=== PATIENT | male | born 1965 | race Caucasian/White ===

== ENCOUNTER 2020-01-29 21:41 | Inpatient (IN) | payer BC, SELFPAY ==
[2020-01-29 21:42] VITALS: PULSE 96; RESP 22; TEMP 37.6; O2SAT 92; BMI 55.2
--- NOTE | 2020-01-29 21:56 | EKG12_ITS ---
Test Reason : CP ADMIT Blood Pressure : / mmHG Vent. Rate : 083 BPM Atrial Rate : 083 BPM P-R Int : 174 ms QRS Dur : 098 ms QT Int : 370 ms P-R-T Axes : 071 032 052 degrees QTc Int : 434 ms Normal sinus rhythm Normal ECG When compared with ECG of 29-JAN-2020 22:30, MANUAL COMPARISON REQUIRED, DATA IS UNCONFIRMED Confirmed by JACOB ABERNATHY, SHERON ([id number]), editorial project manager MIGUE WILL ([id number]) on 02/01/2020 11:02:09 AM Referred By: Meño Tian Confirmed By:SHERON JAMES MD
--- NOTE | 2020-01-29 21:56 | EKG12_ITS ---
Test Reason : REPEAT Blood Pressure : / mmHG Vent. Rate : 096 BPM Atrial Rate : 096 BPM P-R Int : 176 ms QRS Dur : 102 ms QT Int : 376 ms P-R-T Axes : 058 029 078 degrees QTc Int : 475 ms Normal sinus rhythm Cannot rule out Inferior infarct , age undetermined Abnormal ECG Poor R wave progression Confirmed by NATHANAEL ABERNATHY, KIM ([id number]), society editor MIGUE WILL ([id number]) on 02/01/2020 11:16:58 AM Referred By: Meño Tian Confirmed By:KIM HUFFMAN MD
[2020-01-29 21:57] VITALS: O2SAT 91
--- NOTE | 2020-01-29 21:57 | ED.VIS.GEN ---
History of Present Illness Chief Complaint: Chest Pain Informant: Patient, Family Narrative: Patient presents the emergency department for the evaluation of chest pain. Patient has a history of diabetes, hypertension, hypercholesterolemia, and morbid obesity (BMI 55). He is a non-smoker. He states that yesterday he had a chest pressure sensation when he was trying to lay down to sleep and it persisted through the night until he got up and went to work. During the day at work today he did not have any symptoms. Tonight when he tried to lay down he developed chest pressure that radiated up to the back of his neck and notes that he feels very hot and sweaty and some mild dyspnea. Patient states he had a stress test many years ago. No nausea vomiting. Past Medical History - Allergies and Home Meds Allergies/Adverse Reactions: Allergies Penicillins [PCN] Allergy (Verified 01/29/20 21:47) Unknown Prior records reviewed: Yes Smoking Status: Never smoker - Family History Maternal Family History: Reports: Heart Disease - His mother had early heart disease, Stroke, - - His mother had leg infection. His mother at the age of 62. Paternal Family History: Reports: Cancer, - - His father had aortic aneurysm Review of Systems General: Denies: Chills, Fever, Sweats Eyes: Denies: Visual changes - bilaterally, Diplopia ENT: Denies: Rhinorrhea, Sore throat Cardiovascular: Reports: Chest pain. Denies: Palpitations Respiratory: Reports: Dyspnea. Denies: Cough, Dyspnea on exertion Gastrointestinal: Denies: Abdominal pain, Nausea, Vomiting, Diarrhea, Melena, Hematochezia Genitourinary: Denies: Dysuria, Hematuria, Frequency Musculoskeletal: Reports: Neck pain. Denies: Back pain, Extremity Pain Skin: Denies: Rash, Wounds Neurological: Denies: Headache, Weakness, Numbness Physical Exam Vital Signs/Narrative: Vital Signs Temp Pulse Resp Pulse Ox 01/29/20 21:42 99.7 F H 96 22 H 92 Inital Vital Signs reviewed: Yes General: Well nourished, Well developed, Obese, No Acute Distress Head: Normocephalic, Atraumatic Eyes: Perrl, EOMI ENT: Moist mucous membranes, No rhinorrhea Neck: Supple, Nontender Cardiovascular: Regular rate, Regular rhythm, No murmurs Respiratory: No distress, CTA bilaterally, Chest nontender Abdomen: Soft, Nontender, Nondistended, Normal bowel sounds Back: Nontender, Normal Inspection Extremities: Nontender, No edema Skin: Normal color, No rash, Diaphoresis Neurological: Alert, Oriented x3, Cranial nerves II-XII grossly intact, Normal Strength, Normal Sensation Psychological: Normal affect, Normal Mood Diagnostic/Tx/Re-eval Clinical Impression(s) from Imaging Studies Chest X-Ray 01/29/20 22:02 IMPRESSION: Nonspecific opacities within the mid and lower lungs, may be secondary to confluence of shadows however cannot exclude underlying edema and/or an infectious process. Electronically Signed: Ruba Banuelos MD at 22:26 EDT Tel , Service support , Laboratory Last Values WBC 6.9 K/mm3 (4.4-11.0) 01/29/20 21:49 RBC 5.24 M/mm3 (4.6-6.2) 01/29/20 21:49 Hgb 16.3 g/dL (13.0-16.5) 01/29/20 21:49 Hct 48.5 % (40-54) 01/29/20 21:49 MCV 92.6 fL (80-94) 01/29/20 21:49 MCH 31.1 pg (27.0-32.0) 01/29/20 21:49 MCHC 33.6 g/dL (32-36) 01/29/20 21:49 RDW Std Deviation 44.1 fl (35.1-43.9) H 01/29/20 21:49 RDW Coeff of Simeon 13.1 % (11.6-14.6) 01/29/20 21:49 Plt Count 162 K/mm3 (150-450) 01/29/20 21:49 MPV 10.9 fl (6.2-12.0) 01/29/20 21:49 Immature Gran % (Auto) 0.600 % (0.0-0.9) 01/29/20 21:49 Neut % (Auto) 55.8 % (47-70) 01/29/20 21:49 Lymph % (Auto) 31.8 % (19-41) 01/29/20 21:49 [place] % (Auto) 7.7 % (0-10) 01/29/20 21:49 Eos % (Auto) 3.5 % (0-5) 01/29/20 21:49 Baso % (Auto) 0.6 % (0-1) 01/29/20 21:49 Absolute Neuts (auto) 3.9 X10^3/uL (2.0-7.7) 01/29/20 21:49 Absolute Lymphs (auto) 2.19 X10^3/uL (0.83-4.51) 01/29/20 21:49 Nucleated RBC % 0 % (0-5) 01/29/20 21:49 PT 12.9 SECONDS (11.7-14.9) 01/29/20 21:49 INR 1.0 01/29/20 21:49 Sodium 135 mmol/L (136-145) L 01/29/20 21:49 Potassium 3.8 mmol/L (3.5-5.1) 01/29/20 21:49 Chloride 102 mmol/L (98-107) 01/29/20 21:49 Carbon Dioxide 26.0 mmol/L (21.0-32.0) 01/29/20 21:49 Anion Gap 7 (5-15) 01/29/20 21:49 BUN 20 mg/dL (7-18) H 01/29/20 21:49 Creatinine 0.99 mg/dL (0.70-1.30) 01/29/20 21:49 Estim Creat Clear Calc 88.08 ml/min 01/29/20 21:49 Est GFR (MDRD) Af Amer 101 mL/min (>60) 01/29/20 21:49 Est GFR (MDRD) Non-Af 83 mL/min (>60) 01/29/20 21:49 BUN/Creatinine Ratio 20.2 RATIO (10-20) H 01/29/20 21:49 Glucose 422 mg/dL (74-106) H 01/29/20 21:49 Calcium 8.7 mg/dL (8.5-10.1) 01/29/20 21:49 Magnesium 1.9 mg/dL (1.6-2.6) 01/29/20 21:49 Troponin I 0.366 ng/mL (<0.045) H 01/29/20 21:49 - Rhythm Strip Rhythm Strip: Sinus Tach Rate: 101 Ectopy: None - EKG Initial EKG Interpretation: Sinus Tachycardia - Initial EKG (2143 hrs) demonstrates a sinus tachycardia at a rate of 103. There is noted inferior lateral ST depression. This is new from EKG dated 22 February 2015. Follow-up EKG Interpretation: Sinus Rhythm - Repeat EKG following nitro series shows significant improvement in his ST depression in lead III. Now shows normal sinus rhythm at a rate of 96. - Medical Decision Making Symptoms were significantly improved with nitroglycerin sublingual. Repeat EKG is improved as well. The patient's troponin is elevated 0.33. Case was discussed with Dr. Cuevas. He has already received 325 mg of aspirin and we will give him an additional dose of Lovenox and place him on a nitroglycerin drip at 10 mcg/min. Plan would be to anticipate a heart catheterization tomorrow. - Critical Care Time Critical care time (excluding procedures): 30-74 minutes - 32 minutets, Discussing w/Patient &/or Family/Hemotherapist, Discussing w/Consultants, Arranging Admission or Transfer, Performing Direct Patient Care at Bedside ED Disposition - Plan for ED Patient: Disposition: Acute Care Hospital [facility] Diagnosis: Acute coronary syndrome
[2020-01-29] MEDS: Aspirin 81 MG TAB.CHEW 324 MG PO (22:01)
--- NOTE | 2020-01-29 22:02 | RAD_ITS ---
STUDY: X-RAY CHEST REASON FOR EXAM: Male, 54 years old. Chest pain started last night. TECHNIQUE: Single frontal view of the chest. COMPARISON: CT of the abdomen and pelvis dated 02/16/2015 FINDINGS: There are nonspecific hazy opacities within the mid and lower lungs. Normal size heart. Normal mediastinum and kim. Normal visualized pulmonary arteries. Normal visualized aortic arch and descending thoracic aorta. Normal visualized thoracic spine. Normal visualized ribs, clavicles, and shoulders. There is no demonstrated abnormality of the visualized soft tissue structures of the upper abdomen. RAD/Chest 1 View (Portable) IMPRESSION: Nonspecific opacities within the mid and lower lungs, may be secondary to confluence of shadows however cannot exclude underlying edema and/or an infectious process. Electronically Signed: Ruba Banuelos MD at 22:26 EDT Tel , Service support ,
[2020-01-29 22:05] VITALS: BP 164/83; PULSE 97
[2020-01-29] MEDS: Nitroglycerin SL (ED/IMG/CATH) 0.4 MG TABLET SUBLINGUAL ×3 (22:05→22:34)
[2020-01-29 22:06] LABS: Absolute Lymphocyte Count 2.19 X10^3/uL (0.83-4.51); Absolute Neutrophil Count 3.9 X10^3/uL (2.0-7.7); Basophil# 0.04 X10^3/uL; Basophil% 0.6 % (0-1); Eosinophil# 0.24 X10^3/uL; Eosinophils% 3.5 % (0-5); Hematocrit 48.5 % (40-54); Hemoglobin 16.3 g/dL (13.0-16.5); Lymphocyte # 2.19 X10^3/ul (4.0); Lymphocyte % 31.8 % (19-41); Mean Corp Hgb Conc 33.6 g/dL (32-36); Mean Corpuscular Hgb 31.1 pg (27.0-32.0); Mean Corpuscular Volume 92.6 fL (80-94); Mean Platelet Vol. 10.9 fl (6.2-12.0); Monocyte# 0.53 X10^3/uL; Monocyte% 7.7 % (0-10); NRBC Flagged by Analyzer 0 % (0-5); Neutrophil # 3.85 X10^3/uL (2.7-7.7); Neutrophil % 55.8 % (47-70); Platelet Count 162 K/mm3 (150-450); RBC Distribution Width CV 13.1 % (11.6-14.6); RBC Distribution Width SD 44.1 fl (35.1-43.9); Red Blood Count 5.24 M/mm3 (4.6-6.2); White Blood Count 6.9 K/mm3 (4.4-11.0)
[2020-01-29 22:15] VITALS: BP 164/83; PULSE 94
[2020-01-29 22:23] LABS: Anion Gap 7 (5-15); BUN 20 mg/dL (7-18); BUN/Creat Ratio 20.2 RATIO (10-20); Calcium,Total 8.7 mg/dL (8.5-10.1); Chloride 102 mmol/L (98-107); Creatinine, Serum 0.99 mg/dL (0.70-1.30); EST Glomerular Filtration Rate 83 mL/min (>60); Est Glom Filt Rate - Afr Amer 101 mL/min (>60); Estimated Creatinine Clearance 88.08 ml/min; Glucose 422 mg/dL (74-106); Magnesium 1.9 mg/dL (1.6-2.6); Potassium 3.8 mmol/L (3.5-5.1); Sodium Level 135 mmol/L (136-145)
[2020-01-29 22:24] LABS: Prothrombin Time (Protime)PT. 12.9 SECONDS (11.7-14.9)
--- NOTE | 2020-01-29 22:36 | HP.PCM_ITS ---
History of Present Illness The patient is a 54 year old M [] Past Medical History Allergies Penicillins [PCN] Allergy (Verified 01/29/20 21:47) Unknown Home Medications: Ambulatory Orders Medication Instructions Recorded metFORMIN HCl [Glucophage] 1,000 mg PO BID 12/17/14 Empagliflozin [Jardiance] 25 mg PO DAILY 01/29/20 Lisinopril 40 mg PO DAILY 01/29/20 Rosuvastatin Calcium 20 mg PO DAILY 01/29/20 Smoking Status: Never smoker Patient Problems: Active and Suspected Problems Acute coronary syndrome (Acute) - Physical Exam Vitals/I&O's: Vital Signs Temp Pulse Resp BP Pulse Ox 99.7 F H 94 22 H 164/83 H 91 01/29/20 21:42 01/29/20 22:15 01/29/20 21:42 01/29/20 22:15 01/29/20 21:57 Oxygen Delivery Method Room Air Weight: 174.6 kg Body Mass Index (BMI) 55.2 Finger Stick Blood Glucose 131 Laboratory Results 01/29/20 21:49: WBC 6.9, RBC 5.24, Hgb 16.3, Hct 48.5, MCV 92.6, MCH 31.1, MCHC 33.6, RDW Std Deviation 44.1 H, RDW Coeff of Simeon 13.1, Plt Count 162, MPV 10.9, Immature Gran % (Auto) 0.600, Neut % (Auto) 55.8, Lymph % (Auto) 31.8, [place] % (Auto) 7.7, Eos % (Auto) 3.5, Baso % (Auto) 0.6, Absolute Neuts (auto) 3.9, Absolute Lymphs (auto) 2.19, Nucleated RBC % 0 01/29/20 21:49: PT 12.9, INR 1.0, APTT Pending 01/29/20 21:49: Sodium 135 L, Potassium 3.8, Chloride 102, Carbon Dioxide 26.0, Anion Gap 7, BUN 20 H, Creatinine 0.99, Estim Creat Clear Calc 88.08, Est GFR (MDRD) Af Amer 101, Est GFR (MDRD) Non-Af 83, BUN/Creatinine Ratio 20.2 H, Glucose 422 H, Calcium 8.7, Magnesium 1.9, Troponin I 0.366 H Assessment/Plan All Active Problems Acute coronary syndrome (Acute)
[2020-01-29 23:27] LABS: Partial Thromboplast Time 28.4 Seconds (24.1-36.2)
[2020-01-29 23:28] VITALS: BP 125/58; PULSE 82; RESP 20; O2SAT 94
--- NOTE | 2020-01-29 23:30 | HP.PCM_ITS ---
Problem List (1) Non-ST elevation KS (NSTEMI) Status: Acute History of Present Illness Date of Admission: 01/29/20 Chief Complaint: Chest pain The patient is a 54 year old M with a significant history of hypertension; diabetes mellitus; hyperlipidemia; obesity who presents to the emergency department with excruciating substernal chest pain that started one day before presentation. His symptoms has always occurs at night. The night before presentation when patient laid down his symptoms started. The following morning his pain went away. He went to work. When he returned from work ate and lay down his pain returned. He describes his chest pain as pressure. Also he has radiating pain to his neck which he described as aching. His pain also radiates to in-between his shoulder blade and into his left jaw. He had a bee sting to his face which he thinks is causing the pain at his left jaw. His pain is aggravated and ameliorated with positioning. He received nitroglycerin help at emergency department that helped somewhat with his pain. Associated with symptoms is nausea, diaphoresis and mild shortness of breath. Further he has flushed face and neck. At emergency department EKG showed new ST depression in leads I, aVL, V4 to V6; II and III. Troponin was elevated. Emergency department doctor discussed the case with eco industrial development consultant. Past Medical History Past Medical History (Chronic Problems): Chronic Problems (Last Updated 01/29/20 @ 23:[address] Meño Tian MD) Hypertension (Chronic) Medical History: Medical History (Last Updated 01/29/20 @ 23:[address] Meño Tian MD) Hypertension (Chronic) I10 Diabetes mellitus E11.9 Allergies Penicillins [PCN] Allergy (Verified 01/29/20 21:47) Unknown Home Medications: Ambulatory Orders Medication Instructions Recorded metFORMIN HCl [Glucophage] 1,000 mg PO BID 12/17/14 Empagliflozin [Jardiance] 25 mg PO DAILY 01/29/20 Lisinopril 40 mg PO DAILY 01/29/20 Rosuvastatin Calcium 20 mg PO DAILY 01/29/20 Surgical History: cholecystectomy Lives: Spouse/ Significant Other Smoking Status: Never smoker - History of secondhand smoking from parents who smoked. - *Family History Maternal History Items: Heart Disease - His mother had early heart disease, Stroke, - - His mother had leg infection. His mother at the age of 62. Paternal History Items: Cancer, - - His father had aortic aneurysm Review of Systems Constitutional: Denies: Chills, Fever, Weight Change HEENT: Denies: Head Aches, Sinus Congestion, Sinus Drainage Cardiovascular: Reports: Chest Pain, Chest Pressure. Denies: Palpitations Respiratory: Reports: Shortness of Breath. Denies: Cough, Sputum production Gastrointestinal: Reports: Nausea. Denies: Abdominal Pain, Vomiting Genitourinary: Denies: Dysuria Musculoskeletal: Denies: Joint Pain, Joint Tenderness Skin: Denies: Rash, Wounds Neurological: Denies: Numbness, Tingling, Focal weakness Psychiatric: Denies: Anxiety, Depression, Homicidal Ideations, Suicidal Ideations Hematologic/ Lymphatic: Denies: Easy Bruising, Easy Bleeding VTE Information - Inpt Only VTE Present on Admission: No VTE Mechan Device Prophylaxis: None VTE Pharm Prophylaxis ordered?: No Reason prophylaxis not ordered:: Treatment Not Indicated - Received therapeutic dose of Lovenox at emergency department. Patient Problems: Active and Suspected Problems (Last Updated 01/29/20 @ 23:[address] Meño Tian MD) Acute coronary syndrome (Acute) Non-ST elevation KS (NSTEMI) (Acute) - Physical Exam Vitals/I&O's: Vital Signs Temp Pulse Resp BP Pulse Ox 99.7 F H 94 22 H 164/83 H 91 01/29/20 21:42 01/29/20 22:15 01/29/20 21:42 01/29/20 22:15 01/29/20 21:57 Oxygen Delivery Method Room Air Weight: 174.6 kg Body Mass Index (BMI) 55.2 Finger Stick Blood Glucose 131 General: Alert, Oriented x3, Cooperative HEENT: Atraumatic, PERRLA, EOMI, Normocephalic Neck: Supple, No JVD, Negative Carotid Bruits Lungs: Clear to auscultation, Normal air movement, No rhonchi, No wheeze, No rales Cardiovascular: Regular rate, Regular Rhythm, Normal S1, Normal S2, No murmurs Abdomen: Bowel Sounds Present, Soft, Non Tender Extremities: No edema, Capillary Refill Less than 3 Seconds Skin: No rashes, No breakdown Musculoskeletal: No Tenderness to Palpation of Joints or Extremities Neurological: Cranial nerves II-XII grossly intact Psych/Mental Status: Normal Affect, Appropriate Laboratory Results 01/29/20 21:49: WBC 6.9, RBC 5.24, Hgb 16.3, Hct 48.5, MCV 92.6, MCH 31.1, MCHC 33.6, RDW Std Deviation 44.1 H, RDW Coeff of Simeon 13.1, Plt Count 162, MPV 10.9, Immature Gran % (Auto) 0.600, Neut % (Auto) 55.8, Lymph % (Auto) 31.8, [place] % (Auto) 7.7, Eos % (Auto) 3.5, Baso % (Auto) 0.6, Absolute Neuts (auto) 3.9, Absolute Lymphs (auto) 2.19, Nucleated RBC % 0 01/29/20 21:49: PT 12.9, INR 1.0, APTT 28.4 01/29/20 21:49: Sodium 135 L, Potassium 3.8, Chloride 102, Carbon Dioxide 26.0, Anion Gap 7, BUN 20 H, Creatinine 0.99, Estim Creat Clear Calc 88.08, Est GFR (MDRD) Af Amer 101, Est GFR (MDRD) Non-Af 83, BUN/Creatinine Ratio 20.2 H, Glucose 422 H, Calcium 8.7, Magnesium 1.9, Troponin I 0.366 H Assessment/Plan All Active Problems (Last Updated 01/29/20 @ 23:[address] Meño Tian MD) Acute coronary syndrome (Acute) Non-ST elevation KS (NSTEMI) (Acute) The patient is a 54 year old M with a significant history of hypertension; diabetes mellitus; hyperlipidemia; obesity who presents to the emergency department with excruciating substernal chest pain and found to have ST depression in inferior lateral leads and high troponin. Non-ST elevation KS Placed on a stepdown status at progressive care unit Actual CXR image was independently visualized. Chest x-ray showed diffuse opacities. Will get a BNP. Actual EKG tracing was independently visualized. EKG tracing showed ST depression in leads I, aVL, V4 to V6, II and III. Previous EKG on February 22, 2015 showed sinus rhythm with no ST or T wave abnormalities. Received aspirin 324 mg at emergency department. Also received 3 doses of sublingual nitroglycerin. Per conversation with emergency department doctor and eco industrial development consultant patient will be started on nitroglycerin; continued. ASA 81 mg p.o. daily ordered Morphine as needed for pain ordered Statin: Home high intensity statin continued. Check lipid panel. Anticoagulation: Therapeutic dose of Lovenox x1 given at emergency department. Serial cardiac enzymes ordered Stat EKG as needed for chest pain Discussed case with eco industrial development consultant. Patient to be kept n.p.o. after midnight. Diabetes mellitus Patient with hyperglycemia on presentation Patient has been kept n.p.o. after midnight for possible cardiac intervention. Home Jardiance continued. Accu-Chek every 4 hours with correction scale insulin ordered. Hold metformin. Hypertension On presentation blood pressure was elevated. Patient received nitroglycerin sublingual and started on nitroglycerin drip. Lisinopril continued Trend blood pressure and adjust blood pressure medications. Morbid obesity BMI 55.2 Complicates care. Recommend lifestyle modification. DVT prophylaxis Received therapeutic Lovenox at the emergency department. Inpatient E&M: [id number] Init Hosp L3
[2020-01-29 23:55] VITALS: BP 159/62; PULSE 85; RESP 16; TEMP 37.3; O2SAT 94
[2020-01-30] VITALS (39 sets, daily range): BP systolic 110–149; BP diastolic 62–102; PULSE 69–94; RESP 11–22; TEMP 36.3–37; O2SAT 92–98; BMI 54.8; BMI 54.9
--- NOTE | 2020-01-30 00:07 | EKG12_ITS ---
Test Reason : CP Blood Pressure : / mmHG Vent. Rate : 103 BPM Atrial Rate : 103 BPM P-R Int : 178 ms QRS Dur : 110 ms QT Int : 342 ms P-R-T Axes : 064 041 162 degrees QTc Int : 448 ms Sinus tachycardia Marked ST abnormality, possible inferolateral subendocardial injury Poor R wave progression Abnormal ECG Confirmed by NATHANAEL ABERNATHY, KIM ([id number]), copy editor MIGUE WILL ([id number]) on 02/01/2020 11:17:20 AM Referred By: Meño Tian Confirmed By:KIM HUFFMAN MD
[2020-01-30 00:08] LABS: Cholesterol 103 mg/dL (200); High Density Lipoprotein 37 mg/dL; Triglycerides 231 mg/dL; Very Low Density Lipoprotein 46 mg/dL (5-40)
[2020-01-30 00:10] LABS: BNP,B-Type NATRIURETIC PEPTIDE 43.4 pg/mL (0-100)
[2020-01-30] MEDS: Nitroglycerin Infusion 250 ML 6 MG CONT INF ×2 (00:15→00:30)
[2020-01-30 02:16] LABS: Bedside Glucose 281 mg/dL (70-110)
[2020-01-30] MEDS: Lisinopril 40 MG Tablet PO (06:24)
[2020-01-30] MEDS: Aspirin E.C. 81 MG Tablet PO (06:26)
[2020-01-30 06:41] LABS: Bedside Glucose 218 mg/dL (70-110)
--- NOTE | 2020-01-30 07:18 | CON.PCM_ITS ---
Reason for Consult Date of Consultation: 01/30/20 Reason for Consultation: Chest pain History of Present Illness: The patient is a 54 year old M with a history of hypertension and diabetes mellitus obesity and hyperlipidemia who presented to the emergency room yesterday after experiencing chest discomfort described as a heaviness in his chest and radiating to his back and his neck. He was also mildly diaphoretic. He had not had any of this discomfort previously. He presented to the emergency room and was noted to have some EKG changes with ST depression in the inferolateral leads. Cardiology was called for further evaluation and management. His blood pressure was also noted to be markedly elevated and he was started on intravenous nitroglycerin as well as Lovenox. He has done well since then not experiencing any further chest discomfort. [] Past Medical History Allergies/Adverse Reactions: Allergies Penicillins [PCN] Allergy (Verified 01/29/20 21:47) Unknown Home Medications: Ambulatory Orders Medication Instructions Recorded metFORMIN HCl [Glucophage] 1,000 mg PO BID 12/17/14 Empagliflozin [Jardiance] 25 mg PO DAILY 01/29/20 Lisinopril 40 mg PO DAILY 01/29/20 Rosuvastatin Calcium 20 mg PO DAILY 01/29/20 Past Medical History (Chronic Problems): Chronic Problems (Last Updated 01/29/20 @ 23:[address] Meño Tian MD) Hypertension (Chronic) Surgical History: cholecystectomy - *Family History Maternal History Items: Heart Disease - His mother had early heart disease, Stroke, - - His mother had leg infection. His mother at the age of 62. Paternal History Items: Cancer, - - His father had aortic aneurysm Lives: Spouse/ Significant Other Smoking Status: Never smoker Alcohol: None Drugs: None Review of Systems - Review of Systems General: Denies: Fever, Night Sweats, Fatigue HEENT: Denies: Vision Change Cardiovascular: Reports: Chest Discomfort, Chest Discomfort at Rest. Denies: Shortness of Breath, Orthopnea, PND, Peripheral Edema, Palpitations, Lightheadedness, Dizziness, Near Syncope, Syncope Respiratory: Denies: Cough, Sputum Production, Hemoptysis Gastrointestinal: Denies: Hematemesis, Hematochezia, Melena Genitourinary: Denies: Dysuria, Hematuria Skin: Denies: Rash Neurological: Denies: Dizziness Psychiatric: Denies: Anxiety Endocrine: Reports: Excessive Sweating Hematologic/ Lymphatic: Denies: Anemia Subjectve: Pleasant gentleman in no distress at this time Objective: Vital Signs Temp Pulse Resp BP Pulse Ox 98.1 F 85 15 131/62 H 93 01/30/20 06:30 01/30/20 07:00 01/30/20 07:00 01/30/20 07:00 01/30/20 07:00 Oxygen Flow Rate (L/min) 2 Oxygen Delivery Method Nasal Cannula Weight: 382 lb 8.032 oz Body Mass Index (BMI) 54.8 Finger Stick Blood Glucose 131 Intake and Output for Last 24 Hours 01/28/20 01/29/20 01/30/20 23:59 23:59 23:59 Intake Total 54.1 / 54.1 Balance 54.1 / 54.1 General: Awake, Alert, Oriented x 3 HEENT: PERRL, EOMI, Sclera Non Icteric Neck: Supple, Good ROM, No Lymph Node Enlargement Lungs: Clear to auscultation Cardiovascular: Regular Rhythm, Normal S1, Normal S2, No Murmurs, No Rubs, No Gallops Vascular: No Carotid Bruits, Normal Femoral Pulses, Normal Radial Pulses, Normal Dorsalis Pedal Pulse, Normal Posterior Tibial Pulses Abdomen: Bowel Sounds Present, Soft, Non Tender, No HSM, No Organomegaly Extremities: No Cyanosis, No Clubbing, No edema Musculoskeletal: No Erythema Skin: No Rashes Lymphatic: No Lymph Node Enlargement Neurological: No Focal Motor or Sensory Deficit 01/29/20 21:49: WBC 6.9, RBC 5.24, Hgb 16.3, Hct 48.5, MCV 92.6, MCH 31.1, MCHC 33.6, Plt Count 162, MPV 10.9, Immature Gran % (Auto) 0.600, Neut % (Auto) 55.8, Lymph % (Auto) 31.8, [place] % (Auto) 7.7, Eos % (Auto) 3.5, Baso % (Auto) 0.6, Absolute Neuts (auto) 3.9, Nucleated RBC % 0 01/29/20 21:49: PT 12.9, INR 1.0, APTT 28.4 01/29/20 21:49: Sodium 135 L, Potassium 3.8, Chloride 102, Carbon Dioxide 26.0, Anion Gap 7, BUN 20 H, Creatinine 0.99, Est GFR (MDRD) Af Amer 101, Est GFR (MDRD) Non-Af 83, BUN/Creatinine Ratio 20.2 H, Glucose 422 H, Calcium 8.7, Magnesium 1.9, Troponin I 0.366 H 01/29/20 21:49: B-Natriuretic Peptide 43.4 01/29/20 21:49: Triglycerides 231 H, Cholesterol 103, LDL Cholesterol 20, VLDL Cholesterol 46 H, HDL Cholesterol 37 L 01/30/20 00:34: Troponin I 1.440 H* 01/30/20 03:54: Troponin I 3.390 H* Rhythm: EKG: Normal sinus rhythm with ST depression noted in leads II, III and aVF on admission EKG ECHO: Stress Test: Cardiac Cath: PCI: CT Surgery: Holter monitor: EPS: PPM: CXR: Chest CT Scan: Assessment/Plan 1. Non-ST elevation myocardial infarction * Patient presents with non-ST elevation myocardial infarction with EKG changes with hypertensive urgency. He is currently pain-free his blood pressure has normalized but he has ruled in for the above. My recommendation will be as follows * Aspirin * Beta-lamar * High intensity statin * Urgent cardiac catheterization this morning. Depending on the findings further recommendations will be made. * 2. Hypertension * His blood pressure appears to be under better control at this time. * Will continue with the SCOTT inhibitor * Will add beta-lamar * 3. Hyperlipidemia * Will continue high intensity statin * 4. Obesity * Advised patient on risk factor modification. * * Thank you for allowing me to participate in the care of your patient. Please don't hesitate to call if any issues arise. * Addendum: Cardiac catheterization today demonstrated the following: Normal left main coronary artery. Left anterior descending artery with mild calcification and proximal 95% stenosis noted. Left circumflex artery with mild to moderate disease. Right coronary artery dominant with mild diffuse disease. Preserved ejection fraction. Based on the above angiographic findings the patient will be referred for urgent PCI.
--- NOTE | 2020-01-30 07:48 | CASEMGMT ---
According to the [place] website, the following are in-network tertiary facilities: [facility], [place], [facility], [facility], [facility], [facility], [employer], and . Jose RAMIREZ CM
--- NOTE | 2020-01-30 08:41 | CL.D_ITS ---
Patient Name: DORIAN DENIS Study Date: 01/30/2020 Performing: Nathan Cuevas MD Ht: 70.07 inches 178 cm : 1965 Wt: 383.6 lbs 174 kg Age: 54 Gender: male BSA: 2.76 PROCEDURE(S) PERFORMED AC12-TRA/COR/LV CLINICAL PROFILE AND INDICATIONS Indications: Suspected CAD Heart Failure: None CONCLUSIONS Severe single-vessel disease with high-grade proximal LAD 95% stenosis. Mild disease noted in the mi d LAD RECOMMENDATIONS Referred for immediate PCI DESCRIPTION OF PROCEDURE The patient arrived to the procedure lab. The risks and benefits of the procedure as well as a full d escription of our services here and current unavailability of surgical backup were fully explained to the patient and/or their significant other prior to the catheterization. The Timeout was completed, verifying the correct patient and procedure. The patient's procedural site was prepped and draped in the usual fashion. Local anesthetic was given subcutaneously to right radial region with Lidocaine 2% . Using a modified Seldinger technique, arterial access was obtained via the right radial artery, a 6 Fr sheath was inserted. Left Coronary Artery selective angiography was performed in multiple views u sing a 5 Fr. 4.0 He[place]ord catheter. Right Coronary Artery selective angiography was then performed in mu ltiple views using a 5 Fr. 4.0 [place] catheter. Left Ventriculography was performed in WATSON projection using a 5 Fr. Pigtail catheter. LV to AO pullback pressures were then recorded. CORONARY ANGIOGRAPHY DOMINANCE: Right Dominant LEFT HEART ASSESSMENT Left Ventricular Ejection Fraction: by LV Gram 55 % Anterior Hypokinesis - Mild Normal Left Ventricular systolic function LEFT MAIN: Mild calcification LEFT ANTERIOR DESCENDING ARTERY: OSTIAL LAD: 95 % Stenosis DIAGONAL 1: Proximal - Moderate luminal irregularities up to 50% CIRCUMFLEX ARTERY: Mild calcification, Mild luminal irregularities less than 30% RIGHT CORONARY ARTERY: Mild luminal irregularities less than 30% COMPLICATIONS PROCEDURE MEDICATIONS Fentanyl 50 mcg IV Versed 1 mg IV Versed 1 mg IV Oxygen: 2 L/min via nasal cannula Heparin diluted in 23cc Heparinized saline. Patient given 10cc IA of this solution. 01/30/2020 08:10:0 2 Nitro glycerin 25mg / 250ml D5W @ 10 mcg/min IV continued from unit 01/30/2020 08:09:20 Verapamil 2.5mg, Ntg 100mcgs, 2000 units of Heparin diluted in 23cc Heparinized saline. Patient give n 10cc IA of this solution. 01/30/2020 08:10:02 SUMMARY OF HEMODYNAMIC DATA Time AIR REST ECG 08:05:31 AO 128/79 (98) SA 08:11:40 LV 146/2, 8 08:21:29 LV 136/3, 9 08:21:35 LV 152/13, 19 08:22:21 LVp 146/10, 16 08:22:26 AOp 156/75 (109) 08:22:31 Signed By Nathan Cuevas MD On 01/30/2020 08:40:09 Nathan Cuevas MD
--- NOTE | 2020-01-30 10:15 | EKG12_ITS ---
Test Reason : POST-PCI Blood Pressure : / mmHG Vent. Rate : 085 BPM Atrial Rate : 085 BPM P-R Int : 170 ms QRS Dur : 094 ms QT Int : 382 ms P-R-T Axes : 072 020 078 degrees QTc Int : 454 ms Normal sinus rhythm Poor R wave progression Confirmed by NATHANAEL ABERNATHY, KIM ([id number]), film and video editor MIGUE WILL ([id number]) on 02/01/2020 11:49:47 AM Referred By: Meño Tian Confirmed By:KIM HUFFMAN MD
--- NOTE | 2020-01-30 10:28 | PCM.PROGNOTE ---
<Kelley Rios - Last Filed: 01/30/20 10:54> Patient Problems: Active and Suspected Problems (Last Updated 01/29/20 @ 23:[address] Meño Tian MD) Acute coronary syndrome (Acute) Non-ST elevation KS (NSTEMI) (Acute) Subjective: Patient seen and examined. Underwent cardiac cath this morning which showed severe single-vessel disease with high-grade proximal LAD 95% stenosis. Underwent immediate PCI. Patient denies chest pain or other associated symptoms. - Physical Exam Vitals/I&O's: Vital Signs Temp Pulse Resp BP Pulse Ox 98.1 F 86 18 125/71 H 92 01/30/20 06:30 01/30/20 10:24 01/30/20 10:24 01/30/20 10:24 01/30/20 10:24 Oxygen Flow Rate (L/min) 2 Oxygen Delivery Method Room Air Weight: 382 lb 8.032 oz Body Mass Index (BMI) 54.8 Finger Stick Blood Glucose 131 Intake and Output for Last 24 Hours 01/28/20 01/29/20 01/30/20 23:59 23:59 23:59 Intake Total 72.1 / 72.1 Balance 72.1 / 72.1 General: Alert, Oriented x3, Cooperative HEENT: Atraumatic, PERRLA, EOMI, Normocephalic Neck: Supple, No JVD, Negative Carotid Bruits Lungs: Clear to auscultation, Normal air movement Cardiovascular: Regular rate, No murmurs Abdomen: Bowel Sounds Present, Soft, Non Tender, Non-Distended, Obese Extremities: No clubbing, No cyanosis, No edema, Capillary Refill Less than 3 Seconds Skin: No rashes, No breakdown Musculoskeletal: No Tenderness to Palpation of Joints or Extremities Neurological: Cranial nerves II-XII grossly intact, Neuro grossly intact Psych/Mental Status: Normal Affect, Appropriate Laboratory Results 01/29/20 21:49: WBC 6.9, RBC 5.24, Hgb 16.3, Hct 48.5, MCV 92.6, MCH 31.1, MCHC 33.6, RDW Std Deviation 44.1 H, RDW Coeff of Smieon 13.1, Plt Count 162, MPV 10.9, Immature Gran % (Auto) 0.600, Neut % (Auto) 55.8, Lymph % (Auto) 31.8, [place] % (Auto) 7.7, Eos % (Auto) 3.5, Baso % (Auto) 0.6, Absolute Neuts (auto) 3.9, Absolute Lymphs (auto) 2.19, Nucleated RBC % 0 01/29/20 21:49: PT 12.9, INR 1.0, APTT 28.4 01/29/20 21:49: Sodium 135 L, Potassium 3.8, Chloride 102, Carbon Dioxide 26.0, Anion Gap 7, BUN 20 H, Creatinine 0.99, Estim Creat Clear Calc 88.08, Est GFR (MDRD) Af Amer 101, Est GFR (MDRD) Non-Af 83, BUN/Creatinine Ratio 20.2 H, Glucose 422 H, Calcium 8.7, Magnesium 1.9, Troponin I 0.366 H 01/29/20 21:49: B-Natriuretic Peptide 43.4 01/29/20 21:49: Triglycerides 231 H, Cholesterol 103, LDL Cholesterol 20, VLDL Cholesterol 46 H, HDL Cholesterol 37 L 01/30/20 00:34: Troponin I 1.440 H* 01/30/20 02:09: POC Glucose 281 H 01/30/20 03:54: Troponin I 3.390 H* 01/30/20 06:24: POC Glucose 218 H Current Medications Acetaminophen (Tylenol) 650 mg PO Q6H PRN PRN PRN Reason: Pain Score 1-10/Temp > 100.7 F Aspirin (Ecotrin) 81 mg PO DAILY@0800 [facility] Last Admin: 01/30/20 06:26 Dose: 81 mg Documented by: Atorvastatin Calcium (Lipitor) 40 mg PO QHS [facility] Atropine Sulfate () 0.5 mg IV UD PRN PRN Reason: HR <50 bpm Dextrose (D50w Syringe) 0 gm IV X1 PRN; Protocol PRN Reason: Hypoglycemia Empagliflozin (Jardiance) 25 mg PO DAILY [facility] Glucagon () 1 mg IM .X1 PRN PRN Reason: Hypoglycemia Heparin Sodium (Beef Lung) (Heparin 500 Unit/5 Ml (100/Ml)) 500 unit IV UD PRN PRN Reason: HEPARIN FLUSH Nitroglycerin/Dextrose () 250 mls @ 6 mls/hr CONT INF .[id number] [facility] Last Infusion: 01/30/20 10:00 Dose: 15 mcg/min, 9 mls/hr Documented by: Sodium Chloride () 1,000 mls @ 15 mls/hr IV .Q48H [facility] Sodium Chloride () 1,000 mls @ 60 mls/hr IV .[id number] [facility] Insulin Human Lispro (Humalog Kwikpen (Bkc)) 0 unit SC ACHS RICARDO; Protocol Labetalol HCl (Trandate) 5 mg IV X1 PRN PRN Reason: SBP > 160 when pulling sheath Stop: 02/01/20 10:02 Lisinopril (Zestril) 40 mg PO DAILY [facility] Last Admin: 01/30/20 06:24 Dose: 40 mg Documented by: Metoprolol Tartrate (Lopressor (Beta Toro)) 25 mg PO BID [facility] Morphine Sulfate () 2 mg IV Q3H PRN PRN PRN Reason: Pain Score 6-10/10 Ondansetron HCl (Zofran) 4 mg IV Q8H PRN PRN PRN Reason: NAUSEA/VOMITING Sodium Chloride () 10 - 40 ml IV UD PRN PRN Reason: SALINE FLUSH Sodium Chloride () 500 ml IV BOLUS PRN PRN Reason: VASO-VAGAL PROTOCOL Ticagrelor (Brilinta) 90 mg PO BID [facility] Medical Necessity - Tobacco Use Smoking Status: Never smoker Assessment/Plan All Active Problems (Last Updated 01/29/20 @ 23:[address] Meño Tian MD) Acute coronary syndrome (Acute) Non-ST elevation KS (NSTEMI) (Acute) 1. NSTEMI/CAD- Cath demonstrated severe single-vessel disease with high-grade proximal LAD 95% stenosis s/p PCI. Continue aspirin, Brilinta, statin, metoprolol, lisinopril. 2. Hypertension-stable, continue lisinopril, metoprolol. 3. Hyperlipidemia-continue statin. 4. Obesity-encouraged to diet and lifestyle modifications. 5. Type 2 diabetes mellitus-metformin/Jardiance on hold. Accu-Cheks with sliding scale insulin. Hemoglobin A1c pending. DVT prophylaxis-Lovenox subcu This patient was seen by KAYLENE Shankar under the supervision of Dr. Montoya. <Safia Montoya E - Last Filed: 01/30/20 11:04> - Physical Exam Vitals/I&O's: Vital Signs Temp Pulse Resp BP Pulse Ox 98.1 F 90 17 134/79 H 93 01/30/20 06:30 01/30/20 10:45 01/30/20 10:45 01/30/20 10:45 01/30/20 10:45 Oxygen Flow Rate (L/min) 2 Oxygen Delivery Method Room Air Weight: 382 lb 8.032 oz Body Mass Index (BMI) 54.8 Finger Stick Blood Glucose 131 Intake and Output for Last 24 Hours 01/28/20 01/29/20 01/30/20 23:59 23:59 23:59 Intake Total 72.1 / 72.1 Balance 72.1 / 72.1 Laboratory Results 01/29/20 21:49: WBC 6.9, RBC 5.24, Hgb 16.3, Hct 48.5, MCV 92.6, MCH 31.1, MCHC 33.6, RDW Std Deviation 44.1 H, RDW Coeff of Simeon 13.1, Plt Count 162, MPV 10.9, Immature Gran % (Auto) 0.600, Neut % (Auto) 55.8, Lymph % (Auto) 31.8, [place] % (Auto) 7.7, Eos % (Auto) 3.5, Baso % (Auto) 0.6, Absolute Neuts (auto) 3.9, Absolute Lymphs (auto) 2.19, Nucleated RBC % 0 01/29/20 21:49: PT 12.9, INR 1.0, APTT 28.4 01/29/20 21:49: Sodium 135 L, Potassium 3.8, Chloride 102, Carbon Dioxide 26.0, Anion Gap 7, BUN 20 H, Creatinine 0.99, Estim Creat Clear Calc 88.08, Est GFR (MDRD) Af Amer 101, Est GFR (MDRD) Non-Af 83, BUN/Creatinine Ratio 20.2 H, Glucose 422 H, Calcium 8.7, Magnesium 1.9, Troponin I 0.366 H 01/29/20 21:49: B-Natriuretic Peptide 43.4 01/29/20 21:49: Triglycerides 231 H, Cholesterol 103, LDL Cholesterol 20, VLDL Cholesterol 46 H, HDL Cholesterol 37 L 01/30/20 00:34: Troponin I 1.440 H* 01/30/20 02:09: POC Glucose 281 H 01/30/20 03:52: Hemoglobin A1c 9.0 H 01/30/20 03:54: Troponin I 3.390 H* 01/30/20 06:24: POC Glucose 218 H Current Medications Acetaminophen (Tylenol) 650 mg PO Q6H PRN PRN PRN Reason: Pain Score 1-10/Temp > 100.7 F Aspirin (Ecotrin) 81 mg PO DAILY@0800 [facility] Last Admin: 01/30/20 06:26 Dose: 81 mg Documented by: Atorvastatin Calcium (Lipitor) 40 mg PO QHS [facility] Atropine Sulfate () 0.5 mg IV UD PRN PRN Reason: HR <50 bpm Dextrose (D50w Syringe) 0 gm IV X1 PRN; Protocol PRN Reason: Hypoglycemia Empagliflozin (Jardiance) 25 mg PO DAILY [facility] Glucagon () 1 mg IM .X1 PRN PRN Reason: Hypoglycemia Heparin Sodium (Beef Lung) (Heparin 500 Unit/5 Ml (100/Ml)) 500 unit IV UD PRN PRN Reason: HEPARIN FLUSH Nitroglycerin/Dextrose () 250 mls @ 6 mls/hr CONT INF .[id number] [facility] Last Infusion: 01/30/20 10:00 Dose: 15 mcg/min, 9 mls/hr Documented by: Sodium Chloride () 1,000 mls @ 15 mls/hr IV .Q48H [facility] Last Admin: 01/30/20 10:56 Dose: Not Given Documented by: Sodium Chloride () 1,000 mls @ 60 mls/hr IV .[id number] [facility] Stop: 01/30/20 16:44 Last Admin: 01/30/20 10:40 Dose: 60 mls/hr Documented by: Insulin Human Lispro (Humalog Kwikpen (Bkc)) 0 unit SC ACHS [facility]; Protocol Labetalol HCl (Trandate) 5 mg IV X1 PRN PRN Reason: SBP > 160 when pulling sheath Stop: 02/01/20 10:02 Lisinopril (Zestril) 40 mg PO DAILY [facility] Last Admin: 01/30/20 06:24 Dose: 40 mg Documented by: Metoprolol Tartrate (Lopressor (Beta Toro)) 25 mg PO BID [facility] Morphine Sulfate () 2 mg IV Q3H PRN PRN PRN Reason: Pain Score 6-10/10 Ondansetron HCl (Zofran) 4 mg IV Q8H PRN PRN PRN Reason: NAUSEA/VOMITING Sodium Chloride () 10 - 40 ml IV UD PRN PRN Reason: SALINE FLUSH Sodium Chloride () 500 ml IV BOLUS PRN PRN Reason: VASO-VAGAL PROTOCOL Ticagrelor (Brilinta) 90 mg PO BID [facility] Assessment/Plan Hospitalist note: I am seeing this patient in conjunction with Kelley Rios. I independently seen and examined the patient. Progress note above, laboratory data and imaging studies reviewed and I concur with above treatment plan. Patient underwent cardiac catheterization today, found to have severe single-vessel disease of the proximal LAD with 95% stenosis, status post stent. Currently, patient denied any more chest pain. Denied shortness of breath, dizziness or lightheadedness. His vital signs are stable. - Physical Exam General: Alert, Oriented x3, Cooperative, No apparent distress. HEENT: Atraumatic, PERRLA, EOMI. Neck: Supple, No JVD, Negative Carotid Bruits, Trachea Midline, Thyroid Normal. Lungs: Clear to auscultation, Normal air movement, No rhonchi, No wheeze, No rales. Cardiovascular: Regular rate, Regular Rhythm, Normal S1, Normal S2, PMI Normal. Abdomen: Bowel Sounds Present, Soft, Non Tender, Non-Distended, No Hepato-splenomegaly, obese. Extremities: No clubbing, No cyanosis, No edema Skin: No rashes, No breakdown Neurological: Cranial nerves are intact, neuro grossly intact Vital Signs stable. Assessment and plan: #1 acute non-ST relation KS: Status post cardiac catheterization, found to have 95% stenosis of the proximal LAD, status post stenting. Currently, patient is on aspirin, Brilinta, statins, lisinopril and metoprolol. Chest pain-free at this time. Routine blood work was unremarkable. Troponin is elevated at 3.39. Lipid profile reviewed. Cardiology on the case. Plan to continue same treatment, possible DC home tomorrow morning. #2 type 2 diabetes mellitus: Uncontrolled. Hemoglobin A1c is 9%. Blood glucose has been in the range of 200s. He is on sliding scale and Jardiance. Metformin held. Plan to monitor. #3 other chronic medical problems: Stable, continue current medications as above. This note was generated with Dragon dictation software. It may contain incorrect words, spelling, and punctuation that were not noted in checking the note before signing. Inpatient E&M: 04019 Subs Hosp L2
[2020-01-30] MEDS: 0.9% Normal Saline 1,000 ML 60 ML IV (10:40)
[2020-01-30] MEDS: Metoprolol Tartrate 25 MG Tablet PO (11:00)
[2020-01-30] MEDS: Empagliflozin 25 MG Tablet PO (11:01)
[2020-01-30] MEDS: Insulin Lispro 100 UNIT/ML INSULN.PEN SC ×3 (11:16→22:22)
[2020-01-30 11:36] LABS: Bedside Glucose 261 mg/dL (70-110)
--- NOTE | 2020-01-30 13:25 | CASEMGMT ---
RN CM Face to Face with patient for initial transition planning/care coordination assessment. RN CM introduced self and role at [facility]. Patient lying in bed, alert and oriented. Patient willing to participate in assessment and is able to answer all questions appropriately. Care providers, pharmacy, and demographics verified. Patient wishes to discharge home, denies need for home health at this time. Patient states he has no further needs or concerns at this time. CM to follow for discharge planning needs that may arise. PCP: Izabel Specialists: none Preferred [facility]acy: [facility] Insurance: [place] Prescription Benefit: yes, Brilinta savings card given to patient Living Will/HPOA: yes, son Jay Hall HPOA LNOK: , son Living Arrangements: Patient lives with in a split level home. Patient is independent at home and able to ambulate stairs. Transportation: self, DME/HHC: Patient has cpap or bipap at home. Patient denies futher DME or previous HHC Disposition Plan: Patient to discharge home with family support and follow-up plans in place. Radha MEJÍA, RN, CM
--- NOTE | 2020-01-30 14:31 | CRPHASE1_ITS ---
Patient Communication PHII Cardiac Rehab Discussed with Patient:: Yes Guide to Cardiac Rehab Given to Patient:: Yes Cardiac Rehab Facility Choice List Given to Patient:: Yes Choice Program [facility] CR PHII:: Communication Given to CR Choice Program Other:: Communication Given to CR Bulk Intake Worker:: Elia Ralph Phase II Cardiac Rehab:: Yes Sessions:: 36 sessions - 3 days/wk, 12 weeks Risk Factors/Lifestyle Smoking Status: Never smoker Hx Hypertension: Yes Hx Diabetes Mellitus Type 1: No Hx Diabetes Mellitus Type 2: Yes Hx Dyslipidemia: Yes Hx Obesity: Yes Stress: Long-standing ETOH: No Caffeine: No Substance Abuse: No Laboratory Values: Cardiac Rehab Phase I Labs Hemoglobin A1c 9.0 % (3.8-5.6) H 01/30/20 03:52 Triglycerides 231 mg/dL (-199) H 01/29/20 21:49 Cholesterol 103 mg/dL (200) 01/29/20 21:49 LDL Cholesterol 20 mg/dL (0-130) 01/29/20 21:49 HDL Cholesterol 37 mg/dL (40-) L 01/29/20 21:49 Cardiac Rehabilitation Info Cardiac Rehabilitation Program Information: Cardiac Rehabilitation is important for patients like you who are recovering from a heart problem. Cardiac rehabilitation programs are recognized as integral to the continued care of the patient with coronary heart disease. The cardiac rehabilitation program is designed to optimize a patient's physical, psychological, and social functioning. Health manager critical care work in cardiac rehabilitation programs and assist you with getting the treatments you need to get stronger and healthier - like exercise, healthy eating habits, and medications. Cardiac rehabilitation has been show to help people with heart problems live longer and have better life enjoyment than people who do not go to cardiac rehabilitation. Please contact the Cardiac Rehabilitation Program at [facility] at in two weeks if you have not heard from them.
--- NOTE | 2020-01-30 14:32 | CRPH1.INSTRU ---
General Education CAD and cardiac anatomy and function:: Patient communicates acknowledgment Explanation of diagnoses and procedures:: Patient communicates acknowledgment Sign/Symptoms of SC:: Patient communicates acknowledgment Antiplatelet therapy: Patient communicates acknowledgment Smoking Patient Nicotine/Smoking Risk Factors Are:: Never smoked Dyslipidemia Patient Dyslipidemia Risk Factors Are:: Total Cholesterol, Triglycerides, HDL, LDL Recommendations Include:: Lipid profile provided, Reviewed NCEP/ATP guidelines, Therapeutic Lifestyle Change dietary guidelines Dyslipidemia Response Code:: Patient communicates acknowledgment Overweight/Obesity Patient Overweight/Obesity Risk Factors Are:: Obesity - > or = 30 Recommendations Include:: Weight loss of 5-10%, Reduced calorie diet, Exercise 5-7 times/week Overweight/Obesity:: Patient communicates acknowledgment Hypertension Recommendations Include:: BP <130/80 if diabetic, DASH dietary guidelines, Decrease/maintain normal body weight, Moderation of ETOH Hypertension:: Patient communicates acknowledgment Diabetes Patient Diabetes Risk Factors Are:: Elevated blood sugars Recommendations Include:: Maintain fasting blood sugars 70-110 md/dL, Maintain HgbA1c of 6% or less, Monitor blood sugar as prescribed, Diabetic dietary guidelines, Decrease/maintain body weight Diabetes:: Patient communicates acknowledgment Sedentary Patient Sedentary Risk Factors Are:: Lack of regular exercise Recommendations Include:: Aerobic exercise 5-7 times/week for 20-30 minutes continuously, Benefits of regular exercise, Discussed home walking program, Monitored Outpatient Cardiac Rehab Sedentary Response Code:: Patient communicates acknowledgment Stress Recommendations Include:: Identification of stressors, and assessment of coping skills, Stress management techniques Stress Response Code:: Patient communicates acknowledgment
[2020-01-30 18:46] LABS: Bedside Glucose 219 mg/dL (70-110)
[2020-01-30] MEDS: Atorvastatin Calcium 40 MG Tablet PO (22:22)
[2020-01-30] MEDS: TICAGRELOR 90 MG TABLET PO (22:22)
[2020-01-30 22:56] LABS: Bedside Glucose 225 mg/dL (70-110)
[2020-01-31 01:18] VITALS: PULSE 78; RESP 16; O2SAT 96
[2020-01-31 02:59] VITALS: PULSE 69
[2020-01-31 03:50] VITALS: BP 131/69; PULSE 65; RESP 18; TEMP 36.7; O2SAT 96
[2020-01-31] MEDS: Insulin Lispro 100 UNIT/ML INSULN.PEN SC (06:38)
[2020-01-31 06:45] LABS: Bedside Glucose 166 mg/dL (70-110)
[2020-01-31 06:51] LABS: Hematocrit 47.3 % (40-54); Hemoglobin 15.7 g/dL (13.0-16.5); Mean Corp Hgb Conc 33.2 g/dL (32-36); Mean Corpuscular Hgb 30.8 pg (27.0-32.0); Mean Corpuscular Volume 92.9 fL (80-94); Mean Platelet Vol. 10.7 fl (6.2-12.0); Platelet Count 145 K/mm3 (150-450); RBC Distribution Width CV 13.2 % (11.6-14.6); Red Blood Count 5.09 M/mm3 (4.6-6.2); White Blood Count 7.6 K/mm3 (4.4-11.0)
[2020-01-31 07:00] VITALS: PULSE 62
[2020-01-31 07:33] LABS: AST(SGOT) 45 U/L (15-37); Alanine Aminotransfer ALT/SGPT 58 U/L (16-61); Albumin, Serum 3.4 g/dL (3.2-5.0); Alkaline Phosphatase 69 U/L (45-117); Anion Gap 7 (5-15); BUN 18 mg/dL (7-18); BUN/Creat Ratio 27.3 RATIO (10-20); Calcium,Total 8.5 mg/dL (8.5-10.1); Chloride 105 mmol/L (98-107); Creatinine, Serum 0.66 mg/dL (0.70-1.30); EST Glomerular Filtration Rate 134 mL/min (>60); Est Glom Filt Rate - Afr Amer 162 mL/min (>60); Estimated Creatinine Clearance 132.11 ml/min; Globulin 3.4 g/dL (2.2-4.2); Glucose 176 mg/dL (74-106); Potassium 3.9 mmol/L (3.5-5.1); Protein, Total 6.8 g/dL (6.4-8.2); Sodium Level 138 mmol/L (136-145)
--- NOTE | 2020-01-31 07:57 | DCINST_ITS ---
- Discharge Diagnoses Current Active Problems: Current Active and Chronic Problems (Last Updated 01/29/20 @ 23:[address] Meño Tian MD) Acute coronary syndrome (Acute) Non-ST elevation IA (NSTEMI) (Acute) Hypertension (Chronic) You will use the following diet at home:: Calorie/Carbohydrate Controlled (specify 1200, 1400, etc) - 1800 colin., Cardiac Your food should be the consistency of: Regular Discharge Activity: Return to Normal Activity Return to work on:: 02/05/20 Weight Bearing Status: Full weight bearing Call your doctor if you observe: Fever of 101 or Higher, Shortness of breath, Dizziness, Fainting spells, Chest pain, Increased palpitations (irregular heartbeat), Uncontrolled pain Instructions: Using a Blood Sugar Log, How to Check Your Blood Sugar, Coronary Stents, Heart Attack Allergies/Adverse Reactions: Allergies Penicillins [PCN] Allergy (Verified 01/29/20 21:47) Unknown Medications to take at Discharge metFORMIN HCl [Glucophage] 1,000 mg PO BID 12/17/14 Empagliflozin [Jardiance] 25 mg PO DAILY 01/29/20 Lisinopril 40 mg PO DAILY 01/29/20 Rosuvastatin Calcium 20 mg PO DAILY 01/29/20 Aspirin E.C. [Ecotrin] 81 mg PO DAILY@0800 #90 tab 01/31/20 Ticagrelor [Brilinta] 90 mg PO BID #90 tab 01/31/20 The following prescriptions were given: Ticagrelor [Brilinta] 90 mg PO BID #90 tab Transmission Status: Pending to [facility]/pharmacy #[id number] Aspirin E.C. [Ecotrin] 81 mg PO DAILY@0800 #90 tab Transmission Status: Pending to [facility]/pharmacy #[id number] Primary Care Physician: Lani Paiz DO [Primary Care Provider] - Please follow up with your Primary Care Physician in: 1-2 weeks. Test Results: Test results from this visit will be discussed in further detail at your follow- up appointment, if applicable. Please Follow Up With: Nathan Cuevas MD When: 4 weeks.
--- NOTE | 2020-01-31 08:10 | PN.CARD_ITS ---
Subjectve: Patient seen and evaluated. Objective: Vital Signs Temp Pulse Resp BP Pulse Ox 98.0 F 62 18 131/69 H 96 01/31/20 03:50 01/31/20 07:00 01/31/20 03:50 01/31/20 03:50 01/31/20 03:50 Oxygen Flow Rate (L/min) 2 Oxygen Delivery Method Room Air Weight: 382 lb 8.032 oz Body Mass Index (BMI) 54.8 Finger Stick Blood Glucose 131 Intake and Output for Last 24 Hours 01/29/20 01/30/20 01/31/20 23:59 23:59 23:59 Intake Total 915.60 / 915.60 240 / 240 Balance 915.60 / 915.60 240 / 240 General: Awake, Alert, Oriented x 3 HEENT: PERRL, EOMI, Sclera Non Icteric Neck: Supple, Good ROM, No Lymph Node Enlargement Lungs: Clear to auscultation Cardiovascular: Regular Rhythm, Normal S1, Normal S2, No Murmurs, No Rubs, No Gallops 01/30/20 03:52: Hemoglobin A1c 9.0 H 01/31/20 06:00: WBC 7.6, RBC 5.09, Hgb 15.7, Hct 47.3, MCV 92.9, MCH 30.8, MCHC 33.2, Plt Count 145 L, MPV 10.7 01/31/20 06:00: Sodium 138, Potassium 3.9, Chloride 105, Carbon Dioxide 26.0, Anion Gap 7, BUN 18, Creatinine 0.66 L, Est GFR (MDRD) Af Amer 162, Est GFR (MDRD) Non-Af 134, BUN/Creatinine Ratio 27.3 H, Glucose 176 H, Calcium 8.5, Total Bilirubin 1.10 H Rhythm: EKG: ECHO: Stress Test: Cardiac Cath: PCI: CT Surgery: Holter monitor: EPS: PPM: CXR: Chest CT Scan: Medical Necessity - Tobacco Use Smoking Status: Never smoker Assessment/Plan 1. Non-ST elevation myocardial infarction * Patient underwent cardiac catheterization demonstrating high-grade proximal LAD disease which he had stented yesterday. This morning he is doing well. He can be discharged and followed up as an outpatient. 2. Hypertension * His blood pressure appears to be under better control at this time. * Will continue with the SCOTT inhibitor * Will add beta-lamar * 3. Hyperlipidemia * Will continue high intensity statin * 4. Obesity * Advised patient on risk factor modification. * * Thank you for allowing me to participate in the care of your patient. Please don't hesitate to call if any issues arise. *
[2020-01-31 08:11] VITALS: BP 124/60; PULSE 67; RESP 14; TEMP 36.9; O2SAT 93
[2020-01-31] MEDS: Empagliflozin 25 MG Tablet PO (08:15)
[2020-01-31] MEDS: TICAGRELOR 90 MG TABLET PO (08:15)
[2020-01-31] MEDS: Lisinopril 40 MG Tablet PO (08:15)
[2020-01-31] MEDS: Aspirin E.C. 81 MG Tablet PO (08:15)
--- NOTE | 2020-01-31 10:00 | EKG12_ITS ---
Test Reason : AM EKG Blood Pressure : / mmHG Vent. Rate : 076 BPM Atrial Rate : 076 BPM P-R Int : 180 ms QRS Dur : 098 ms QT Int : 416 ms P-R-T Axes : 058 045 017 degrees QTc Int : 468 ms Sinus rhythm with Premature atrial complexes Otherwise normal ECG When compared with ECG of 30-JAN-2020 10:56, MANUAL COMPARISON REQUIRED, DATA IS UNCONFIRMED Confirmed by LINO ABERNATHY, GIANLUCA ([id number]), online content editor MIGUE WILL ([id number]) on 02/09/2020 1:31:36 PM Referred By: Meño Tian Confirmed By:ZION HUYNH MD
--- NOTE | 2020-01-31 10:27 | PHA.DC.MC ---
Pharmacy Service has performed discharge medication reconciliation and counseling for this patient. 1. ASPIRIN 81MG PO DAILY 2. TICAGRELOR 90MG PO BID The patient's discharge medication list was reviewed for discrepancies and discrepancies were resolved. Home Medications metFORMIN HCl [Glucophage] 1,000 mg PO BID 12/17/14 Empagliflozin [Jardiance] 25 mg PO DAILY 01/29/20 Lisinopril 40 mg PO DAILY 01/29/20 Rosuvastatin Calcium 20 mg PO DAILY 01/29/20 Aspirin E.C. [Ecotrin] 81 mg PO DAILY@0800 #90 tab 01/31/20 Ticagrelor [Brilinta] 90 mg PO BID #90 tab 01/31/20 The patient was counseled on the following discharge medications and changes in medications for homegoing were reviewed. The Reason for Use, instructions for use, and potential side effects were reviewed for all new medications. The patient's questions regarding all of their medications were answered. The patient was able to verbally demonstrate an understanding of their discharge medications.
--- NOTE | 2020-01-31 11:39 | PCM.DC.SUM ---
Discharge Date and Diagnosis Date of Admission: 01/29/20 Date of Discharge: 01/31/20 - Primary Discharge Diagnosis Acute Problems: #1 acute non-ST elevation WI, status post stent to proximal LAD. #2 uncontrolled type 2 diabetes mellitus. - Secondary Discharge Diagnosis Chronic Problems: Chronic Problems (Last Updated 01/29/20 @ 23:[address] Meño Tian MD) Hypertension (Chronic) Hospital Course and Treatment Dr. Cuevas, cardiology. Procedures: Cardiac catheterization, EKG Summary of Care Provided: Patient seen and examined on the day of discharge and appeared to be stable to be discharged home. He denied any more chest pain. He has been ambulating, no reported shortness of breath. His vital signs are stable. The patient is a 54 year old M presented to the emergency room because of chest pain and he was found to have acute non-ST elevation WI. He was admitted to PCU, serial cardiac enzymes were done and his troponin went up to 3.39. His EKG revealed no acute ischemic changes. Cardiology consulted and patient underwent cardiac catheterization that revealed 95% stenosis of the proximal LAD status post stenting. Ejection fraction was 55% on coronary angiography. Patient was started on aspirin, Brilinta, statins and lisinopril as well as metoprolol. His routine blood work was unremarkable. Liver profile revealed total cholesterol of 103, triglyceride is 231, LDL cholesterol is 20 and HDL cholesterol was 37. Patient does have a history of type 2 diabetes mellitus which seemed to be uncontrolled. Hemoglobin A1c was 9%. His blood sugar during this hospital stay was around 200s. After discussion with cardiology, beta-blockers was not recommended upon discharge. Patient had no more chest pain, ambulated without any symptoms. Vital signs remained stable. Patient discharged home in a stable medical condition, discharged on aspirin, statins, Brilinta and lisinopril, no beta-blockers given upon discharge according to cardiology, continued on metformin and Jardiance, recommended to check blood sugar at least 3-4 times daily and keep a blood sugar log, recommended follow-up with PCP in 1 to 2 weeks and follow-up with cardiology in 4 weeks. - Physical Exam Vitals/I&O's: Vital Signs Temp Pulse Resp BP Pulse Ox 98.5 F 67 14 124/60 H 93 01/31/20 08:11 01/31/20 08:11 01/31/20 08:11 01/31/20 08:11 01/31/20 08:11 Oxygen Flow Rate (L/min) 2 Oxygen Delivery Method Room Air Weight: 382 lb 8.032 oz Body Mass Index (BMI) 54.8 Finger Stick Blood Glucose 131 Intake and Output for Last 24 Hours 01/29/20 01/30/20 01/31/20 23:59 23:59 23:59 Intake Total 915.60 / 915.60 240 / 240 Balance 915.60 / 915.60 240 / 240 General: Alert, Oriented x3, Cooperative, No apparent distress HEENT: Atraumatic, PERRLA, EOMI, Normocephalic Oral: Moist Mucosa, No Gingival or Mucosal Lesions/ Ulcerations Neck: Supple, No JVD, Negative Carotid Bruits, Trachea Midline, Thyroid Normal Size and Texture Lungs: Clear to auscultation, Normal air movement, No rhonchi, No wheeze, No rales Cardiovascular: Regular rate, Regular Rhythm, Normal S1, Normal S2, PMI Normal Abdomen: Bowel Sounds Present, Soft, Non Tender, Non-Distended, No Hepato-splenomegaly, Obese Extremities: No clubbing, No cyanosis, No edema Skin: No rashes, No breakdown Lymphatic: No Cervical, Supraclavicular, or Inguinal Adenopathy Neurological: Cranial nerves II-XII grossly intact, Neuro grossly intact Psych/Mental Status: Normal Affect, Appropriate Laboratory Results 01/30/20 17:13: POC Glucose 219 H 01/30/20 22:20: POC Glucose 225 H 01/31/20 06:00: WBC 7.6, RBC 5.09, Hgb 15.7, Hct 47.3, MCV 92.9, MCH 30.8, MCHC 33.2, RDW Std Deviation 45.0 H, RDW Coeff of Simeon 13.2, Plt Count 145 L, MPV 10.7 01/31/20 06:00: Sodium 138, Potassium 3.9, Chloride 105, Carbon Dioxide 26.0, Anion Gap 7, BUN 18, Creatinine 0.66 L, Estim Creat Clear Calc 132.11, Est GFR (MDRD) Af Amer 162, Est GFR (MDRD) Non-Af 134, BUN/Creatinine Ratio 27.3 H, Glucose 176 H, Calcium 8.5, Total Bilirubin 1.10 H, AST 45 H, ALT 58, Alkaline Phosphatase 69, Total Protein 6.8, Albumin 3.4, Globulin 3.4, Albumin/Globulin Ratio 1.0 01/31/20 06:35: POC Glucose 166 H Discharge Activity: Return to Normal Activity Return to work on:: 02/05/20 Weight Bearing Status: Full weight bearing Call your doctor if you observe: Fever of 101 or Higher, Shortness of breath, Dizziness, Fainting spells, Chest pain, Increased palpitations (irregular heartbeat), Uncontrolled pain Home Medications: Medications to take at Discharge metFORMIN HCl [Glucophage] 1,000 mg PO BID 12/17/14 Empagliflozin [Jardiance] 25 mg PO DAILY 01/29/20 Lisinopril 40 mg PO DAILY 01/29/20 Rosuvastatin Calcium 20 mg PO DAILY 01/29/20 Aspirin E.C. [Ecotrin] 81 mg PO DAILY@0800 #90 tab 01/31/20 Ticagrelor [Brilinta] 90 mg PO BID #90 tab 01/31/20 Following Prescriptions Were Given to Patient: Ticagrelor [Brilinta] 90 mg PO BID #90 tab Transmission Status: Received by [facility]/pharmacy #[id number] Aspirin E.C. [Ecotrin] 81 mg PO DAILY@0800 #90 tab Transmission Status: Received by [facility]/pharmacy #[id number] Primary Care Physician: Lani Paiz DO [Primary Care Provider] - Please follow up with your Primary Care Physician in: 1-2 weeks. Please Follow Up With: Nathan Cuevas MD When: 4 weeks. Please Follow Up With: Lani Paiz DO Patient Instructions: Using a Blood Sugar Log, Coronary Stents, How to Check Your Blood Sugar, Heart Attack Disposition: Home Minutes spent on discharge:: 31 Patient Condition:: Stable Medical Necessity - Tobacco Use Smoking Status: Never smoker Meaningful Use Info Meaningful Use Diagnoses (Choose all that apply): AMI - AMI/Post PCI/Angioplasty Aspirin given w/in 24hrs of arrival?: Yes ASA at discharge?: Yes Antiplatelet Therapy at Discharge:: Yes Statins at discharge?: Yes Calos/ARB at discharge?: Yes Beta Toro at discharge?: No Reason Beta Toro not ordered:: Allergy Done w/ Acute WI measure.: Yes Documented LVEF (%): 55 Inpatient E&M: [id number] Disch Hosp
--- NOTE | 2020-01-31 16:38 | CL.I_ITS ---
Patient Name: DORIAN DENIS Study Date: 01/30/2020 Performing: Daysi Ralph MD Ht: 70 inches 178 cm : 1965 Wt: 384.1 lbs 174 kg Age: 54 Gender: male BSA: 2.76 PROCEDURE(S) PERFORMED [id number] W OR WO PTCA, SINGLE CORONARY ARTERY CLINICAL PROFILE AND CO-MORBIDITIES Indications: Suspected CAD Heart Failure: None CONCLUSIONS Successful POOJA to pLAD RECOMMENDATIONS ASA Indefinitley Brilinta for at least 12 months Follow up with Dr. Cuevas DESCRIPTION OF PROCEDURE The patient arrived to the procedure lab. The risks and benefits of the procedure as well as a full d escription of our services here and current unavailability of surgical backup were fully explained to the patient and/or their significant other prior to the catheterization. The Timeout was completed, verifying the correct patient and procedure. The patient's procedural site was prepped and draped in the usual fashion. Local anesthetic was given subcutaneously to right radial region with Lidocaine 2% Using a modified Seldinger technique,arterial access was obtained via the right radial artery, a 6Fr sheath was inserted. Left Coronary Artery selective angiography was performed in multiple views usin g a 5 Fr. 4.0 [place] catheter. Right Coronary Artery selective angiography was then performed in multi ple views using a 5 Fr. 4.0 [place] catheter. Left Ventriculography was performed in WATSON projection usi ng a 5 Fr. Pig[place] catheter. LV to AO pullback pressures were then recorded.The images were reviewed and options discussed. A decision was then made to proceed with an Intervention, IVUS o r other adjunct procedure. XB 3.0 Guide catheter was inserted and engaged into the LCA. BMW Guide wire was advanced to the L AD. 2.5 x 12 Emerge Balloon catheter was inserted. Balloon catheter was advanced across lesion in the LAD, ostial. Angiogram performed pre balloon dilatation. PTCA balloon inflated at 12 atms for 30 sec s. Angiogram performed post balloon dilatation. 3.0 x 12 Synergy Drug Eluting stent was advanced acro ss the lesion in the LAD, ostial. Angiogram performed post stent deployment. The arterial sheath wa s pulled and a TR Band was applied for hemostasis [facility] INTERVENTION INFORMATION LESION SITE: LAD (Ostial) Lesion Complexity: High/C, chronic total occlusion: No, lesion at bifurcation: No, thrombus present: No, lesion length: 12 mm, culprit lesion: Yes, Previously treated lesion: No Pre Stenosis: 95 % Pre intervention WANDA flow: 3 PROCEDURE: Drug Eluting Stent with pre dilatation. Post Stenosis: 0 % Post intervention WANDA flow: 3 Lesion Devices: Cardinal 6 Fr XB3.0 100cm Guide Catheter Mckeon .014 BMW [place] Straight 190cm Jono Sci EMERGE MR 2.50x12 BALLOON Jono Sci Synergy MR POOJA 3.00x12 COMPLICATIONS No Complications PROCEDURE MEDICATIONS Fentanyl 50 mcg IV Versed 1 mg IV Versed 1 mg IV Oxygen: 2 L/min via nasal cannula Brilinta 180 mg PO @ 01/30/2020 08:47:10 Heparin diluted in 23cc Heparinized saline. Patient given 10cc IA of this solution. 01/30/2020 08:10:0 2 Heparin 56760 unit(s) IV 01/30/2020 09:06:14 Nitro glycerin 25mg / 250ml D5W @ 10 mcg/min IV continued from unit 01/30/2020 08:09:20 Nitro glycerin 25mg / 250ml D5W @ 15 mcg/min (increased rate) 01/30/2020 08:50:12 Nitro 200 mcg IC 01/30/2020 09:32:02 Verapamil 2.5mg, Ntg 100mcgs, 2000 units of Heparin diluted in 23cc Heparinized saline. Patient give n 10cc IA of this solution. 01/30/2020 08:10:02 SUMMARY OF HEMODYNAMIC DATA Time AIR REST ECG 08:05:31 AO 128/79 (98) SA 08:11:40 LV 146/2, 8 08:21:29 LV 136/3, 9 08:21:35 LV 152/13, 19 08:22:21 LVp 146/10, 16 08:22:26 AOp 156/75 (109) 08:22:31 AO 198/79 (111) 08:57:10 Signed By Daysi Ralph MD On 01/31/2020 16:37:28 Daysi Ralph MD
--- NOTE | 2020-02-01 12:46 | CASEMGMT ---
JAMES RIDDLE Discharge Follow-up Phone Call: BREN: Maryanne Strata: 3 Call Date: 02/01/2020 Discharge Date: 01/31/2020 Time of Call: 1245 Admitting Diagnosis: STEMI Discharge follow-up call attempted to pt's cell phone number. Voicemail received and nondescript message left requesting a return call. Nilda Aquino RN CM
== END 2020-01-31 11:23 | disposition home or self-care (01) | DRG 247 ==
LOC: ED 22:30 → PCU 23:46
PROVIDERS: Specialist; Admitting Provider Hospitalist; Emergency Provider Emergency Medicine; PCP Internal Medicine; Referring Provider Hospitalist; Visit Provider Hospitalist
DX: I21.4 Non-ST elevation (NSTEMI) myocardial infarction (principal); Z68.43 Body mass index [BMI] 50.0-59.9, adult; I16.0 Hypertensive urgency; I25.10 Atherosclerotic heart disease of native coronary artery without angina pectoris; I24.9 Acute ischemic heart disease, unspecified; E11.65 Type 2 diabetes mellitus with hyperglycemia; I10 Essential (primary) hypertension; E78.00 Pure hypercholesterolemia, unspecified; E66.01 Morbid (severe) obesity due to excess calories; Z79.84 Long term (current) use of oral hypoglycemic drugs; Z79.899 Other long term (current) drug therapy; E78.5 Hyperlipidemia, unspecified; Z79.82 Long term (current) use of aspirin
CPT/HCPCS: 36415; 71045; 80048; 80053; 80061; 82962; 83036; 83735; 83880; 84484; 85025; 85027; 85610; 85730; 92928; 93005; 93458; 94660; 99152; 99153; 99284; J7030; Q9967; A4216; C1725; C1769; C1874; C1887; C1894; C9600; J1327

== ENCOUNTER 2020-03-19 23:01 | Observation (INO) | payer BC, SELFPAY ==
[2020-02-23 09:15] VITALS: BMI 51.9
[2020-03-19 23:02] VITALS: BP 185/81; PULSE 86; RESP 18; TEMP 36.1; O2SAT 95; BMI 53.4
--- NOTE | 2020-03-19 23:17 | EKG12_ITS ---
Test Reason : CP ADMISSION Blood Pressure : / mmHG Vent. Rate : 079 BPM Atrial Rate : 079 BPM P-R Int : 182 ms QRS Dur : 104 ms QT Int : 380 ms P-R-T Axes : 075 052 054 degrees QTc Int : 435 ms Normal sinus rhythm Normal ECG When compared with ECG of 19-MAR-2020 23:08, MANUAL COMPARISON REQUIRED, DATA IS UNCONFIRMED Confirmed by LINO ABERNATHY, GIANLUCA ([id number]), make up editor MIGUE WILL ([id number]) on 03/20/2020 1:11:31 P M Referred By: MOSHE Confirmed By:ZION HUYNH MD
[2020-03-19] MEDS: Aspirin 81 MG TAB.CHEW 324 MG PO (23:24)
[2020-03-19 23:26] VITALS: BP 156/84; PULSE 81; O2SAT 96
[2020-03-19 23:26] LABS: Hematocrit 43.5 % (40-54); Hemoglobin 14.6 g/dL (13.0-16.5); Mean Corp Hgb Conc 33.6 g/dL (32-36); Mean Corpuscular Hgb 32.5 pg (27.0-32.0); Mean Corpuscular Volume 96.9 fL (80-94); Mean Platelet Vol. 10.3 fl (6.2-12.0); NRBC Flagged by Analyzer 0 % (0-5); Platelet Count 153 K/mm3 (150-450); RBC Distribution Width CV 13.5 % (11.6-14.6); RBC Distribution Width SD 47.8 fl (35.1-43.9); Red Blood Count 4.49 M/mm3 (4.6-6.2); White Blood Count 7.9 K/mm3 (4.4-11.0)
[2020-03-19] MEDS: Nitroglycerin SL (ED/IMG/CATH) 0.4 MG TABLET SUBLINGUAL ×2 (23:26→23:55)
--- NOTE | 2020-03-19 23:30 | RAD_ITS ---
STUDY: X-RAY CHEST REASON FOR EXAM: Male, 54 years old. New onset of chest pain radiating to face and neck. TECHNIQUE: AP portable chest. COMPARISON: January 29, 2020. FINDINGS: The lungs are clear and expanded. There is no demonstrated pleural abnormality. Mildly elevated right hemidiaphragm unchanged. Normal size heart. Normal mediastinum and kim. Normal visualized pulmonary arteries. Normal visualized aortic arch and descending thoracic aorta. Normal visualized thoracic spine. Normal visualized ribs, clavicles, and shoulders. There is no demonstrated abnormality of the visualized soft tissue structures of the upper abdomen. RAD/Chest 1 View (Portable) IMPRESSION: No acute cardiopulmonary disease. Electronically Signed: Fuentes Murray MD at 23:55 EDT , Service support ,
[2020-03-19 23:41] LABS: Anion Gap 7 (5-15); BUN 20 mg/dL (7-18); Chloride 103 mmol/L (98-107); EST Glomerular Filtration Rate 83 mL/min (>60); Est Glom Filt Rate - Afr Amer 100 mL/min (>60); Estimated Creatinine Clearance 87.19 ml/min; Glucose 299 mg/dL (74-106); Potassium 4.3 mmol/L (3.5-5.1); Sodium Level 138 mmol/L (136-145)
[2020-03-19 23:50] LABS: Absolute Lymphocyte Count 2.03 X10^3/uL (0.83-4.51); Absolute Neutrophil Count 5.2 X10^3/uL (2.0-7.7); Basophil# 0.03 X10^3/uL; Basophil% 0.4 % (0-1); Eosinophils% 3.7 % (0-5); Lymphocyte # 2.03 X10^3/ul (4.0); Monocyte# 0.58 X10^3/uL; Monocyte% 7.1 % (0-10); Neutrophil # 5.15 X10^3/uL (2.7-7.7); Neutrophil % 63.4 % (47-70)
--- NOTE | 2020-03-19 23:54 | ED.VIS.GEN ---
History of Present Illness Chief Complaint: Chest Pain Informant: Patient Onset: Today Current Severity: Moderate Maximum Severity: Moderate Narrative: Patient presents secondary to chest pain. Patient was admitted with an NSTEMI approximate 1 month ago and had a stent to the LAD. Patient states at 10 PM tonight he took his medications and then laid down in bed. He got pain in the center portion of his chest. He states while driving to the hospital the chest pain resolved he does complain of 7 out of 10 pain in his left jaw. He denies shortness of breath. He is currently on aspirin as well as Brilinta. - Past Medical History (1) Coronary artery disease Status: Chronic (2) Diabetes Status: Chronic (3) Essential (primary) hypertension Status: Chronic (4) History of coronary artery stent placement Status: Chronic Comment: [id number] LAD w/ 3.00 x 12 mm Synergy MR Stent 01/30/2020 (5) History of non-ST elevation myocardial infarction (NSTEMI) Status: Chronic Past Medical History - Allergies and Home Meds Allergies/Adverse Reactions: Allergies Penicillins [PCN] Allergy (Verified 03/19/20 23:18) Unknown Doctors: Dr. Cuevas Prior records reviewed: Yes Surgical History: cholecystectomy Lives: Spouse/ Significant Other Smoking Status: Never smoker - Family History Maternal Family History: Reports: Heart Disease - His mother had early heart disease, Stroke, - - His mother had leg infection. His mother at the age of 62. Paternal Family History: Reports: Cancer, - - His father had aortic aneurysm Review of Systems General: Denies: Chills, Fever Eyes: Denies: Visual changes - bilaterally ENT: Reports: - - Left jaw pain. Denies: Bilateral ear pain Cardiovascular: Reports: Chest pain Respiratory: Denies: Dyspnea Gastrointestinal: Denies: Abdominal pain, Nausea, Vomiting Genitourinary: Denies: Dysuria Musculoskeletal: Denies: Swelling, Extremity Pain Skin: Denies: Rash Neurological: Denies: Headache, Weakness Hematologic: Denies: Easy bruising Allergy: Denies: Uticaria Physical Exam Vital Signs/Narrative: Vital Signs Temp Pulse Resp BP Pulse Ox 03/19/20 23:26 81 156/84 H 96 03/19/20 23:02 96.9 F L 86 18 185/81 H 95 Inital Vital Signs reviewed: Yes General: Well nourished, Well developed Head: Normocephalic ENT: Moist mucous membranes Neck: Supple Cardiovascular: Regular rate, Regular rhythm Respiratory: No distress, CTA bilaterally Abdomen: Soft, Nontender Extremities: Nontender Skin: Normal color Neurological: Alert, Oriented x3 Psychological: Normal affect Diagnostic/Tx/Re-eval Impressions Chest X-Ray 03/19/20 23:30 IMPRESSION: No acute cardiopulmonary disease. Electronically Signed: Fuentes Murray MD at 23:55 EDT , Service support , 03/19/20 23:30 Chest 1 View (Portable) [RAD] Stat Laboratory Results 03/19/20 03/19/20 23:10 23:10 WBC 7.9 RBC 4.49 L Hgb 14.6 Hct 43.5 MCV 96.9 H MCH 32.5 H MCHC 33.6 RDW Std Deviation 47.8 H RDW Coeff of Simeon 13.5 Plt Count 153 MPV 10.3 Immature Gran % (Auto) 0.400 Neut % (Auto) 63.4 Lymph % (Auto) 25.0 [place] % (Auto) 7.1 Eos % (Auto) 3.7 Baso % (Auto) 0.4 Absolute Neuts (auto) 5.2 Absolute Lymphs (auto) 2.03 Nucleated RBC % 0 Sodium 138 Potassium 4.3 Chloride 103 Carbon Dioxide 28.0 Anion Gap 7 BUN 20 H Creatinine 1.00 Estim Creat Clear Calc 87.19 Est GFR (MDRD) Af Amer 100 Est GFR (MDRD) Non-Af 83 BUN/Creatinine Ratio 20.0 Glucose 299 H Calcium 9.0 Troponin I < 0.015 - EKG Initial EKG Interpretation: Sinus Rhythm - Sinus 89 with no acute ischemia. - Medical Decision Making Patient was given aspirin here along with 2 nitro. He denies chest pain currently but does still complain of left jaw pain. There is an area along his left mandible where teeth had previously been extracted. He states the gums are slightly sore with palpation. There is no obvious abscess. No submandibular fullness or tenderness. I am concerned that the patient just had a stent within the past 6 weeks and now has recurrent pain. I have recommended admission overnight for cycling of cardiac enzymes to ensure that there is not in-stent restenosis. I will speak with hospitalist. ED Disposition - Plan for ED Patient: Disposition: Acute Care Hospital [facility] Diagnosis: Chest pain
[2020-03-19 23:55] VITALS: BP 130/71; PULSE 82
[2020-03-20] VITALS (9 sets, daily range): BP systolic 109–128; BP diastolic 64–67; PULSE 65–84; RESP 14–18; TEMP 36.1–36.9; O2SAT 94–97; BMI 50.9
--- NOTE | 2020-03-20 00:36 | PCM.HP.STD ---
Problem List (1) Coronary artery disease Status: Chronic (2) Diabetes Status: Chronic (3) Chest pain Status: Acute (4) History of coronary artery stent placement Status: Chronic Comment: RLA-VFY-Moic LAD w/ 3.00 x 12 mm Synergy MR Stent 01/30/2020 (5) Essential (primary) hypertension Status: Chronic History of Present Illness Date of Admission: 03/20/20 Chief Complaint: Chest pain. The patient is a 54 year old M with past medical history as mentioned above presented to the emergency room because of atypical chest pain. Symptoms started when he was about to go to bed, was laying down, first started having left jaw pain, extends down to the left side of his neck, dull aching pain, not radiating, moderate pain and without aggravating or relieving factors. Shortly after, he started having pain in his chest, retrosternal, mild pain, continued to have pain on the left jaw at the same time, no aggravating or relieving factors and no associated symptoms. While driving to the hospital, his chest pain resolved. He denied associated shortness of breath, dizziness, lightheadedness, diaphoresis, nausea or vomiting. He did mention that he has dental caries on the left lower teeth and sometimes he get mild pain. He came to the hospital because he had that transient chest pain. Patient was admitted to the hospital on January 29, 2020, found to have acute non-STEMI, underwent cardiac catheterization with PCI to proximal LAD. In the emergency department, initial blood pressure was elevated, other vital signs were stable. Routine blood work was unremarkable. EKG revealed normal sinus rhythm without evidence of acute ischemic changes. Troponin was negative. Chest x-ray showed no acute findings. He is being admitted for atypical chest pain for evaluation. Past Medical History Past Medical History (Chronic Problems): Chronic Problems (Last Updated 03/20/20 @ 00:[address] Safia Montoya MD) History of non-ST elevation myocardial infarction (NSTEMI) (Chronic 01/30/20) Coronary artery disease (Chronic) Diabetes (Chronic) Atherosclerotic heart disease of [place] coronary artery without angina pectoris (Chronic) History of coronary artery stent placement (Chronic 01/30/20) JCR-EMU-Cyth LAD w/ 3.00 x 12 mm Synergy MR Stent 01/30/2020 Essential (primary) hypertension (Chronic) Medical History: Medical History (Last Updated 03/20/20 @ 00:[address] Safia Montoya MD) History of non-ST elevation myocardial infarction (NSTEMI) (Chronic) Onset Date: 01/30/20 I25.2 Atherosclerotic heart disease of [place] coronary artery without angina pectoris (Chronic) I25.10 Essential (primary) hypertension (Chronic) I10 Obesity E66.9 Type 2 diabetes mellitus E11.9 Acute coronary syndrome I24.9 Allergies Penicillins [PCN] Allergy (Verified 03/19/20 23:18) Unknown Home Medications: Ambulatory Orders Medication Instructions Recorded metFORMIN HCl [Glucophage] 1,000 mg PO BID 12/17/14 Empagliflozin [Jardiance] 25 mg PO DAILY 01/29/20 Aspirin E.C. [Ecotrin] 81 mg PO DAILY@0800 #90 tab 01/31/20 dulaglutide 0.75 mg/0.5 mL 0.75 mg SC QWEEK 02/23/20 subcutaneous pen injector lisinopril 40 mg tablet 40 mg PO DAILY #90 tab 02/23/20 rosuvastatin 20 mg tablet 20 mg PO DAILY #90 tab 02/23/20 ticagrelor 90 mg tablet 90 mg PO BID #180 tab 02/23/20 Surgical History: Surgical History (Last Reviewed 03/20/20 @ 00:[address] Safia Montoya MD) History of coronary artery stent placement (Chronic) Onset Date: 01/30/20 Z95.5 IEX-DEC-Mwlg LAD w/ 3.00 x 12 mm Synergy MR Stent 01/30/2020 History of cholecystectomy Z90.49 Surgical History: cholecystectomy Lives: Spouse/ Significant Other Smoking Status: Never smoker Alcohol: None Drugs: None - *Family History Maternal History Items: Heart Disease - His mother had early heart disease, Stroke, - - His mother had leg infection. His mother at the age of 62. Paternal History Items: Cancer, - - His father had aortic aneurysm Review of Systems Constitutional: Denies: Anorexia, Chills, Fever, Weakness, Fatigue Eyes: Denies: Blurred vision, Double vision, Drainage, Redness HEENT: Denies: Difficulty Hearing, Ear Pain, Eye Pain, Nasal Congestion, Sore Throat Cardiovascular: Reports: Chest Pain. Denies: Edema, Heaviness, Light Headedness, Orthopnea, Palpitations Respiratory: Denies: Cough, Hemoptysis, Pleuritic Pain, Shortness of Breath, Sputum production, Wheezing Gastrointestinal: Denies: Abdominal Pain, Constipation, Diarrhea, Nausea, Vomiting Genitourinary: Denies: Dysuria, Frequency, Hematuria Musculoskeletal: Denies: Arm Pain, Back Pain, Foot Pain Skin: Denies: Dryness, Rash Neurological: Denies: Balance problems, Blurred vision, Double vision, Change in Speech, Slurred speech, Confusion, Headaches, Incoordination Psychiatric: Denies: Anxiety, Depression Endocrine: Denies: Change in Body Habitus, Polydipsia, Polyuria VTE Information - Inpt Only VTE Present on Admission: No VTE Mechan Device Prophylaxis: None VTE Pharm Prophylaxis ordered?: No Patient Problems: Active and Suspected Problems (Last Updated 03/20/20 @ 00:[address] Safia Montoya MD) Chest pain (Acute) - Physical Exam Vitals/I&O's: Vital Signs Temp Pulse Resp BP Pulse Ox 96.9 F L 77 14 128/67 H 94 03/20/20 00:23 03/20/20 00:23 03/20/20 00:23 03/20/20 00:23 03/20/20 00:23 Oxygen Flow Rate (L/min) 2 Oxygen Delivery Method Nasal Cannula Weight: 372 lb 2.244 oz Body Mass Index (BMI) 53.4 Finger Stick Blood Glucose 131 General: Alert, Oriented x3, Cooperative, No apparent distress HEENT: Atraumatic, PERRLA, EOMI, Normocephalic Oral: Moist Mucosa, No Gingival or Mucosal Lesions/ Ulcerations Neck: Supple, No JVD, Negative Carotid Bruits, Trachea Midline, Thyroid Normal Size and Texture Lungs: Clear to auscultation, Normal air movement, No rhonchi, No wheeze, No rales Cardiovascular: Regular rate, Regular Rhythm, Normal S1, Normal S2, PMI Normal Abdomen: Bowel Sounds Present, Soft, Non Tender, Non-Distended, No Hepato-splenomegaly, Obese Extremities: No clubbing, No cyanosis, No edema Skin: No rashes, No breakdown Lymphatic: No Cervical, Supraclavicular, or Inguinal Adenopathy Neurological: Cranial nerves II-XII grossly intact, Motor Exam 5/5 strength throughout Psych/Mental Status: Normal Affect, Appropriate, Alert and oriented to time, place, person, mood and affect Laboratory Results 03/19/20 23:10: WBC 7.9, RBC 4.49 L, Hgb 14.6, Hct 43.5, MCV 96.9 H, MCH 32.5 H, MCHC 33.6, RDW Std Deviation 47.8 H, RDW Coeff of Simeon 13.5, Plt Count 153, MPV 10.3, Immature Gran % (Auto) 0.400, Neut % (Auto) 63.4, Lymph % (Auto) 25.0, [place] % (Auto) 7.1, Eos % (Auto) 3.7, Baso % (Auto) 0.4, Absolute Neuts (auto) 5.2, Absolute Lymphs (auto) 2.03, Nucleated RBC % 0 03/19/20 23:10: Sodium 138, Potassium 4.3, Chloride 103, Carbon Dioxide 28.0, Anion Gap 7, BUN 20 H, Creatinine 1.00, Estim Creat Clear Calc 87.19, Est GFR (MDRD) Af Amer 100, Est GFR (MDRD) Non-Af 83, BUN/Creatinine Ratio 20.0, Glucose 299 H, Calcium 9.0, Troponin I < 0.015 Clinical Impression(s) from Imaging Studies Chest X-Ray 03/19/20 23:30 IMPRESSION: No acute cardiopulmonary disease. Electronically Signed: Fuentes Murray MD at 23:55 EDT , Service support , Current Medications Nitroglycerin (Nitroglycerin Sl (Ed/Img/Cath) 0.4 Mg Tablet) 0.4 mg SUBLINGUAL Q5M PRN PRN Reason: Chest pain Last Admin: 03/19/20 23:55 Dose: 0.4 mg Documented by: Assessment/Plan All Active Problems (Last Updated 03/20/20 @ 00:[address] Safia Montoya MD) Chest pain (Acute) This is a 54 years old male patient presented to the emergency room because of chest pain and he is being admitted for evaluation. #1 atypical chest pain: In the setting of recent non-STEMI status post PCI to LAD. Pain started first in the right jaw on the right neck and patient does have some dental caries, no gum swelling or erythema. He developed retrosternal chest pain later on. EKG revealed no acute segment changes. Troponin was negative. Chest x-ray showed no acute findings. Initially, blood pressure was elevated but improved. Patient had cardiac catheterization on January 30, 2020, found to have 95% stenosis of the proximal LAD status post PCI and stenting. Plan: Admit to PCU for observation, cardiac monitoring, serial cardiac enzymes, repeat EKG tomorrow morning, sublingual nitroglycerin as needed, cardiology consult in the morning, continue aspirin, lisinopril, Brilinta and rosuvastatin. #2 CAD status post stents: Plan as above, continue aspirin, Brilinta, lisinopril and statins. #3 hypertension: Blood pressure was elevated initially, improved after sublingual nitro. Continue lisinopril, start IV adenosine as needed. #4 type 2 diabetes mellitus: Blood sugar on admission was 299, no evidence of DKA. Plan to continue Jardiance, hold metformin, Accu-Cheks, insulin sliding scale. #5 DVT prophylaxis: Low risk patient, no prophylaxis indicated. This note was generated with [employer] dictation software. It may contain incorrect words, spelling, and punctuation that were not noted in checking the note before signing. OBSV E&M: 75073 Initial observation care L3
--- NOTE | 2020-03-20 04:34 | EKG12_ITS ---
Test Reason : AM EKG Blood Pressure : / mmHG Vent. Rate : 060 BPM Atrial Rate : 060 BPM P-R Int : 184 ms QRS Dur : 098 ms QT Int : 418 ms P-R-T Axes : 076 052 032 degrees QTc Int : 418 ms Normal sinus rhythm Normal ECG When compared with ECG of 20-MAR-2020 01:01, MANUAL COMPARISON REQUIRED, DATA IS UNCONFIRMED Confirmed by LINO ABERNATHY, GIANLUCA ([id number]), mining teacher MIGUE WILL ([id number]) on 03/20/2020 1:24:41 P M Also confirmed by LINO ABERNATHY, GIANLUCA ([id number]), mining teacher LUCA WOLFE ([id number]) on 03/26/2020 8:41:1 1 AM Referred By: Safia Montoya Confirmed By:ZION HUYNH MD
--- NOTE | 2020-03-20 05:55 | EKG12_ITS ---
Test Reason : CP Blood Pressure : / mmHG Vent. Rate : 089 BPM Atrial Rate : 089 BPM P-R Int : 178 ms QRS Dur : 108 ms QT Int : 360 ms P-R-T Axes : 068 046 075 degrees QTc Int : 438 ms Normal sinus rhythm Incomplete left bundle branch block Confirmed by NATHANAEL ABERNATHY, KIM ([id number]), sports editor MIGUE WILL ([id number]) on 03/25/2020 11:54:44 AM Referred By: Safia Montoya Confirmed By:KIM HUFFMAN MD
[2020-03-20] MEDS: Insulin Lispro 100 UNIT/ML INSULN.PEN SC ×2 (06:52→11:14)
[2020-03-20 07:00] LABS: Bedside Glucose 190 mg/dL (70-110)
--- NOTE | 2020-03-20 07:38 | PN_ITS ---
Patient Problems: Active and Suspected Problems (Last Updated 03/20/20 @ 00:[address] Safia Montoya MD) Chest pain (Acute) Vitals/I&O's: Vital Signs Temp Pulse Resp BP Pulse Ox 98.1 F 73 18 122/67 H 95 03/20/20 06:55 03/20/20 06:55 03/20/20 06:55 03/20/20 06:55 03/20/20 06:55 Oxygen Flow Rate (L/min) 2 Oxygen Delivery Method Room Air Weight: 165.561 kg Body Mass Index (BMI) 50.9 Finger Stick Blood Glucose 131 Intake and Output for Last 24 Hours 03/18/20 03/19/20 03/20/20 23:59 23:59 23:59 Intake Total 480 / 480 Output Total 1999 Balance -1520 / -1520 Laboratory Results 03/19/20 23:10: WBC 7.9, RBC 4.49 L, Hgb 14.6, Hct 43.5, MCV 96.9 H, MCH 32.5 H, MCHC 33.6, RDW Std Deviation 47.8 H, RDW Coeff of Simeon 13.5, Plt Count 153, MPV 10.3, Immature Gran % (Auto) 0.400, Neut % (Auto) 63.4, Lymph % (Auto) 25.0, [place] % (Auto) 7.1, Eos % (Auto) 3.7, Baso % (Auto) 0.4, Absolute Neuts (auto) 5 .2, Absolute Lymphs (auto) 2.03, Nucleated RBC % 0 03/19/20 23:10: Sodium 138, Potassium 4.3, Chloride 103, Carbon Dioxide 28.0, Anion Gap 7, BUN 20 H, Creatinine 1.00, Estim Creat Clear Calc 87.19, Est GFR (MDRD) Af Amer 100, Est GFR (MDRD) Non-Af 83, BUN/Creatinine Ratio 20.0, Glucose 299 H, Calcium 9.0, Troponin I < 0.015 03/20/20 03:00: Troponin I 0.088 H 03/20/20 05:05: Troponin I 0.137 H 03/20/20 06:51: POC Glucose 190 H Current Medications Acetaminophen (Acetaminophen 325 Mg Tablet) 650 mg PO Q6H PRN PRN PRN Reason: Pain Score 1-10/Temp > 100.7 F Aspirin (Aspirin E.C. 81 Mg Tablet) 81 mg PO DAILY@0800 [facility] Atorvastatin Calcium (Atorvastatin Calcium 40 Mg Tablet) 40 mg PO DAILY@2200 [facility] Empagliflozin (Empagliflozin 25 Mg Tablet) 25 mg PO DAILY [facility] Hydralazine HCl (Hydralazine 20 Mg/Ml Vial) 10 mg IV Q6H PRN PRN PRN Reason: for SBP>160 Insulin Human Lispro (Insulin Lispro 100 Unit/Ml Insuln.Pen) 0 unit SC ACHS [facility]; Protocol Last Admin: 03/20/20 06:52 Dose: 2 u Documented by: Lisinopril (Lisinopril 40 Mg Tablet) 40 mg PO DAILY@2200 [facility] Nitroglycerin (Nitroglycerin (Inpatient Use) 0.4 Mg Tab.Subl) 0.4 mg SUBLINGUAL Q5M PRN PRN Reason: CARDIAC/CHEST PAIN Ondansetron HCl (Ondansetron 4 Mg/2 Ml Vial) 4 mg IV Q8H PRN PRN PRN Reason: NAUSEA/VOMITING Sodium Chloride (0.9% Saline Lock 10 Ml Syringe) 10 - 40 ml IV UD PRN PRN Reason: SALINE FLUSH Ticagrelor (Ticagrelor 90 Mg Tablet) 90 mg PO BID RICARDO Zolpidem Tartrate (Zolpidem Tartrate 5 Mg Tablet) 5 mg PO QHS PRN PRN PRN Reason: INSOMNIA STROKE Vital Signs/Narrative: Vital Signs Temp Pulse Resp BP Pulse Ox 03/20/20 06:55 98.1 F 73 18 122/67 H 95 Medical Necessity - Tobacco Use Smoking Status: Never smoker Tobacco Use: Non-smoker Assessment/Plan All Active Problems (Last Updated 03/20/20 @ 00:[address] Safia Montoya MD) Chest pain (Acute)
[2020-03-20] MEDS: TICAGRELOR 90 MG TABLET PO (09:34)
[2020-03-20] MEDS: Aspirin E.C. 81 MG Tablet PO (09:34)
[2020-03-20] MEDS: Empagliflozin 25 MG Tablet PO (11:14)
--- NOTE | 2020-03-20 11:14 | CASEMGMT ---
According to the [place] website, the following are in-network tertiary facilities: [facility], [place], [facility], [facility], [facility], [facility], [employer], and . Jose RAMIREZ CM
[2020-03-20 11:15] LABS: Bedside Glucose 193 mg/dL (70-110)
--- NOTE | 2020-03-20 12:20 | DCINST_ITS ---
- Discharge Diagnoses Current Active Problems: Current Active and Chronic Problems (Last Updated 03/20/20 @ 00:[address] Safia Montoya MD) History of non-ST elevation myocardial infarction (NSTEMI) (Chronic 01/30/20) Coronary artery disease (Chronic) Diabetes (Chronic) Chest pain (Acute) History of coronary artery stent placement (Chronic 01/30/20) VLB-HAS-Fdfz LAD w/ 3.00 x 12 mm Synergy MR Stent 01/30/2020 Essential (primary) hypertension (Chronic) You will use the following diet at home:: Calorie/Carbohydrate Controlled (specify 1200, 1400, etc) - 1800, Cardiac Your food should be the consistency of: Regular Discharge Activity: May not drive while taking narcotic pain medications. Instructions: ED Chest Pain NonCardiac Allergies/Adverse Reactions: Allergies Penicillins [PCN] Allergy (Verified 03/19/20 23:18) Unknown Medications to take at Discharge metFORMIN HCl [Glucophage] 1,000 mg PO BID 12/17/14 Empagliflozin [Jardiance] 25 mg PO DAILY 01/29/20 Aspirin E.C. [Ecotrin] 81 mg PO DAILY@0800 #90 tab 01/31/20 dulaglutide 0.75 mg/0.5 mL subcutaneous pen injector 0.75 mg SC QWEEK 02/23/20 lisinopril 40 mg tablet 40 mg PO DAILY #90 tab 02/23/20 rosuvastatin 20 mg tablet 20 mg PO DAILY #90 tab 02/23/20 ticagrelor 90 mg tablet 90 mg PO BID #180 tab 02/23/20 Primary Care Physician: Lani Paiz DO [Primary Care Provider] - Please follow up with your Primary Care Physician in: in 1 week Test Results: Test results from this visit will be discussed in further detail at your follow- up appointment, if applicable. Please Follow Up With: Nathan Cuevas MD When: in 2 weeks Proposed Discharge Date: 03/20/20
--- NOTE | 2020-03-20 12:22 | PCM.DC.SUM ---
Discharge Date and Diagnosis - Problem List Patient Problems: Active and Suspected Problems (Last Updated 03/20/20 @ 00:[address] Safia Montoya MD) Chest pain (Acute) Date of Admission: 03/20/20 Date of Discharge: 03/20/20 - Primary Discharge Diagnosis Acute Problems: Active Problems (Last Updated 03/20/20 @ 00:[address] Safia Montoya MD) Chest pain (Acute) - Secondary Discharge Diagnosis Chronic Problems: Chronic Problems (Last Updated 03/20/20 @ 00:[address] Safia Montoya MD) History of non-ST elevation myocardial infarction (NSTEMI) (Chronic 01/30/20) Coronary artery disease (Chronic) Diabetes (Chronic) Atherosclerotic heart disease of [place] coronary artery without angina pectoris (Chronic) History of coronary artery stent placement (Chronic 01/30/20) FLK-OLE-Mxjf LAD w/ 3.00 x 12 mm Synergy MR Stent 01/30/2020 Essential (primary) hypertension (Chronic) Hospital Course and Treatment Imaging Results: Clinical Impression(s) from Imaging Studies Chest X-Ray 03/19/20 23:30 IMPRESSION: No acute cardiopulmonary disease. Electronically Signed: Fuentes Murray MD at 23:55 EDT , Service support , Summary of Care Provided: The patient is a 54 year old M with past medical history for hypertension, CAD with recent PCI with POOJA to 95% stenosis involving the proximal LAD who presented with atypical chest pain 1. Atypical chest pain ?Admitted to monitored bed. Serial cardiac enzymes obtained. Did continue patient home meds with consultation placed to cardiology. Patient was seen in consultation by Dr. Ralph who recommended no additional treatment. Patient pain did resolve 2. Coronary artery disease ?Status post PCI with POOJA to a 95% proximal LAD lesion on 01/30/2020 3. Hypertension - Blood pressure controlled, home medications continued with dose adjustment as needed 4. Diabetes mellitus type 2 ?Uncontrolled with hyperglycemia did continue with home regimen 5. Obesity with BMI of 50.9 ?Weight loss advised Patient Problems: Active and Suspected Problems (Last Updated 03/20/20 @ 00:[address] Safia Mnotoya MD) Chest pain (Acute) Objective: GENERAL: cooperative HEENT: Atraumatic; EYES; Anicteric, Normal Conjunctiva NECK; supple, normal thyroid, RESPIRATORY: Diminished to auscultation CARDIOVASCULAR: Regular S1 S2, GI: soft, normoactive bowel sounds, SKIN: No Rash PSYCH; Flat affect - Physical Exam Vitals/I&O's: Vital Signs Temp Pulse Resp BP Pulse Ox 98.1 F 80 18 122/67 H 94 03/20/20 06:55 03/20/20 07:00 03/20/20 06:55 03/20/20 06:55 03/20/20 07:35 Oxygen Flow Rate (L/min) 2 Oxygen Delivery Method Room Air Weight: 165.561 kg Body Mass Index (BMI) 50.9 Finger Stick Blood Glucose 131 Intake and Output for Last 24 Hours 03/18/20 03/19/20 03/20/20 23:59 23:59 23:59 Intake Total 480 / 480 Output Total 1999 / 1999 Balance -1520 / -1520 Laboratory Results 03/19/20 23:10: WBC 7.9, RBC 4.49 L, Hgb 14.6, Hct 43.5, MCV 96.9 H, MCH 32.5 H, MCHC 33.6, RDW Std Deviation 47.8 H, RDW Coeff of Simeon 13.5, Plt Count 153, MPV 10.3, Immature Gran % (Auto) 0.400, Neut % (Auto) 63.4, Lymph % (Auto) 25.0, [place] % (Auto) 7.1, Eos % (Auto) 3.7, Baso % (Auto) 0.4, Absolute Neuts (auto) 5.2, Absolute Lymphs (auto) 2.03, Nucleated RBC % 0 03/19/20 23:10: Sodium 138, Potassium 4.3, Chloride 103, Carbon Dioxide 28.0, Anion Gap 7, BUN 20 H, Creatinine 1.00, Estim Creat Clear Calc 87.19, Est GFR (MDRD) Af Amer 100, Est GFR (MDRD) Non-Af 83, BUN/Creatinine Ratio 20.0, Glucose 299 H, Calcium 9.0, Troponin I < 0.015 03/20/20 03:00: Troponin I 0.088 H 03/20/20 05:05: Troponin I 0.137 H 03/20/20 06:51: POC Glucose 190 H 03/20/20 11:12: POC Glucose 193 H Current Medications Acetaminophen (Acetaminophen 325 Mg Tablet) 650 mg PO Q6H PRN PRN PRN Reason: Pain Score 1-10/Temp > 100.7 F Aspirin (Aspirin E.C. 81 Mg Tablet) 81 mg PO DAILY@0800 [facility] Last Admin: 03/20/20 09:34 Dose: 81 mg Documented by: Atorvastatin Calcium (Atorvastatin Calcium 40 Mg Tablet) 40 mg PO DAILY@2199 [facility] Empagliflozin (Empagliflozin 25 Mg Tablet) 25 mg PO DAILY [facility] Last Admin: 03/20/20 11:14 Dose: 25 mg Documented by: Hydralazine HCl (Hydralazine 20 Mg/Ml Vial) 10 mg IV Q6H PRN PRN PRN Reason: for SBP>160 Insulin Human Lispro (Insulin Lispro 100 Unit/Ml Insuln.Pen) 0 unit SC ACHS [facility]; Protocol Last Admin: 03/20/20 11:14 Dose: 2 u Documented by: Lisinopril (Lisinopril 40 Mg Tablet) 40 mg PO DAILY@2199 [facility] Nitroglycerin (Nitroglycerin (Inpatient Use) 0.4 Mg Tab.Subl) 0.4 mg SUBLINGUAL Q5M PRN PRN Reason: CARDIAC/CHEST PAIN Ondansetron HCl (Ondansetron 4 Mg/2 Ml Vial) 4 mg IV Q8H PRN PRN PRN Reason: NAUSEA/VOMITING Sodium Chloride (0.9% Saline Lock 10 Ml Syringe) 10 - 40 ml IV UD PRN PRN Reason: SALINE FLUSH Ticagrelor (Ticagrelor 90 Mg Tablet) 90 mg PO BID [facility] Last Admin: 03/20/20 09:34 Dose: 90 mg Documented by: Zolpidem Tartrate (Zolpidem Tartrate 5 Mg Tablet) 5 mg PO QHS PRN PRN PRN Reason: INSOMNIA Discharge Diet: Low fat/ Low Cholesterol, 1800 Calorie Control Diet Discharge Activity: May not drive while taking narcotic pain medications. Home Medications: Medications to take at Discharge metFORMIN HCl [Glucophage] 1,000 mg PO BID 12/17/14 Empagliflozin [Jardiance] 25 mg PO DAILY 01/29/20 Aspirin E.C. [Ecotrin] 81 mg PO DAILY@0800 #90 tab 01/31/20 dulaglutide 0.75 mg/0.5 mL subcutaneous pen injector 0.75 mg SC QWEEK 02/23/20 lisinopril 40 mg tablet 40 mg PO DAILY #90 tab 02/23/20 rosuvastatin 20 mg tablet 20 mg PO DAILY #90 tab 02/23/20 ticagrelor 90 mg tablet 90 mg PO BID #180 tab 02/23/20 Primary Care Physician: Lani Paiz DO [Primary Care Provider] - Please follow up with your Primary Care Physician in: in 1 week Please Follow Up With: Nathan Cuevas MD When: in 2 weeks Patient Instructions: ED Chest Pain NonCardiac Disposition: Home Minutes spent on discharge:: 35 Patient Condition:: Stable Medical Necessity - Tobacco Use Smoking Status: Never smoker Tobacco Use: Non-smoker Meaningful Use Info Meaningful Use Diagnoses (Choose all that apply): None applicable OBSV E&M: 36498 Observation care discharge
--- NOTE | 2020-03-20 13:34 | PHA.DC.MR ---
Pharmacy Service has performed discharge medication reconciliation for this patient. The patient's discharge medication list was reviewed for discrepancies and discrepancies were resolved. Home Medications metFORMIN HCl [Glucophage] 1,000 mg PO BID 12/17/14 Empagliflozin [Jardiance] 25 mg PO DAILY 01/29/20 Aspirin E.C. [Ecotrin] 81 mg PO DAILY@0800 #90 tab 01/31/20 dulaglutide 0.75 mg/0.5 mL subcutaneous pen injector 0.75 mg SC QWEEK 02/23/20 lisinopril 40 mg tablet 40 mg PO DAILY #90 tab 02/23/20 rosuvastatin 20 mg tablet 20 mg PO DAILY #90 tab 02/23/20 ticagrelor 90 mg tablet 90 mg PO BID #180 tab 02/23/20 Nitroglycerin (INPATIENT USE) [Nitrostat] 0.4 mg SUBLINGUAL Q5M PRN #30 tab.subl 03/20/20
--- NOTE | 2020-03-20 18:06 | PCM.CONS.C ---
Reason for Consult Date of Consultation: 03/20/20 History of Present Illness: The patient is a 54 year old M with past medical history as mentioned above presented to the emergency room because of atypical chest pain. Symptoms started when he was about to go to bed, was laying down, first started having left jaw pain, extends down to the left side of his neck, dull aching pain, not radiating, moderate pain and without aggravating or relieving factors. Shortly after, he started having pain in his chest, retrosternal, mild pain, continued to have pain on the left jaw at the same time, no aggravating or relieving factors and no associated symptoms. While driving to the hospital, his chest pain resolved. He denied associated shortness of breath, dizziness, lightheadedness, diaphoresis, nausea or vomiting. He did mention that he has dental caries on the left lower teeth and sometimes he get mild pain. He came to the hospital because he had that transient chest pain. Patient was admitted to the hospital on January 29, 2020, found to have acute non-STEMI, underwent cardiac catheterization with PCI to proximal LAD. In the emergency department, initial blood pressure was elevated, other vital signs were stable. Routine blood work was unremarkable. EKG revealed normal sinus rhythm without evidence of acute ischemic changes. Troponin was negative. Chest x-ray showed no acute findings. Admitted to the PCU. Acute TX was ruled out. His troponin was borderline elevated. Patient continues to remain asymptomatic. Review of systems: All systems reviewed. All else is negative except that in HPI. Past Medical History Allergies/Adverse Reactions: Allergies Penicillins [PCN] Allergy (Verified 03/19/20 23:18) Unknown Home Medications: Ambulatory Orders Medication Instructions Recorded metFORMIN HCl [Glucophage] 1,000 mg PO BID 12/17/14 Empagliflozin [Jardiance] 25 mg PO DAILY 01/29/20 Aspirin E.C. [Ecotrin] 81 mg PO DAILY@0800 #90 tab 01/31/20 dulaglutide 0.75 mg/0.5 mL 0.75 mg SC QWEEK 02/23/20 subcutaneous pen injector lisinopril 40 mg tablet 40 mg PO DAILY #90 tab 02/23/20 rosuvastatin 20 mg tablet 20 mg PO DAILY #90 tab 02/23/20 ticagrelor 90 mg tablet 90 mg PO BID #180 tab 02/23/20 Nitroglycerin (INPATIENT USE) 0.4 mg SUBLINGUAL Q5M PRN #30 03/20/20 [Nitrostat] tab.subl Past Medical History (Chronic Problems): Chronic Problems (Last Updated 03/20/20 @ 00:[address] Safia Montoya MD) History of non-ST elevation myocardial infarction (NSTEMI) (Chronic 01/30/20) Coronary artery disease (Chronic) Diabetes (Chronic) Atherosclerotic heart disease of [place] coronary artery without angina pectoris (Chronic) History of coronary artery stent placement (Chronic 01/30/20) [id number] LAD w/ 3.00 x 12 mm Synergy MR Stent 01/30/2020 Essential (primary) hypertension (Chronic) Surgical History: cholecystectomy - *Family History Maternal History Items: Heart Disease - His mother had early heart disease, Stroke, - - His mother had leg infection. His mother at the age of 62. Paternal History Items: Cancer, - - His father had aortic aneurysm Lives: Spouse/ Significant Other Smoking Status: Never smoker Tobacco Use: Non-smoker Alcohol: None Drugs: None Objective: Vital Signs Temp Pulse Resp BP Pulse Ox 98.0 F 69 18 119/67 97 03/20/20 13:00 03/20/20 13:00 03/20/20 13:00 03/20/20 13:00 03/20/20 13:00 Oxygen Flow Rate (L/min) 2 Oxygen Delivery Method Room Air Weight: 364 lb 15.992 oz Body Mass Index (BMI) 50.9 Finger Stick Blood Glucose 131 Intake and Output for Last 24 Hours 03/18/20 03/19/20 03/20/20 23:59 23:59 23:59 Intake Total 480 / 480 Output Total 1999 Balance -1520 / -1520 General: Awake, Alert, Oriented x 3 HEENT: Atraumatic Oral: Moist Mucosa Neck: Supple Lungs: Clear to auscultation Cardiovascular: Regular Rhythm Abdomen: Soft Extremities: No edema 03/19/20 23:10: WBC 7.9, RBC 4.49 L, Hgb 14.6, Hct 43.5, MCV 96.9 H, MCH 32.5 H, MCHC 33.6, Plt Count 153, MPV 10.3, Immature Gran % (Auto) 0.400, Neut % (Auto) 63.4, Lymph % (Auto) 25.0, [place] % (Auto) 7.1, Eos % (Auto) 3.7, Baso % (Auto) 0.4, Absolute Neuts (auto) 5.2, Nucleated RBC % 0 03/19/20 23:10: Sodium 138, Potassium 4.3, Chloride 103, Carbon Dioxide 28.0, Anion Gap 7, BUN 20 H, Creatinine 1.00, Est GFR (MDRD) Af Amer 100, Est GFR (MDRD) Non-Af 83, BUN/Creatinine Ratio 20.0, Glucose 299 H, Calcium 9.0, Troponin I < 0.015 03/20/20 03:00: Troponin I 0.088 H 03/20/20 05:05: Troponin I 0.137 H Rhythm: EKG: ECHO: Stress Test: Cardiac Cath: PCI: CT Surgery: Holter monitor: EPS: PPM: CXR: Chest CT Scan: Assessment/Plan 1. Chest pain: Patient states that his symptoms were mainly jaw discomfort and he was lying down a certain way and his chest pain could have been related to that. It was not very similar to the pain he had at the time of his TX and he was stating that he may have panicked. He was reassured that if he has chest discomfort it is reasonable to come to the emergency room to have it evaluated. Patient's borderline troponin could have been secondary to small septal home health aide branch that was pinched by the LAD stent. I think it is reasonable for the patient to be discharged home. He can follow-up with Dr. Cuevas as an outpatient.
== END 2020-03-20 12:20 | disposition home or self-care (01) ==
LOC: ED 03-20 00:17 → PCU 03-20 00:50
PROVIDERS: Admitting Provider Hospitalist; Emergency Provider Emergency Medicine; PCP Internal Medicine; Referring Provider Hospitalist; Visit Provider Internal Medicine
DX: R07.89 Other chest pain (principal); I25.2 Old myocardial infarction; I25.10 Atherosclerotic heart disease of native coronary artery without angina pectoris; I10 Essential (primary) hypertension; R68.84 Jaw pain; K02.9 Dental caries, unspecified; E11.65 Type 2 diabetes mellitus with hyperglycemia; E66.9 Obesity, unspecified; Z68.43 Body mass index [BMI] 50.0-59.9, adult; Z95.5 Presence of coronary angioplasty implant and graft; Z79.899 Other long term (current) drug therapy; Z79.82 Long term (current) use of aspirin; Z79.84 Long term (current) use of oral hypoglycemic drugs
CPT/HCPCS: 36415; 71045; 80048; 82962; 84484; 85025; 93005; 94660; 97802; 99251; 99285; A4216; G0463

== ENCOUNTER → 2020-05-27 07:56 | Outpatient (CLI) | payer BC, SELFPAY ==
[2020-02-23 09:15] VITALS: BMI 51.9
[2020-03-20 01:15] VITALS: BMI 50.9
--- NOTE | 2020-05-27 07:58 | ECHOCS_ITS ---
Reason For Study: CAD Procedure This was a 2D Doppler, Color Flow transthoracic echocardiogram. The study was technically difficult. Contrast injection was performed. Exam performed in department. Left Ventricle Normal LV size. Mild concentric left ventricular hypertrophy. Left ventricular systolic function is normal. Stage 2 diastolic dysfunction. The estimated ejection fraction is 55 %. No regional wall motion abnormalities noted. Right Ventricle Normal RV size. Normal systolic function. Mitral Valve Normal mitral valve. Tricuspid Valve Normal tricuspid valve. Mild tricuspid valve insufficiency. Aortic Valve Normal aortic valve. Trisinus/trileaflet aortic valve. Pulmonic Valve Normal pulmonic valve. Great Vessels Normal aortic root. The pulmonary artery is normal size. Normal inferior vena cava. Pericardium/Pleural No pericardial effusion. Medication 22 gauge I.V. with prn adaptor inserted into right arm. Diluted definity 4.5ml given slow IV push to enhance endocardial definition. MMode/2D Measurements & Calculations LVIDd: 5.4 cm IVSd: 1.3 cm Ao root diam: 3.2 cm LVIDs: 4.2 cm LVPWd: 1.3 cm FS: 23.0 % LAV(MOD-bp): 60.6 ml LVAd ap4: 30.2 cm2 SV(MOD-sp4): 49.4 ml LAV(MOD-bp) Indexed: 22.3 ml/m2 EDV(MOD-sp4): 93.7 ml LAV(MOD-sp2): 65.7 ml EDV(sp4-el): 97.9 ml LAV(MOD-sp4): 51.1 ml LVAs ap4: 18.2 cm2 ESV(MOD-sp4): 44.3 ml ESV(sp4-el): 43.7 ml EF(MOD-sp4): 52.8 % EF(sp4-el): 55.4 % SV(sp4-el): 54.2 ml LA A4 area: 18.3 cm2 LA dimension(2D): 4.3 cm RA A4 area: 14.8 cm2 Time Measurements MV dec time: 0.24 sec Doppler Measurements & Calculations MV E max butch: 76.4 cm/sec Lat Peak E' Butch: 10.7 cm/sec Med Peak E' Butch: 6.6 cm/sec MV A max butch: 53.8 cm/sec E/E' lat: 7.1 E/E' med: 11.6 MV E/A: 1.4 Ao V2 max: 154.6 cm/sec LV V1 max: 89.4 cm/sec PA V2 max: 79.7 cm/sec Ao max P.6 mmHg LV V1 max P.2 mmHg TR max butch: 206.0 cm/sec TR max P.0 mmHg Interpretation Summary Normal LV size. Mild concentric left ventricular hypertrophy. Left ventricular systolic function is normal. Stage 2 diastolic dysfunction. The estimated ejection fraction is 55 %. Contrast injection was performed. Ordering Physician: Jovon Mcknight Referring Physician: MORALES CHINCHILLA Performed By: Bozena Johnson RDCS, RVT
--- NOTE | 2020-05-27 07:58 | CDU_ITS ---
Reason For Study: Lightheadedness Rt. Velocities/BP Lt. Velocities/BP Prox CCA 114/27 cm/sec. Prox CCA 101/23 cm/sec. Mid CCA 89/20 cm/sec. Mid CCA 60/13 cm/sec. Dist CCA 88/19 cm/sec. Dist CCA 59/19 cm/sec. Prox ICA 55/19 cm/sec. Prox ICA 74/25 cm/sec. Mid ICA 73/24 cm/sec. Mid ICA 80/22 cm/sec. Dist ICA 76/25 cm/sec. Dist ICA 105/42 cm/sec. Rt. ICA/CCA = 0.9. Lt. ICA/CCA = 1.7. Prox ECA 130/24 cm/sec. Prox ECA 118/19 cm/sec. Rt. Vert. 54/17 cm/sec. Lt. Vert. 47/16 cm/sec. Right Extracranial There is heterogeneous, irregular atherosclerotic plaque noted in the right common carotid artery. There is intimal thickening but no significant atherosclerotic plaque noted in the right internal carotid artery. There is intimal thickening but no significant atherosclerotic plaque noted in the right external carotid artery. Antegrade flow is noted in the right vertebral artery. Left Extracranial There is heterogeneous, smooth atherosclerotic plaque noted in the left common carotid artery. There is heterogeneous, smooth atherosclerotic plaque noted in the left internal carotid artery. There is intimal thickening but no significant atherosclerotic plaque noted in the left external carotid artery. Antegrade flow is noted in the left vertebral artery. Procedure Carotid Duplex [id number]. Exam performed in department. Interpretation Summary Minimal irregular plaque at the right distal common carotid artery. Less than 50% stenosis right internal carotid Less than 50% stenosis right external carotid Smooth with heterogenous plaque at the proximal left internal carotid with less than 50% stenosis Less than 50% stenosis left external carotid Patent and antegrade vertebrals bilaterally Ordering Physician: Jovon Mcknight Referring Physician: Lani Paiz Performed By: Joaquina Mcknight RDCS, RVT
== END ==
PROVIDERS: PCP Internal Medicine; Referring Provider Nurse Practitioner Family; Visit Provider Nurse Practitioner Family
DX: I25.10 Atherosclerotic heart disease of native coronary artery without angina pectoris (principal); Z95.5 Presence of coronary angioplasty implant and graft; I10 Essential (primary) hypertension; I25.2 Old myocardial infarction; I65.22 Occlusion and stenosis of left carotid artery
CPT/HCPCS: 93306; 93880; Q9957; A4216; C8929

== ENCOUNTER 2020-08-06 00:10 | Inpatient (IN) | payer BC, SELFPAY ==
[2020-05-28 08:25] VITALS: BMI 52.1
[2020-08-06] VITALS (22 sets, daily range): BP systolic 107–180; BP diastolic 56–152; PULSE 69–140; RESP 17–94; TEMP 35.7–37; O2SAT 91–100; BMI 55.8; BMI 55.6; BMI 55.9
--- NOTE | 2020-08-06 00:12 | ED.RN ---
RN CALLED FOR EKG, PULLED OLD EKGS FOR
--- NOTE | 2020-08-06 00:23 | EKG12_ITS ---
Test Reason : CP Blood Pressure : / mmHG Vent. Rate : 118 BPM Atrial Rate : 278 BPM P-R Int : 000 ms QRS Dur : 110 ms QT Int : 280 ms P-R-T Axes : 000 050 -18 degrees QTc Int : 392 ms Atrial flutter with variable A-V block with premature ventricular or aberrantly conducted complexes Cannot rule out Anterior infarct , age undetermined Abnormal ECG Confirmed by LINO ABERNATHY, GIANLUCA ([id number]), news video editor MIGUE WILL ([id number]) on 08/12/2020 10:25:52 A M Referred By: DEJA Confirmed By:ZION HUYNH MD
--- NOTE | 2020-08-06 00:23 | RAD_ITS ---
STUDY: X-RAY CHEST REASON FOR EXAM: Male, 54 years old. chest pain TECHNIQUE: Single AP portable view of the chest. COMPARISON: 03/19/2020. FINDINGS: Mild elevation of the right hemidiaphragm, stable. The lungs are clear and expanded. There is no demonstrated pleural abnormality. Normal size heart. Normal mediastinum and kim. Normal visualized pulmonary arteries. Normal visualized aortic arch and descending thoracic aorta. Normal visualized thoracic spine. Normal visualized ribs, clavicles, and shoulders. There is no demonstrated abnormality of the visualized soft tissue structures of the upper abdomen. RAD/Chest 1 View (Portable) IMPRESSION: No acute cardiopulmonary disease, stable study in the interval. Electronically Signed: Lizzy Messer MD at 1:12 EST , Service support ,
--- NOTE | 2020-08-06 00:25 | ED.VIS.GEN ---
History of Present Illness Chief Complaint: Chest Pain Informant: Patient Onset: Yesterday Current Severity: Mild Maximum Severity: Moderate Narrative: Patient presents with chest pain that started around 8 PM on the evening of August 05. Patient presents just after midnight on the morning of the . Patient states he was eating salsa and started to have a tight sensation in his chest, almost as if he was having allergic reaction. He states he was breathing heavily. He has had some chest tightness since that time. He states overall the symptoms have improved since onset. Patient had an NSTEMI in late December 2019 and has 1 stent to the LAD. In light of his cardiac history he elected to come in for evaluation. Patient did take 2 baby aspirin prior to arrival. He is currently on Brilinta. - Past Medical History (1) High cholesterol Status: Chronic (2) Coronary artery disease Status: Chronic (3) Diabetes Status: Chronic (4) Essential (primary) hypertension Status: Chronic (5) History of coronary artery stent placement Status: Chronic Comment: [id number] LAD w/ 3.00 x 12 mm Synergy MR Stent 01/30/2020 (6) History of non-ST elevation myocardial infarction (NSTEMI) Status: Chronic Past Medical History - Allergies and Home Meds Allergies/Adverse Reactions: Allergies Penicillins [PCN] Allergy (Verified 08/06/20 00:13) Unknown Primary Care Physician: Lani Paiz DO [Primary Care Provider] - Prior records reviewed: Yes Surgical History: cholecystectomy Smoking Status: Never smoker - Family History Maternal Family History: Reports: Heart Disease - His mother had early heart disease, Stroke, - - His mother had leg infection. His mother at the age of 62. Paternal Family History: Reports: Cancer, - - His father had aortic aneurysm Review of Systems General: Denies: Chills, Fever Eyes: Denies: Visual changes - bilaterally ENT: Denies: Bilateral ear pain Cardiovascular: Reports: Chest pain Respiratory: Reports: Dyspnea - Currently resolved, Cough - Chronic cough secondary to lisinopril Gastrointestinal: Denies: Abdominal pain, Nausea, Vomiting, Diarrhea Genitourinary: Denies: Dysuria Musculoskeletal: Denies: Swelling, Extremity Pain Skin: Denies: Rash Neurological: Denies: Headache Hematologic: Denies: Easy bruising, Easy bleeding Allergy: Denies: Uticaria Physical Exam Vital Signs/Narrative: Vital Signs Temp Pulse Resp BP 08/06/20 00:10 96.3 F L 124 H 19 H 180/152 H Inital Vital Signs reviewed: Yes General: Well nourished, Well developed Head: Normocephalic ENT: Moist mucous membranes Neck: Supple Cardiovascular: Irregular, Tachycardia Respiratory: No distress, CTA bilaterally Abdomen: Soft, Nontender, Normal bowel sounds Extremities: Nontender Skin: Normal color Neurological: Alert, Oriented x3 Psychological: Normal affect Diagnostic/Tx/Re-eval Chest X-Ray - ED: 1 View, Read by ED Physician, Chronic Changes Impressions Chest X-Ray 08/06/20 00:23 IMPRESSION: No acute cardiopulmonary disease, stable study in the interval. Electronically Signed: Lizzy Messer MD at 1:12 EST , Service support , 08/06/20 00:23 Chest 1 View (Portable) [RAD] Stat Laboratory Results 08/06/20 08/06/20 00:20 00:20 WBC 7.8 RBC 5.14 Hgb 15.9 Hct 47.7 MCV 92.8 MCH 30.9 MCHC 33.3 RDW Std Deviation 47.9 H RDW Coeff of Simeon 14.0 Plt Count 155 MPV 10.8 Immature Gran % (Auto) 0.500 Neut % (Auto) 59.8 Lymph % (Auto) 26.5 [place] % (Auto) 7.3 Eos % (Auto) 5.3 H Baso % (Auto) 0.6 Absolute Neuts (auto) 4.6 Absolute Lymphs (auto) 2.06 Nucleated RBC % 0 Sodium 135 L Potassium 4.0 Chloride 100 Carbon Dioxide 27.0 Anion Gap 8 BUN 17 Creatinine 1.17 Estim Creat Clear Calc 74.53 Est GFR (MDRD) Af Amer 83 Est GFR (MDRD) Non-Af 69 BUN/Creatinine Ratio 14.5 Glucose 444 H Calcium 8.5 Troponin I 0.171 H TSH 3.59 - EKG Initial EKG Interpretation: Atrial Flutter - Atrial flutter with rapid ventricular rate of 118. Occasional PVCs. No significant ST change. Follow-up EKG Interpretation: Atrial Flutter - Atrial flutter with variable block, ventricular rate [address] change. - Medical Decision Making Patient was given 10 mg of IV Cardizem followed by 15 mg IV Cardizem. Heart rate is currently in the low 80s. Patient states his chest pressure, back pain, and jaw pressure have all subsided. Portable chest x-ray per my interpretation reveals chronic changes only. Blood work is reviewed and troponin does return elevated at 0.171. I spoke with Dr. Cuevas, on-call for cardiology. He would like the patient have a dose of Lovenox at this time. He will plan to see the patient first thing in the morning to decide on taking him to the [facility]. I will speak with the hospitalist for admission. HEART score = 5 ED Disposition - Plan for ED Patient: Disposition: Acute Care Hospital [facility] Diagnosis: Atrial flutter with rapid ventricular response, Elevated troponin Referrals: Lani Paiz DO [Primary Care Provider] -
[2020-08-06 00:28] LABS: Absolute Lymphocyte Count 2.06 X10^3/uL (0.83-4.51); Absolute Neutrophil Count 4.6 X10^3/uL (2.0-7.7); Basophil# 0.05 X10^3/uL; Basophil% 0.6 % (0-1); Eosinophil# 0.41 X10^3/uL; Eosinophils% 5.3 % (0-5); Hematocrit 47.7 % (40-54); Hemoglobin 15.9 g/dL (13.0-16.5); Lymphocyte # 2.06 X10^3/ul (4.0); Lymphocyte % 26.5 % (19-41); Mean Corp Hgb Conc 33.3 g/dL (32-36); Mean Corpuscular Hgb 30.9 pg (27.0-32.0); Mean Corpuscular Volume 92.8 fL (80-94); Mean Platelet Vol. 10.8 fl (6.2-12.0); Monocyte# 0.57 X10^3/uL; Monocyte% 7.3 % (0-10); NRBC Flagged by Analyzer 0 % (0-5); Neutrophil # 4.63 X10^3/uL (2.7-7.7); Neutrophil % 59.8 % (47-70); Platelet Count 155 K/mm3 (150-450); RBC Distribution Width SD 47.9 fl (35.1-43.9); Red Blood Count 5.14 M/mm3 (4.6-6.2); White Blood Count 7.8 K/mm3 (4.4-11.0)
[2020-08-06] MEDS: Aspirin 81 MG TAB.CHEW 162 MG PO (00:31)
[2020-08-06] MEDS: dilTIAZem 25 MG/5 ML Vial 10 MG IV BOLUS (00:32)
[2020-08-06] MEDS: 0.9% Normal Saline 1,000 ML 150 ML IV (00:33)
[2020-08-06] MEDS: dilTIAZem 25 MG/5 ML Vial 20 MG IV BOLUS (00:44)
--- NOTE | 2020-08-06 00:48 | EKG12_ITS ---
Test Reason : CP REPEAT Blood Pressure : / mmHG Vent. Rate : 071 BPM Atrial Rate : 284 BPM P-R Int : 000 ms QRS Dur : 106 ms QT Int : 378 ms P-R-T Axes : 000 052 045 degrees QTc Int : 410 ms Atrial flutter with variable A-V block Incomplete left bundle branch block Abnormal ECG Confirmed by LINO ABERNATHY, GIANLUCA ([id number]), image editor MIGUE WILL ([id number]) on 08/12/2020 10:26:09 A M Referred By: DEJA Confirmed By:ZION HUYNH MD
[2020-08-06 00:52] LABS: Anion Gap 8 (5-15); BUN 17 mg/dL (7-18); BUN/Creat Ratio 14.5 RATIO (10-20); Calcium,Total 8.5 mg/dL (8.5-10.1); Chloride 100 mmol/L (98-107); Creatinine, Serum 1.17 mg/dL (0.70-1.30); EST Glomerular Filtration Rate 69 mL/min (>60); Est Glom Filt Rate - Afr Amer 83 mL/min (>60); Estimated Creatinine Clearance 74.53 ml/min; Glucose 444 mg/dL (74-106); Sodium Level 135 mmol/L (136-145); Thyroid Stim Hormone (TSH) 3.59 uIU/mL (0.358-3.74)
[2020-08-06] MEDS: Enoxaparin 150 MG/ML Syringe SC (01:23)
--- NOTE | 2020-08-06 01:59 | EKG12_ITS ---
Test Reason : ADMISSION EKG Blood Pressure : / mmHG Vent. Rate : 071 BPM Atrial Rate : 284 BPM P-R Int : 000 ms QRS Dur : 110 ms QT Int : 386 ms P-R-T Axes : 260 055 053 degrees QTc Int : 419 ms Atrial flutter with variable A-V block Incomplete left bundle branch block Abnormal ECG Confirmed by NATHANAEL ABERNATHY, KIM ([id number]), proposal editor MIGUE WILL ([id number]) on 08/07/2020 11:24:42 AM Referred By: NELSY Confirmed By:KIM HUFFMAN MD
--- NOTE | 2020-08-06 01:59 | PCM.HP.STD ---
Problem List (1) High cholesterol Status: Chronic (2) Atrial flutter with rapid ventricular response Status: Acute (3) Elevated troponin Status: Acute (4) History of non-ST elevation myocardial infarction (NSTEMI) Status: Chronic (5) Coronary artery disease Status: Chronic (6) Diabetes Status: Chronic (7) Chest pain Status: Acute (8) Atherosclerotic heart disease of [place] coronary artery without angina pectoris Status: Chronic Qualifiers: [place] vs. transplanted heart: [place] heart Qualified Code(s): I25.10 - Atherosclerotic heart disease of [place] coronary artery without angina pectoris (9) History of coronary artery stent placement Status: Chronic Comment: [id number] LAD w/ 3.00 x 12 mm Synergy MR Stent 01/30/2020 (10) Essential (primary) hypertension Status: Chronic History of Present Illness Date of Admission: 08/06/20 Chief Complaint: Chest tightness, left jaw pain The patient is a 54 year old M with history of coronary artery status post LAD stent in January, came to ED with left jaw pain and unusual feeling. Patient stated he ate salsa in the ER and felt a strong taste, nasal allergy symptoms and did not feel right. He went to sleep and after 2 hours he woke with left-sided chest tightness with radiation to jaw pain. He denies palpitation, irregular heartbeat, dizziness or syncope. In ED , triage vitals shows BP 180/152, heart rate 124/min, atrial flutter with rapid rate, 3 to 1 conduction. Patient was given Cardizem 10 mg and then 15 mg IV and patient heart rate slowed down in 90s. Patient heart rate still variable in atrial flutter between 80 to 130/min, blood pressure 128/80. No hypoxia. Twelve-lead EKG shows atrial flutter with 3: 1 conduction and another EKG with variable conduction with PVCs. First troponin elevated 0.171. Glucose high 444. Patient has other comorbidities including diabetes mellitus type 2, morbid obesity and obstructive sleep apnea on CPAP Past Medical History Past Medical History (Chronic Problems): Chronic Problems (Last Updated 03/20/20 @ 00:[address] Safia Montoya MD) High cholesterol (Chronic) History of non-ST elevation myocardial infarction (NSTEMI) (Chronic 01/30/20) Coronary artery disease (Chronic) Diabetes (Chronic) Atherosclerotic heart disease of [place] coronary artery without angina pectoris (Chronic) History of coronary artery stent placement (Chronic 01/30/20) [id number] LAD w/ 3.00 x 12 mm Synergy MR Stent 01/30/2020 Essential (primary) hypertension (Chronic) Medical History: Medical History (Last Updated 03/20/20 @ 00:[address] Safia Montoya MD) History of non-ST elevation myocardial infarction (NSTEMI) (Chronic) Onset Date: 01/30/20 I25.2 Atherosclerotic heart disease of [place] coronary artery without angina pectoris (Chronic) I25.10 Essential (primary) hypertension (Chronic) I10 Obesity E66.9 Type 2 diabetes mellitus E11.9 Acute coronary syndrome I24.9 Allergies Penicillins [PCN] Allergy (Verified 08/06/20 00:13) Unknown Home Medications: Ambulatory Orders Medication Instructions Recorded Empagliflozin [Jardiance] 25 mg PO DAILY 01/29/20 Aspirin E.C. [Ecotrin] 81 mg PO DAILY@0800 #90 tab 01/31/20 dulaglutide 0.75 mg/0.5 mL 0.75 mg SC QWEEK 02/23/20 subcutaneous pen injector lisinopril 40 mg tablet 40 mg PO DAILY #90 tab 02/23/20 ticagrelor 90 mg tablet 90 mg PO BID #180 tab 02/23/20 metformin 1,000 mg tablet 500 mg PO BID tab 05/28/20 nitroglycerin 0.4 mg sublingual 0.4 mg SUBLINGUAL Q5M PRN #25 tab 05/28/20 tablet tadalafil 20 mg tablet 20 mg PO 05/28/20 Rosuvastatin Calcium 10 mg PO DAILY 08/06/20 Testosterone Cypionate 2 ml SC 08/06/20 Surgical History: Surgical History (Last Reviewed 03/20/20 @ 00:[address] Safia Montoya MD) History of coronary artery stent placement (Chronic) Onset Date: 01/30/20 Z95.5 [id number]-[id number] LAD w/ 3.00 x 12 mm Synergy MR Stent 01/30/2020 History of cholecystectomy Z90.49 Surgical History: cholecystectomy Smoking Status: Never smoker - *Family History Maternal History Items: Heart Disease - His mother had early heart disease, Stroke, - - His mother had leg infection. His mother at the age of 62. Paternal History Items: Cancer, - - His father had aortic aneurysm Review of Systems Constitutional: Denies: Chills, Fever, Weight Change HEENT: Denies: Head Aches, Sinus Congestion, Sinus Drainage Cardiovascular: Reports: Chest Tightness, Edema. Denies: Chest Pain, Palpitations Respiratory: Denies: Cough, Shortness of breath at rest, Sputum production Gastrointestinal: Denies: Abdominal Pain, Nausea, Vomiting Genitourinary: Denies: Dysuria Musculoskeletal: Denies: Joint Pain, Joint Tenderness Skin: Denies: Rash, Wounds Neurological: Denies: Numbness, Tingling, Focal weakness Psychiatric: Denies: Anxiety, Depression, Homicidal Ideations, Suicidal Ideations Hematologic/ Lymphatic: Denies: Easy Bruising, Easy Bleeding VTE Information - Inpt Only VTE Present on Admission: No VTE Mechan Device Prophylaxis: None VTE Pharm Prophylaxis ordered?: Yes Patient Problems: Active and Suspected Problems (Last Updated 03/20/20 @ 00:[address] Safia Montoya MD) Atrial flutter with rapid ventricular response (Acute) Elevated troponin (Acute) Objective: General: Alert, Oriented x3, Cooperative, morbid obesity BMI 55.9 kg/m? HEENT: Atraumatic, PERRLA, EOMI, Normocephalic Oral: No Gingival or Mucosal Lesions/ Ulcerations Neck: Supple, No JVD, Negative Carotid Bruits Lungs: Air entry diminished in bilateral lung bases. No crepitation/rhonchi Cardiovascular: Irregular rate with tachycardia, atrial flutter normal S1, Normal S2, No murmurs Abdomen: Bowel Sounds Present, Soft, Non Tender, Non-Distended : No renal angle tenderness. No suprapubic tenderness. Extremities: Bilateral ankle nonpitting edema, Capillary Refill Less than 3 Seconds Skin: No rashes, No breakdown Musculoskeletal: No Tenderness to Palpation of Joints or Extremities Neurological: Cranial nerves II-XII grossly intact, Deep Tendon Reflexes 2+/4 and Symmetrical, Neuro grossly intact Psych/Mental Status: Normal Affect, Appropriate. - Physical Exam Vitals/I&O's: Vital Signs Temp Pulse Resp BP Pulse Ox 97.9 F 71 17 130/75 H 94 08/06/20 01:25 08/06/20 01:25 08/06/20 01:25 08/06/20 01:25 08/06/20 01:25 Oxygen Flow Rate (L/min) 2 Oxygen Delivery Method Nasal Cannula Weight: 389 lb 5.381 oz Body Mass Index (BMI) 55.8 Finger Stick Blood Glucose 131 Laboratory Results 08/06/20 00:20: WBC 7.8, RBC 5.14, Hgb 15.9, Hct 47.7, MCV 92.8, MCH 30.9, MCHC 33.3, RDW Std Deviation 47.9 H, RDW Coeff of Simeon 14.0, Plt Count 155, MPV 10.8, Immature Gran % (Auto) 0.500, Neut % (Auto) 59.8, Lymph % (Auto) 26.5, O'Brien % (Auto) 7.3, Eos % (Auto) 5.3 H, Baso % (Auto) 0.6, Absolute Neuts (auto) 4.6, Absolute Lymphs (auto) 2.06, Nucleated RBC % 0 08/06/20 00:20: Sodium 135 L, Potassium 4.0, Chloride 100, Carbon Dioxide 27.0, Anion Gap 8, BUN 17, Creatinine 1.17, Estim Creat Clear Calc 74.53, Est GFR (MDRD) Af Amer 83, Est GFR (MDRD) Non-Af 69, BUN/Creatinine Ratio 14.5, Glucose 444 H, Calcium 8.5, Troponin I 0.171 H, TSH 3.59 Current Medications Sodium Chloride () 1,000 mls @ 150 mls/hr IV .Q6H40M [facility] Last Admin: 08/06/20 00:33 Dose: 150 mls/hr Documented by: Metoprolol Tartrate (Metoprolol Tartrate 25 Mg Tablet) 25 mg PO BID [facility] Assessment/Plan All Active Problems (Last Updated 03/20/20 @ 00:[address] Safia Montoya MD) Atrial flutter with rapid ventricular response (Acute) Elevated troponin (Acute) Chest pain (Acute) This 54-year-old gentleman admitted with atrial flutter with tachycardia and chest tightness, elevated troponin consistent with non-STEMI 1. Atrial flutter with tachycardia with PVCs: Exact precipitating factor unclear possible non-STEMI. 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 Patient had 1 dose of Lovenox 150 mg subcu and plan for possible cardiac cath tomorrow a.m. Started on metoprolol 25 mg p.o. twice daily and metoprolol 5 mg IV as needed for heart rate more than 130. ER physician discussed with Dr. Cuevas. BNP and fasting profile ordered for tomorrow a.m. 2. Atypical chest pain with non-STEMI: Patient home medication baby aspirin, Brilinta, lisinopril, atorvastatin continued. Sublingual nitro as needed for chest pain. Patient had echo in April 2020 as reported below Interpretation Summary Normal LV size. Mild concentric left ventricular hypertrophy. Left ventricular systolic function is normal. Stage 2 diastolic dysfunction. The estimated ejection fraction is 55 %. Contrast injection was performed. 3. Coronary artery status post stent: 4. Hypertension: Blood pressure was high in ED. Currently controlled. 5. Diabetes mellitus type 2 with hyperglycemia: Accu-Chek before meals and at bedtime and cover with long-acting insulin and Humalog scheduled and sliding scale insulin. Hold Metformin as patient might go for cardiac cath. On Jardiance continued. A1c tomorrow a.m. ?Uncontrolled with hyperglycemia did continue with home regimen 6.obstructive sleep apnea on CPAP obesity with BMI of 55. 7 kg/m?. In January, his BMI was 51 and then gained weight. Receiving Lead consult. ?Weight loss advised VT prophylaxis: Patient had 1 dose of Lovenox therapeutic. Bilateral SCDs. Inpatient E&M: 15033 Init Hosp L3
[2020-08-06] MEDS: 0.9% Normal Saline 1,000 ML 100 ML IV (02:34)
[2020-08-06] MEDS: Metoprolol Tartrate 25 MG Tablet PO ×2 (02:34→06:32)
[2020-08-06 03:58] LABS: Magnesium 1.9 mg/dL (1.6-2.6)
[2020-08-06 04:07] LABS: BNP,B-Type NATRIURETIC PEPTIDE 98.8 pg/mL (0-100)
[2020-08-06] MEDS: Aspirin E.C. 81 MG Tablet PO (06:32)
[2020-08-06] MEDS: TICAGRELOR 90 MG TABLET PO (06:32)
[2020-08-06] MEDS: 0.9% Saline Lock 10 ML Syringe IV (06:33)
[2020-08-06 06:40] LABS: Bedside Glucose 270 mg/dL (70-110)
[2020-08-06 06:59] LABS: Cholesterol 78 mg/dL (200); High Density Lipoprotein 31 mg/dL; Triglycerides 162 mg/dL; Very Low Density Lipoprotein 32 mg/dL (5-40)
[2020-08-06 08:00] LABS: Hemoglobin A1c 8.8 % (3.8-5.6)
--- NOTE | 2020-08-06 08:12 | CON.PCM_ITS ---
Reason for Consult Date of Consultation: 08/06/20 Reason for Consultation: Chest discomfort History of Present Illness: The patient is a 54 year old M with a history of coronary disease status post previous angioplasty and stenting of his left anterior descending artery in 2019, hypertension, who presented to the emergency room after chest discomfort after eating a chip chop sandwich. He also had some salsa. He had epigastric discomfort with jaw discomfort. He was concerned that this may be cardiac. He said that he had some abdominal discomfort and then he decided to come into the emergency room. In the emergency room he was noted to have atrial flutter with rapid ventricular response rate he was given intravenous diltiazem. He was also noted to be markedly hypertensive likely previous time. I was called for a cardiology consult. Since he has been here he has been doing well denying any chest pain or paroxysmal nocturnal dyspnea pedal edema no neck arm or jaw discomfort to suggest angina. His cardiac enzymes were obtained and were noted to be abnormal. He previously had a 3.0x12 Synergy drug-eluting stent placed to the proximal left anterior descending artery in January 2020. [] Past Medical History Allergies/Adverse Reactions: Allergies Penicillins [PCN] Allergy (Verified 08/06/20 00:13) Unknown Home Medications: Ambulatory Orders Medication Instructions Recorded Empagliflozin [Jardiance] 25 mg PO DAILY 01/29/20 Aspirin E.C. [Ecotrin] 81 mg PO DAILY@0800 #90 tab 01/31/20 dulaglutide 0.75 mg/0.5 mL 0.75 mg SC QWEEK 02/23/20 subcutaneous pen injector lisinopril 40 mg tablet 40 mg PO DAILY #90 tab 02/23/20 ticagrelor 90 mg tablet 90 mg PO BID #180 tab 02/23/20 metformin 1,000 mg tablet 500 mg PO BID tab 05/28/20 nitroglycerin 0.4 mg sublingual 0.4 mg SUBLINGUAL Q5M PRN #25 tab 05/28/20 tablet tadalafil 20 mg tablet 20 mg PO 05/28/20 Rosuvastatin Calcium 10 mg PO DAILY 08/06/20 Testosterone Cypionate 2 ml SC 08/06/20 Past Medical History (Chronic Problems): Chronic Problems (Last Updated 03/20/20 @ 00:[address] Safia Montyoa MD) High cholesterol (Chronic) History of non-ST elevation myocardial infarction (NSTEMI) (Chronic 01/30/20) Coronary artery disease (Chronic) Diabetes (Chronic) Atherosclerotic heart disease of [place] coronary artery without angina pectoris (Chronic) History of coronary artery stent placement (Chronic 01/30/20) [id number] LAD w/ 3.00 x 12 mm Synergy MR Stent 01/30/2020 Essential (primary) hypertension (Chronic) Surgical History: cholecystectomy - *Family History Maternal History Items: Heart Disease - His mother had early heart disease, Stroke, - - His mother had leg infection. His mother at the age of 62. Paternal History Items: Cancer, - - His father had aortic aneurysm Smoking Status: Never smoker Alcohol: None Drugs: None Review of Systems - Review of Systems General: Denies: Fever, Night Sweats, Fatigue HEENT: Denies: Vision Change Cardiovascular: Reports: Chest Discomfort. Denies: Shortness of Breath, Orthopnea, PND, Peripheral Edema, Palpitations, Lightheadedness, Dizziness, Near Syncope, Syncope Respiratory: Denies: Cough, Sputum Production, Hemoptysis Gastrointestinal: Reports: Abdominal Discomfort. Denies: Hematemesis, Hematochezia, Melena Genitourinary: Denies: Dysuria, Hematuria Skin: Denies: Rash Psychiatric: Denies: Anxiety Endocrine: Denies: Heat Intolerance Subjectve: Pleasant gentleman in no distress Objective: Vital Signs Temp Pulse Resp BP Pulse Ox 98.1 F 69 18 113/67 100 08/06/20 07:57 08/06/20 07:57 08/06/20 07:57 08/06/20 07:57 08/06/20 07:57 Oxygen Flow Rate (L/min) 2 Oxygen Delivery Method Room Air Weight: 375 lb 14.21 oz Body Mass Index (BMI) 55.6 Finger Stick Blood Glucose 131 Intake and Output for Last 24 Hours 08/04/20 08/05/20 08/06/20 23:59 23:59 23:59 Intake Total 352.5 / 352.5 Balance 352.5 / 352.5 General: Awake, Alert, Oriented x 3 HEENT: PERRL, EOMI, Sclera Non Icteric Neck: Supple, Good ROM, No Lymph Node Enlargement Lungs: Clear to auscultation Cardiovascular: Regular Rhythm, Normal S1, Normal S2, No Murmurs, No Rubs, No Gallops Vascular: No Carotid Bruits, Normal Femoral Pulses, Normal Radial Pulses, Normal Dorsalis Pedal Pulse, Normal Posterior Tibial Pulses Abdomen: Bowel Sounds Present, Soft, Non Tender, No HSM, No Organomegaly Extremities: No Cyanosis, No Clubbing, No edema Neurological: No Focal Motor or Sensory Deficit 08/06/20 00:20: WBC 7.8, RBC 5.14, Hgb 15.9, Hct 47.7, MCV 92.8, MCH 30.9, MCHC 33.3, Plt Count 155, MPV 10.8, Immature Gran % (Auto) 0.500, Neut % (Auto) 59.8, Lymph % (Auto) 26.5, Bull[place] % (Auto) 7.3, Eos % (Auto) 5.3 H, Baso % (Auto) 0.6, Absolute Neuts (auto) 4.6, Nucleated RBC % 0 08/06/20 00:20: Sodium 135 L, Potassium 4.0, Chloride 100, Carbon Dioxide 27.0, Anion Gap 8, BUN 17, Creatinine 1.17, Est GFR (MDRD) Af Amer 83, Est GFR (MDRD) Non-Af 69, BUN/Creatinine Ratio 14.5, Glucose 444 H, Calcium 8.5, Troponin I 0.171 H 08/06/20 03:36: Magnesium 1.9 08/06/20 03:36: B-Natriuretic Peptide 98.8 08/06/20 03:36: Troponin I 0.656 H* 08/06/20 03:36: Hemoglobin A1c 8.8 H 08/06/20 05:54: Troponin I 0.864 H*, Triglycerides 162, Cholesterol 78, LDL Cholesterol 15, VLDL Cholesterol 32, HDL Cholesterol 31 L Rhythm: EKG: Atrial flutter with a rapid ventricular response rate. Preserved ejection fraction estimated EF 55% ECHO: Stress Test: Cardiac Cath: PCI: CT Surgery: Holter monitor: EPS: PPM: CXR: Chest CT Scan: Assessment/Plan 1. Abnormal cardiac enzymes/non-ST elevation myocardial infarction * Patient presents with epigastric and jaw discomfort and is noted to have abnormal cardiac enzymes. With his previous history of LAD stenting. I would recommend that we pursue an invasive approach with a relook cardiac catheterization. The risk benefits alternatives have been explained to him he understands and agrees to proceed. Depending on the findings further recommendations will be made. * 2. Atrial flutter * He does have new onset atrial flutter. The etiology is not entirely clear. If he still remains in atrial flutter after the cardiac catheterization we may need to put him on anticoagulation for 3 weeks and then consider elective DC cardioversion. * If he has a recurrence of the above I will consider an atrial flutter ablation. * I suspect sleep apnea may be contributing to some of this as well. He does use a CPAP mask. This may need to be adjusted 3. Hypertension * He does have a history of hypertension. He was noted to be markedly elevated when he presented. We will evaluate for the above and make changes to his blood pressure medications as appropriate. * * Thank you for allowing me to participate in the care of your patient. Please don't hesitate to call if any issues arise. * * Addendum:. Cardiac catheterization demonstrated the following a left main coronary artery which is normal. Left anterior descending artery with proximal previously stented vessel which is patent. Mid left anterior descending artery at the bifurcation of the diagonal and LAD has moderate disease. Left circumflex artery with moderate diffuse disease. Dominant right coronary artery with moderate mid segment disease. Preserved ejection fraction. Based on the above angiographic findings were discussed with supervisor plastics as to whether an FFR of the mid left anterior descending artery would be worthwhile. This may help guide therapy. It was decided that medical therapy would be pursued. He can be discharged for outpatient follow-up later today.
--- NOTE | 2020-08-06 08:54 | CASEMGMT ---
According to the [facility] website, the following are in network tertiary care facilities: [facility], [place], [facility], [facility], [facility], [facility], [facility] and .
--- NOTE | 2020-08-06 09:24 | CL.D_ITS ---
Patient Name: DORIAN DENIS Study Date: 08/06/2020 Performing: Nathan Cuevas MD Ht: 70.07 inches 178 cm : 1965 Wt: 376.99 lbs 171 kg Age: 54 Gender: male BSA: 2.73 PROCEDURE(S) PERFORMED [id number]-[id number]/COR/LV CLINICAL PROFILE AND INDICATIONS Indications: ACS <= 24 hrs Heart Failure: None Stress/Imaging Stress/Image Study Performed: No CONCLUSIONS Previously placed stent in LAD is patent, With diffuse triple vessel disease RECOMMENDATIONS Medical therapy DESCRIPTION OF PROCEDURE The patient arrived to the procedure lab. The risks and benefits of the procedure as well as a full d escription of our services here and current unavailability of surgical backup were fully explained to the patient and/or their significant other prior to the catheterization. The Timeout was completed, verifying the correct patient and procedure. The patient's procedural site was prepped and draped in the usual fashion. Local anesthetic was given subcutaneously to right radial region with Lidocaine 2% . Using a modified Seldinger technique, arterial access was obtained via the right radial artery, a 6 Fr sheath was inserted. Right Coronary Artery selective angiography was then performed in multiple v iews using a 5 Fr. 4.0 [place] catheter. Left Coronary Artery selective angiography was performed in mu ltiple views using a 5 Fr. 4.0 [place] catheter. Left Ventriculography was performed in WATSON projection using a 5 Fr. Pigtail catheter. LV to AO pullback pressures were then recorded.The arterial sheath was pulled and a TR Band was applied for hemostasis CORONARY ANGIOGRAPHY DOMINANCE: Right Dominant LEFT HEART ASSESSMENT Left Ventricular Ejection Fraction: by LV Gram 60 % Normal LV wall motion Normal Left Ventricular systolic function LEFT MAIN: Mild luminal irregularities less than 30%, Previously placed stent is patent LEFT ANTERIOR DESCENDING ARTERY: MID LAD: Diffusely diseased up to 60 % CIRCUMFLEX ARTERY: Moderate luminal irregularities up to 50% RAMUS: Moderate luminal irregularities up to 50% RIGHT CORONARY ARTERY: MID RCA: Moderate luminal irregularities up to 50% COLLATERAL FLOW: Collateral flow from Right to Left COMPLICATIONS No Complications PROCEDURE MEDICATIONS Fentanyl 50 mcg IV Versed 1 mg IV Versed 1 mg IV Versed 1 mg IV Fentanyl 50 mcg IV Oxygen: 2 L/min via nasal cannula Heparin diluted in 23cc Heparinized saline. Patient given 10cc IA of this solution. 08/06/2020 08:37:2 8 Verapamil 2.5mg, Ntg 100mcgs, 2000 units of Heparin diluted in 23cc Heparinized saline. Patient give n 10cc IA of this solution. 08/06/2020 08:37:28 SUMMARY OF HEMODYNAMIC DATA Time AIR REST ECG 08:23:27 AO 100/68 (83) SA 08:39:44 AO 111/74 (90) 08:46:57 LV 132/17, 22 08:53:00 LV 134/17, 24 08:53:07 LV 133/21, 27 08:54:03 LVp 137/20, 26 08:54:08 AOp 143/84 (110) 08:54:13 AO 136/83 (107) 08:54:16 Signed By Nathan Cuevas MD On 08/06/2020 11:43:59 AM Nathan Cuevas MD
[2020-08-06] MEDS: Empagliflozin 25 MG Tablet PO (10:20)
--- NOTE | 2020-08-06 10:45 | CASEMGMT ---
RN VENKATESH Assessment: Face to Face with patient for initial transition planning/care coordination assessment. RN CM introduced self and role at [facility], pt voices understanding and consents to assessment, requests [place] to answer questions. Pt is resting in bed with CPAP on. Pt is A/Ox4. Care providers, pharmacy, and demographics verified. Presentation: CP radiating to L jaw Admitting dx: aflutter with rvr, elevated troponin PCP:Izabel Specialists:KESHA Martinez uro; Faith, cardio Preferred Pharmacy:[facility] [place], pt wishes to use [facility] Retail pharmacy while in hospital if needed. Insurance:AddressReport Prescription Benefit: yes Living Will/HPOA:yes, HPOA is [facility]. Pt/ is aware that LW/HPOA is not on file at [facility]. LNOK: [place] Living Arrangements: Pt lives in a 2 story house with his and states no concerns at this time. reports pt is I in ADL's. Transportation:Pt drives self and has no concerns with transportation. DME/HHC:Pt has a CPAP at home. denies need for any futher DME. No previous HHC. Pt/ state no concerns with going home at time of dc. 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 He reports no smoking and occasional ETOH use. Pt/ state no further concerns/needs. CM to follow for any further dc planning/needs. Advised pt to ask for CM if any further questions/concerns/needs arise, voices understanding. Pt goal: Home Plan:Home
[2020-08-06] MEDS: Insulin Lispro 100 UNIT/ML INSULN.PEN SC (11:10)
[2020-08-06 11:15] LABS: Bedside Glucose 213 mg/dL (70-110)
--- NOTE | 2020-08-06 13:08 | PCM.DC ---
- Discharge Diagnoses Current Active Problems: Current Active and Chronic Problems (Last Updated 03/20/20 @ 00:[address] Safia Montoya MD) High cholesterol (Chronic) Atrial flutter with rapid ventricular response (Acute) Elevated troponin (Acute) History of non-ST elevation myocardial infarction (NSTEMI) (Chronic 01/30/20) Coronary artery disease (Chronic) Diabetes (Chronic) Chest pain (Acute) Atherosclerotic heart disease of [place] coronary artery without angina pectoris (Chronic) History of coronary artery stent placement (Chronic 01/30/20) [id number] LAD w/ 3.00 x 12 mm Synergy MR Stent 01/30/2020 Essential (primary) hypertension (Chronic) You will use the following diet at home:: No restrictions Your food should be the consistency of: Regular Your liquids should be the consistency of: Regular/Thin Discharge Activity: Return to Normal Activity Return to work on:: 08/07/20 May resume sexual activity in: No Restrictions Weight Bearing Status: Weight bearing as tolerated Allergies/Adverse Reactions: Allergies Penicillins [PCN] Allergy (Verified 08/06/20 00:13) Unknown Medications to take at Discharge Empagliflozin [Jardiance] 25 mg PO DAILY 01/29/20 Aspirin E.C. [Ecotrin] 81 mg PO DAILY@0800 #90 tab 01/31/20 dulaglutide 0.75 mg/0.5 mL subcutaneous pen injector 0.75 mg SC QWEEK 02/23/20 lisinopril 40 mg tablet 40 mg PO DAILY #90 tab 02/23/20 ticagrelor 90 mg tablet 90 mg PO BID #180 tab 02/23/20 metformin 1,000 mg tablet 500 mg PO BID tab 05/28/20 nitroglycerin 0.4 mg sublingual tablet 0.4 mg SUBLINGUAL Q5M PRN #25 tab 05/28/20 Rosuvastatin Calcium 10 mg PO DAILY 08/06/20 Testosterone Cypionate 2 ml SC 08/06/20 Primary Care Physician: Lani Paiz DO [Primary Care Provider] - Please follow up with your Primary Care Physician in: Within the next week Test Results: Test results from this visit will be discussed in further detail at your follow-up appointment, if applicable. Please Follow Up With: Dr. Cuevas When: Within the next week Proposed Discharge Date: 08/06/20
--- NOTE | 2020-08-06 13:11 | PCM.DC.SUM ---
<Jovon Mayen - Last Filed: 08/06/20 13:11> Discharge Date and Diagnosis - Problem List Patient Problems: Active and Suspected Problems (Last Updated 03/20/20 @ 00:[address] Safia Montoya MD) Atrial flutter with rapid ventricular response (Acute) Elevated troponin (Acute) Chest pain (Acute) Date of Admission: 08/06/20 Date of Discharge: 08/06/20 - Primary Discharge Diagnosis Acute Problems: Active Problems (Last Updated 03/20/20 @ 00:[address] Safia Montoya MD) Atrial flutter with rapid ventricular response (Acute) Elevated troponin (Acute) Chest pain (Acute) - Secondary Discharge Diagnosis Chronic Problems: Chronic Problems (Last Updated 03/20/20 @ 00:[address] Safia Montoya MD) High cholesterol (Chronic) History of non-ST elevation myocardial infarction (NSTEMI) (Chronic 01/30/20) Coronary artery disease (Chronic) Diabetes (Chronic) Atherosclerotic heart disease of [place] coronary artery without angina pectoris (Chronic) History of coronary artery stent placement (Chronic 01/30/20) [id number] LAD w/ 3.00 x 12 mm Synergy MR Stent 01/30/2020 Essential (primary) hypertension (Chronic) Hospital Course and Treatment Imaging Results: Clinical Impression(s) from Imaging Studies Chest X-Ray 08/06/20 00:23 IMPRESSION: No acute cardiopulmonary disease, stable study in the interval. Electronically Signed: Lizzy Messer MD at 1:12 EST , Service support , See below for assessment and plan of Dr. Cuevas 1. Abnormal cardiac enzymes/non-ST elevation myocardial infarction Patient presents with epigastric and jaw discomfort and is noted to have abnormal cardiac enzymes. With his previous history of LAD stenting. I would recommend that we pursue an invasive approach with a relook cardiac catheterization. The risk benefits alternatives have been explained to him he understands and agrees to proceed. Depending on the findings further recommendations will be made. 2. Atrial flutter He does have new onset atrial flutter. The etiology is not entirely clear. If he still remains in atrial flutter after the cardiac catheterization we may need to put him on anticoagulation for 3 weeks and then consider elective DC cardioversion. If he has a recurrence of the above I will consider an atrial flutter ablation. I suspect sleep apnea may be contributing to some of this as well. He does use a CPAP mask. This may need to be adjusted 3. Hypertension He does have a history of hypertension. He was noted to be markedly elevated when he presented. We will evaluate for the above and make changes to his blood pressure medications as appropriate. Thank you for allowing me to participate in the care of your patient. Please don't hesitate to call if any issues arise. Addendum:. Cardiac catheterization demonstrated the following a left main coronary artery which is normal. Left anterior descending artery with proximal previously stented vessel which is patent. Mid left anterior descending artery at the bifurcation of the diagonal and LAD has moderate disease. Left circumflex artery with moderate diffuse disease. Dominant right coronary artery with moderate mid segment disease. Preserved ejection fraction. Based on the above angiographic findings were discussed with customer technical services manager as to whether an FFR of the mid left anterior descending artery would be worthwhile. This may help guide therapy. It was decided that medical therapy would be pursued. He can be discharged for outpatient follow-up later today. Procedures: Cardiac catheterization - See consultations Summary of Care Provided: This is a 54-year-old male who presented to the ED with a chief complaint of chest pain. Patient was admitted for atrial flutter with tachycardia and chest tightness and elevated troponins consistent with NSTEMI. Glucose at admission was high at 444. This patient is an established patient of Dr. Cuevas from cardiology. Cardiac catheterization was completed in the hospital and outpatient medical management was decided per cardiology. See below for results from cardiac cath. Patient advised to stop taking tadalafil, as this is contraindicated when the patient is also on nitroglycerin. Cardiac catheterization demonstrated the following a left main coronary artery which is normal. Left anterior descending artery with proximal previously stented vessel which is patent. Mid left anterior descending artery at the bifurcation of the diagonal and LAD has moderate disease. Left circumflex artery with moderate diffuse disease. Dominant right coronary artery with moderate mid segment disease. Preserved ejection fraction. 1) Abnormal cardiac enzymes/NSTEMI Assessment - Elevated troponins throughout cycle - EKG: A flutter with RVR - BNP unremarkable - Lipid profile unremarkable Plan - Discharge today - Beta-toro increased to metoprolol 50 twice daily - Outpatient medical management per cardiology 2) DM 2 with hyperglycemia Assessment - POC glucose; 213 mg/dL at discharge - Hemoglobin A1c 8.8% Plan - Continue with outpatient management - Follow-up with primary care provider in 1 week 3) SVETLANA Assessment - CPAP obesity with BMI of 55.7 kg/m? Plan - Nutrition consult ordered, weight loss advised 3) Hypertension ? stable VTE Prophylaxis: Lovenox SC x1, Bilateral SCDs. Eliquis initiated at discharge Patient seen by Jovon Mayen PA-C, under the supervision of Dr. Fraire. Patient Problems: Active and Suspected Problems (Last Updated 03/20/20 @ 00:[address] Safia Montoya MD) Atrial flutter with rapid ventricular response (Acute) Elevated troponin (Acute) Chest pain (Acute) - Physical Exam Vitals/I&O's: Vital Signs Temp Pulse Resp BP Pulse Ox 96.9 F L 84 18 119/84 H 94 08/06/20 12:28 08/06/20 12:28 08/06/20 12:28 08/06/20 12:28 08/06/20 12:28 Oxygen Flow Rate (L/min) 3 Oxygen Delivery Method CPAP Weight: 375 lb 14.21 oz Body Mass Index (BMI) 55.6 Finger Stick Blood Glucose 131 Intake and Output for Last 24 Hours 08/04/20 08/05/20 08/06/20 23:59 23:59 23:59 Intake Total 1544.17 / 1544.17 Balance 1544.17 / 1544.17 General: Alert, Oriented x3, Cooperative HEENT: Atraumatic, PERRLA, EOMI, Normocephalic Neck: - - Unable to do proper examination due to patient's large patient body habitus Lungs: Clear to auscultation, Normal air movement Cardiovascular: Regular rate, No murmurs Abdomen: Bowel Sounds Present, Soft, Non Tender Extremities: No edema, Capillary Refill Less than 3 Seconds Skin: No rashes, No breakdown Musculoskeletal: No Tenderness to Palpation of Joints or Extremities Neurological: Cranial nerves II-XII grossly intact Psych/Mental Status: Normal Affect, Appropriate Laboratory Results 08/06/20 00:20: WBC 7.8, RBC 5.14, Hgb 15.9, Hct 47.7, MCV 92.8, MCH 30.9, MCHC 33.3, RDW Std Deviation 47.9 H, RDW Coeff of Simeon 14.0, Plt Count 155, MPV 10.8, Immature Gran % (Auto) 0.500, Neut % (Auto) 59.8, Lymph % (Auto) 26.5, [place] % (Auto) 7.3, Eos % (Auto) 5.3 H, Baso % (Auto) 0.6, Absolute Neuts (auto) 4.6, Absolute Lymphs (auto) 2.06, Nucleated RBC % 0 08/06/20 00:20: Sodium 135 L, Potassium 4.0, Chloride 100, Carbon Dioxide 27.0, Anion Gap 8, BUN 17, Creatinine 1.17, Estim Creat Clear Calc 74.53, Est GFR (MDRD) Af Amer 83, Est GFR (MDRD) Non-Af 69, BUN/Creatinine Ratio 14.5, Glucose 444 H, Calcium 8.5, Troponin I 0.171 H, TSH 3.59 08/06/20 03:36: Magnesium 1.9 08/06/20 03:36: B-Natriuretic Peptide 98.8 08/06/20 03:36: Troponin I 0.656 H* 08/06/20 03:36: Hemoglobin A1c 8.8 H 08/06/20 05:54: Troponin I 0.864 H*, Triglycerides 162, Cholesterol 78, LDL Cholesterol 15, VLDL Cholesterol 32, HDL Cholesterol 31 L 08/06/20 06:35: POC Glucose 270 H 08/06/20 11:03: POC Glucose 213 H Current Medications Acetaminophen (Acetaminophen 325 Mg Tablet) 650 mg PO Q6H PRN PRN PRN Reason: Pain Score 1-10/Temp > 100.7 F Al Hydroxide/Mg Hydroxide (Mag Hydrox/Al Hydrox/Simeth 30 Ml Udc) 30 ml PO Q6H PRN PRN PRN Reason: Gastric Burning Apixaban (Apixaban 5 Mg Tablet) 5 mg PO BID [facility] Aspirin (Aspirin E.C. 81 Mg Tablet) 81 mg PO DAILY@0800 [facility] Last Admin: 08/06/20 06:32 Dose: 81 mg Documented by: Atorvastatin Calcium (Atorvastatin Calcium 20 Mg Tablet) 20 mg PO DAILY@2200 [facility] Dextrose (Dextrose 50%-Water 25 Gm/50 Ml Disp.Syrin) 0 gm IV X1 PRN; Protocol PRN Reason: Hypoglycemia Empagliflozin (Empagliflozin 25 Mg Tablet) 25 mg PO DAILY [facility] Last Admin: 08/06/20 10:20 Dose: 25 mg Documented by: Glucagon (Glucagon 1 Mg/Ml Syringe) 1 mg IM .X1 PRN PRN Reason: Hypoglycemia Sodium Chloride () 1,000 mls @ 0 mls/hr IV .Q0M [facility] Insulin Glargine (Insulin Glargine 100 Units/Ml Pen) 20 units SC BID [facility] Last Admin: 08/06/20 10:20 Dose: 20 u Documented by: Insulin Human Lispro (Insulin Lispro 100 Unit/Ml Insuln.Pen) 0 unit SC ACHS [facility]; Protocol Last Admin: 08/06/20 11:10 Dose: 4 u Documented by: Insulin Human Lispro (Insulin Lispro 100 Unit/Ml Insuln.Pen) 15 unit SC TIDAC [facility] Last Admin: 08/06/20 11:13 Dose: Not Given Documented by: Lisinopril (Lisinopril 40 Mg Tablet) 40 mg PO DAILY [facility] Last Admin: 08/06/20 10:12 Dose: Not Given Documented by: Melatonin (Melatonin 3 Mg Tablet) 3 mg PO QHS PRN PRN PRN Reason: INSOMNIA Metoprolol Tartrate (Metoprolol Tartrate 50 Mg Tablet) 50 mg PO BID [facility] Morphine Sulfate (Morphine 2 Mg/Ml Syringe) 2 mg IV Q3H PRN PRN PRN Reason: Pain Score 6-10 Nitroglycerin (Nitroglycerin (Inpatient Use) 0.4 Mg Tab.Subl) 0.4 mg SL Q5M PRN PRN Reason: CARDIAC/CHEST PAIN Ondansetron HCl (Ondansetron 4 Mg/2 Ml Vial) 4 mg IV Q8H PRN PRN PRN Reason: NAUSEA/VOMITING Oxycodone HCl (Oxycodone 5 Mg Tablet) 5 mg PO Q4H PRN PRN PRN Reason: Pain Score 4-5 Senna/Docusate Sodium (Senna/Docusate Sodium 1 Tablet) 2 tablet PO BID PRN PRN PRN Reason: Constipation Sodium Chloride (0.9% Saline Lock 10 Ml Syringe) 10 - 40 ml IV UD PRN PRN Reason: SALINE FLUSH Last Admin: 08/06/20 06:33 Dose: 10 ml Documented by: Ticagrelor (Ticagrelor 90 Mg Tablet) 90 mg PO BID [facility] Last Admin: 08/06/20 06:32 Dose: 90 mg Documented by: Discharge Activity: Return to Normal Activity Return to work on:: 08/07/20 May resume sexual activity in: No Restrictions Weight Bearing Status: Weight bearing as tolerated Home Medications: Medications to take at Discharge Empagliflozin [Jardiance] 25 mg PO DAILY 01/29/20 Aspirin E.C. [Ecotrin] 81 mg PO DAILY@0800 #90 tab 01/31/20 dulaglutide 0.75 mg/0.5 mL subcutaneous pen injector 0.75 mg SC QWEEK 02/23/20 lisinopril 40 mg tablet 40 mg PO DAILY #90 tab 02/23/20 ticagrelor 90 mg tablet 90 mg PO BID #180 tab 02/23/20 metformin 1,000 mg tablet 500 mg PO BID tab 05/28/20 nitroglycerin 0.4 mg sublingual tablet 0.4 mg SUBLINGUAL Q5M PRN #25 tab 05/28/20 Apixaban [Eliquis] 5 mg PO BID 30 Days #60 tab 08/06/20 Metoprolol Tartrate [Lopressor (Beta Toro)] 50 mg PO BID 30 Days #60 tab 08/06/20 Rosuvastatin Calcium 10 mg PO DAILY 08/06/20 Testosterone Cypionate 2 ml SC 08/06/20 Following Prescriptions Were Given to Patient: Apixaban [Eliquis] 5 mg PO BID 30 Days #60 tab Transmission Status: Received by [facility]/pharmacy #[id number] Metoprolol Tartrate [Lopressor (Beta Toro)] 50 mg PO BID 30 Days #60 tab Transmission Status: Received by [facility]/pharmacy #[id number] Primary Care Physician: Lani Paiz DO [Primary Care Provider] - Please follow up with your Primary Care Physician in: Within the next week Please Follow Up With: Dr. Cuevas When: Within the next week Medical Necessity - Tobacco Use Smoking Status: Never smoker Meaningful Use Info Meaningful Use Diagnoses (Choose all that apply): None applicable - AMI/Post PCI/Angioplasty Aspirin given w/in 24hrs of arrival?: Yes ASA at discharge?: Yes Antiplatelet Therapy at Discharge:: Yes Statins at discharge?: Yes Calos/ARB at discharge?: Yes Beta Toro at discharge?: Yes Documented LVEF (%): 55 <Sai Fraire - Last Filed: 08/06/20 15:43> Discharge Date and Diagnosis - Primary Discharge Diagnosis Acute Problems: Active Problems (Last Updated 03/20/20 @ 00:[address] Safia Montoya MD) Atrial flutter with rapid ventricular response (Acute) Elevated troponin (Acute) Chest pain (Acute) - Secondary Discharge Diagnosis Chronic Problems: Chronic Problems (Last Updated 03/20/20 @ 00:[address] Safia Montoya MD) High cholesterol (Chronic) History of non-ST elevation myocardial infarction (NSTEMI) (Chronic 01/30/20) Coronary artery disease (Chronic) Diabetes (Chronic) Atherosclerotic heart disease of [place] coronary artery without angina pectoris (Chronic) History of coronary artery stent placement (Chronic 01/30/20) LIP-LRT-Ryfr LAD w/ 3.00 x 12 mm Synergy MR Stent 01/30/2020 Essential (primary) hypertension (Chronic) Hospital Course and Treatment Summary of Care Provided: This patient was seen in conjunction with Jovon Mayen PA-C. I have independently interviewed and examined the patient and reviewed pertinent historical, laboratory, and other data. Please refer to Jovon Mayen PA-C's note for details of this patient's presentation, findings, and recommendations. I have reviewed Jovon Mayen PA-C's note and concur with documented findings. In brief, patient is a 54-year-old gentleman with past medical history single for coronary artery disease with previous intervention presented with chest pain found to have elevated troponin consistent with acute non-STEMI as well as paroxysmal A. fib/flutter admitted to monitored bed and management protocol Hospital course; as documented above - Physical Exam Vitals/I&O's: Vital Signs Temp Pulse Resp BP Pulse Ox 96.9 F L 84 18 119/84 H 94 08/06/20 12:28 08/06/20 12:28 08/06/20 12:28 08/06/20 12:28 08/06/20 12:28 Oxygen Flow Rate (L/min) 3 Oxygen Delivery Method CPAP Weight: 170.5 kg Body Mass Index (BMI) 55.6 Finger Stick Blood Glucose 131 Intake and Output for Last 24 Hours 08/04/20 08/05/20 08/06/20 23:59 23:59 23:59 Intake Total 1544.17 / 1544.17 Balance 1544.17 / 1544.17 Laboratory Results 08/06/20 00:20: WBC 7.8, RBC 5.14, Hgb 15.9, Hct 47.7, MCV 92.8, MCH 30.9, MCHC 33.3, RDW Std Deviation 47.9 H, RDW Coeff of Simeon 14.0, Plt Count 155, MPV 10.8, Immature Gran % (Auto) 0.500, Neut % (Auto) 59.8, Lymph % (Auto) 26.5, [place] % (Auto) 7.3, Eos % (Auto) 5.3 H, Baso % (Auto) 0.6, Absolute Neuts (auto) 4.6, Absolute Lymphs (auto) 2.06, Nucleated RBC % 0 08/06/20 00:20: Sodium 135 L, Potassium 4.0, Chloride 100, Carbon Dioxide 27.0, Anion Gap 8, BUN 17, Creatinine 1.17, Estim Creat Clear Calc 74.53, Est GFR (MDRD) Af Amer 83, Est GFR (MDRD) Non-Af 69, BUN/Creatinine Ratio 14.5, Glucose 444 H, Calcium 8.5, Troponin I 0.171 H, TSH 3.59 08/06/20 03:36: Magnesium 1.9 08/06/20 03:36: B-Natriuretic Peptide 98.8 08/06/20 03:36: Troponin I 0.656 H* 08/06/20 03:36: Hemoglobin A1c 8.8 H 08/06/20 05:54: Troponin I 0.864 H*, Triglycerides 162, Cholesterol 78, LDL Cholesterol 15, VLDL Cholesterol 32, HDL Cholesterol 31 L 08/06/20 06:35: POC Glucose 270 H 08/06/20 11:03: POC Glucose 213 H Discharge Diet: 1800 Calorie Control Diet Disposition: Home Minutes spent on discharge:: 35 Patient Condition:: Stable Inpatient E&M: 60055 Disch Hosp
--- NOTE | 2020-08-06 13:24 | PHA.DC.MR ---
Addendum entered and electronically signed by Heather Martinez 08/06/20 14:02: New prescriptions entered. Patient counseled on: 1. APIXABAN 5MG PO BID 2. METOPROLOL TARTRATE 50MG PO BID All questions answered. Patient verbalized understanding. Original Note: Pharmacy Service has performed discharge medication reconciliation for this patient. The patient's discharge medication list was reviewed for discrepancies and discrepancies were resolved. Home Medications Empagliflozin [Jardiance] 25 mg PO DAILY 01/29/20 Aspirin E.C. [Ecotrin] 81 mg PO DAILY@0800 #90 tab 01/31/20 dulaglutide 0.75 mg/0.5 mL subcutaneous pen injector 0.75 mg SC QWEEK 02/23/20 lisinopril 40 mg tablet 40 mg PO DAILY #90 tab 02/23/20 ticagrelor 90 mg tablet 90 mg PO BID #180 tab 02/23/20 metformin 1,000 mg tablet 500 mg PO BID tab 05/28/20 nitroglycerin 0.4 mg sublingual tablet 0.4 mg SUBLINGUAL Q5M PRN #25 tab 05/28/20 Rosuvastatin Calcium 10 mg PO DAILY 08/06/20 Testosterone Cypionate 2 ml SC 08/06/20
--- NOTE | 2020-08-06 14:37 | CASEMGMT ---
JAMES RIDDLE updated that pt will be sent home on Eliquis. JAMES RIDDLE to pt room to give Eliquis free 30 day trial card. verbalizes understanding. TC to [facility] and spoke with pharmacist. Eliquis will cost $70/month. Pharmacist aware that the pt will be bringing in the trial card. Pt/ aware of cost of med per month. If there are any issues with the cost, they will notify train examiner at FU appt.
== END 2020-08-06 15:13 | disposition home or self-care (01) | DRG 281 ==
LOC: ED 01:17 → PCU 02:04
PROVIDERS: Admitting Provider Internal Medicine; Emergency Provider Emergency Medicine; PCP Internal Medicine; Visit Provider Internal Medicine
DX: I21.4 Non-ST elevation (NSTEMI) myocardial infarction (principal); Z68.43 Body mass index [BMI] 50.0-59.9, adult; I48.0 Paroxysmal atrial fibrillation; E11.65 Type 2 diabetes mellitus with hyperglycemia; E66.01 Morbid (severe) obesity due to excess calories; E78.00 Pure hypercholesterolemia, unspecified; G47.33 Obstructive sleep apnea (adult) (pediatric); I49.3 Ventricular premature depolarization; I25.10 Atherosclerotic heart disease of native coronary artery without angina pectoris; I10 Essential (primary) hypertension; I25.2 Old myocardial infarction; Z79.82 Long term (current) use of aspirin; Z95.5 Presence of coronary angioplasty implant and graft; Z79.899 Other long term (current) drug therapy; Z79.84 Long term (current) use of oral hypoglycemic drugs
CPT/HCPCS: 36415; 71045; 80048; 80061; 82962; 83036; 83735; 83880; 84443; 84484; 85025; 93005; 93458; 99152; 99153; 99251; 99285; J7030; Q9967; A4216; C1769; C1894; G0463

== ENCOUNTER → 2020-09-02 10:57 | Day surgery (SDC) | payer BC, SELFPAY ==
[2020-08-06 02:04] VITALS: BMI 55.6
[2020-08-29 08:26] LABS: Anion Gap 6 (5-15); BUN 23 mg/dL (7-18); BUN/Creat Ratio 22.1 RATIO (10-20); Calcium,Total 8.8 mg/dL (8.5-10.1); Chloride 104 mmol/L (98-107); Creatinine, Serum 1.04 mg/dL (0.70-1.30); EST Glomerular Filtration Rate 79 mL/min (>60); Est Glom Filt Rate - Afr Amer 95 mL/min (>60); Glucose 188 mg/dL (74-106); Potassium 4.4 mmol/L (3.5-5.1); Sodium Level 135 mmol/L (136-145)
[2020-08-29 08:38] LABS: AST(SGOT) 23 U/L (15-37); Alanine Aminotransfer ALT/SGPT 37 U/L (16-61); Albumin, Serum 3.8 g/dL (3.2-5.0); Alkaline Phosphatase 79 U/L (45-117); Cholesterol 85 mg/dL (200); Globulin 3.9 g/dL (2.2-4.2); High Density Lipoprotein 35 mg/dL; Protein, Total 7.7 g/dL (6.4-8.2); Triglycerides 118 mg/dL; Very Low Density Lipoprotein 24 mg/dL (5-40)
== END ==
PROVIDERS: Nurse Practitioner Family; PCP Internal Medicine; Referring Provider Internal Medicine Cardiovascular Disease; Visit Provider Internal Medicine Cardiovascular Disease
DX: E11.9 Type 2 diabetes mellitus without complications (principal); E78.5 Hyperlipidemia, unspecified; I10 Essential (primary) hypertension; I25.10 Atherosclerotic heart disease of native coronary artery without angina pectoris; I25.2 Old myocardial infarction; I48.92 Unspecified atrial flutter; Z95.5 Presence of coronary angioplasty implant and graft; E78.00 Pure hypercholesterolemia, unspecified
CPT/HCPCS: 36415; 80048; 80061; 80076; 93005

== ENCOUNTER → 2021-12-23 | Outpatient (CLI) | payer BC, SELFPAY ==
[2021-12-23 08:38] LABS: BNP,B-Type NATRIURETIC PEPTIDE 20.6 pg/mL (0-100)
[2021-12-23 08:44] LABS: AST(SGOT) 26 U/L (15-37); Alanine Aminotransfer ALT/SGPT 44 U/L (16-61); Albumin, Serum 3.5 g/dL (3.2-5.0); Alkaline Phosphatase 71 U/L (45-117); Anion Gap 9 (5-15); BUN 29 mg/dL (7-18); Bilirubin, Direct 0.27 mg/dL (0.00-0.30); Calcium,Total 8.9 mg/dL (8.5-10.1); Chloride 99 mmol/L (98-107); Cholesterol 111 mg/dL (200); Creatinine, Serum 1.21 mg/dL (0.70-1.30); EST Glomerular Filtration Rate 66 mL/min (>60); Est Glom Filt Rate - Afr Amer 80 mL/min (>60); Globulin 3.8 g/dL (2.2-4.2); Glucose 288 mg/dL (74-106); High Density Lipoprotein 29 mg/dL; Potassium 4.4 mmol/L (3.5-5.1); Protein, Total 7.3 g/dL (6.4-8.2); Sodium Level 133 mmol/L (136-145); Triglycerides 277 mg/dL; Very Low Density Lipoprotein 55 mg/dL (5-40)
== END | disposition home or self-care (01) ==
LOC: LAB 07:34
PROVIDERS: PCP Internal Medicine; Referring Provider Nurse Practitioner Family; Visit Provider Nurse Practitioner Family
DX: R06.09 Other forms of dyspnea (principal); E78.5 Hyperlipidemia, unspecified
CPT/HCPCS: 36415; 80048; 80061; 80076; 83880

== ENCOUNTER → 2022-01-14 | Outpatient (CLI) | payer BC, SELFPAY ==
--- NOTE | 2022-01-14 20:05 | STRESSREP ---
Stress Test Report He of theExercise myocardial perfusion stress test. 56-year-old man tinea possible anginal equivalent. Resting EKG demonstrates normal sinus rhythm with a rate of 67 bpm normal intervals are noted. The patient exercised according to the regular Cresencio protocol for total duration of 4 minutes. The maximum heart rate attained was 155 bpm which was 94% of max impacted heart rate the maximum workload was 7 metabolic equivalents. At rest there were no ST or T wave changes noted to suggest ischemia and at peak exercise there was approximately [address] depression noted in leads II and I 0.5 mm noted in aVF and [address] depression noted in lead V6. Premature ventricular couplets, bigeminy, and nonsustained episodes of wide-complex tachycardia the longest being 4 beats was noted during recovery. No chest pain was noted the test was terminated due to fatigue and the target heart rate being achieved. The peak blood pressure was 184/90 mmHg. Myocardial perfusion protocol. 14.7 mCi of technetium 99m sestamibi was injected at rest. The patient exercised according to regular Cresencio protocol for total duration of 4 minutes and at peak exercise 44.6 mCi of technetium 99m sestamibi was injected stress images were obtained stress and rest images were reconstructed in comparing the short axis vertical long and horizontal long axis. Gated images were also obtained. Perfusion SPECT analysis: Review of the stress images demonstrate a normal cardiac silhouette size. The anterior wall and lateral wall appear to be well perfused. The basal inferior wall appeared to have a medium size perfusion defect as well as the inferoseptal wall. During recovery there was improvement in the inferoseptal wall and the peribasal inferior wall to suggest ischemia in this distribution. Previous basal inferior infarct cannot be completely excluded. Gated SPECT analysis: The gated ejection fraction was 56%. Conclusion: Exercise myocardial perfusion stress test with evidence of inferoseptal ischemia at a low to moderate workload. Preserved ejection fraction.
== END | disposition home or self-care (01) ==
PROVIDERS: PCP Internal Medicine; Visit Provider Nurse Practitioner Family
DX: I25.10 Atherosclerotic heart disease of native coronary artery without angina pectoris (principal); Z95.5 Presence of coronary angioplasty implant and graft; R06.09 Other forms of dyspnea
CPT/HCPCS: 78452; 93017; A9500; A4216

== ENCOUNTER 2022-01-16 08:35 | Observation (INO) | payer BC, SELFPAY ==
[2022-01-15 08:37] VITALS: BMI 51.3
[2022-01-16] VITALS (13 sets, daily range): BP systolic 83–122; BP diastolic 44–72; PULSE 58–78; RESP 16–20; TEMP 36.6–36.7; O2SAT 92–94; BMI 49.6
[2022-01-16 06:45] LABS: Hematocrit 48.6 % (40-54); Hemoglobin 16.8 g/dL (13.0-16.5); Mean Corp Hgb Conc 34.6 g/dL (32-36); Mean Corpuscular Hgb 31.8 pg (27.0-32.0); Mean Platelet Vol. 10.2 fl (6.2-12.0); Platelet Count 188 K/mm3 (150-450); RBC Distribution Width CV 13.3 % (11.6-14.6); RBC Distribution Width SD 45.9 fl (35.1-43.9); Red Blood Count 5.28 M/mm3 (4.6-6.2); White Blood Count 8.6 K/mm3 (4.4-11.0)
[2022-01-16 06:57] LABS: Anion Gap 7 (5-15); BUN 40 mg/dL (7-18); BUN/Creat Ratio 32.5 RATIO (10-20); Calcium,Total 9.6 mg/dL (8.5-10.1); Chloride 99 mmol/L (98-107); Creatinine, Serum 1.23 mg/dL (0.70-1.30); EST Glomerular Filtration Rate 65 mL/min (>60); Est Glom Filt Rate - Afr Amer 78 mL/min (>60); Estimated Creatinine Clearance 71.42 ml/min; Glucose 302 mg/dL (74-106); Potassium 4.2 mmol/L (3.5-5.1); Sodium Level 133 mmol/L (136-145)
--- NOTE | 2022-01-16 08:31 | CL.D_ITS ---
Patient Name: DORIAN DENIS Study Date: 01/16/2022 Performing: Nathan Cuevas MD Ht: 71 inches 180 cm : 1965 Wt: 368.7 lbs 167 kg Age: 56 Gender: male BSA: 2.73 PROCEDURE(S) PERFORMED DC01-(34787)LHC/COR/LV IC12-(35113/[id number])POOJA W/WO PTCA, SINGLE CORONARY ARTERY CLINICAL PROFILE AND INDICATIONS Indications: Suspected CAD Heart Failure: None Stress/Imaging Date: 01/14/22Stress Test with SPECT MPI: Positive Intermediate Risk CAD Presentations: Stable angina. CONCLUSIONS Severe high-grade disease noted in the mid right coronary artery with moderate disease noted in the l eft anterior descending artery moderate disease noted in the circumflex artery. Preserved ejection f raction is noted. RECOMMENDATIONS Referred for immediate PCI DESCRIPTION OF PROCEDURE The patient arrived to the procedure lab. The risks and benefits of the procedure as well as a full d escription of our services here and current unavailability of surgical backup were fully explained to the patient and/or their significant other prior to the catheterization. The Timeout was completed, verifying the correct patient and procedure. The patient's procedural site was prepped and draped in the usual fashion. Local anesthetic was given subcutaneously to right radial region with Lidocaine 2% . Using a modified Seldinger technique, arterial access was obtained via the right radial artery, a 6 Fr sheath was inserted. Right Coronary Artery selective angiography was then performed in multiple v iews using a 5 Fr. 4.0 Ryder catheter. Left Coronary Artery selective angiography was performed in mu ltiple views using a 5 Fr. 4.0 Ryder catheter. Left Coronary Artery selective angiography was perform ed in multiple views using a 5 Fr. JL4 catheter. Left Ventriculography was performed in WATSON projection using a 5 Fr. Pigtail catheter. LV to AO pullback pressures were then recorded. CORONARY ANGIOGRAPHY DOMINANCE: Right Dominant LEFT HEART ASSESSMENT Left Ventricular Ejection Fraction: by LV Gram 55 % Normal LV wall motion Normal Left Ventricular systolic function LEFT MAIN: Mild calcification, No significant disease noted LEFT ANTERIOR DESCENDING ARTERY: Moderate luminal irregularities up to 50% MID LAD: Previously placed stent is patent DIAGONAL 1: Proximal - Moderate luminal irregularities up to 50% CIRCUMFLEX ARTERY: Mild luminal irregularities less than 30% RAMUS: Moderate luminal irregularities up to 50% RIGHT CORONARY ARTERY: MID RCA: 95 % Stenosis COMPLICATIONS PROCEDURE MEDICATIONS Fentanyl 50 mcg IV Versed 1 mg IV Versed 1 mg IV Oxygen: 2 L/min via nasal cannula Heparin given IA 01/16/2022 07:57:23 Heparin 7000 unit(s) IV 01/16/2022 08:24:54 Verapamil 2.5mg, Ntg 100mcgs, 3000 units of Heparin given IA 01/16/2022 07:57:23 SUMMARY OF HEMODYNAMIC DATA Time AIR REST ECG 07:03:10 ECG 07:34:41 AO 88/62 (74) SA 07:59:19 LV 91/5, 11 08:09:30 LV 88/7, 14 08:09:39 LV 80/7, 10 08:10:19 LVp 81/9, 11 08:10:22 AOp 93/56 (72) 08:10:29 Signed By Nathan Cuevas MD On 01/16/2022 09:03:34 Signed By Nathan Cuevas MD On 01/16/2022 08:30:00 Nathan Cuevas MD
--- NOTE | 2022-01-16 10:16 | DCINST_ITS ---
Discharge Instructions Diet Discharge Diet: Low fat / Low cholesterol Activity Lifting Restrictions: do no lift anything greater than 10 lbs for 3 days Dressing / Incision Call your doctor if your incision/area has: Continuous Slow Oozing, Sudden Increased Bleeding, Increased Pain/ Swelling, Increased Redness and Swelling at the incision site Call your doctor if you observe: Fever of 101 or Higher, Shortness of breath and Chest pain Follow Up Care Test Results: Test results from this visit will be discussed in further detail at your follow- up appointment, if applicable. Discharge Plan Admission Admit Date/Time: 01/16/22 08:35 Attending Provider: Nathan Cuevas Primary Care Provider: Lani Paiz Instructions Additional Instructions / Restrictions: You were started on Brilinta, this can not be stopped for any reason for at leas t one year, this keeps your stent open you will be referred to cardiac rehab Discharge Orders/Prescriptions Prescriptions: Continued Trulicity 0.75 mg/0.5 mL pen injector 0.75 mg SC QWEEK lisinopril 40 mg tablet 40 mg PO DAILY Qty: 90 3RF metoprolol tartrate 50 mg tablet 50 mg PO BID Qty: 180 3RF ticagrelor 90 mg tablet 90 mg PO BID Qty: 180 3RF hydrochlorothiazide 25 mg tablet 25 mg PO DAILY rosuvastatin 20 mg tablet 20 mg PO .Every other day cinnamon bark [Cinnamon] 500 mg capsule 500 mg PO DAILY empagliflozin 25 MG tablet 25 mg PO DAILY testosterone cypionate 200 mg/mL oil 400 mg SC Q2W Label Comments: INJECT 2ML EVERY 2 WEEKS metformin 1,000 mg tablet 1,000 mg PO BID Qty: 1 0RF Rx Instructions: restart Wednesday nitroglycerin 0.4 mg tablet, sublingual 0.4 mg sublingual Q5M PRN (Reason: Cardiac/Chest Pain) Qty: 25 3RF Eliquis 5 mg tablet 5 mg PO BID Qty: 60 11RF amlodipine 2.5 mg tablet 2.5 mg PO DAILY Qty: 30 11RF levofloxacin 750 mg tablet 750 mg PO DAILY Qty: 5 0RF Referrals / Follow Up: Lani Paiz DO [Primary Care Provider] -
--- NOTE | 2022-01-16 10:54 | PCIREPORT_ITS ---
PCI Cardiac Cath Report PCI Report: 1. Successful of the mid RCA, high-grade stenosis 99% with predilatation fol lowed by placement of drug-eluting stent 3 x 18 mm POOJA/[place] postdilated with 3.5 x 50 mm NC balloon With reduction of stenosis to 0% and maintenance of pre and post WANDA-3 flow. 2. Successful placement of TR band to right radial artery arteriotomy site. Consent; Risk and benefit of procedure explained in detail to the patient asked to pr oceed informed consent obtained. Preprocedure diagnosis; 56-year-old patient underwent cardiac catheterization by his primary botany technician Dr. Cuevas Patient had severe high-grade disease noted in the mid RCA with moderate disease noted in the left anterior descending artery moderate disease noted in the left circumflex artery He had a preserved LV systolic function. Angiographic films reviewed and discussed with the primary botany technician Dr. Cuevas. No coronary artery normal angiographically, bifurcating into LAD and the left circumflex. Left anterior descending artery had moderate atherosclerosis with luminal irregularities around 50% Mid LAD previously placed stent is patent Diagonal branch D1 proximally had moderate luminal irregularity up to 50%. Circumflex artery had mild luminal irregularities of around 30% And the ramus intermedius had around 50% stenosis. High-grade stenosis of the mid RCA of 95%. Based on the finding of the angiographic films and the clinical presentation of the patient We proceed with a PCI of the high-grade mid RCA Interventional equipment used; 1. 6 [place] JR4 guide 100 cm guide catheter 2. 0.014 run-through extra floppy 180 cm straight wire 3. 2 x 12 mm emerge MR balloon 4. 3 x 18 mm drug-eluting stent Orsiro/POOJA 5. 3.5 x 15 mm NC Emerge balloon Medication used in the Saw Superintendent Heparin total of 10,000 units of heparin was given ACT level acceptable Brilinta 180 mg was given in the Saw Superintendent Aspirin 81 mg Procedure in detail; Under fluoroscopic guidance we will proceed with 6 [place] JR4 guide cannulated the ostium of the RCA Then will proceed with the run-through wire across the lesion in the mid RCA and placed wire in the distal part of the RPDA Then will proceed with balloon dilatation, followed by placement of drug-eluting stent as a specified Followed by postdilatation using the 3.5 NC balloon and achieve an excellent result Following this all catheter removed Hemostasis maintained with a TR band to the right radial artery arteriotomy site Conclusion recommendations; 1. Patient has high-grade stenosis of the mid RCA with successful PCI and stenting as described 2. Patient to continue on DAPT Brilinta 90 mg twice daily in addition to low- dose aspirin for 1 year 3. Patient is scheduled for cardiac rehab program at [facility] Patient to follow-up with the primary botany technician Dr. Cuevas for continuation of cardiac care Patient tolerated the procedure well there were no symptoms of chest pain, and there were no change in the hemodynamic monitor no ST-T abnormality noted. There is no immediate complication in the Saw Superintendent Ernie Luz MD,FACC,[facility]
[2022-01-16] MEDS: Atorvastatin Calcium 40 MG Tablet PO (11:12)
[2022-01-16] MEDS: 0.9% Normal Saline 1,000 ML 75 ML IV (11:14)
--- NOTE | 2022-01-16 11:38 | CRPH1.INST_ITS ---
General Education CAD and cardiac anatomy and function:: Patient communicates acknowledgment, Needs reinforcement Explanation of diagnoses and procedures:: Patient communicates acknowledgment, Needs reinforcement Sign/Symptoms of CT:: Patient communicates acknowledgment, Needs reinforcement Antiplatelet therapy: Patient communicates acknowledgment, Needs reinforcement Proper use of NTG-SL: Patient communicates acknowledgment, Needs reinforcement Emergency procedures and activation of EMS: Patient communicates acknowledgment, Needs reinforcement Compliance of all prescribed medications: Patient communicates acknowledgment, Needs reinforcement Smoking Patient Nicotine/Smoking Risk Factors Are:: Non-smoker Dyslipidemia Patient Dyslipidemia Risk Factors Are:: Total Cholesterol, Triglycerides, HDL, LDL Recommendations Include:: Lipid profile not available Dyslipidemia Response Code:: Patient communicates acknowledgment, Needs reinforcement Overweight/Obesity Patient Overweight/Obesity Risk Factors Are:: Obesity - > or = 30 Recommendations Include:: Weight loss of 5-10%, Reduced calorie diet, Exercise 5-7 times/week Overweight/Obesity:: Patient communicates acknowledgment, Needs reinforcement Hypertension Recommendations Include:: BP <130/80 if diabetic, DASH dietary guidelines, Decrease/maintain normal body weight Hypertension:: Patient communicates acknowledgment, Needs reinforcement Heart Disease Patient Heart Disease Risk Factors Are:: Previous cardiac event Recommendations Include:: Educated family members of their risk Heart Disease Response Code:: Patient communicates acknowledgment, Needs rein forcement Diabetes Patient Diabetes Risk Factors Are:: Elevated blood sugars Recommendations Include:: Maintain fasting blood sugars 70-110 md/dL, Maintain HgbA1c of 6% or less, Diabetic dietary guidelines, Decrease/maintain body weight Diabetes:: Patient communicates acknowledgment, Needs reinforcement Sedentary Patient Sedentary Risk Factors Are:: Lack of regular exercise Recommendations Include:: Aerobic exercise 5-7 times/week for 20-30 minutes continuously, Benefits of regular exercise, Discussed home walking program, Monitored Outpatient Cardiac Rehab Sedentary Response Code:: Patient communicates acknowledgment, Needs reinforcement
--- NOTE | 2022-01-16 11:38 | CRPHASE1_ITS ---
Patient Communication Former Patient:: Phase II PHII Cardiac Rehab Discussed with Patient:: Yes Guide to Cardiac Rehab Given to Patient:: Yes Cardiac Rehab Facility Choice List Given to Patient:: Yes Choice Program [facility] CR PHII:: Communication Given to CR Motor Hotel Manager:: Ernie Luz Refer Phase II Cardiac Rehab:: Yes Sessions:: 36 sessions - 3 days/wk, 12 weeks Cardiac Rehabilitation Info Cardiac Rehabilitation Program Information: Cardiac Rehabilitation is important for patients like you who are recovering from a heart problem. Cardiac rehabilitation programs are recognized as integral to the continued care of the patient with coronary heart disease. The cardiac rehabilitation program is designed to optimize a patient's physical, psychological, and social functioning. Health hearing healthcare practitioner work in cardiac rehabilitation programs and assist you with getting the treatments you need to get stronger and healthier - like exercise, healthy eating habits, and medications. Cardiac rehabilitation has been show to help people with heart problems live longer and have better life enjoyment than people who do not go to cardiac rehabilitation. Please contact the Cardiac Rehabilitation Program at [facility] at in two weeks if you have not heard from them.
[2022-01-16] MEDS: Metoprolol Tartrate 50 MG Tablet PO (21:00)
[2022-01-16] MEDS: Acetaminophen 325 MG Tablet 650 MG PO (23:03)
[2022-01-17 02:29] VITALS: PULSE 62
[2022-01-17 03:00] VITALS: BP 100/70; PULSE 65; RESP 20; TEMP 36.4; O2SAT 96
[2022-01-17 06:10] LABS: Hemoglobin 15.4 g/dL (13.0-16.5); Mean Corp Hgb Conc 33.5 g/dL (32-36); Mean Corpuscular Volume 92.7 fL (80-94); Mean Platelet Vol. 10.7 fl (6.2-12.0); Platelet Count 142 K/mm3 (150-450); RBC Distribution Width CV 13.4 % (11.6-14.6); RBC Distribution Width SD 45.9 fl (35.1-43.9); Red Blood Count 4.96 M/mm3 (4.6-6.2); White Blood Count 6.8 K/mm3 (4.4-11.0)
[2022-01-17 06:35] LABS: AST(SGOT) 14 U/L (15-37); Alanine Aminotransfer ALT/SGPT 37 U/L (16-61); Albumin, Serum 3.2 g/dL (3.2-5.0); Alkaline Phosphatase 83 U/L (45-117); Anion Gap 6 (5-15); BUN 38 mg/dL (7-18); BUN/Creat Ratio 34.5 RATIO (10-20); Calcium,Total 8.9 mg/dL (8.5-10.1); Chloride 105 mmol/L (98-107); EST Glomerular Filtration Rate 74 mL/min (>60); Est Glom Filt Rate - Afr Amer 89 mL/min (>60); Estimated Creatinine Clearance 79.86 ml/min; Globulin 3.2 g/dL (2.2-4.2); Glucose 313 mg/dL (74-106); Potassium 4.2 mmol/L (3.5-5.1); Protein, Total 6.4 g/dL (6.4-8.2); Sodium Level 136 mmol/L (136-145)
[2022-01-17 07:01] VITALS: PULSE 54
[2022-01-17 08:51] VITALS: BP 125/62; PULSE 60; RESP 13; TEMP 36.6; O2SAT 96
[2022-01-17 08:56] VITALS: BP 125/62; PULSE 60
[2022-01-17] MEDS: Metoprolol Tartrate 50 MG Tablet PO (08:56)
[2022-01-17] MEDS: Lisinopril 40 MG Tablet PO (08:56)
[2022-01-17] MEDS: Aspirin E.C. 81 MG Tablet PO (08:57)
[2022-01-17] MEDS: Empagliflozin 25 MG Tablet PO (08:57)
[2022-01-17] MEDS: amLODIPine 2.5 MG Tablet PO (08:57)
[2022-01-17] MEDS: hydroCHLOROthiazide 25 MG Tablet PO (08:58)
[2022-01-17] MEDS: TICAGRELOR 90 MG TABLET PO (09:00)
--- NOTE | 2022-01-17 10:00 | EKG12_ITS ---
Test Reason : PCI Blood Pressure : / mmHG Vent. Rate : 060 BPM Atrial Rate : 060 BPM P-R Int : 178 ms QRS Dur : 098 ms QT Int : 416 ms P-R-T Axes : 086 044 025 degrees QTc Int : 416 ms Normal sinus rhythm Normal ECG Confirmed by NATAHNAEL ABERNATHY, KIM ([id number]), sports editor MIGUE WILL ([id number]) on 01/21/2022 11:38:39 AM Referred By: Nathan Cuevas Confirmed By:KIM HUFFMAN MD
[2022-01-17 11:07] VITALS: PULSE 64
--- NOTE | 2022-01-17 12:17 | PCM.DC ---
Discharge Instructions Diet Discharge Diet: Low fat / Low cholesterol and 2000 mg Sodium Diet Activity Discharge Activity: Return to Normal Activity and No Restrictions Dressing / Incision Call your doctor if your incision/area has: Continuous Slow Oozing, Sudden Increased Bleeding, Increased Pain/ Swelling, Increased Redness and Swelling at the incision site Call your doctor if you observe: Fever of 101 or Higher, Shortness of breath and Chest pain Follow Up Care Test Results: Test results from this visit will be discussed in further detail at your follow-up appointment, if applicable. Discharge Plan Admission Admit Date/Time: 01/16/22 08:35 Primary Reason for Your Visit: CAD Attending Provider: Nathan Cuevas Primary Care Provider: Lani Paiz Instructions Additional Instructions / Restrictions: You were started on Brilinta, this can not be stopped for any reason for at least one year, this keeps your stent open you will be referred to cardiac rehab Discharge Orders/Prescriptions Prescriptions: Continued Trulicity 0.75 mg/0.5 mL pen injector 0.75 mg SC QWEEK Label Comments: Takes on Wed....I already took it this week. lisinopril 40 mg tablet 40 mg PO DAILY Qty: 90 3RF metoprolol tartrate 50 mg tablet 50 mg PO BID Qty: 180 3RF ticagrelor 90 mg tablet 90 mg PO BID Qty: 180 3RF hydrochlorothiazide 25 mg tablet 25 mg PO DAILY rosuvastatin 20 mg tablet 20 mg PO .Every other day cinnamon bark [Cinnamon] 500 mg capsule 500 mg PO DAILY empagliflozin 25 MG tablet 25 mg PO DAILY testosterone cypionate 200 mg/mL oil 400 mg SC Q2W Label Comments: INJECT 2ML EVERY 2 WEEKS metformin 1,000 mg tablet 1,000 mg PO BID Qty: 1 0RF Rx Instructions: restart Wednesday nitroglycerin 0.4 mg tablet, sublingual 0.4 mg sublingual Q5M PRN (Reason: Cardiac/Chest Pain) Qty: 25 3RF Eliquis 5 mg tablet 5 mg PO BID Qty: 60 11RF amlodipine 2.5 mg tablet 2.5 mg PO DAILY Qty: 30 11RF Referrals / Follow Up: Lani Paiz DO [Primary Care Provider] - Jovon Mcknight NP, PUBLIC HEALTH REGISTRAR-C [Med Staff - [facility]] - 09/07/22 10:00 am Disposition Disposition (needs filled in before D/C Order can be placed): Home, Self Care
--- NOTE | 2022-01-17 12:19 | DS.PCM_ITS ---
Providers Date of Admission: 01/16/22 Date of Discharge: 01/17/22 Primary Care Physician: Dr. Lani Paiz DO Reason For Visit: ABN STRESS TEST, CP, CAD Diagnosis Discharge Diagnosis (1) Atherosclerotic heart disease of [place] coronary artery without angina pectoris: Status: Chronic Code(s): I25.10 - Atherosclerotic heart disease of [place] coronary artery without angina pectoris Qualifiers: [place] vs. transplanted heart: [place] heart Qualified Code(s): I25.10 - Atherosclerotic heart disease of [place] coronary artery without angina pectoris (2) History of coronary artery stent placement: Status: Chronic Code(s): Z95.5 - Presence of coronary angioplasty implant and graft Plan CAD status post PCI of high-grade mid RCA with the stent. Medications at Discharge Home Medications empagliflozin 25 mg tablet 25 mg PO DAILY diabetes 01/29/20 dulaglutide 0.75 mg/0.5 mL subcutaneous pen injector (Trulicity) 0.75 mg subcut QWEEK diabetes 02/23/20 testosterone cypionate 200 mg/mL intramuscular oil 400 mg subcut Q2W hormones 06/23/21 nitroglycerin 0.4 mg sublingual tablet 0.4 mg sublingual Q5M PRN Cardiac/Chest Pain #25 tabs 09/01/21 cinnamon bark 500 mg capsule (Cinnamon) 500 mg PO DAILY supplement 12/22/21 amlodipine 2.5 mg tablet 2.5 mg PO DAILY #90 tabs 02/04/22 apixaban 5 mg tablet (Eliquis) 5 mg PO BID #180 tabs 02/04/22 hydrochlorothiazide 25 mg tablet 25 mg PO DAILY diuretic #90 tabs 02/04/22 metformin 500 mg tablet,extended release 24 hr 1,000 mg PO BID 02/04/22 metoprolol tartrate 50 mg tablet 50 mg PO BID #180 tabs 02/04/22 rosuvastatin 20 mg tablet 20 mg PO Q OTHER DAY cholesterol #45 tabs 02/04/22 ticagrelor 90 mg tablet 90 mg PO BID #180 tabs 02/04/22 lisinopril 40 mg tablet 20 mg PO BID bp #90 tabs 02/06/22 aspirin 81 mg tablet,delayed release (Adult Aspirin Regimen) 81 mg PO DAILY 02/10/22 Hospital Course Operations None Procedures Cardiac catheterization Summary of Care Provided Minutes Spent on Discharge: 45 Hospital Course: 56-year-old patient with known history of CAD Has a prior PCI and stent of LAD Brought into the Sql Server Bi Developer By his primary first aid officer Dr. Cuevas Angiographic films reviewed Patient has high-grade 95% mid RCA stenosis Underwent successful PCI Patient also had a history of paroxysmal atrial fibrillation and was on anticoagulation with apixaban. Today patient seen and evaluated at bedside along with the nursing staff Sitting out in a chair comfortable does not have any symptoms of chest pain Cardiac care plan recommendation 1. Patient to continue on DAPT with Brilinta aspirin 2. Patient to continue apixaban 3. Patient to continue the rest of his medication To follow-up with his primary first aid officer Dr. Cuevas to discuss cardiac medication as well as to discuss anticoagulation with apixaban for paroxysmal A. fib Cardiac care plan and recommendation discussed in detail with the patient, diane billingsley staff Physical Exam Narrative Cardiac rhythm underlying normal sinus rhythm Cardiac exam S1-S2 regular Chest exam clear to auscultation bilateral. Weight / BMI Weight Weight: 356 lb 4.8 oz Body Mass Index (BMI) 49.6 ABG / Lab / Microbiology Data Result Diagrams: 01/17/22 05:56 01/17/22 05:56 Laboratory: Laboratory Results - last 24 hr 01/17/22 05:56: WBC 6.8, RBC 4.96, Hgb 15.4, Hct 46.0, MCV 92.7, MCH 31.0, MCHC 33.5, RDW Std Deviation 45.9 H, RDW Coeff of Simeon 13.4, Plt Count 142 L, MPV 10.7 01/17/22 05:56: Sodium 136, Potassium 4.2, Chloride 105, Carbon Dioxide 25.0, Anion Gap 6, BUN 38 H, Creatinine 1.10, Estim Creat Clear Calc 79.86, Est GFR (MDRD) Af Amer 89, Est GFR (MDRD) Non-Af 74, BUN/Creatinine Ratio 34.5 H, Glucose 313 H, Calcium 8.9, Total Bilirubin 0.80, AST 14 L, ALT 37, Alkaline Phosphatase 83, Total Protein 6.4, Albumin 3.2, Globulin 3.2, Albumin/Globulin Ratio 1.0 D/C Instructions Discharge Diet: Low fat / Low cholesterol and 2000 mg Sodium Diet Call your doctor if your incision/area has: Continuous Slow Oozing, Sudden Increased Bleeding, Increased Pain/ Swelling, Increased Redness and Swelling at the incision site Call your doctor if you observe: Fever of 101 or Higher, Shortness of breath and Chest pain Meaningful Use Info Meaningful Use Diagnoses (Choose all that apply): None applicable Discharge Plan Admission Admit Date/Time: 01/16/22 08:35 Primary Reason for Your Visit: CAD Attending Provider: Nathan Cuevas Primary Care Provider: Lani Paiz Instructions Additional Instructions / Restrictions: You were started on Brilinta, this can not be stopped for any reason for at least one year, this keeps your stent open you will be referred to cardiac rehab Discharge Orders/Prescriptions Prescriptions: Continued Trulicity 0.75 mg/0.5 mL pen injector 0.75 mg SC QWEEK Label Comments: Takes on Wed....I already took it this week. cinnamon bark [Cinnamon] 500 mg capsule 500 mg PO DAILY metformin 500 mg tablet extended release 24 hr 1,000 mg PO BID Label Comments: TAKE 2 TABLETS BY MOUTH TWICE A DAY amlodipine 2.5 mg tablet 2.5 mg PO DAILY Qty: 90 3RF Eliquis 5 mg tablet 5 mg PO BID Qty: 180 3RF hydrochlorothiazide 25 mg tablet 25 mg PO DAILY Qty: 90 3RF metoprolol tartrate 50 mg tablet 50 mg PO BID Qty: 180 3RF rosuvastatin 20 mg tablet 20 mg PO Q OTHER DAY Qty: 45 3RF ticagrelor 90 mg tablet 90 mg PO BID Qty: 180 3RF empagliflozin 25 MG tablet 25 mg PO DAILY testosterone cypionate 200 mg/mL oil 400 mg SC Q2W Label Comments: INJECT 2ML EVERY 2 WEEKS nitroglycerin 0.4 mg tablet, sublingual 0.4 mg sublingual Q5M PRN (Reason: Cardiac/Chest Pain) Qty: 25 3RF lisinopril 40 mg tablet 20 mg PO BID Qty: 90 3RF Discontinued metformin 1,000 mg tablet 1,000 mg PO BID No Action aspirin [Adult Aspirin Regimen] 81 mg tablet,delayed release (DR/EC) 81 mg PO DAILY Referrals / Follow Up: Lani Paiz DO [Primary Care Provider] - Jovon Mcknight SYSTEM TECHNOLOGIST, SYSTEM TECHNOLOGIST-C [Med Staff - [facility]] - 02/04/22 10:00 am Disposition Disposition (needs filled in before D/C Order can be placed): Home, Self Care
== END 2022-01-17 12:18 | disposition home or self-care (01) ==
LOC: PCU 08:57
PROVIDERS: Internal Medicine Interventional Cardiology; Admitting Provider Internal Medicine Cardiovascular Disease; PCP Internal Medicine; Referring Provider Internal Medicine Cardiovascular Disease; Visit Provider Internal Medicine Cardiovascular Disease
DX: I25.118 Atherosclerotic heart disease of native coronary artery with other forms of angina pectoris (principal); I48.0 Paroxysmal atrial fibrillation; Z68.43 Body mass index [BMI] 50.0-59.9, adult; E11.9 Type 2 diabetes mellitus without complications; R94.39 Abnormal result of other cardiovascular function study; Z79.02 Long term (current) use of antithrombotics/antiplatelets; Z79.01 Long term (current) use of anticoagulants; Z79.82 Long term (current) use of aspirin; I10 Essential (primary) hypertension; E78.5 Hyperlipidemia, unspecified; R06.09 Other forms of dyspnea; Z95.5 Presence of coronary angioplasty implant and graft; I25.2 Old myocardial infarction; G47.33 Obstructive sleep apnea (adult) (pediatric); E66.9 Obesity, unspecified; Z79.899 Other long term (current) drug therapy; Z86.16 Personal history of COVID-19
CPT/HCPCS: 36415; 80048; 80053; 85027; 92928; 93005; 93458; 96360; 96361; 99152; 99153; 99218; C1874; J7030; J7040; Q9967; C1725; C1769; C1887; C1894; C9600; G0378

== ENCOUNTER 2023-03-24 16:22 | Emergency (ER) | payer BC, SELFPAY ==
[2023-03-24 16:24] VITALS: BP 160/78; PULSE 86; RESP 18; TEMP 36.7; O2SAT 95; BMI 50.1
--- NOTE | 2023-03-24 16:44 | RAD_ITS ---
STUDY: X-RAY CHEST REASON FOR EXAM: Male, 57 years old. Chest pain -- -- C/O CHEST HEAVINESS AND SOB X2-[address] CHINCHILLA FOR SAME THING. PUT ON ABX AND TESTED - COVID/FLU TECHNIQUE: Single AP portable view of the chest. COMPARISON: October 13, 2021 chest x-ray FINDINGS: Lung markings appear relatively stable when compared to the prior study. There is no demonstrated pleural abnormality. Normal size heart. Normal mediastinum and kim. Normal visualized pulmonary arteries. Normal visualized aortic arch and descending thoracic aorta. Normal visualized thoracic spine. Normal visualized ribs, clavicles, and shoulders. There is no demonstrated abnormality of the visualized soft tissue structures of the upper abdomen.
[2023-03-24 17:00] LABS: Absolute Lymphocyte Count 1.95 X10^3/uL (0.83-4.51); Absolute Neutrophil Count 3.8 X10^3/uL (2.0-7.7); Basophil# 0.05 X10^3/uL; Basophil% 0.7 % (0-1); Eosinophil# 0.61 X10^3/uL; Eosinophils% 8.6 % (0-5); Hematocrit 45.2 % (40-54); Hemoglobin 14.4 g/dL (13.0-16.5); Lymphocyte # 1.95 X10^3/ul (0.83-4.51); Lymphocyte % 27.6 % (19-41); Mean Corp Hgb Conc 31.9 g/dL (32-36); Mean Corpuscular Hgb 29.9 pg (27.0-32.0); Mean Corpuscular Volume 93.8 fL (80-94); Mean Platelet Vol. 10.6 fl (6.2-12.0); Monocyte# 0.58 X10^3/uL; Monocyte% 8.2 % (0-10); NRBC Flagged by Analyzer 0 % (0-5); Neutrophil # 3.84 X10^3/uL (2.7-7.7); Neutrophil % 54.3 % (47-70); Platelet Count 184 K/mm3 (150-450); RBC Distribution Width CV 13.7 % (11.6-14.6); RBC Distribution Width SD 46.9 fl (35.1-43.9); Red Blood Count 4.82 M/mm3 (4.6-6.2); White Blood Count 7.1 K/mm3 (4.4-11.0)
[2023-03-24 17:48] LABS: Anion Gap 7 (5-15); BUN 12 mg/dL (7-18); BUN/Creat Ratio 10.8 RATIO (10-20); Calcium,Total 8.8 mg/dL (8.5-10.1); Chloride 102 mmol/L (98-107); Creatinine, Serum 1.11 mg/dL (0.70-1.30); EST Glomerular Filtration Rate 72 mL/min (>60); Est Glom Filt Rate - Afr Amer 88 mL/min (>60); Glucose 210 mg/dL (74-106); Potassium 3.7 mmol/L (3.5-5.1); Sodium Level 137 mmol/L (136-145); Troponin-I HS 38 pg/mL (3.0-78.0)
--- NOTE | 2023-03-24 17:50 | ED.VIS.CHEST ---
HPI History of Present Illness Chief Complaint: Chest Pain Narrative Narrative: 57-year-old male presenting with chest pain. He states the pain started this morning and lasted for couple of hours. He had no associated symptoms with it. He notes that he had some shortness of breath and wheezing recently. He states that last week he and his are having sexual intercourse and afterward he noted he was wheezing. He waited a couple of days and then saw his primary care physician and she put him on a Z-Brian because he stated he was coughing up stuff and short of breath. She did not get a chest x-ray. Patient was tested for COVID and flu. Patient has not had fever or chills. He notes that he intermittently has wheezing. He does not have any albuterol at home. He states he feels he was wheezing earlier today but is not wheezing now. He is not having chest pain currently. Patient does have history of paroxysmal a flutter/fib and he is on Eliquis. He also has history of hypertension, hyperlipidemia. Patient does have coronary artery stents. [facility] Medical History Acute coronary syndrome Atherosclerotic heart disease of [place] coronary artery without angina pectoris Atrial flutter with rapid ventricular response (08/06/20) COVID (05/31/21) Diabetes Essential (primary) hypertension History of non-ST elevation myocardial infarction (NSTEMI) (08/06/20) Hyperlipidemia Obesity SVETLANA (obstructive sleep apnea) Paroxysmal atrial flutter Type 2 diabetes mellitus Home Medications empagliflozin 25 mg tablet 25 mg PO DAILY diabetes 01/29/20 [History Last Taken 01/16/22] dulaglutide 0.75 mg/0.5 mL subcutaneous pen injector (Trulicity) 0.75 mg subcut QWEEK diabetes 02/23/20 [History Last Taken 01/14/22] testosterone cypionate 200 mg/mL intramuscular oil 400 mg subcut Q2W hormones 06/23/21 [History Last Taken Unknown] cinnamon bark 500 mg capsule (Cinnamon) 500 mg PO DAILY supplement 12/22/21 [History Last Taken 01/16/22] metformin 500 mg tablet,extended release 24 hr 1,000 mg PO BID 02/04/22 [History Last Taken Unknown] metoprolol tartrate 50 mg tablet 50 mg PO BID #180 tabs 02/04/22 [Rx Last Taken Unknown] rosuvastatin 20 mg tablet 20 mg PO Q OTHER DAY cholesterol #45 tabs 02/04/22 [Rx Last Taken Unknown] amlodipine 5 mg tablet 5 mg PO DAILY #90 tabs 07/09/22 [Rx Last Taken Unknown] apixaban 5 mg tablet (Eliquis) 5 mg PO BID #180 tabs 10/01/22 [Rx Last Taken Unknown] lisinopril 40 mg tablet 20 mg (1/2 x 40 mg) PO BID bp #90 tabs 03/05/23 [Rx Last Taken Unknown] nitroglycerin 0.4 mg sublingual tablet 0.4 mg sublingual Q5M PRN Cardiac/Chest Pain #25 tabs 03/05/23 [Rx Last Taken Unknown] ticagrelor 90 mg tablet 90 mg PO BID #180 tabs 03/05/23 [Rx Last Taken Unknown] hydrochlorothiazide 25 mg tablet 25 mg PO DAILY diuretic #90 tabs 03/08/23 [Rx Last Taken Unknown] budesonide-formoterol HFA 160 mcg-4.5 mcg/actuation aerosol inhaler (Symbicort) 2 inh inhalation BID PRN wheezing #10.2 grams 03/24/23 [Rx Last Taken Unknown] Allergy/AdvReac Type Severity Reaction Status Date / Time Penicillins [PCN] Allergy Unknown Verified 03/24/23 16:27 Surgical History History of cholecystectomy History of coronary artery stent placement (01/16/22) History of left heart catheterization (08/06/20) Social History Smoking Status: Never smoker alcohol intake: current alcohol intake frequency: a few times a month Alcohol type: hard liquor caffeine: Yes Type: coffee Number of servings: 2 ROS ROS ED Constitutional Constitutional ED: Denies chills, fever(s) or sweats Eyes Eyes: Denies blurry vision or change in vision ENT ENT ED: Denies ear pain or sore throat Cardiovascular Cardiovascular: Reports chest pain; Denies palpitations or racing heartbeat Respiratory/Chest Respiratory/Chest: Reports cough, dyspnea and other Details: Wheezing ; Denies sputum Gastrointestinal Gastrointestinal: Denies abdominal pain, constipation, diarrhea, nausea or vomiting Genitourinary Genitourinary ED: Denies dysuria, hematuria or urinary frequency Musculoskeletal Musculoskeletal: Denies arthralgias, myalgias or neck pain Integumentary Denies abscess, Abrasions or rash Neurologic Neurologic: Denies headache(s), paresthesias or weakness Psychiatric Psychiatric: Denies anxiety, depression, suicidal ideation or suicidal thoughts Endocrine Endocrinology: Denies polydipsia or polyuria EXAM Physical Exam Const Vital Signs: 03/24/23 16:24 03/24/23 16:45 03/24/23 18:41 Temperature 98.1 F Temperature Source Temporal Pulse Rate 86 73 Respiratory Rate 18 15 Blood Pressure 160/78 H 132/77 H Blood Pressure Mean 105 95 Pulse Ox 95 93 Oxygen Delivery Method Room Air Room Air 03/24/23 19:18 03/24/23 20:18 Temperature Temperature Source Pulse Rate 78 82 Respiratory Rate 16 17 Blood Pressure 147/77 H 141/67 H Blood Pressure Mean 100 91 Pulse Ox 94 95 Oxygen Delivery Method Room Air Positive well nourished General Appearance ED: NAD; Negative for pallor HEENT Reports TM's clear and moist mucous membranes Tympanic Membrane ED: Yes TM's clear Eyes PERRL and EOMs intact bilaterally Chest Wall inspection of chest normal and palpation of chest normal Resp normal respiratory effort and clear to auscultation bilaterally Auscultation: Negative for rales, rhonchi or wheezes Cardio regular rate and regular rhythm GI normal to inspection, nondistended, normoactive bowel sounds Extremity normal to inspection Neuro oriented x3 and CN's II-XII intact bilaterally Sensorium / Orientation: awake and alert Motor Exam: strength 5/5 throughout Psych mental status grossly normal Skin no rashes or lesions noted General Skin Exam: Negative for jaundice or pallor Heart Score History: Slightly/Non-Suspicious ECG: Normal Age: >45 - <65 years Risk Factors: >/= 3 Risk Factors or History of CAD Troponin: </= Normal Limit Score: 3 MDM MDM MDM Narrative Medical decision making narrative: Patient presenting with shortness of breath and wheezing over the last couple of weeks. He states he did finish his Z-Brian. He still feels intermittently short of breath and like he is wheezing and had some chest pain earlier today. He describes this as aching and states he has a problem with his diaphragm and describes it as a problem. He does not have any wheezing on examination. His vital signs are stable and he is afebrile. He is anticoagulant on Eliquis so I have low suspicion for PE. Differential still includes acute coronary syndrome, CHF, pneumonia, reactive airway disease. CBC was obtained to assess white blood cell count, hemoglobin, platelets. BMP to assess renal function and electrolytes. High-sensitivity troponin and EKG to assess for ischemia. Chest x-ray to rule out pneumonia. Patient declines analgesia. BC within normal limits. BMP shows normal renal function electrolytes. Glucose is 210 but there is no anion gap. High-sensitivity troponin came back at 38. EKG shows a sinus rhythm with a ventricular of 86 bpm without sign of ischemic change but is noted to have PVCs on on my interpretation. Chest x-ray my interpretation shows no acute process. Radiologist interprets this and agrees. Hematocrit 42. BNP normal at 34. Given the patient's ultimately negative work-up I feel he is stable for discharge. I did discuss giving him a Symbicort inhaler to see if this would help as I did want to put him on oral steroids due to the history of diabetes. Patient was amenable to this. He will monitor his blood sugars. He was also given an albuterol inhaler from the ED to bridge him overnight. Patient amenable to discharge at this point. Impression: 1. Chest pain 2. Bronchitis Lab Data Labs: Laboratory Results - last 24 hr 03/24/23 03/24/23 16:50 19:16 WBC 7.1 RBC 4.82 Hgb 14.4 Hct 45.2 MCV 93.8 MCH 29.9 MCHC 31.9 L RDW Std Deviation 46.9 H RDW Coeff of Simeon 13.7 Plt Count 184 MPV 10.6 Immature Gran % (Auto) 0.600 Neut % (Auto) 54.3 Lymph % (Auto) 27.6 [place] % (Auto) 8.2 Eos % (Auto) 8.6 H Baso % (Auto) 0.7 Absolute Neuts (auto) 3.8 Absolute Lymphs (auto) 1.95 Nucleated RBC % 0 Sodium 137 Potassium 3.7 Chloride 102 Carbon Dioxide 28.0 Anion Gap 7 BUN 12 Creatinine 1.11 Estim Creat Clear Calc 78.20 Est GFR (MDRD) Af Amer 88 Est GFR (MDRD) Non-Af 72 BUN/Creatinine Ratio 10.8 Glucose 210 H Calcium 8.8 Troponin I High Sens 38 42 B-Natriuretic Peptide 34.0 Radiography Diagnostic Testing: Clinical Impression(s) from Imaging Studies Chest X-Ray 03/24/23 16:44 IMPRESSION: Stable lung markings. No visualized acute focal infiltrate. Electronically Signed: Ebony Carlisle MD at 17:15 EDT , Discharge Plan Triage Chief Complaint: Chest Pain ED Provider: Macho Dave Dx/Rx/DC Orders Instructions: ED Chest Pain, Noncardiac, ED Bronchospasm (Adult) Prescriptions: New budesonide-formoterol [Symbicort] 160-4.5 mcg/actuation HFA aerosol inhaler 2 inh inhalation BID PRN (Reason: wheezing) Qty: 10.2 0RF No Action Trulicity 0.75 mg/0.5 mL pen injector 0.75 mg SC QWEEK Patient Comments: Takes on Wed....I already took it this week. cinnamon bark [Cinnamon] 500 mg capsule 500 mg PO DAILY amlodipine 5 mg tablet 5 mg PO DAILY Qty: 90 3RF metformin 500 mg tablet extended release 24 hr 1,000 mg PO BID Patient Comments: TAKE 2 TABLETS BY MOUTH TWICE A DAY metoprolol tartrate 50 mg tablet 50 mg PO BID Qty: 180 3RF rosuvastatin 20 mg tablet 20 mg PO Q OTHER DAY Qty: 45 3RF empagliflozin 25 MG tablet 25 mg PO DAILY testosterone cypionate 200 mg/mL oil 400 mg SC Q2W Patient Comments: INJECT 2ML EVERY 2 WEEKS Eliquis 5 mg tablet 5 mg PO BID Qty: 180 3RF lisinopril 40 mg tablet 20 mg PO BID Qty: 90 3RF nitroglycerin 0.4 mg tablet, sublingual 0.4 mg sublingual Q5M PRN (Reason: Cardiac/Chest Pain) Qty: 25 3RF ticagrelor 90 mg tablet 90 mg PO BID Qty: 180 3RF hydrochlorothiazide 25 mg tablet 25 mg PO DAILY Qty: 90 3RF Primary Care Provider: Lani Paiz Referrals: Lani Paiz DO [Primary Care Provider] - Disposition Disposition: Home, Self Care
[2023-03-24 18:41] VITALS: BP 132/77; PULSE 73; RESP 15; O2SAT 93
[2023-03-24 19:18] VITALS: BP 147/77; PULSE 78; RESP 16; O2SAT 94
[2023-03-24 19:48] LABS: Troponin-I HS 42 pg/mL (3.0-78.0)
[2023-03-24 20:18] VITALS: BP 141/67; PULSE 82; RESP 17; O2SAT 95
[2023-03-24] MEDS: Albuterol Sulfate 8 gm Inhaler (60 puffs) 2 PUFF INHALATION (20:20)
== END 2023-03-24 20:21 | disposition home or self-care (01) ==
PROVIDERS: Emergency Provider Student in an Organized Health Care Education/Training Program; PCP Internal Medicine; Visit Provider Student in an Organized Health Care Education/Training Program
DX: R07.9 Chest pain, unspecified (principal); I48.0 Paroxysmal atrial fibrillation; E11.9 Type 2 diabetes mellitus without complications; J40 Bronchitis, not specified as acute or chronic; I10 Essential (primary) hypertension; I25.10 Atherosclerotic heart disease of native coronary artery without angina pectoris; E78.5 Hyperlipidemia, unspecified; Z95.5 Presence of coronary angioplasty implant and graft; Z79.01 Long term (current) use of anticoagulants; I25.2 Old myocardial infarction; I5A Non-ischemic myocardial injury (non-traumatic); Z79.899 Other long term (current) drug therapy; Z79.85 Long-term (current) use of injectable non-insulin antidiabetic drugs; Z79.84 Long term (current) use of oral hypoglycemic drugs; Z90.49 Acquired absence of other specified parts of digestive tract; R06.2 Wheezing
CPT/HCPCS: 71045; 80048; 83880; 84484; 85025; 93005; 99284; A4216

== ENCOUNTER 2023-10-29 01:07 | Inpatient (IN) | payer BC, SELFPAY ==
[2023-10-29] VITALS (26 sets, daily range): BP systolic 103–158; BP diastolic 58–99; PULSE 54–98; RESP 14–19; TEMP 36.2–37.1; O2SAT 89–98; BMI 51.2; BMI 50.8
--- NOTE | 2023-10-29 01:17 | ED.VIS.CHEST ---
HPI History of Present Illness Chief Complaint: Chest Pain Detail of Chief Complaint: Chest pain Informant: patient Narrative Narrative: Patient presents with chest discomfort that started around 11 PM last evening. Patient states that he has been sick for about 4 5 days with cough and sore throat. He was seen by his primary care physician yesterday who tested him for COVID and flu and was negative. Patient was started on erythromycin and prednisone. Around 11:00 he started having some chest tightness and discomfort into his left arm as well as his jaw. He has heart history with 2 prior stents and became concerned and comes in for evaluation. Patient also currently on Eliquis for history of atrial flutter. [facility] Medical History (Reviewed 04/12/23 @ 09:01 by Jovon Mcknight MEASUREMENT PSYCHOLOGIST, MEASUREMENT PSYCHOLOGIST-C) Acute coronary syndrome Atherosclerotic heart disease of [place] coronary artery without angina pectoris Atrial flutter with rapid ventricular response (08/06/20) COVID (05/31/21) Diabetes Essential (primary) hypertension History of non-ST elevation myocardial infarction (NSTEMI) (08/06/20) Hyperlipidemia Obesity SVETLANA (obstructive sleep apnea) Paroxysmal atrial flutter Type 2 diabetes mellitus Home Medications ?Medication ?Instructions ?Recorded ?Last Taken ?Type testosterone cypionate 200 mg/mL 400 mg subcut Q2W hormones 06/23/21 Unknown History intramuscular oil cinnamon bark 500 mg capsule 500 mg PO DAILY supplement 12/22/21 01/16/22 History (Cinnamon) metformin 500 mg tablet,extended 1,000 mg PO BID 02/04/22 Unknown History release 24 hr rosuvastatin 20 mg tablet 20 mg PO Q OTHER DAY cholesterol 02/04/22 Unknown Rx #45 tabs nitroglycerin 0.4 mg sublingual 0.4 mg sublingual Q5M PRN 03/05/23 Unknown Rx tablet Cardiac/Chest Pain #25 tabs hydrochlorothiazide 25 mg tablet 25 mg PO DAILY diuretic #90 tabs 03/08/23 Unknown Rx budesonide-formoterol HFA 160 2 inh inhalation BID PRN wheezing 03/24/23 Unknown Rx mcg-4.5 mcg/actuation aerosol #10.2 grams inhaler (Symbicort) metoprolol tartrate 50 mg tablet 50 mg PO BID #180 tabs 04/08/23 Unknown Rx lisinopril 20 mg tablet 20 mg PO BID #180 tabs 04/12/23 Unknown Rx loratadine 10 mg tablet 10 mg PO DAILY 04/12/23 Unknown History semaglutide 0.25 mg or 0.5 mg (2 0.25 mg subcut QWEEK 04/12/23 Unknown History mg/3 mL) subcutaneous pen injector (Ozempic) apixaban 5 mg tablet (Eliquis) 5 mg PO BID #180 tabs 09/23/23 Unknown Rx amlodipine 5 mg tablet 5 mg PO QHS 10/29/23 Unknown History azithromycin 250 mg tablet 250 mg PO UD 10/29/23 Unknown History empagliflozin 25 mg tablet 25 mg PO DAILY 10/29/23 Unknown History (Jardiance) prednisone 20 mg tablet 20 mg PO DAILY 10/29/23 Unknown History Allergy/AdvReac Type Severity Reaction Status Date / Time Penicillins (PCN) Allergy Unknown Verified 10/29/23 01:14 Family History (Updated 10/29/23 @ 02:[address] Wanda Echavarria MD) Mother CVA (cerebral vascular accident) Heart disease Hypertension Father Aortic aneurysm Cancer Surgical History (Reviewed 04/12/23 @ 09:01 by Jovon Mcknight MEASUREMENT PSYCHOLOGIST, MEASUREMENT PSYCHOLOGIST-C) History of cholecystectomy History of coronary artery stent placement (01/16/22) History of left heart catheterization (08/06/20) Social History (Updated 10/29/23 @ 02:[address] Wanda Echavarria MD) household members: spouse Smoking Status: Never smoker second hand exposure: Yes alcohol intake: current alcohol intake frequency: a few times a month Alcohol type: hard liquor substance use type: does not use caffeine: Yes Type: carbonated beverages Number of servings: 1 and coffee Number of servings: 1 ROS ROS ED Review of Systems ROS Unobtainable: other Constitutional Constitutional ED: Reports lethargy; Denies chills, fever(s), sweats or weight loss Eyes Eyes: Denies blurry vision, change in vision or diplopia ENT ENT ED: Reports sore throat; Denies rhinorrhea Cardiovascular Cardiovascular: Reports chest pain; Denies orthopnea or racing heartbeat Respiratory/Chest Respiratory/Chest: Reports cough, dyspnea and dyspnea on exertion; Denies orthopnea or sputum Gastrointestinal Gastrointestinal: Denies abdominal pain, diarrhea, nausea or vomiting Genitourinary Genitourinary ED: Denies dysuria, hematuria or urinary frequency Musculoskeletal Musculoskeletal: Denies arthralgias, back pain, myalgias or neck pain Integumentary Denies abscess, Abrasions or rash Neurologic Neurologic: Denies headache(s) or weakness Psychiatric Psychiatric: Denies anxiety, depression or suicidal thoughts Endocrine Endocrinology: Denies polydipsia, polyphagia or polyuria Hematologic/Lymphatic Hematologic/Lymphatic: Denies easy bleeding, easy bruising or lymphadenopathy Allergic/Immunologic Allergic/Immunologic ED: Denies mouth swelling, tongue swelling or urticaria EXAM Physical Exam Const Vital Signs: 10/29/23 01:08 10/29/23 01:12 10/29/23 01:23 Temperature 97.1 F L Temperature Source Temporal Pulse Rate 98 Respiratory Rate 16 Respiratory Effort Normal Non-Labored Blood Pressure 158/94 H Blood Pressure Mean 115 Pulse Ox 95 95 Oxygen Delivery Method Room Air Room Air 10/29/23 01:38 10/29/23 01:43 10/29/23 01:47 Temperature Temperature Source Pulse Rate 94 92 94 Respiratory Rate 15 Respiratory Effort Blood Pressure 151/82 H 113/66 Blood Pressure Mean Pulse Ox 89 Oxygen Delivery Method 10/29/23 01:50 10/29/23 02:00 10/29/23 03:00 Temperature Temperature Source Pulse Rate 97 92 85 Respiratory Rate 19 H 14 14 Respiratory Effort Blood Pressure 127/67 H 119/73 122/69 H Blood Pressure Mean 84 86 86 Pulse Ox 92 92 94 Oxygen Delivery Method Room Air Room Air Positive well nourished and well developed General Appearance ED: well developed and NAD HEENT Reports TM's clear and moist mucous membranes normocephalic and atraumatic; Negative for trauma or tenderness Tympanic Membrane ED: Yes TM's clear Eyes PERRL and EOMs intact bilaterally General Eye ED: Negative for pale conjunctiva or scleral icterus Neck no lymphadenopathy, supple and no JVD General: Negative for tenderness Chest Wall inspection of chest normal and palpation of chest normal Chest: Negative for tenderness Resp normal respiratory effort and clear to auscultation bilaterally Effort and Inspection: Negative for respiratory distress or pain with movement Auscultation: Negative for rhonchi, wheezes or diminished lung sounds Cardio regular rate, regular rhythm, S1 normal heart sound, S2 normal heart sound and no murmurs Peripheral Pulses: pulses 2+ throughout GI normal to inspection, nondistended, normoactive bowel sounds, soft to palpation, non-tender, non-distended and no masses Back/Spine no CVA tenderness and no thoracic nor lumbar tenderness Extremity normal to inspection General Extremety ED: Negative for edema General Extremity: Negative for edema Neuro oriented x3, CN's II-XII intact bilaterally, no sensory deficits noted and gait normal Sensorium / Orientation: awake, alert, oriented to person, oriented to place and oriented to time Motor Exam: strength 5/5 throughout and strength abnormal Psych mental status grossly normal Skin no rashes or lesions noted and no wounds Heart Score History: Moderately Suspicious ECG: Nonspecific Repolarization Age: >45 - <65 years Risk Factors: >/= 3 Risk Factors or History of CAD Troponin: </= Normal Limit Score: 5 MDM MDM MDM Narrative Medical decision making narrative: Patient presents with URI symptoms and then developed chest discomfort this evening radiating to the jaw and his left arm. Patient with history of coronary artery disease and 2 cardiac stents. IV line established. EKG obtained arrival showed sinus rhythm with rate of 97 bpm with occasional PVCs. CBC with differential count of 7.2 with hemoglobin 14.5 and platelet count of 164. Chemistries unremarkable. Troponin initial was normal at 16. This point I recommended admission of the patient however he does not want to be admitted would prefer to go home and I did convince him to allow us to do a delta troponin at 2 hours which was elevated at 197. Patient's glucose also quite elevated on arrival at 557. Initially given 20 units of insulin subcu and that brought him down into the 420 range. I did order 20 more units subcu. At this point I recommend admission for non-ST elevation [place]. Will discuss with hospitalist to evaluate patient for admission Lab Data Attestation: I reviewed the patient's lab results. Labs: Laboratory Results - last 24 hr 10/29/23 10/29/23 01:16 03:25 WBC 7.2 RBC 4.71 Hgb 14.5 Hct 44.4 MCV 94.3 H MCH 30.8 MCHC 32.7 RDW Std Deviation 50.2 H RDW Coeff of Simeon 14.6 Plt Count 164 MPV 10.6 Immature Gran % (Auto) 0.700 Neut % (Auto) 76.6 H Lymph % (Auto) 15.2 L [place] % (Auto) 6.5 Eos % (Auto) 0.6 Baso % (Auto) 0.4 Absolute Neuts (auto) 5.5 Absolute Lymphs (auto) 1.10 Nucleated RBC % 0 Sodium 131 L Potassium 4.8 Chloride 96 L Carbon Dioxide 24.0 Anion Gap 11 BUN 21 H Creatinine 1.40 H Estim Creat Clear Calc 90.93 Est GFR (MDRD) Af Amer 67 Est GFR (MDRD) Non-Af 55 L BUN/Creatinine Ratio 15.0 Glucose 557 H* Calcium 8.8 Troponin I High Sens 16 197 H* POC Glucose 412 H Radiography Diagnostic Testing: Clinical Impression(s) from Imaging Studies Chest X-Ray 10/29/23 01:29 IMPRESSION: Borderline cardiomegaly and mild pulmonary vascular congestion. Electronically Signed: Majo Campbell MD at 2:27 EDT , 1 view chest x-ray obtained interpreted by myself as no evidence of infiltrate or pneumothorax or acute disease process. Radiology in agreement. EKG Initial EKG: Attestation: I personally reviewed and interpreted this EKG as follows: Comments: Sinus rhythm with rate 97 bpm with frequent PVCs Discharge Plan Triage Chief Complaint: Chest Pain ED Provider: Feroz Goldstein Dx/Rx/DC Orders Clinical Impression: Non-ST elevated myocardial infarction, Hyperglycemia, URI, acute Prescriptions: No Action cinnamon bark [Cinnamon] 500 mg capsule 500 mg PO DAILY metformin 500 mg tablet extended release 24 hr 1,000 mg PO BID Patient Comments: TAKE 2 TABLETS BY MOUTH TWICE A DAY rosuvastatin 20 mg tablet 20 mg PO Q OTHER DAY Qty: 45 3RF loratadine 10 mg tablet 10 mg PO DAILY Ozempic 0.25 mg or 0.5 mg (2 mg/3 mL) pen injector 0.25 mg subcut QWEEK Patient Comments: 0.25 MG SUBCUTANEOUSLY EVERY WEEK FOR 4 WEEKS THEN INCREASE TO 0.5 MG EVERY WEEK lisinopril 20 mg tablet 20 mg PO BID Qty: 180 3RF testosterone cypionate 200 mg/mL oil 400 mg SC Q2W Patient Comments: INJECT 2ML EVERY 2 WEEKS budesonide-formoterol [Symbicort] 160-4.5 mcg/actuation HFA aerosol inhaler 2 inh inhalation BID PRN (Reason: wheezing) Qty: 10.2 0RF azithromycin 250 mg tablet 250 mg PO UD prednisone 20 mg tablet 20 mg PO DAILY amlodipine 5 mg tablet 5 mg PO QHS Jardiance 25 mg tablet 25 mg PO DAILY nitroglycerin 0.4 mg tablet, sublingual 0.4 mg sublingual Q5M PRN (Reason: Cardiac/Chest Pain) Qty: 25 3RF hydrochlorothiazide 25 mg tablet 25 mg PO DAILY Qty: 90 3RF metoprolol tartrate 50 mg tablet 50 mg PO BID Qty: 180 3RF Eliquis 5 mg tablet 5 mg PO BID Qty: 180 3RF Primary Care Provider: Lani Paiz Referrals: Lani Paiz DO [Primary Care Provider] - Print Language: Japanese Disposition Disposition: Acute Care Hospital [facility]
--- NOTE | 2023-10-29 01:29 | RAD_ITS ---
STUDY: X-RAY CHEST REASON FOR EXAM: Male, 58 years old patient with chest pain. TECHNIQUE: Single AP portable view of the chest. COMPARISON: March 24, 2023. FINDINGS: Cardiac monitoring leads are present. There are prominent bronchovascular markings in both lungs. The lungs are expanded. There is mild elevation and eventration of the right hemidiaphragm. There is eventration of the left hemidiaphragm. There is no demonstrated pleural abnormality. There is borderline cardiomegaly. Normal mediastinum and kim. There is prominence of the pulmonary hilar arteries with peripheral pulmonary vascular congestion. Normal visualized aortic arch and descending thoracic aorta. Normal visualized thoracic spine. Normal visualized ribs, clavicles, and shoulders. There is no demonstrated abnormality of the visualized soft tissue structures of the upper abdomen. RAD/Chest 1 View (Portable) IMPRESSION: Borderline cardiomegaly and mild pulmonary vascular congestion. Electronically Signed: Majo Campbell MD at 2:27 EDT ,
--- NOTE | 2023-10-29 01:30 | EKG12_ITS ---
Test Reason : CP Blood Pressure : / mmHG Vent. Rate : 097 BPM Atrial Rate : 097 BPM P-R Int : 194 ms QRS Dur : 106 ms QT Int : 338 ms P-R-T Axes : 079 030 032 degrees QTc Int : 429 ms Sinus rhythm with frequent Premature ventricular complexes CAN NOT RULE OUT Anterior infarct , age undetermined Abnormal ECG Confirmed by Cali Angel ([id number]), art editor RAIN TOBIAS ([id number]) on 11/01/2023 7:01:14 AM Referred By: NANCI Confirmed By:Cali Angel
[2023-10-29 01:35] LABS: Absolute Neutrophil Count 5.5 X10^3/uL (2.0-7.7); Basophil# 0.03 X10^3/uL; Basophil% 0.4 % (0-1); Eosinophil# 0.04 X10^3/uL; Eosinophils% 0.6 % (0-5); Hematocrit 44.4 % (40-54); Hemoglobin 14.5 g/dL (13.0-16.5); Lymphocyte % 15.2 % (19-41); Mean Corp Hgb Conc 32.7 g/dL (32-36); Mean Corpuscular Hgb 30.8 pg (27.0-32.0); Mean Corpuscular Volume 94.3 fL (80-94); Mean Platelet Vol. 10.6 fl (6.2-12.0); Monocyte# 0.47 X10^3/uL; Monocyte% 6.5 % (0-10); NRBC Flagged by Analyzer 0 % (0-5); Neutrophil # 5.53 X10^3/uL (2.7-7.7); Neutrophil % 76.6 % (47-70); Platelet Count 164 K/mm3 (150-450); RBC Distribution Width CV 14.6 % (11.6-14.6); RBC Distribution Width SD 50.2 fl (35.1-43.9); Red Blood Count 4.71 M/mm3 (4.6-6.2); White Blood Count 7.2 K/mm3 (4.4-11.0)
[2023-10-29] MEDS: Nitroglycerin SL (ED/IMG/CATH) 0.4 MG TABLET SL ×2 (01:38→01:43)
[2023-10-29] MEDS: 0.9% Normal Saline (1000mL) 1,000 ML 150 ML IV (01:39)
[2023-10-29 01:53] LABS: Anion Gap 11 (5-15); BUN 21 mg/dL (7-18); Calcium,Total 8.8 mg/dL (8.5-10.1); Chloride 96 mmol/L (98-107); EST Glomerular Filtration Rate 55 mL/min (>60); Est Glom Filt Rate - Afr Amer 67 mL/min (>60); Estimated Creatinine Clearance 90.93 ml/min; Glucose 557 mg/dL (74-106); Potassium 4.8 mmol/L (3.5-5.1); Sodium Level 131 mmol/L (136-145); Troponin-I HS (w/2H Reflex) 16 pg/mL (3.0-78.0)
[2023-10-29] MEDS: Insulin Lispro 100 UNIT/ML INSULN.PEN 20 UNIT SC ×2 (02:06→03:31)
[2023-10-29 03:22] LABS: Reflex Troponin-HS? (from REC) Y
[2023-10-29 03:44] LABS: Bedside Glucose 412 mg/dL (74-106)
[2023-10-29 04:00] LABS: Troponin-I HS 197 pg/mL (3.0-78.0)
--- NOTE | 2023-10-29 04:15 | HP.PCM.HOS_ITS ---
HPI - General General Date of Admission: 10/29/23 Date of Service: 10/29/23 Chief Complaint: Chest pain, recent URI symptoms. HPI Narrative The patient is a 58 y/o M w/ PMHx: Morbid obesity, HTN, HLD, SVETLANA with CPAP q HS, PAF/Flutter, Asthma, CKD stage II noted prior per GFR trending, Diabetes mellitus type II, CAD s/p PCI history who presents to the [facility] ED on 10/29/23 with history of onset of chest discomfort starting around 11 PM the evening prior with recent history of upper respiratory type infection over the last 4 to 5 days with cough, congestion, sore throat with PCP evaluation the day prior testing negative for influenza and COVID however given concerns patient was started on erythromycin and prednisone but unfortunately had onset of chest discomfort described as a chest tightness with radiation to his left upper extremity as well as left jaw with history of dyspnea as well as on exertion although he does have a recent URI type symptoms in addition prompting ED evaluation. Chest pain initially rated 8-9/10 in severity and following ED interventions and initial ED evaluation reported pain 4-5 out of 10 in severity. He denies any increased swelling to his lower extremities but does have chronic edema. He denies any orthopnea or weight gain and actually states he has recently lost a little bit of weight since he has been sick. Workup in the ED included T97.1, heart rate 98, BP 158/94, respiratory rate 16, 95% on room air, most recent vital signs heart rate 92, BP 119/73, respiratory rate 14, 92% on room air, CBC with WBC 7.2, hemoglobin 14.5, platelet 164 without marked shift, BMP with sodium 131, chloride 96, BUN/creatinine 21/1.40, GFR 55, glucose 557, troponin 16 with repeat delta 197, chest x-ray with borderline cardiomegaly and mild pulmonary vascular congestion, EKG with sinus rhythm with no acute evidence of ischemia with PVCs. In the ED patient administered maintenance IV fluids, nitroglycerin and insulin 20 units subcu x 2. [facility] Medical History CKD (chronic kidney disease), stage II Paroxysmal atrial flutter SVETLANA (obstructive sleep apnea) COVID (05/31/21) Hyperlipidemia Diabetes Obesity Type 2 diabetes mellitus Essential (primary) hypertension History of non-ST elevation myocardial infarction (NSTEMI) (08/06/20) Atherosclerotic heart disease of [place] coronary artery without angina pectoris Home Medications ?Medication ?Instructions ?Recorded ?Last Taken ?Type testosterone cypionate 200 mg/mL 400 mg subcut Q2W hormones 06/23/21 Unknown History intramuscular oil cinnamon bark 500 mg capsule 500 mg PO DAILY supplement 12/22/21 01/16/22 History (Cinnamon) metformin 500 mg tablet,extended 1,000 mg PO BID 02/04/22 Unknown History release 24 hr rosuvastatin 20 mg tablet 20 mg PO Q OTHER DAY cholesterol 02/04/22 Unknown Rx #45 tabs nitroglycerin 0.4 mg sublingual 0.4 mg sublingual Q5M PRN 03/05/23 Unknown Rx tablet Cardiac/Chest Pain #25 tabs hydrochlorothiazide 25 mg tablet 25 mg PO DAILY diuretic #90 tabs 03/08/23 Unknown Rx budesonide-formoterol HFA 160 2 inh inhalation BID PRN wheezing 03/24/23 Unknown Rx mcg-4.5 mcg/actuation aerosol #10.2 grams inhaler (Symbicort) metoprolol tartrate 50 mg tablet 50 mg PO BID #180 tabs 04/08/23 Unknown Rx lisinopril 20 mg tablet 20 mg PO BID #180 tabs 04/12/23 Unknown Rx loratadine 10 mg tablet 10 mg PO DAILY 04/12/23 Unknown History semaglutide 0.25 mg or 0.5 mg (2 0.25 mg subcut QWEEK 04/12/23 Unknown History mg/3 mL) subcutaneous pen injector (Ozempic) apixaban 5 mg tablet (Eliquis) 5 mg PO BID #180 tabs 09/23/23 Unknown Rx amlodipine 5 mg tablet 5 mg PO QHS 10/29/23 Unknown History azithromycin 250 mg tablet 250 mg PO UD 10/29/23 Unknown History empagliflozin 25 mg tablet 25 mg PO DAILY 10/29/23 Unknown History (Jardiance) prednisone 20 mg tablet 20 mg PO DAILY 10/29/23 Unknown History Allergy/AdvReac Type Severity Reaction Status Date / Time Penicillins (PCN) Allergy Unknown Verified 10/29/23 01:14 Family History Mother CVA (cerebral vascular accident) Heart disease Hypertension Father Aortic aneurysm Cancer Surgical History History of left heart catheterization (08/06/20) History of cholecystectomy History of coronary artery stent placement (01/16/22) Social History household members: spouse Smoking Status: Never smoker second hand exposure: Yes alcohol intake: current alcohol intake frequency: a few times a month Alcohol type: hard liquor substance use type: does not use caffeine: Yes Type: carbonated beverages Number of servings: 1 and coffee Number of servings: 1 ROS ROS Narrative Admission Review of Systems: CONSTITUTIONAL: No weight loss, fever, chills, + weakness or fatigue. HEENT: + Congestion, rhinorrhea, sore throat. Eyes: No visual loss, blurred vision, double vision or yellow sclerae. Ears, Nose, Throat: No hearing loss. SKIN: No rash or itching, lesions, wounds. CARDIOVASCULAR: + Chest pain, tightness, chronic peripheral edema unchanged. No palpitations, orthopnea, syncopal events. RESPIRATORY: + Cough. No marked dyspnea or marked sputum production, wheezing, hemoptysis. GASTROINTESTINAL: No anorexia, nausea, vomiting or diarrhea, abdominal pain, melena, BRBPR. GENITOURINARY: No dysuria, frequency, urgency or retention. NEUROLOGICAL: No headache, dizziness, syncope, paralysis, ataxia, numbness or tingling in the extremities, focal weakness, change in bowel or bladder control, seizure. MUSCULOSKELETAL: + muscle, back pain, joint pain or stiffness. HEMATOLOGIC: No anemia, bleeding or bruising. LYMPHATICS: No enlarged nodes. No history of splenectomy. PSYCHIATRIC: No history of depression or anxiety. ENDOCRINOLOGIC: No reports of sweating, cold or heat intolerance. No polyuria or polydipsia. ALLERGIES: + Allergic rhinitis. Vital Signs Vital Signs Vital Signs: 10/29/23 01:08 10/29/23 01:12 10/29/23 01:23 Temperature 97.1 F L Temperature Source Temporal Pulse Rate 98 Respiratory Rate 16 Respiratory Effort Normal Non-Labored Blood Pressure 158/94 H Blood Pressure Mean 115 Pulse Ox 95 95 Oxygen Delivery Method Room Air Room Air 10/29/23 01:38 10/29/23 01:43 10/29/23 01:47 Temperature Temperature Source Pulse Rate 94 92 94 Respiratory Rate 15 Respiratory Effort Blood Pressure 151/82 H 113/66 Blood Pressure Mean Pulse Ox 89 Oxygen Delivery Method 10/29/23 01:50 10/29/23 02:00 10/29/23 03:00 Temperature Temperature Source Pulse Rate 97 92 85 Respiratory Rate 19 H 14 14 Respiratory Effort Blood Pressure 127/67 H 119/73 122/69 H Blood Pressure Mean 84 86 86 Pulse Ox 92 92 94 Oxygen Delivery Method Room Air Room Air 10/29/23 04:00 10/29/23 04:00 Temperature 97.8 F Temperature Source Pulse Rate 91 91 Respiratory Rate 16 16 Respiratory Effort Blood Pressure 126/73 H 126/73 H Blood Pressure Mean 90 90 Pulse Ox 96 96 Oxygen Delivery Method Weight Weight: 367 lb 1.114 oz Body Mass Index (BMI) 51.2 Physical Exam Narrative Physical Examination: General: Awake, alert, oriented x 3 and cooperative, seated upright in the ED bed, notes chest discomfort is improved, currently 4-10 in severity. Skin: Normal color, normal turgor, no icterus, no cyanosis. HEENT: AT/NC, EOMI, PERRLA, MMM, no carotid bruits or JVD noted; however, thickened neck makes evaluation difficult. Lungs: Mildly diminished, greater bases, appropriate effort, no rales, ronchi or wheezing. Heart: Regular rate and rhythm; no gallop, rub audible. Abdomen: Soft, morbidly obese, NTTP, distant normal BS, difficult to appreciate distention and HSM given habitus. Extremities: No cyanosis, no clubbing, chronic pedal to mid kwan edema unchanged he notes. Neurological: Patient awake, alert, oriented as noted, cognitive function intact; pupils equally reactive to light and accommodation, cranial nerves grossly normal, moving all 4 extremities, no focal deficits, strength mildly to moderately globally decreased secondary to acute complaints. Psychiatric: Affect appears fatigued otherwise normal, no acute evidence of depressive or anxiety feelings. Results Lab / Micro Data 10/29/23 01:16 10/29/23 01:16 Labs: Laboratory Results - last 24 hr 10/29/23 01:16: WBC 7.2, RBC 4.71, Hgb 14.5, Hct 44.4, MCV 94.3 H, MCH 30.8, MCHC 32.7, RDW Std Deviation 50.2 H, RDW Coeff of Simeon 14.6, Plt Count 164, MPV 10.6, Immature Gran % (Auto) 0.700, Neut % (Auto) 76.6 H, Lymph % (Auto) 15.2 L, [place] % (Auto) 6.5, Eos % (Auto) 0.6, Baso % (Auto) 0.4, Absolute Neuts (auto) 5.5, Absolute Lymphs (auto) 1.10, Nucleated RBC % 0, Sodium 131 L, Potassium 4.8, Chloride 96 L, Carbon Dioxide 24.0, Anion Gap 11, BUN 21 H, Creatinine 1.40 H, Estim Creat Clear Calc 90.93, Est GFR (MDRD) Af Amer 67, Est GFR (MDRD) Non- Af 55 L, BUN/Creatinine Ratio 15.0, Glucose 557 H*, Calcium 8.8, Troponin I High Sens 16 10/29/23 03:25: Troponin I High Sens 197 H*, POC Glucose 412 H Imaging Radiology Impression Chest X-Ray 10/29/23 01:29 IMPRESSION: Borderline cardiomegaly and mild pulmonary vascular congestion. Electronically Signed: Majo Campbell MD at 2:27 EDT Reading Location ID and State: [facility] / [place] , Service support , Assessment & Plan Assessment/Plan (1) Non-ST elevated myocardial infarction: PLAN: Plan The patient is a 58 y/o M w/ PMHx: Morbid obesity, HTN, HLD, SVETLANA with CPAP q HS, PAF/Flutter, Asthma, CKD stage II noted prior per GFR trending, Diabetes mellitus type II, CAD s/p PCI history who presents to the [facility] ED on 10/29/23 with history of onset of chest discomfort starting around 11 PM the evening prior with recent history of upper respiratory type infection over the last 4 to 5 days with cough, congestion, sore throat with PCP evaluation the day prior testing negative for influenza and COVID however given concerns patient was started on erythromycin and prednisone but unfortunately had onset of chest discomfort described as a chest tightness with radiation to his left upper extremity as well as left jaw with history of dyspnea as well as on exertion although he does have a recent URI type symptoms in addition prompting ED evaluation. #1. Chest Pain w/ Acute NSTEMI: EKG in ED with sinus rhythm with PVCs with no acute evidence of ischemia, CXR w/ borderline cardiomegaly and mild pulmonary vascular congestion, initial troponin 16 with repeat delta 197. Will admit to PCU, maintain on a monitored bed, continue serial cardiac enzymes and EKGs. Obtain magnesium level upon admission. Will hold patient apixaban and transition at next dose due to heparin drip. Continue medical management w/ asa, BB, statin w/ AM FLP. ECHO requested. Cardiology consulted, plan for cardiac catheterization. Maintain NPO after midnight. ASA, NG, morphine. #2. Recent URI: Will hold prednisone and erythromycin, chest x-ray with no acute infiltrates, will obtain full respiratory viral panel, temporally hold home inhaler in the interim transition to ATC budesonide therapy with also as needed albuterol. Procalcitonin requested. Given significant hyperglycemia we will hold prednisone at this time unless significant wheezing or obvious reason to reinitiate. #3. CAD: Status post NSTEMI 01/2020 with eventual placement of drug-eluting stent to the proximal LAD with follow-up cardiac catheterization 07/2020 with moderate triple-vessel disease with patent stent to the left anterior descending artery with luminal irregularities up to 50% in other vessels and most recent catheterization 01/16/2022 with severe high-grade disease in the mid right coronary artery with moderate disease in the left anterior descending artery and moderate disease in the circumflex with drug-eluting stent to the mid RCA at that time. Will continue aspirin, metoprolol, lisinopril, statin therapy. Holding Eliquis with transition to heparin drip at next dose due. #4. Diabetes mellitus type II with hyperglycemia: Notable glucose 557 on admission BMP likely secondary to recent steroid initiation which at this time will be held, administered 20 units short acting insulin in the ED. Will obtain hemoglobin A1c to be cautious to assure this is not just from the steroids and consult nutrition for education and teaching. Will hold oral home regimen, currently does not appear to be on any insulin therapy, will add low-dose twice daily long-acting pending A1c, ADA diet, accu checks w/ ISS. #5. Chronic Kidney Disease Stage II with potentially acute renal insufficiency versus worsening renal disease to stage III unclear subtype: Admission BUN/Cr 1.40, GFR 55, baseline renal function previously had been primarily 1.0-1.2 and GFR primarily been 60-70 range thus uncertain if disease has worsened or if this is insufficiency, will judiciously hydrate and repeat BMP in AM. #6. Chronic asthma: Will temporally hold inhaler and transition to ATC budesonide therapy, PRN albuterol, HOB, IS parameters. #7. Hypertension: Continue home regimen including lisinopril, hydrochlorothiazide, amlodipine, metoprolol, PRN hydralazine. #8. Hyperlipidemia: Continue home statin regimen. AM FLP. #9. PAF/flutter: We will continue patient home metoprolol regimen, holding apixaban with transition to heparin drip at next dose due as noted. #10. Morbid Obesity: Weight loss and lifestyle changes encouraged, nutrition consulted. #11. SVETLANA: CPAP nightly. #12. DVT prophylaxis: Will hold patient home apixaban regimen and transition to heparin drip next dose due. #13. CODE status: Patient KARLY is his son Jay and living will is currently in place. Discussed CODE status at length including difference between FULL code, DNR-CCA and DNR-CC status. Following discussions about the differences in these status, requested Full Code status. Advanced Care Planning Face to Face Time: 16 minutes. Charges/Coding Visit Charges Inpatient E&M: 04370 Init Hosp L3 Procedures Hospitalists Procedures: 63486 Advncd Care Plan 30 Min
--- NOTE | 2023-10-29 04:27 | EKG12_ITS ---
Test Reason : REPEAT Blood Pressure : / mmHG Vent. Rate : 091 BPM Atrial Rate : 091 BPM P-R Int : 196 ms QRS Dur : 106 ms QT Int : 346 ms P-R-T Axes : 081 042 011 degrees QTc Int : 425 ms Sinus rhythm with frequent Premature ventricular complexes Otherwise normal ECG When compared with ECG of 29-OCT-2023 01:10, MANUAL COMPARISON REQUIRED, DATA IS UNCONFIRMED Confirmed by JACOB ABERNATHY, SHERON ([id number]), editorial assistant MIGUE WILL ([id number]) on 11/02/2023 6:13:02 AM Referred By: JASIEL Confirmed By:SHERON JAMES MD
--- NOTE | 2023-10-29 05:37 | ECHOCS_ITS ---
Reason For Study: NSTEMI Procedure This was a 2D Doppler, Color Flow transthoracic echocardiogram. Contrast injection was performed. Exam performed portable in patient room. Left Ventricle Normal left ventricle. The estimated ejection fraction is 50-55% %. Right Ventricle Normal right ventricle. Mild segmental dysfunction of right ventricle. Atria Normal left atrium. Mitral Valve The mitral valve is structurally normal. No prolapse or stenosis seen. Mild (1+) mitral valve insufficiency. Tricuspid Valve Normal tricuspid valve. Trivial tricuspid valve insufficiency. Aortic Valve Trisinus/trileaflet aortic valve. Pulmonic Valve The pulmonic valve is not well visualized. Great Vessels The aortic root is not well visualized. Pericardium/Pleural No pericardial effusion. Medication Diluted definity 4ml given slow IV push to enhance endocardial definition. MMode/2D Measurements & Calculations LVIDd: 4.8 cm IVSd: 1.3 cm LAV(MOD-bp): 47.0 ml LVIDs: 3.6 cm LVPWd: 1.2 cm RVDd: 4.2 cm FS: 24.4 % LAV(MOD-bp) Indexed: 17.3 ml/m2 LAV(MOD-sp2): 40.2 ml LAV(MOD-sp4): 47.7 ml SV(MOD-sp4): 43.6 ml SV(sp4-el): 45.9 ml LVAd ap4: 27.6 cm2 LVLd ap4: 8.3 cm EDV(MOD-sp4): 75.9 ml EDV(sp4-el): 78.2 ml LVAs ap4: 16.5 cm2 LVLs ap4: 7.2 cm ESV(MOD-sp4): 32.3 ml ESV(sp4-el): 32.3 ml EF(MOD-sp4): 57.4 % EF(sp4-el): 58.7 % TAPSE: 2.4 cm LA A4 area: 18.3 cm2 RA A4 area: 13.3 cm2 Time Measurements MV dec time: 0.18 sec Doppler Measurements & Calculations MV E max butch: 95.7 cm/sec Lat Peak E' Butch: 12.1 cm/sec Med Peak E' Butch: 7.5 cm/sec MV A max butch: 48.2 cm/sec E/E' lat: 7.9 E/E' med: 12.8 MV E/A: 2.0 MV dec slope: 539.5 cm/sec2 Ao V2 max: 156.9 cm/sec LV V1 max: 105.0 cm/sec Ao max P.9 mmHg LV V1 max P.4 mmHg Ao V2 mean: 114.0 cm/sec LV V1 mean P.5 mmHg Ao mean P.7 mmHg LV V1 mean: 72.1 cm/sec Ao V2 VTI: 35.6 cm LV V1 VTI: 24.7 cm AV (velocity ratio): 0.69 PA V2 max: 82.1 cm/sec TR max butch: 172.5 cm/sec TR max P.9 mmHg ECHO/Echo Complete W/ Contrast Interpretation Summary The estimated ejection fraction is 50-55% Ordering Physician: Wanda Echavarria Referring Physician: Lani Paiz Performed By: Joaquina Mcknight RVT, RDCS and Student
[2023-10-29 05:40] LABS: Magnesium 2.1 mg/dL (1.6-2.6)
[2023-10-29 05:44] LABS: International Normalized Ratio 1.1; Prothrombin Time (Protime)PT. 14.4 SECONDS (11.7-14.9)
[2023-10-29 05:45] LABS: Partial Thromboplast Time 29.1 Seconds (24.1-36.2)
[2023-10-29] MEDS: 0.9% Normal Saline (1000mL) 1,000 ML 75 ML IV (06:14)
[2023-10-29 06:43] LABS: Bedside Glucose 178 mg/dL (74-106)
[2023-10-29] MEDS: Aspirin 81 MG TAB.CHEW 324 MG PO (06:53)
[2023-10-29] MEDS: Metoprolol Tartrate 50 MG Tablet PO ×2 (06:54→22:24)
[2023-10-29] MEDS: Lisinopril 20 MG Tablet PO ×2 (06:54→22:24)
[2023-10-29] MEDS: Budesonide Respules 0.5 MG/2 ML AMPUL.NEB. INHALATION ×2 (06:55→20:50)
[2023-10-29 07:06] LABS: Absolute Lymphocyte Count 1.96 X10^3/uL (0.83-4.51); Absolute Neutrophil Count 4.7 X10^3/uL (2.0-7.7); Basophil# 0.05 X10^3/uL; Basophil% 0.7 % (0-1); Eosinophil# 0.13 X10^3/uL; Eosinophils% 1.7 % (0-5); Hematocrit 43.2 % (40-54); Hemoglobin 14.1 g/dL (13.0-16.5); Lymphocyte # 1.96 X10^3/ul (0.83-4.51); Mean Corp Hgb Conc 32.6 g/dL (32-36); Mean Corpuscular Hgb 30.4 pg (27.0-32.0); Mean Corpuscular Volume 93.1 fL (80-94); Mean Platelet Vol. 10.5 fl (6.2-12.0); Monocyte# 0.67 X10^3/uL; Monocyte% 8.9 % (0-10); NRBC Flagged by Analyzer 0.3 % (0-5); Neutrophil # 4.65 X10^3/uL (2.7-7.7); Neutrophil % 61.6 % (47-70); Platelet Count 177 K/mm3 (150-450); RBC Distribution Width CV 14.6 % (11.6-14.6); RBC Distribution Width SD 48.8 fl (35.1-43.9); Red Blood Count 4.64 M/mm3 (4.6-6.2); White Blood Count 7.5 K/mm3 (4.4-11.0)
[2023-10-29 07:32] LABS: ALB/GLOB Ratio 0.9 RATIO (0.9-2.4); AST(SGOT) 19 U/L (15-37); Alanine Aminotransfer ALT/SGPT 39 U/L (16-61); Albumin, Serum 3.2 g/dL (3.2-5.0); Alkaline Phosphatase 116 U/L (45-117); Anion Gap 6 (5-15); BUN 18 mg/dL (7-18); BUN/Creat Ratio 18.4 RATIO (10-20); Calcium,Total 8.9 mg/dL (8.5-10.1); Chloride 105 mmol/L (98-107); Creatinine, Serum 0.98 mg/dL (0.70-1.30); EST Glomerular Filtration Rate 84 mL/min (>60); Est Glom Filt Rate - Afr Amer 101 mL/min (>60); Estimated Creatinine Clearance 129.25 ml/min; Globulin 3.7 g/dL (2.2-4.2); Glucose 170 mg/dL (74-106); Potassium 3.8 mmol/L (3.5-5.1); Protein, Total 6.9 g/dL (6.4-8.2); Sodium Level 136 mmol/L (136-145)
[2023-10-29 07:46] LABS: Troponin-I HS 395 pg/mL (3.0-78.0)
[2023-10-29 07:53] LABS: Hemoglobin A1c 9.2 % (3.8-5.6)
[2023-10-29 08:47] LABS: Procalcitonin 0.08 ng/mL (0.00-0.09)
--- NOTE | 2023-10-29 09:48 | PCM.CONS.C ---
Assessment & Plan Assessment/Plan (1) Non-ST elevated myocardial infarction: (2) History of coronary artery stent placement: (3) Essential (primary) hypertension: (4) Hyperlipidemia: QUALIFIERS: Hyperlipidemia type: mixed hyperlipidemia Qualified Code(s): E78.2 - Mixed hyperlipidemia (5) Paroxysmal atrial flutter: PLAN: Plan Pt will undergo a diagnostic heart cath today for further evaluation based on finding Dr. Luz will decide plan of care HPI Consult Data Date of Consult: 10/29/23 HPI Narrative HPI Narrative: DORIAN DENIS, is a 58 M who presented to [facility] early this morning with chest pain. He noted that he was having CP that radiated to his left arm and jaw. Because of his cardiac history he presented to the ER for evaluation. His troponins trended 16/197/395. With his elevated troponin he was admitted with a NSTEMI. He has a history of non-ST elevated myocardial infarction and drug-eluting stent to proximal LAD in January 2020. He also has a history of Atrial flutter with RVR, hyperlipidemia, diabetes mellitus, SVETLANA with treatment, and obesity. In July 2020 he presented with new onset of atrial flutter with rapid ventricular response rate and non-ST elevation myocardial infarction and he underwent a cardiac catheterization which demonstrated evidence of moderate triple-vessel disease with a patent stent in the left anterior descending artery. There were luminal irregularities of up to 50% noted in the other vessels. He subsequently spontaneously converted to sinus rhythm. He had stress test on 01/14/2022 that showed ischemia at a low to moderate workload. He proceeded with heart catheterization on 01/16/2022 that showed severe high-grade disease noted in the mid right coronary artery with moderate disease noted in left anterior descending artery and moderate disease noted in the circumflex artery. He proceeded with drug-eluting stent to mid RCA. [facility] Medical History CKD (chronic kidney disease), stage II Paroxysmal atrial flutter SVETLANA (obstructive sleep apnea) COVID (05/31/21) Hyperlipidemia Diabetes Obesity Type 2 diabetes mellitus Essential (primary) hypertension History of non-ST elevation myocardial infarction (NSTEMI) (08/06/20) Atherosclerotic heart disease of [place] coronary artery without angina pectoris Home Medications ?Medication ?Instructions ?Recorded ?Last Taken ?Type testosterone cypionate 200 mg/mL 400 mg subcut Q2W hormones 06/23/21 Unknown History intramuscular oil cinnamon bark 500 mg capsule 500 mg PO DAILY supplement 12/22/21 01/16/22 History (Cinnamon) metformin 500 mg tablet,extended 1,000 mg PO BID 02/04/22 Unknown History release 24 hr rosuvastatin 20 mg tablet 20 mg PO Q OTHER DAY cholesterol 02/04/22 Unknown Rx #45 tabs nitroglycerin 0.4 mg sublingual 0.4 mg sublingual Q5M PRN 03/05/23 Unknown Rx tablet Cardiac/Chest Pain #25 tabs hydrochlorothiazide 25 mg tablet 25 mg PO DAILY diuretic #90 tabs 03/08/23 Unknown Rx budesonide-formoterol HFA 160 2 inh inhalation BID PRN wheezing 03/24/23 Unknown Rx mcg-4.5 mcg/actuation aerosol #10.2 grams inhaler (Symbicort) metoprolol tartrate 50 mg tablet 50 mg PO BID #180 tabs 04/08/23 Unknown Rx lisinopril 20 mg tablet 20 mg PO BID #180 tabs 04/12/23 Unknown Rx loratadine 10 mg tablet 10 mg PO DAILY allergies 04/12/23 Unknown History semaglutide 0.25 mg or 0.5 mg (2 0.25 mg subcut QWEEK 04/12/23 Unknown History mg/3 mL) subcutaneous pen injector (Ozempic) apixaban 5 mg tablet (Eliquis) 5 mg PO BID #180 tabs 09/23/23 Unknown Rx amlodipine 5 mg tablet 5 mg PO QHS 10/29/23 Unknown History azithromycin 250 mg tablet 250 mg PO UD 10/29/23 Unknown History empagliflozin 25 mg tablet 25 mg PO DAILY 10/29/23 Unknown History (Jardiance) prednisone 20 mg tablet 20 mg PO DAILY 10/29/23 Unknown History Allergy/AdvReac Type Severity Reaction Status Date / Time Penicillins (PCN) Allergy Unknown Verified 10/29/23 01:14 Family History Mother CVA (cerebral vascular accident) Heart disease Hypertension Father Aortic aneurysm Cancer Surgical History History of left heart catheterization (08/06/20) History of cholecystectomy History of coronary artery stent placement (01/16/22) Social History household members: spouse Smoking Status: Never smoker second hand exposure: Yes alcohol intake: current alcohol intake frequency: a few times a month Alcohol type: hard liquor substance use type: does not use caffeine: Yes Type: carbonated beverages Number of servings: 1 and coffee Number of servings: 1 ROS ROS Narrative CONSTITUTIONAL: No weight loss, fever, chills, + weakness or fatigue. HEENT: + Congestion, rhinorrhea, sore throat. Eyes: No visual loss, blurred vision, double vision or yellow sclerae. Ears, Nose, Throat: No hearing loss. CARDIOVASCULAR: + Chest pain, tightness, chronic peripheral edema unchanged. No palpitations, orthopnea, syncopal events. RESPIRATORY: + Cough. No marked dyspnea or marked sputum production, wheezing, hemoptysis. GASTROINTESTINAL: No anorexia, nausea, vomiting or diarrhea, abdominal pain, melena, BRBPR. GENITOURINARY: No dysuria, frequency, urgency or retention. NEUROLOGICAL: No headache, dizziness, syncope, paralysis, ataxia, numbness or tingling in the extremities, focal weakness, change in bowel or bladder control, seizure. MUSCULOSKELETAL: + muscle, back pain, joint pain or stiffness. HEMATOLOGIC: No anemia, bleeding or bruising. LYMPHATICS: No enlarged nodes. No history of splenectomy. PSYCHIATRIC: No history of depression or anxiety. ENDOCRINOLOGIC: No reports of sweating, cold or heat intolerance. No polyuria or polydipsia. Physical Exam Const alert, oriented x3, no apparent distress and healthy appearing HEENT normocephalic, head/scalp atraumatic, hearing grossly normal bilaterally, external ears normal, external nose normal and moist oral mucous membranes Eyes PERRL, EOMs intact bilaterally, conjunctivae normal and no scleral icterus Neck no lymphadenopathy, supple and no JVD Resp normal respiratory effort and clear to auscultation bilaterally Cardio regular rate, regular rhythm, S1 normal heart sound, S2 normal heart sound, no murmurs, no rub, no gallops, no clicks, no JVD and peripheral pulses 2+ throughout GI normal to inspection, nondistended, normoactive bowel sounds, soft to palpation, non-tender and non-distended Extremity normal to inspection, normal capillary refill, no clubbing, cyanosis or edema and no pedal edema Neuro oriented x3, CN's II-XII intact bilaterally, moves all extremities and no focal motor deficits Psych cooperative and affect normal Risk Stratification Risk Stratification Applicable: Yes Age >/= 65: No >/= 3 CAD Risk Factors (HTN, HLD, DM, family hx of CAD, or current smoker): Yes Aspirin Use in the Past 7 Days: Yes Severe Angina (>/= episodes in 24 hours): Yes EKG ST Changes >/= 0.5mm: No Positive Cardiac Marker: Yes WANDA Risk Stratification Score: 4 WANDA % Risk: 20% Risk Charges/Coding Visit Charges Office Visits / Consults: [id number] IP Consult L4 Objective Data Vital Signs: Vital Signs Temp Pulse Resp BP Pulse Ox O2 Del Method 98.0 F 84 18 145/82 H 98 Room Air 10/29/23 05:30 10/29/23 06:54 10/29/23 06:48 10/29/23 05:30 10/29/23 06:48 10/29/23 06:48 Oxygen Delivery Method Room Air Weight: 363 lb 15.731 oz Body Mass Index (BMI) 50.8 Intake & Output: Intake and Output for Last 24 Hours 10/27/23 10/28/23 10/29/23 23:59 23:59 23:59 Intake Total 682.5 / 682.5 Balance 682.5 / 682.5 Lab / Micro Data 10/29/23 06:50 10/29/23 06:50 Labs: Laboratory Results - last 24 hr 10/29/23 01:16: WBC 7.2, RBC 4.71, Hgb 14.5, Hct 44.4, MCV 94.3 H, MCH 30.8, MCHC 32.7, RDW Std Deviation 50.2 H, RDW Coeff of Simeon 14.6, Plt Count 164, MPV 10.6, Immature Gran % (Auto) 0.700, Neut % (Auto) 76.6 H, Lymph % (Auto) 15.2 L, Nicholas % (Auto) 6.5, Eos % (Auto) 0.6, Baso % (Auto) 0.4, Absolute Neuts (auto) 5.5, Absolute Lymphs (auto) 1.10, Nucleated RBC % 0, Sodium 131 L, Potassium 4.8, Chloride 96 L, Carbon Dioxide 24.0, Anion Gap 11, BUN 21 H, Creatinine 1.40 H, Estim Creat Clear Calc 90.93, Est GFR (MDRD) Af Amer 67, Est GFR (MDRD) Non-Af 55 L, BUN/Creatinine Ratio 15.0, Glucose 557 H*, Calcium 8.8, Troponin I High Sens 16 10/29/23 03:25: Troponin I High Sens 197 H*, POC Glucose 412 H 10/29/23 05:03: PT 14.4, INR 1.1, APTT 29.1, Magnesium 2.1, Procalcitonin 0.08 10/29/23 06:16: POC Glucose 178 H 10/29/23 06:50: WBC 7.5, RBC 4.64, Hgb 14.1, Hct 43.2, MCV 93.1, MCH 30.4, MCHC 32.6, RDW Std Deviation 48.8 H, RDW Coeff of Simeon 14.6, Plt Count 177, MPV 10.5, Immature Gran % (Auto) 1.100 H, Neut % (Auto) 61.6, Lymph % (Auto) 26.0, Nicholas % (Auto) 8.9, Eos % (Auto) 1.7, Baso % (Auto) 0.7, Absolute Neuts (auto) 4.7, Absolute Lymphs (auto) 1.96, Nucleated RBC % 0.3, Sodium 136, Potassium 3.8, Chloride 105, Carbon Dioxide 25.0, Anion Gap 6, BUN 18, Creatinine 0.98, Estim Creat Clear Calc 129.25, Est GFR (MDRD) Af Amer 101, Est GFR (MDRD) Non-Af 84, BUN/Creatinine Ratio 18.4, Glucose 170 H, Hemoglobin A1c 9.2 H, Calcium 8.9, Total Bilirubin 0.30, AST 19, ALT 39, Alkaline Phosphatase 116, Troponin I High Sens 395 H*, Total Protein 6.9, Albumin 3.2, Globulin 3.7, Albumin/Globulin Ratio 0.9 Cardiology Labs/Tests 10/29/23 01:16: WBC 7.2, RBC 4.71, Hgb 14.5, Hct 44.4, MCV 94.3 H, MCH 30.8, MCHC 32.7, Plt Count 164, MPV 10.6, Immature Gran % (Auto) 0.700, Neut % (Auto) 76.6 H, Lymph % (Auto) 15.2 L, Nicholas % (Auto) 6.5, Eos % (Auto) 0.6, Baso % (Auto) 0.4, Absolute Neuts (auto) 5.5, Nucleated RBC % 0, Sodium 131 L, Potassium 4.8, Chloride 96 L, Carbon Dioxide 24.0, Anion Gap 11, BUN 21 H, Creatinine 1.40 H, Est GFR (MDRD) Af Amer 67, Est GFR (MDRD) Non-Af 55 L, BUN/Creatinine Ratio 15.0, Glucose 557 H*, Calcium 8.8 10/29/23 05:03: PT 14.4, INR 1.1, APTT 29.1, Magnesium 2.1 10/29/23 06:50: WBC 7.5, RBC 4.64, Hgb 14.1, Hct 43.2, MCV 93.1, MCH 30.4, MCHC 32.6, Plt Count 177, MPV 10.5, Immature Gran % (Auto) 1.100 H, Neut % (Auto) 61.6, Lymph % (Auto) 26.0, Nicholas % (Auto) 8.9, Eos % (Auto) 1.7, Baso % (Auto) 0.7, Absolute Neuts (auto) 4.7, Nucleated RBC % 0.3, Sodium 136, Potassium 3.8, Chloride 105, Carbon Dioxide 25.0, Anion Gap 6, BUN 18, Creatinine 0.98, Est GFR (MDRD) Af Amer 101, Est GFR (MDRD) Non-Af 84, BUN/Creatinine Ratio 18.4, Glucose 170 H, Hemoglobin A1c 9.2 H, Calcium 8.9, Total Bilirubin 0.30 Radiography Diagnostic Testing: Radiology Impression Chest X-Ray 10/29/23 01:29 IMPRESSION: Borderline cardiomegaly and mild pulmonary vascular congestion. Electronically Signed: Majo Campbell MD at 2:27 EDT Reading Location ID and State: [address] [place] [address] , Service support ,
--- NOTE | 2023-10-29 10:30 | CASEMGMT ---
RN CM Face to Face with patient for initial transition planning/care coordination assessment. RN CM introduced self and role at [facility]. Patient lying in bed, alert and oriented, son at bedside. Patient willing to participate in assessment and is able to answer all questions appropriately. Care providers, pharmacy, and demographics verified. 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 Patient is independent and able to ambulate stairs. Transportation: self, family DME/HHC: Patient has raised toilet, shower chair, grab bars, cpap, glucometer, and BP cuff at home. No previous HHC Or SNF Patient wishes to discharge home, denies need for home health at this time. Patient states he has no further needs or concerns at this time. CM to follow for discharge planning needs that may arise. Disposition Plan: Patient to discharge home with family support and follow-up plans in place. Radha MEJÍA, RN, CM
--- NOTE | 2023-10-29 11:12 | CASEMGMT ---
Insurance review for hospitals In-network with [facility] insurance if transfer is recommended is as follows: [facility], [place], [facility], [facility], [facility], [facility], [facility] ([facility]), [facility], [facility], and . Quyen Middleton, Discharge Planning Asst.
[2023-10-29 12:03] LABS: Bedside Glucose 174 mg/dL (74-106)
--- NOTE | 2023-10-29 12:09 | PCM.HOSP.N ---
Hospitalist Note Patient admitted early this morning for NSTEMI. I saw patient at the bedside midmorning, son present. Patient was sitting up comfortably in bed, conversing normally, in no acute distress. He currently denies any chest pain, shortness of breath or any other symptoms. Cardiology is following and plan is for left heart catheterization today, patient currently n.p.o. for cath. Also plan to have echo done today. Will follow-up on these results as they become available. Full progress note to follow tomorrow.
[2023-10-29] MEDS: Loratadine 10 MG Tablet PO (13:11)
[2023-10-29] MEDS: hydroCHLOROthiazide 25 MG Tablet PO (13:11)
[2023-10-29] MEDS: Insulin Glargine-YFGN 100 UNIT/ML Pen 10 UNIT SC ×2 (13:12→22:29)
--- NOTE | 2023-10-29 13:15 | EKG12_ITS ---
Test Reason : POST PCI Blood Pressure : / mmHG Vent. Rate : 074 BPM Atrial Rate : 074 BPM P-R Int : 186 ms QRS Dur : 102 ms QT Int : 376 ms P-R-T Axes : 072 054 050 degrees QTc Int : 417 ms Normal sinus rhythm Normal ECG When compared with ECG of 29-OCT-2023 04:41, MANUAL COMPARISON REQUIRED, DATA IS UNCONFIRMED Confirmed by Cali Angel ([id number]), website/blog editor RAIN TOBIAS ([id number]) on 11/01/2023 9:30:12 AM Referred By: Confirmed By:Cali Angel
[2023-10-29 13:55] LABS: ACT Activated Clotting Time 207 sec (74-137)
--- NOTE | 2023-10-29 14:56 | CRPHASE1_ITS ---
<Statement entered by Ernie uLz MD - 10/29/23 15:22> Pt seen & evaluated w/MINDY. I personally interviewed & exam the pt. I was involved in all aspects of pt's orders, interpretation of results & treatment Documented by User: Chris Fenton 10/29/23 14:58 Patient Communication Patient Information Former Patient:: Phase I PHII Cardiac Rehab Discussed with Patient:: Yes Guide to Cardiac Rehab Given to Patient:: Yes Cardiac Rehab Facility Choice List Given to Patient:: Yes Communication to Cardiac Rehab Choice Program [facility] CR PHII:: Communication Given to CR and Refer to [facility] [employer] Dean:: Ernie Luz Refer Phase II Cardiac Rehab:: Yes Post Discharge Choice Letter Given to Patient:: Yes Phase I Charge:: Level I - Education Medical/Surgical History Medical History [place]:: Yes CAD:: Yes Congestive Heart Failure: Hypertension:: Yes Dyslipidemia:: Yes CVA/TIA: Surgical History PTCA:: Yes Ambulation Ambulation Notes:: can walk on his own Cardiac Rehabilitation Info Program Information Cardiac Rehabilitation Program Information: Cardiac Rehab The cardiac rehab team at [facility] consists of highly skilled exercise physiologists, nurses, respiratory therapists and physicians working together with you. Our purpose is to help you have a full recovery and achieve the goals you set for yourself. Over the years many of our patients have returned to activities they assumed they would never do again! We can help restore your confidence and motivation to make lifestyle changes that can have a significant impact on your health and quality of life! We can help answer questions and concerns you may have about exercise, lifestyle, medications, diet, stress and anxiety which are common following a hospitalization. WE monitor ECG and vital signs during exercise and discuss your progress with you and report to your physician(s). Cardiac Rehab is proven to help reduce readmissions, improve functional capacity and lower recurrence of problems with your heart. Our Cardiac Rehab program is Certified by the [place] [employer] Pulmonary [employer] (AACVPR) and Accredited by the [place] [employer] through our [facility]. You can contact us at . We invite you to call us with your questions or to get started in our program. If you have other questions or concerns be sure to ask your physician/provider during your follow-up visit. WE look forward to seeing you! Documented by User: Dr. Ernie Luz MD 11/20/23 15:20 Patient Communication Patient Information Former Patient:: Phase II PHII Cardiac Rehab Discussed with Patient:: Yes (Patient with NSTEMI, post PCI cardiac rehab discussed with the patient) Guide to Cardiac Rehab Given to Patient:: Yes (Guide was given from the Electronics Engineering Manager) Medical/Surgical History Medical History [place]:: Yes Congestive Heart Failure: CVA/TIA: Cardiac Rehabilitation Info Program Information Cardiac Rehabilitation Program Information: Cardiac Rehab The cardiac rehab team at [facility] consists of highly skilled exercise physiologists, nurses, respiratory therapists and physicians working together with you. Our purpose is to help you have a full recovery and achieve the goals you set for yourself. Over the years many of our patients have returned to activities they assumed they would never do again! We can help restore your confidence and motivation to make lifestyle changes that can have a significant impact on your health and quality of life! We can help answer questions and concerns you may have about exercise, lifestyle, medications, diet, stress and anxiety which are common following a hospitalization. WE monitor ECG and vital signs during exercise and discuss your progress with you and report to your physician(s). Cardiac Rehab is proven to help reduce readmissions, improve functional capacity and lower recurrence of problems with your heart. Our Cardiac Rehab program is Certified by the [place] [employer] Pulmonary Rehabilitation (AACVPR) and Accredited by the [place] [employer] through our [facility]. You can contact us at . We invite you to call us with your questions or to get started in our program. If you have other questions or concerns be sure to ask your physician/provider during your follow-up visit. WE look forward to seeing you! phase one cardiac rehab..
--- NOTE | 2023-10-29 14:58 | CRPH1.INSTRU ---
General Education Discussed with Patient CAD and cardiac anatomy and function:: Patient communicates acknowledgment, Family communicates acknowledgment, Patient returns demonstration and Family returns demonstration Explanation of diagnoses and procedures:: Patient communicates acknowledgment, Family communicates acknowledgment, Patient returns demonstration, Family returns demonstration and Needs reinforcement Sign/Symptoms of HI:: Patient communicates acknowledgment, Family communicates acknowledgment, Patient returns demonstration and Family returns demonstration Antiplatelet therapy: Patient communicates acknowledgment, Family communicates acknowledgment, Patient returns demonstration, Family returns demonstration and Needs reinforcement Proper use of NTG-SL: Patient communicates acknowledgment, Family communicates acknowledgment, Patient returns demonstration and Family returns demonstration Emergency procedures and activation of EMS: Patient communicates acknowledgment, Family communicates acknowledgment, Patient returns demonstration and Family returns demonstration Compliance of all prescribed medications: Patient communicates acknowledgment, Family communicates acknowledgment, Patient returns demonstration, Family returns demonstration and Needs reinforcement Smoking Risk Factors Patient Nicotine/Smoking Risk Factors Are:: Never smoked Response Code Nicotine/Smoking Response Code:: Patient communicates acknowledgment, Family communicates acknowledgment, Patient returns demonstration and Family returns demonstration Dyslipidemia Risk Factors Patient Dyslipidemia Risk Factors Are:: Total Cholesterol, Triglycerides, HDL and LDL Recommendations Recommendations Include:: Lipid profile not available and Therapeutic Lifestyle Change dietary guidelines Response Code Dyslipidemia Response Code:: Patient communicates acknowledgment, Family communicates acknowledgment, Patient returns demonstration and Family returns demonstration Overweight/Obesity Risk Factors Patient Overweight/Obesity Risk Factors Are:: Obesity - > or = 30 Recommendations Recommendations Include:: Weight loss of 5-10%, Reduced calorie diet and Exercise 5-7 times/week Response Code Overweight/Obesity:: Patient communicates acknowledgment, Family communicates acknowledgment, Patient returns demonstration and Family returns demonstration Hypertension Risk Factors Patient Hypertension Risk Factors Are:: No documented hx of HTN Heart Disease Risk Factors Patient Heart Disease Risk Factors Are:: Family history of heart disease < 65 years old and Previous cardiac event Recommendations Recommendations Include:: Educated family members of their risk and Educated family members of importance of prevention of heart disease Response Code Heart Disease Response Code:: Patient communicates acknowledgment, Family communicates acknowledgment, Patient returns demonstration and Family returns demonstration Diabetes Risk Factors Patient Diabetes Risk Factors Are:: Elevated blood sugars Recommendations Recommendations Include:: Maintain HgbA1c of 6% or less and Decrease/maintain body weight Response Code Diabetes:: Patient communicates acknowledgment, Family communicates acknowledgment, Patient returns demonstration, Family returns demonstration and Needs reinforcement Metabolic Syndrome Risk Factors Patient Metabolic Syndrome Risk Factors Are [3 of 5]:: Fasting blood sugar > 100 mg/dL, Waist circumference > 35 [female] or 40 [male] and High triglyceride >150 Recommendations Recommendations Include:: Reinforce compliance to risk factor modifications and Encouraged follow-up with Primary Care Physician Response Code Metabolic Syndrome Response Code:: Patient communicates acknowledgment, Family communicates acknowledgment, Patient returns demonstration and Family returns demonstration Sedentary Risk Factors Patient Sedentary Risk Factors Are:: Lack of regular exercise Recommendations Recommendations Include:: Aerobic exercise 5-7 times/week for 20-30 minutes continuously, Benefits of regular exercise, Discussed home walking program and Monitored Outpatient Cardiac Rehab Response Code Sedentary Response Code:: Patient communicates acknowledgment, Family communicates acknowledgment, Patient returns demonstration, Family returns demonstration and Needs reinforcement Stress Risk Factors Patient Stress Risk Factors Are:: Patient denies stress as a risk factor Recommendations Recommendations Include:: Stress management techniques Response Code Stress Response Code:: Patient communicates acknowledgment, Family communicates acknowledgment, Patient returns demonstration and Family returns demonstration
--- NOTE | 2023-10-29 15:23 | PCI.CARDCATH ---
PCI Cardiac Cath Report PCI Report: PCI cardiac cath report. 1. Selective left coronary angiography 2. Selective right coronary angiography 3. Measurement of LVEDP 4. Successful PCI of subtotal large proximal RCA with predilatation using 2.5 x 15 mm balloon followed by placement of drug-eluting stent 3.5 x 30 mm Jon[place] frontier drug-eluting stent and achievement of excellent result The lesion was subtotal 99% with WANDA II flow followed by 0% postprocedure and WANDA-3 flow in the RCA large dominant. 5. Placement of TR band to close the right radial artery arteriotomy site. Preprocedure diagnosis; 58-year-old patient with extensive cardiac history Has a prior PCI of LAD as well as the proximal mid RCA Presented with symptoms of discomfort in the chest with some radiation to the jaw Has uncontrolled diabetes as well had a history of paroxysmal atrial flutter/A-fib. Hypertension Hyperlipidemia, morbid obesity Based on his clinical presentation with a clinical diagnosis of non-ST elevation [place] and symptoms of chest pain with known coronary artery disease Will proceed with cardiac catheterization Consent; Risk and benefit of procedure explained detail patient ducted to proceed informed consent obtained. Diagnostic and interventional equipment used 1. 6 [place] sheaths placed in the right radial artery 2. 5 [place] JL 4 diagnostic catheter 3. 5 [place] JR4 4. 6 [place] JR4 guide 5. 0.014 180 cm run-through extra floppy straight guide catheter 6. 0.035 to 60 cm J exchanged wire 2.5 x 15 mm emerge MR balloon 7. 3.5 x 30 mm [place] frontier drug-eluting stent/POOJA. Procedure in detail; Patient brought to the [facility] in fasting state Proceed with access from the right radial artery and the new proceed with diagnostic catheter advanced sending aorta cannulated the left main without difficulty multiple views of left [place] obtained Catheter exchanged for 5 [place] JR4 and cannulated the RCA Identified the culprit lesion at the subtotal RCA proximal 99% with WANDA II flow and then we will proceed with interventional equipment using 6 [place] JR4 guide advanced into [place] cannulated the RCA proceed with a wire across the lesion and then performed predilatation followed by placement of drug-eluting stent using 3.5 x 30 mm Jonas frontier drug-eluting stent and achieve an excellent result. Nitroglycerin was used x 2 intracoronary Medication used in the [facility] 1. Heparin 2. Intracoronary nitroglycerin 3. Brilinta 180 mg was given in the [facility] Findings hemodynamic; 1. LVEDP is elevated 22 mmHg 2. No systolic gradient across aortic valve. Coronary angiography Left main calcified with extension calcification into LAD and left circumflex Angiographically the left main had no obstructive atherosclerosis 2. Left anterior descending artery stent is patent proximally there is at least around 60% LAD lesion At the site of the bifurcation of the pheresed diagonal and LAD there is 60 to 70% stenosis and the ostium and proximal part of the third diagonal branch at the 70% stenosis In the mid LAD there is diffuse atherosclerosis distal to the stent of around 50 to 60% Rest of the LAD is large vessel and reach all the way to the apex. The proximal circumflex artery had around 60-70% stenosis RCA identified as the culprit with successful PCI. Conclusion and recommendations; Patient is 58-year-old with diabetes which is uncontrolled multiple medical comorbidities with hypertension hyperlipidemia and CAD with prior stent to the LAD as well as to the RCA. I explained in detail in the [facility] to the patient the need to proceed with PCI of the RCA as he had subtotal with a WANDA II flow patient understand and will proceed and we predilated and followed by placement of drug-eluting stent and achieve an excellent result In the distal part of the RCA there is nonobstructive sclerosis of around 40-50% with a WANDA-3 flow noted at the end of the procedure on the RCA 2. Patient to continue on dual antiplatelet therapy with Brilinta aspirin as well patient has been on Eliquis for paroxysmal atrial fibrillation. 3. Patient to follow-up with the cardiology team at [facility] for continuation of cardiac care And to discuss further plan of high risk PCI bifurcational lesion of LAD and the diagonal as well as the proximal circumflex artery Versus CHRISTIANSON to LAD SVG to diagonal as well as SVG to the OM1. And reevaluate the RCA at some point due to the distal lesion which is nonobstructive. Patient will be admitted to progressive care unit will monitor and follow-up clinically. No complication in the [facility] Ernie Luz MD,FAC,[facility]
[2023-10-29] MEDS: Insulin Lispro 100 UNIT/ML INSULN.PEN SC ×2 (17:02→22:28)
[2023-10-29] MEDS: Acetaminophen 325 MG Tablet 650 MG PO ×2 (17:09→22:18)
[2023-10-29 17:44] LABS: Bedside Glucose 229 mg/dL (74-106)
[2023-10-29] MEDS: Albuterol 2.5 MG/3 ML VIAL.NEB. INHALATION (20:49)
--- NOTE | 2023-10-29 21:27 | CPS ---
Pt has own cpap set up at bedside ready for use this PM
[2023-10-29 21:50] LABS: Bedside Glucose 300 mg/dL (74-106)
[2023-10-29] MEDS: Phenol/Sodium Phenolate 180ML 3 SPRAY MUCOUS MEM (22:19)
[2023-10-29] MEDS: Glycerin/Hypromellose/PEG400 15 ml Bottle 1 DRP EACH EYE (22:20)
[2023-10-29] MEDS: amLODIPine 5 MG Tablet PO (22:25)
[2023-10-29] MEDS: Atorvastatin Calcium 40 MG Tablet PO (22:25)
[2023-10-30] VITALS (9 sets, daily range): BP systolic 120–139; BP diastolic 65–75; PULSE 52–97; RESP 16–20; TEMP 35.8–36.3; O2SAT 92–95; BMI 50.8
[2023-10-30] MEDS: Insulin Lispro 100 UNIT/ML INSULN.PEN SC ×4 (06:43→21:32)
[2023-10-30] MEDS: Acetaminophen 325 MG Tablet 650 MG PO ×4 (06:46→21:28)
[2023-10-30 07:01] LABS: Bedside Glucose 225 mg/dL (74-106)
[2023-10-30 07:43] LABS: Hematocrit 42.5 % (40-54); Hemoglobin 13.7 g/dL (13.0-16.5); Mean Corp Hgb Conc 32.2 g/dL (32-36); Mean Corpuscular Hgb 30.4 pg (27.0-32.0); Mean Corpuscular Volume 94.2 fL (80-94); Mean Platelet Vol. 10.3 fl (6.2-12.0); Platelet Count 177 K/mm3 (150-450); RBC Distribution Width CV 15.1 % (11.6-14.6); RBC Distribution Width SD 51.5 fl (35.1-43.9); Red Blood Count 4.51 M/mm3 (4.6-6.2); White Blood Count 7.9 K/mm3 (4.4-11.0)
[2023-10-30 08:19] LABS: ALB/GLOB Ratio 0.8 RATIO (0.9-2.4); AST(SGOT) 23 U/L (15-37); Alanine Aminotransfer ALT/SGPT 42 U/L (16-61); Albumin, Serum 3.1 g/dL (3.2-5.0); Alkaline Phosphatase 69 U/L (45-117); Anion Gap 9 (5-15); BUN 12 mg/dL (7-18); BUN/Creat Ratio 15.5 RATIO (10-20); Calcium,Total 8.9 mg/dL (8.5-10.1); Chloride 102 mmol/L (98-107); Cholesterol 90 mg/dL (200); Creatinine, Serum 0.77 mg/dL (0.70-1.30); EST Glomerular Filtration Rate 110 mL/min (>60); Est Glom Filt Rate - Afr Amer 133 mL/min (>60); Estimated Creatinine Clearance 164.56 ml/min; Globulin 3.8 g/dL (2.2-4.2); Glucose 231 mg/dL (74-106); High Density Lipoprotein 32 mg/dL; Potassium 3.8 mmol/L (3.5-5.1); Protein, Total 6.9 g/dL (6.4-8.2); Sodium Level 135 mmol/L (136-145); Triglycerides 147 mg/dL; Very Low Density Lipoprotein 29 mg/dL (5-40)
[2023-10-30] MEDS: hydroCHLOROthiazide 25 MG Tablet PO (09:54)
[2023-10-30] MEDS: Lisinopril 20 MG Tablet PO ×2 (09:54→21:39)
[2023-10-30] MEDS: Metoprolol Tartrate 50 MG Tablet PO (09:55)
[2023-10-30] MEDS: Aspirin E.C. 81 MG Tablet PO (09:55)
[2023-10-30] MEDS: Loratadine 10 MG Tablet PO (09:55)
--- NOTE | 2023-10-30 10:00 | EKG12_ITS ---
Test Reason : AM EKG Blood Pressure : / mmHG Vent. Rate : 079 BPM Atrial Rate : 079 BPM P-R Int : 176 ms QRS Dur : 100 ms QT Int : 366 ms P-R-T Axes : 065 042 044 degrees QTc Int : 419 ms Normal sinus rhythm Normal ECG Confirmed by Cali Angel ([id number]), associate entertainment editor RAIN TOBIAS ([id number]) on 11/01/2023 9:29:55 AM Referred By: Confirmed By:Cali Angel
[2023-10-30] MEDS: Insulin Glargine-YFGN 100 UNIT/ML Pen 10 UNIT SC ×2 (11:44→21:33)
[2023-10-30 12:03] LABS: Bedside Glucose 283 mg/dL (74-106)
--- NOTE | 2023-10-30 12:58 | PCM.PN.HOSP ---
Reason for Visit Reason for Visit: Diagnoses Mixed hyperlipidemia (10/29/23) Essential (primary) hypertension (10/29/23) Non-ST elevation (NSTEMI) myocardial infarction (10/29/23) Unspecified atrial flutter (10/29/23) Presence of coronary angioplasty implant and graft (10/29/23) Subjective Subjective No acute events overnight. Patient seen at bedside this morning. Sitting up comfortably in bedside chair, conversing normally, no acute distress. States he does continue to have some URI symptoms including a mildly productive cough. States he had a breathing treatment done this morning that was helpful for him. Denies any fevers or chills or any other systemic symptoms. Otherwise denies any chest pain or tightness or any shortness of breath with exertion. He is open to go home soon. No other acute concerns. Objective Data Objective Data Vital Signs: Vital Signs Temp Pulse Resp BP Pulse Ox O2 Del Method 96.6 F L 84 16 129/66 H 93 Room Air 10/30/23 09:20 10/30/23 09:55 10/30/23 09:20 10/30/23 09:55 10/30/23 09:20 10/30/23 10:00 Oxygen Delivery Method Room Air Weight: 165.2 kg Body Mass Index (BMI) 50.8 Intake & Output: Intake and Output for Last 24 Hours 10/28/23 10/29/23 10/30/23 23:59 23:59 23:59 Intake Total 1820.0 / 1820.0 Balance 1820.0 / 1820.0 Lab / Micro Data 10/30/23 06:32 10/30/23 06:32 Labs: Laboratory Results - last 24 hr 10/29/23 12:16: Activated Clotting Time 207 H 10/29/23 16:54: POC Glucose 229 H 10/29/23 21:22: POC Glucose 300 H 10/30/23 06:32: WBC 7.9, RBC 4.51 L, Hgb 13.7, Hct 42.5, MCV 94.2 H, MCH 30.4, MCHC 32.2, RDW Std Deviation 51.5 H, RDW Coeff of Simeon 15.1 H, Plt Count 177, MPV 10.3, Sodium 135 L, Potassium 3.8, Chloride 102, Carbon Dioxide 24.0, Anion Gap 9, BUN 12, Creatinine 0.77, Estim Creat Clear Calc 164.56, Est GFR (MDRD) Af Amer 133, Est GFR (MDRD) Non-Af 110, BUN/Creatinine Ratio 15.5, Glucose 231 H, Calcium 8.9, Total Bilirubin 0.80, AST 23, ALT 42, Alkaline Phosphatase 69, Total Protein 6.9, Albumin 3.1 L, Globulin 3.8, Albumin/Globulin Ratio 0.8 L, Triglycerides 147, Cholesterol 90, LDL Cholesterol 29, VLDL Cholesterol 29, HDL Cholesterol 32 L 10/30/23 06:42: POC Glucose 225 H 10/30/23 11:41: POC Glucose 283 H Micro: Microbiology 10/29/23 15:00 Sputum, Expectorated/Coughed Gram Stain - Final 10/29/23 15:00 Sputum, Expectorated/Coughed Respiratory Culture - Preliminary Appears to be normal respiratory yesenia. Further studies to follow. 10/30/23 10:00 Mucosa - Throat Streptococcus pyogenes (PCR) - Final 10/29/23 06:45 Mucosa - Nasopharyngeal Respiratory Panel (PCR) - Final Radiography Diagnostic Testing: Radiology Impression Echocardiogram 10/29/23 05:37 Interpretation Summary The estimated ejection fraction is 50-55% Ordering Physician: Wanda Echavarria Referring Physician: Lani Paiz Performed By: Joaquina Mcknight RVT, RDCS and Student Physical Exam Const alert, oriented x3 and no apparent distress Constitutional Narrative: Pleasant middle-age male, morbidly obese, sitting up comfortably in bedside chair, conversing normally, no acute distress. General Appearance: cooperative and comfortable HEENT normocephalic, head/scalp atraumatic, hearing grossly normal bilaterally, nasal mucous membranes and turbinates normal and moist oral mucous membranes Eyes PERRL, EOMs intact bilaterally and conjunctivae normal Neck full ROM Chest inspection of chest normal Resp normal respiratory effort, normal air movement, no use of accessory muscles and clear to auscultation bilaterally Cardio regular rate, regular rhythm, no murmurs and peripheral pulses 2+ throughout GI normal to inspection, nondistended, normoactive bowel sounds, soft to palpation, non-tender and non-distended Back/Spine normal ROM Extremity normal to inspection, full ROM and no pedal edema Skin no rashes or lesions noted Neuro moves all extremities and no focal motor deficits Speech: speech normal Psych mental status grossly normal Assessment & Plan Assessment/Plan (1) Non-ST elevated myocardial infarction: (2) URI, acute: PLAN: Plan Patient is a 58-year-old male who presented [facility] ED on 10/29/2023 with chest pain and recent URI symptoms. 1. NSTEMI type I, history of CAD s/p stenting Presented with worsening chest discomfort after 4 to 5 days of URI symptoms. History of NSTEMI in 01/2020 with POOJA x 1 to proximal LAD. Follow-up cath in 07/2020 with moderate triple-vessel disease with patent stent. Most recent cath in 12/2021 with severe high-grade disease in mid RCA s/p POOJA x 1 to mid RCA. On this admit, troponin trend 16 > 197 > 395. EKG with normal sinus rhythm in 90s with frequent PVCs, no ischemic changes. Chest x-ray with cardiomegaly and mild pulmonary vascular congestion. Did also have significant hyperglycemia as noted below. Otherwise was hemodynamically stable. ? Cardiology following. Left heart cath on 10/28 showed subtotal RCA proximal 99% lesion s/p successful POOJA x 1. Patient does have worsening CAD in LAD and LCx as well. Per cardiology, will follow-up with [facility] on discharge for further discussion regarding plan for either high risk PCI of bifurcational lesion of LAD and diagonal as well as proximal circumflex artery versus CABG evaluation. Started on Brilinta, continue home aspirin and statin. Is also on Eliquis for paroxysmal A-fib/flutter, okay for triple therapy for now per cardiology. Continue home Lopressor and lisinopril. 2. URI symptoms ? Respiratory PCR panel, strep PCR panel and sputum cultures all negative. Most likely mild viral illness versus secondary to cardiac issues as noted above. Was started on prednisone and azithromycin by PCP, discontinued both of these on admission. Continue home inhalers and other as needed medications for supportive care. 3. Type 2 diabetes mellitus with hyperglycemia ? Home regimen of metformin 1000 mg twice daily, empagliflozin 25 mg daily and semaglutide 0.25 mg weekly. A1c 9.2% on admit, last two A1c values were from 2019 and 2020 and were around 9% at that time as well. Severe hyperglycemia on admission likely due to recent steroid course she was prescribed for URI symptoms as well as NSTEMI, improved with insulin administration. Treating with insulin glargine 10 units twice daily and sliding scale insulin with meals, adjust as needed. Given that fairly poor control of diabetes is likely contributing to worsening CAD, patient would be better served with tighter glucose control and would presumably require insulin for this. However, he has been resistant to starting insulin therapy. Continue discussions in outpatient setting. 4. Mild creatinine elevation, resolved ? Creatinine 1.40 on admit, improved back to baseline around 0.8-1.1 with IV fluid resuscitation. Chronic medical conditions: ? Morbid obesity: BMI 50 on admit. Encouraged lifestyle modifications. Notably is on semaglutide as noted above, will continue this on discharge. Complicates hospital course, care and prognosis. ? SVETLANA: Continue home CPAP. ? Paroxysmal A-fib/flutter: Normal sinus rhythm with PVCs on admit. Continue home Eliquis and Lopressor. ? Hypertension: Stable. Continue home Lopressor, lisinopril, amlodipine and hydrochlorothiazide. ? Hyperlipidemia: Continue home statin. ? Chronic asthma: Continue home inhalers. DVT prophylaxis: Eliquis CODE STATUS: Full code, verified Expected disposition: Home, 1 to 2 days Total clinical time spent by myself addressing the patient's medical issues, reviewing all the data, and collaborating with patient's care team: 35 minutes. Charges/Coding Visit Charges Inpatient E&M: 85459 Subs Hosp L2
[2023-10-30] MEDS: Ipratropium/Albuterol Sulfate 3 ML AMPUL.NEB INHALATION ×2 (13:36→20:07)
[2023-10-30 14:36] LABS: ACT Activated Clotting Time 177 sec (74-137)
[2023-10-30] MEDS: Phenol/Sodium Phenolate 180ML 3 SPRAY MUCOUS MEM (15:15)
[2023-10-30] MEDS: Glycerin/Hypromellose/PEG400 15 ml Bottle 1 DRP EACH EYE (15:16)
--- NOTE | 2023-10-30 16:21 | PN.CARD_ITS ---
Subjective Subjective Patient seen and evaluated today at bedside Family at bedside and No symptoms reported Seen and evaluated along with the nursing staff reviewed property assessment monitor Objective Data Vital Signs: Vital Signs Temp Pulse Resp BP Pulse Ox O2 Del Method 96.5 F L 86 16 120/65 94 Room Air 10/30/23 15:14 10/30/23 15:14 10/30/23 15:14 10/30/23 15:14 10/30/23 15:14 10/30/23 15:14 Oxygen Delivery Method Room Air Weight: 364 lb 3.258 oz Body Mass Index (BMI) 50.8 Intake & Output: Intake and Output for Last 24 Hours 10/28/23 10/29/23 10/30/23 23:59 23:59 23:59 Intake Total 1820.0 / 1820.0 950 / 950 Balance 1820.0 / 1820.0 950 / 950 Lab / Micro Data 10/30/23 06:32 10/30/23 06:32 Labs: Laboratory Results - last 24 hr 10/29/23 11:59: Activated Clotting Time 177 H 10/29/23 16:54: POC Glucose 229 H 10/29/23 21:22: POC Glucose 300 H 10/30/23 06:32: WBC 7.9, RBC 4.51 L, Hgb 13.7, Hct 42.5, MCV 94.2 H, MCH 30.4, MCHC 32.2, RDW Std Deviation 51.5 H, RDW Coeff of Simeon 15.1 H, Plt Count 177, MPV 10.3, Sodium 135 L, Potassium 3.8, Chloride 102, Carbon Dioxide 24.0, Anion Gap 9, BUN 12, Creatinine 0.77, Estim Creat Clear Calc 164.56, Est GFR (MDRD) Af Amer 133, Est GFR (MDRD) Non-Af 110, BUN/Creatinine Ratio 15.5, Glucose 231 H, Calcium 8.9, Total Bilirubin 0.80, AST 23, ALT 42, Alkaline Phosphatase 69, Total Protein 6.9, Albumin 3.1 L, Globulin 3.8, Albumin/Globulin Ratio 0.8 L, Triglycerides 147, Cholesterol 90, LDL Cholesterol 29, VLDL Cholesterol 29, HDL Cholesterol 32 L 10/30/23 06:42: POC Glucose 225 H 10/30/23 11:41: POC Glucose 283 H Micro: Microbiology 10/29/23 15:00 Sputum, Expectorated/Coughed Gram Stain - Final 10/29/23 15:00 Sputum, Expectorated/Coughed Respiratory Culture - Preliminary Appears to be normal respiratory yesenia. Further studies to follow. 10/30/23 10:00 Mucosa - Throat Streptococcus pyogenes (PCR) - Final Cardiology Labs/Tests 10/30/23 06:32: WBC 7.9, RBC 4.51 L, Hgb 13.7, Hct 42.5, MCV 94.2 H, MCH 30.4, MCHC 32.2, Plt Count 177, MPV 10.3, Sodium 135 L, Potassium 3.8, Chloride 102, Carbon Dioxide 24.0, Anion Gap 9, BUN 12, Creatinine 0.77, Est GFR (MDRD) Af Amer 133, Est GFR (MDRD) Non-Af 110, BUN/Creatinine Ratio 15.5, Glucose 231 H, Calcium 8.9, Total Bilirubin 0.80, Triglycerides 147, Cholesterol 90, LDL Cholesterol 29, VLDL Cholesterol 29, HDL Cholesterol 32 L Rhythm: EKG: ECHO: Stress Test: Cardiac Cath: PCI: CT Surgery: Holter monitor: EPS: PPM: CXR: Chest CT Scan: Radiography Diagnostic Testing: Radiology Impression Echocardiogram 10/29/23 05:37 Interpretation Summary The estimated ejection fraction is 50-55% Ordering Physician: Wanda Echavarria Referring Physician: Lani Paiz Performed By: Roxanna PAEZ RDCS, Joaquina and Student Physical Exam Cardio Cardio Narrative: Cardiac exam respiratory is regular Chest exam clear to auscultation bilateral Assessment & Plan Assessment/Plan (1) URI, acute: (2) Atherosclerotic heart disease of minto coronary artery without angina pectoris: QUALIFIERS: [place] vs. transplanted heart: minto heart Qualified Code(s): I25.10 - Atherosclerotic heart disease of minto coronary artery without angina pectoris (3) Non-ST elevated myocardial infarction: (4) Hyperlipidemia: QUALIFIERS: Hyperlipidemia type: mixed hyperlipidemia Qualified Code(s): E78.2 - Mixed hyperlipidemia (5) Obesity: (6) Essential (primary) hypertension: PLAN: Plan 58-year-old patient Presented with shortness of breath chest pain and has noticed elevation VT Underwent cardiac catheterization Patient has history of prior VT With the PCI and stent of the proximal LAD using drug-eluting stent Synergy 3 x 12 mm In 2019 Subsequently in 2021 had a PCI the stent of the RCA using drug-eluting stent or serial CT by 18 mm Patient underwent cardiac catheterization which revealed subtotal RCA had Underwent successful PCI using drug-eluting stent 3.5 x 30 mm [place] frontier drug-eluting stent with excellent result Has a diffuse disease in the distal RCA which is nonobstructive. And was treated medically On the cardiac authorization patient had severe left coronary artery atherosclerosis involving the proximal, mid LAD which is diffuse disease as well as a sidebranch which is a large diagonal patient as well has . 70% stenosis involving the proximal circumflex artery. Echocardiographic evaluation showed LV function is preserved Cortical blood recommendations; 1. Review of the property assessment monitor noted patient has long dose with conduction abnormality Beta-lamar discontinued 2. Patient has paroxysmal A-fib added Eliquis to his current treatment he has been on Eliquis previously 3. I discussed the plan of the further cardiac evaluation with possible high risk PCI for the LAD circumflex versus CABG Explained in detail the cardiac care plan to the patient to go and the family and we will continue to monitor and follow-up clinically. Patient also to follow-up with his primary broadcast operations engineer Dr. Cuevas for continuation of cardiac care. I discussed in detail the medication which include Brilinta aspirin as well adding Eliquis from tomorrow Once seen by his primary broadcast operations engineer as an outpatient Brilinta can be changed to clopidogrel to minimize the risk of bleeding.
[2023-10-30 16:50] LABS: Bedside Glucose 281 mg/dL (74-106)
[2023-10-30] MEDS: Budesonide Respules 0.5 MG/2 ML AMPUL.NEB. INHALATION (20:07)
[2023-10-30] MEDS: TICAGRELOR 90 MG TABLET PO (21:28)
[2023-10-30] MEDS: amLODIPine 5 MG Tablet PO (21:39)
[2023-10-30 22:04] LABS: Bedside Glucose 314 mg/dL (74-106)
[2023-10-31 03:00] VITALS: BP 137/81; PULSE 87; RESP 93; TEMP 36.2
[2023-10-31 03:14] VITALS: BP 137/81; PULSE 87; RESP 17; TEMP 36.2; O2SAT 93
[2023-10-31] MEDS: Acetaminophen 325 MG Tablet 650 MG PO ×4 (03:21→20:22)
[2023-10-31 06:00] VITALS: BMI 50.8
[2023-10-31] MEDS: Insulin Lispro 100 UNIT/ML INSULN.PEN SC ×4 (06:38→20:51)
[2023-10-31 06:59] LABS: Bedside Glucose 270 mg/dL (74-106)
[2023-10-31 08:21] VITALS: BP 133/73; PULSE 85; RESP 16; TEMP 36.6; O2SAT 93
[2023-10-31] MEDS: Lisinopril 20 MG Tablet PO ×2 (08:25→20:49)
[2023-10-31] MEDS: hydroCHLOROthiazide 25 MG Tablet PO (08:25)
[2023-10-31] MEDS: APIXABAN 5 MG TABLET PO ×2 (08:26→20:49)
[2023-10-31] MEDS: Loratadine 10 MG Tablet PO (08:26)
[2023-10-31] MEDS: Aspirin E.C. 81 MG Tablet PO (08:26)
[2023-10-31] MEDS: TICAGRELOR 90 MG TABLET PO ×2 (08:26→20:49)
--- NOTE | 2023-10-31 10:00 | EKG12_ITS ---
Test Reason : Blood Pressure : / mmHG Vent. Rate : 085 BPM Atrial Rate : 085 BPM P-R Int : 170 ms QRS Dur : 096 ms QT Int : 358 ms P-R-T Axes : 076 054 036 degrees QTc Int : 426 ms Sinus rhythm with occasional Premature ventricular complexes Otherwise normal ECG When compared with ECG of 30-OCT-2023 05:55, MANUAL COMPARISON REQUIRED, DATA IS UNCONFIRMED Confirmed by Cali Angel ([id number]), scientific publications editor RAIN TOBIAS ([id number]) on 11/01/2023 9:29:33 AM Referred By: WILLOW Confirmed By:Cali Angel
--- NOTE | 2023-10-31 11:11 | PCM.PN.HOSP ---
Reason for Visit Reason for Visit: Diagnoses Obesity, unspecified (10/29/23) Mixed hyperlipidemia (10/29/23) Essential (primary) hypertension (10/29/23) Non-ST elevation (NSTEMI) myocardial infarction (10/29/23) Atherosclerotic heart disease of [place] coronary artery without angina pectoris (10/29/23) Unspecified atrial flutter (10/29/23) Acute upper respiratory infection, unspecified (10/29/23) Presence of coronary angioplasty implant and graft (10/29/23) Subjective Subjective No acute events overnight. Patient seen at bedside this morning. Laying comfortably in bed, conversing normally, in no acute distress. States he was told by cardiology yesterday that they would like to keep him in the hospital till tomorrow for further discussions regarding complex PCI versus possible transfer for CABG evaluation. Patient was agreeable to this. States the breathing treatments have been mild to moderately helpful for his URI symptoms. Denies any other new concerns this morning. Objective Data Objective Data Vital Signs: Vital Signs Temp Pulse Resp BP Pulse Ox O2 Del Method 97.8 F 85 16 133/73 H 93 CPAP 10/31/23 08:21 10/31/23 08:21 10/31/23 08:21 10/31/23 08:21 10/31/23 08:21 10/31/23 08:21 Oxygen Delivery Method CPAP Weight: 165.4 kg Body Mass Index (BMI) 50.8 Intake & Output: Intake and Output for Last 24 Hours 10/29/23 10/30/23 10/31/23 23:59 23:59 23:59 Intake Total 1820.0 / 1820.0 1250 / 1730 960 / 960 Output Total 0 / 0 Balance 1820.0 / 1820.0 1250 / 1730 960 / 960 Lab / Micro Data 10/30/23 06:32 10/30/23 06:32 Labs: Laboratory Results - last 24 hr 10/29/23 11:59: Activated Clotting Time 177 H 10/30/23 11:41: POC Glucose 283 H 10/30/23 16:27: POC Glucose 281 H 10/30/23 21:31: POC Glucose 314 H 10/31/23 06:37: POC Glucose 270 H Micro: Microbiology 10/29/23 15:00 Sputum, Expectorated/Coughed Gram Stain - Final 10/29/23 15:00 Sputum, Expectorated/Coughed Respiratory Culture - Preliminary Gram negative cocco bacillus 10/30/23 10:00 Mucosa - Throat Streptococcus pyogenes (PCR) - Final 10/29/23 06:45 Mucosa - Nasopharyngeal Respiratory Panel (PCR) - Final Physical Exam Const alert, oriented x3 and no apparent distress Constitutional Narrative: Pleasant middle-age male, morbidly obese, laying comfortably in bed, conversing normally, no acute distress. General Appearance: cooperative and comfortable HEENT normocephalic, head/scalp atraumatic, hearing grossly normal bilaterally, nasal mucous membranes and turbinates normal and moist oral mucous membranes Eyes PERRL, EOMs intact bilaterally and conjunctivae normal Neck full ROM Chest inspection of chest normal Resp normal respiratory effort, normal air movement, no use of accessory muscles and clear to auscultation bilaterally Cardio regular rate, regular rhythm, no murmurs and peripheral pulses 2+ throughout GI normal to inspection, nondistended, normoactive bowel sounds, soft to palpation, non-tender and non-distended Back/Spine normal ROM Extremity normal to inspection, full ROM and no pedal edema Skin no rashes or lesions noted Neuro moves all extremities and no focal motor deficits Speech: speech normal Psych mental status grossly normal Assessment & Plan Assessment/Plan (1) Non-ST elevated myocardial infarction: (2) URI, acute: PLAN: Plan Patient is a 58-year-old male who presented [facility] ED on 10/29/2023 with chest pain and recent URI symptoms. 1. NSTEMI type I, history of CAD s/p stenting Presented with worsening chest discomfort after 4 to 5 days of URI symptoms. History of NSTEMI in 01/2020 with POOJA x 1 to proximal LAD. Follow-up cath in 07/2020 with moderate triple-vessel disease with patent stent. Most recent cath in 12/2021 with severe high-grade disease in mid RCA s/p POOJA x 1 to mid RCA. On this admit, troponin trend 16 > 197 > 395. EKG with normal sinus rhythm in 90s with frequent PVCs, no ischemic changes. Chest x-ray with cardiomegaly and mild pulmonary vascular congestion. Did also have significant hyperglycemia as noted below. Otherwise was hemodynamically stable. ? Cardiology following. Left heart cath on 10/28 showed subtotal RCA proximal 99% lesion s/p successful POOJA x 1. Patient does have worsening CAD in LAD and LCx as well. Per cardiology, planning to keep patient hospitalized through 10/31 for further discussion regarding plan for either high risk PCI of bifurcational lesion of LAD and diagonal as well as proximal circumflex artery versus possible transfer for CABG evaluation. Started on Brilinta, continue home aspirin and statin. Is also on Eliquis for paroxysmal A-fib/flutter, okay for triple therapy for now per cardiology. Continue home Lopressor and lisinopril. 2. URI symptoms ? Respiratory PCR panel, strep PCR panel and sputum cultures all negative. Most likely mild viral illness versus secondary to cardiac issues as noted above. Was started on prednisone and azithromycin by PCP, discontinued both of these on admission. Continue home inhalers and other as needed medications for supportive care. 3. Type 2 diabetes mellitus with hyperglycemia ? Home regimen of metformin 1000 mg twice daily, empagliflozin 25 mg daily and semaglutide 0.25 mg weekly. A1c 9.2% on admit, last two A1c values were from 2019 and 2020 and were around 9% at that time as well. Severe hyperglycemia on admission likely due to recent steroid course she was prescribed for URI symptoms as well as NSTEMI, improved with insulin administration. Treating with insulin glargine 10 units twice daily and sliding scale insulin with meals, adjust as needed. Given that fairly poor control of diabetes is likely contributing to worsening CAD, patient would be better served with tighter glucose control and would presumably require insulin for this. However, he has been resistant to starting insulin therapy. Continue discussions in outpatient setting. 4. Mild creatinine elevation, resolved ? Creatinine 1.40 on admit, improved back to baseline around 0.8-1.1 with IV fluid resuscitation. Chronic medical conditions: ? Morbid obesity: BMI 50 on admit. Encouraged lifestyle modifications. Notably is on semaglutide as noted above, will continue this on discharge. Complicates hospital course, care and prognosis. ? SVETLANA: Continue home CPAP. ? Paroxysmal A-fib/flutter: Normal sinus rhythm with PVCs on admit. Continue home Eliquis and Lopressor. ? Hypertension: Stable. Continue home Lopressor, lisinopril, amlodipine and hydrochlorothiazide. ? Hyperlipidemia: Continue home statin. ? Chronic asthma: Continue home inhalers. DVT prophylaxis: Eliquis CODE STATUS: Full code, verified Expected disposition: Home, TBD Total clinical time spent by myself addressing the patient's medical issues, reviewing all the data, and collaborating with patient's care team: 35 minutes. Charges/Coding Visit Charges Inpatient E&M: 36197 Subs Hosp L2
[2023-10-31] MEDS: Insulin Glargine-YFGN 100 UNIT/ML Pen 10 UNIT SC ×2 (11:34→20:50)
--- NOTE | 2023-10-31 12:54 | PCM.PN.CARD ---
Subjective Subjective Seen and evaluated at bedside at bedside at time of evaluation No symptoms reported today Objective Data Vital Signs: Vital Signs Temp Pulse Resp BP Pulse Ox O2 Del Method 97.8 F 85 16 133/73 H 93 CPAP 10/31/23 08:21 10/31/23 08:21 10/31/23 08:21 10/31/23 08:21 10/31/23 08:21 10/31/23 08:21 Oxygen Delivery Method CPAP Weight: 364 lb 10.313 oz Body Mass Index (BMI) 50.8 Intake & Output: Intake and Output for Last 24 Hours 10/29/23 10/30/23 10/31/23 23:59 23:59 23:59 Intake Total 1820.0 / 1820.0 1250 / 1730 960 / 960 Output Total 0 / 0 Balance 1820.0 / 1820.0 1250 / 1730 960 / 960 Lab / Micro Data 10/30/23 06:32 10/30/23 06:32 Labs: Laboratory Results - last 24 hr 10/29/23 11:59: Activated Clotting Time 177 H 10/30/23 16:27: POC Glucose 281 H 10/30/23 21:31: POC Glucose 314 H 10/31/23 06:37: POC Glucose 270 H Micro: Microbiology 10/29/23 15:00 Sputum, Expectorated/Coughed Gram Stain - Final 10/29/23 15:00 Sputum, Expectorated/Coughed Respiratory Culture - Preliminary Gram negative cocco bacillus 10/30/23 10:00 Mucosa - Throat Streptococcus pyogenes (PCR) - Final Cardiology Labs/Tests Rhythm: EKG: ECHO: Stress Test: Cardiac Cath: PCI: CT Surgery: Holter monitor: EPS: PPM: CXR: Chest CT Scan: Physical Exam Cardio Cardio Narrative: Review of cardiac telemetry reveals normal sinus rhythm No further episode of pauses Cardiac exam S1-S2 is regular Chest exam mildly diminished air entry bilateral. Assessment & Plan Assessment/Plan (1) Essential (primary) hypertension: (2) Hyperlipidemia: QUALIFIERS: Hyperlipidemia type: mixed hyperlipidemia Qualified Code(s): E78.2 - Mixed hyperlipidemia (3) Paroxysmal atrial flutter: (4) Non-ST elevated myocardial infarction: PLAN: Plan Cardiac care plan; 58-year-old patient who presented to the hospital on October 28 with symptoms of chest pain and also had recent upper respiratory tract infection. Clinical diagnosis of non-ST elevation LA Patient has a prior PCI of the LAD and RCA 2019?2021. Cardiac catheterization revealed high-grade subtotal proximal RCA with successful PCI and stenting. High significant lesion involving a bifurcation of LAD diffuse mid LAD and large diagonal branch ostial proximal lesion as well as focal lesion involving the left circumflex artery He been on treatment with dual antiplatelet therapy with Brilinta aspirin I did Eliquis to his current treatment Also noted long pauses on the cardiac/vascular sonographer beta-lamar has been discontinued Further review of the cardiac telemetry remains in normal sinus rhythm. Patient had history of SVETLANA and has been on CPAP. From cardiac standpoint we will continue current treatment likely be discharged home tomorrow to be seen by his primary dowel pointer Dr. Cuevas to discuss plan of treatment in regards to high risk PCI. Which can be set up as an outpatient versus CABG. As well patient triple therapy can be revisited as an outpatient with changing the Brilinta in 1 months to Plavix and continue on Eliquis for paroxysmal atrial flutter/A-fib. Ernie Luz MD,FACC,[facility]
[2023-10-31 15:33] VITALS: BP 137/83; PULSE 90; RESP 16; TEMP 36.4; O2SAT 93
[2023-10-31 16:26] LABS: Bedside Glucose 353 mg/dL (74-106)
[2023-10-31] MEDS: Ceftriaxone 1 GM/50 ML BAG IV (17:45)
[2023-10-31 20:15] VITALS: PULSE 68; RESP 22
[2023-10-31] MEDS: Ipratropium/Albuterol Sulfate 3 ML AMPUL.NEB INHALATION (20:15)
[2023-10-31] MEDS: Budesonide Respules 0.5 MG/2 ML AMPUL.NEB. INHALATION (20:15)
[2023-10-31] MEDS: Atorvastatin Calcium 40 MG Tablet PO (20:49)
[2023-10-31] MEDS: amLODIPine 5 MG Tablet PO (20:49)
[2023-10-31 20:55] LABS: Bedside Glucose 314 mg/dL (74-106)
[2023-10-31 20:55] LABS: Bedside Glucose 334 mg/dL (74-106)
[2023-10-31 21:00] VITALS: BP 143/88; PULSE 88; RESP 18; TEMP 36.2; O2SAT 94
[2023-10-31 21:14] LABS: Bedside Glucose 371 mg/dL (74-106)
[2023-11-01 03:00] VITALS: BP 127/73; PULSE 88; RESP 17; TEMP 36.4; O2SAT 92
[2023-11-01 04:19] VITALS: BP 127/73; PULSE 88; RESP 17; TEMP 36.3; O2SAT 92
[2023-11-01 06:00] VITALS: BMI 50.9
[2023-11-01] MEDS: Insulin Lispro 100 UNIT/ML INSULN.PEN SC ×2 (06:27→12:12)
[2023-11-01 06:46] LABS: Bedside Glucose 330 mg/dL (74-106)
--- NOTE | 2023-11-01 09:30 | PCM.PN.HOSP ---
Reason for Visit Reason for Visit: Diagnoses Obesity, unspecified (10/29/23) Mixed hyperlipidemia (10/29/23) Essential (primary) hypertension (10/29/23) Non-ST elevation (NSTEMI) myocardial infarction (10/29/23) Atherosclerotic heart disease of [place] coronary artery without angina pectoris (10/29/23) Unspecified atrial flutter (10/29/23) Acute upper respiratory infection, unspecified (10/29/23) Presence of coronary angioplasty implant and graft (10/29/23) Objective Data Objective Data Vital Signs: Vital Signs Temp Pulse Resp BP Pulse Ox O2 Del Method 97.3 F L 88 17 127/73 H 92 CPAP 11/01/23 04:19 11/01/23 04:19 11/01/23 04:19 11/01/23 04:19 11/01/23 04:19 11/01/23 08:14 Oxygen Delivery Method CPAP Weight: 165.7 kg Body Mass Index (BMI) 50.9 Intake & Output: Intake and Output for Last 24 Hours 10/30/23 10/31/23 11/01/23 23:59 23:59 23:59 Intake Total 1250 / 1730 2610 / 2970 720 / 720 Output Total 0 / 0 Balance 1250 / 1730 2610 / 2970 720 / 720 Lab / Micro Data 10/30/23 06:32 10/30/23 06:32 Labs: Laboratory Results - last 24 hr 10/31/23 11:09: POC Glucose 334 H 10/31/23 11:11: POC Glucose 314 H 10/31/23 15:45: POC Glucose 353 H 10/31/23 20:44: POC Glucose 371 H 11/01/23 06:25: POC Glucose 330 H Micro: Microbiology 10/29/23 15:00 Sputum, Expectorated/Coughed Gram Stain - Final 10/29/23 15:00 Sputum, Expectorated/Coughed Respiratory Culture - Final Haemophilus influenzae 10/30/23 10:00 Mucosa - Throat Streptococcus pyogenes (PCR) - Final 10/29/23 06:45 Mucosa - Nasopharyngeal Respiratory Panel (PCR) - Final Physical Exam Narrative GENERAL: cooperative HEENT: Atraumatic; normocephalic EYES; Anicteric, Normal Conjunctiva NECK; supple, normal thyroid, RESPIRATORY: Diminished to auscultation CARDIOVASCULAR: Regular S1 S2, GI: soft, normoactive bowel sounds, : No Renal angle tenderness; EXTREMITIES: No edema, no clubbing, MUSCULOSKELETAL: no muscle wasting NEURO: Awake; no lateralizing signs. SKIN: No Rash PSYCH; Flat affect Assessment & Plan Assessment/Plan (1) Non-ST elevated myocardial infarction: (2) URI, acute: PLAN: Plan Patient is a 58-year-old male who presented [facility] ED on 10/29/2023 with chest pain and recent URI symptoms. 1. NSTEMI type I, history of CAD s/p stenting Presented with worsening chest discomfort after 4 to 5 days of URI symptoms. History of NSTEMI in 01/2020 with POOJA x 1 to proximal LAD. Follow-up cath in 07/2020 with moderate triple-vessel disease with patent stent. Most recent cath in 12/2021 with severe high-grade disease in mid RCA s/p POOJA x 1 to mid RCA. On this admit, troponin trend 16 > 197 > 395. EKG with normal sinus rhythm in 90s with frequent PVCs, no ischemic changes. Chest x-ray with cardiomegaly and mild pulmonary vascular congestion. Did also have significant hyperglycemia as noted below. Otherwise was hemodynamically stable. ? Cardiology following. Left heart cath on 10/28 showed subtotal RCA proximal 99% lesion s/p successful POOJA x 1. Patient does have worsening CAD in LAD and LCx as well. Per cardiology, planning to keep patient hospitalized through 10/31 for further discussion regarding plan for either high risk PCI of bifurcational lesion of LAD and diagonal as well as proximal circumflex artery versus possible transfer for CABG evaluation. Started on Brilinta, continue home aspirin and statin. Is also on Eliquis for paroxysmal A-fib/flutter, okay for triple therapy for now per cardiology. Continue home Lopressor and lisinopril. 2. URI symptoms ? Respiratory PCR panel, strep PCR panel and sputum cultures all negative. Most likely mild viral illness versus secondary to cardiac issues as noted above. Was started on prednisone and azithromycin by PCP, discontinued both of these on admission. Continue home inhalers and other as needed medications for supportive care. 3. Type 2 diabetes mellitus with hyperglycemia ? Home regimen of metformin 1000 mg twice daily, empagliflozin 25 mg daily and semaglutide 0.25 mg weekly. A1c 9.2% on admit, last two A1c values were from 2019 and 2020 and were around 9% at that time as well. Severe hyperglycemia on admission likely due to recent steroid course she was prescribed for URI symptoms as well as NSTEMI, improved with insulin administration. Treating with insulin glargine 10 units twice daily and sliding scale insulin with meals, adjust as needed. Given that fairly poor control of diabetes is likely contributing to worsening CAD, patient would be better served with tighter glucose control and would presumably require insulin for this. However, he has been resistant to starting insulin therapy. Continue discussions in outpatient setting. 4. Mild creatinine elevation, resolved ? Creatinine 1.40 on admit, improved back to baseline around 0.8-1.1 with IV fluid resuscitation. Chronic medical conditions: ? Morbid obesity: BMI 50 on admit. Encouraged lifestyle modifications. Notably is on semaglutide as noted above, will continue this on discharge. Complicates hospital course, care and prognosis. ? SVETLANA: Continue home CPAP. ? Paroxysmal A-fib/flutter: Normal sinus rhythm with PVCs on admit. Continue home Eliquis and Lopressor. ? Hypertension: Stable. Continue home Lopressor, lisinopril, amlodipine and hydrochlorothiazide. ? Hyperlipidemia: Continue home statin. ? Chronic asthma: Continue home inhalers. DVT prophylaxis: Eliquis CODE STATUS: Full code, verified Expected disposition: Home, TBD Total clinical time spent by myself addressing the patient's medical issues, reviewing all the data, and collaborating with patient's care team: 35 minutes.
[2023-11-01 10:00] VITALS: BP 120/62; PULSE 87; RESP 16; TEMP 37.1; O2SAT 91
--- NOTE | 2023-11-01 10:00 | EKG12_ITS ---
Test Reason : AM EKG Blood Pressure : / mmHG Vent. Rate : 083 BPM Atrial Rate : 083 BPM P-R Int : 182 ms QRS Dur : 092 ms QT Int : 362 ms P-R-T Axes : 080 044 051 degrees QTc Int : 425 ms Normal sinus rhythm Normal ECG When compared with ECG of 31-OCT-2023 10:02, MANUAL COMPARISON REQUIRED, DATA IS UNCONFIRMED Confirmed by Cali Angel ([id number]), medical editor RAIN TOBIAS ([id number]) on 11/01/2023 9:27:46 AM Referred By: Confirmed By:Cali Angel
[2023-11-01] MEDS: Acetaminophen 325 MG Tablet 650 MG PO (10:07)
[2023-11-01] MEDS: Ceftriaxone 1 GM/50 ML BAG IV (10:09)
[2023-11-01] MEDS: Loratadine 10 MG Tablet PO (10:10)
[2023-11-01] MEDS: APIXABAN 5 MG TABLET PO (10:10)
[2023-11-01] MEDS: TICAGRELOR 90 MG TABLET PO (10:10)
[2023-11-01] MEDS: hydroCHLOROthiazide 25 MG Tablet PO (10:10)
[2023-11-01] MEDS: Aspirin E.C. 81 MG Tablet PO (10:10)
[2023-11-01] MEDS: Lisinopril 20 MG Tablet PO (10:11)
--- NOTE | 2023-11-01 10:26 | PCM.PN.CARD ---
Subjective Subjective Patient seen and evaluated. Appears to be doing well. No cardiac complaints at this time. Objective Data Vital Signs: Vital Signs Temp Pulse Resp BP Pulse Ox O2 Del Method 98.7 F 87 16 120/62 91 Room Air 11/01/23 10:00 11/01/23 10:00 11/01/23 10:00 11/01/23 10:00 11/01/23 10:00 11/01/23 10:00 Oxygen Delivery Method Room Air Weight: 365 lb 4.895 oz Body Mass Index (BMI) 50.9 Intake & Output: Intake and Output for Last 24 Hours 10/30/23 10/31/23 11/01/23 23:59 23:59 23:59 Intake Total 1250 / 1730 2610 / 2970 720 / 720 Output Total 0 / 0 Balance 1250 / 1730 2610 / 2970 720 / 720 Lab / Micro Data 10/30/23 06:32 10/30/23 06:32 Labs: Laboratory Results - last 24 hr 10/31/23 11:09: POC Glucose 334 H 10/31/23 11:11: POC Glucose 314 H 10/31/23 15:45: POC Glucose 353 H 10/31/23 20:44: POC Glucose 371 H 11/01/23 06:25: POC Glucose 330 H Micro: Microbiology 10/29/23 15:00 Sputum, Expectorated/Coughed Gram Stain - Final 10/29/23 15:00 Sputum, Expectorated/Coughed Respiratory Culture - Final Haemophilus influenzae Cardiology Labs/Tests Rhythm: EKG: ECHO: Stress Test: Cardiac Cath: PCI: CT Surgery: Holter monitor: EPS: PPM: CXR: Chest CT Scan: Physical Exam Const alert, oriented x3 and no apparent distress General Appearance: cooperative HEENT hearing grossly normal bilaterally Head and Scalp: atraumatic Eyes EOMs intact bilaterally Neck General: normal visual inspection Chest inspection of chest normal and palpation of chest normal Resp normal respiratory effort Auscultation: clear to auscultation bilaterally Cardio regular rate, regular rhythm, S1 normal heart sound and S2 normal heart sound Jugular Venous Distention: JVD GI normal to inspection, nondistended, normoactive bowel sounds Extremity normal capillary refill and no pedal edema Peripheral Pulses: Yes pulses 2+ throughout and femoral pulses present Skin no rashes or lesions noted Neuro oriented x3 and CN's II-XII intact bilaterally Psych Appearance: grossly normal and appropriate Assessment & Plan Assessment/Plan (1) Essential (primary) hypertension: PLAN: His blood pressure appears to be under good control at this time I would not recommend that we make any major changes (2) Hyperlipidemia: QUALIFIERS: Hyperlipidemia type: mixed hyperlipidemia Qualified Code(s): E78.2 - Mixed hyperlipidemia PLAN: He will continue on high intensity statin. (3) Paroxysmal atrial flutter: PLAN: He is maintaining better heart rate at this time. The plan to be to continue the current medical therapy. (4) Non-ST elevated myocardial infarction: PLAN: He had a high-grade subtotally occluded proximal right coronary artery underwent successful PCI and stenting. I did review his films he does have disease in the LAD as well as the circumflex artery and a focal area. I would recommend continued medical therapy at this time and see him in the office in a week or 2 with the plans of discussing high risk PCI. I would prefer this to coronary bypass surgery. The plan to be to continue the Brilinta for a month and have his PCI done within that period of time and he will continue on the Eliquis for his paroxysmal atrial fibrillation flutter and baby aspirin.
--- NOTE | 2023-11-01 11:00 | DS.PCM_ITS ---
Providers Date of Admission: 10/29/23 Date of Discharge: 11/01/23 Primary Care Physician: Dr. Lani Paiz, DO Consultations 10/29/23 05:37 Consult: Cardiology Routine Consulting Provider: Ernie Luz Reason for Consult: Chest Pain EMERGENT Consult: No MD Notified: Yes Date Notified: 10/29/23 Time Notified: 04:23 Method of Notification: Text Reason For Visit: NSTEMI, URI Diagnosis Discharge Diagnosis (1) Essential (primary) hypertension: Status: Chronic Code(s): I10 - Essential (primary) hypertension (2) Hyperlipidemia: Status: Chronic Code(s): E78.5 - Hyperlipidemia, unspecified Qualifiers: Hyperlipidemia type: mixed hyperlipidemia Qualified Code(s): E78.2 - Mixed hyperlipidemia (3) Paroxysmal atrial flutter: Status: Acute Code(s): I48.92 - Unspecified atrial flutter (4) Non-ST elevated myocardial infarction: Status: Acute Code(s): I21.4 - Non-ST elevation (NSTEMI) myocardial infarction Plan Patient is a 58-year-old male who presented [facility] ED on 10/29/2023 with chest pain was found to have elevated troponin consistent with non-STEMI 1. NSTEMI type I, history of CAD s/p stenting Presented with worsening chest discomfort after 4 to 5 days of URI symptoms. History of NSTEMI in 01/2020 with POOJA x 1 to proximal LAD. Follow-up cath in 07/2020 with moderate triple-vessel disease with patent stent. Most recent cath in 12/2021 with severe high-grade disease in mid RCA s/p POOJA x 1 to mid RCA. Left heart cath on 10/28 showed subtotal RCA proximal 99% lesion s/p successful POOJA x 1. Patient does have worsening CAD in LAD and LCx as well. Patient was seen in consultation by Dr. Sandoval with cardiology plan is for patient to undergo elective high risk PCI 2. Acute viral syndrome ? Patient presented with upper respiratory tract symptoms treated symptomatically 3. Diabetes mellitus type 2 ? Home medications continued prescription written for Lantus on discharge 4. Acute kidney injury ? Resolved with rehydration 5. Class II obesity with BMI of 51 ? Complicating care weight loss advised 6. Obstructive sleep apnea ? Consistent use of CPAP encouraged 7. Paroxysmal A-fib/flutter ? Patient remains in sinus rhythm with occasional PVCs on the monitor patient apixaban and metoprolol continued 8. Dyslipidemia -Patient is on statin therapy, continued at home dose 9. Mild intermittent asthma - did continue patient home meds 10. DVT prophylaxis ? Apixaban Medications at Discharge Home Medications testosterone cypionate 200 mg/mL intramuscular oil 400 mg subcut Q2W hormones 06/23/21 cinnamon bark 500 mg capsule (Cinnamon) 500 mg PO DAILY supplement 12/22/21 metformin 500 mg tablet,extended release 24 hr 1,000 mg PO BID 02/04/22 rosuvastatin 20 mg tablet 20 mg PO Q OTHER DAY cholesterol #45 tabs 02/04/22 nitroglycerin 0.4 mg sublingual tablet 0.4 mg sublingual Q5M PRN Cardiac/Chest Pain #25 tabs 03/05/23 hydrochlorothiazide 25 mg tablet 25 mg PO DAILY diuretic #90 tabs 03/08/23 budesonide-formoterol HFA 160 mcg-4.5 mcg/actuation aerosol inhaler (Symbicort) 2 inh inhalation BID PRN wheezing #10.2 grams 03/24/23 metoprolol tartrate 50 mg tablet 50 mg PO BID #180 tabs 04/08/23 lisinopril 20 mg tablet 20 mg PO BID #180 tabs 04/12/23 loratadine 10 mg tablet 10 mg PO DAILY allergies 04/12/23 semaglutide 0.25 mg or 0.5 mg (2 mg/3 mL) subcutaneous pen injector (Ozempic) 0.25 mg subcut QWEEK 04/12/23 apixaban 5 mg tablet (Eliquis) 5 mg PO BID #180 tabs 09/23/23 amlodipine 5 mg tablet 5 mg PO QHS 10/29/23 azithromycin 250 mg tablet 250 mg PO UD 10/29/23 empagliflozin 25 mg tablet (Jardiance) 25 mg PO DAILY 10/29/23 prednisone 20 mg tablet 20 mg PO DAILY 10/29/23 aspirin 81 mg tablet,delayed release 81 mg PO BREAKFAST #30 tabs 11/01/23 insulin glargine 100 unit/mL (3 mL) subcutaneous pen (Lantus Solostar U-100 Insulin) 10 unit (0.1 mL) subcut BID #20 mL 11/01/23 metformin 1,000 mg tablet 1,000 mg PO BID #60 tabs 11/01/23 ticagrelor 90 mg tablet (Brilinta) 90 mg PO BID #60 tabs 11/01/23 Hospital Course Summary of Care Provided Minutes Spent on Discharge: 35 Physical Exam Narrative GENERAL: cooperative HEENT: Atraumatic; normocephalic EYES; Anicteric, Normal Conjunctiva NECK; supple, normal thyroid, RESPIRATORY: Diminished to auscultation CARDIOVASCULAR: Regular S1 S2, GI: soft, normoactive bowel sounds, : No Renal angle tenderness; EXTREMITIES: No edema, no clubbing, MUSCULOSKELETAL: no muscle wasting NEURO: Awake; no lateralizing signs. SKIN: No Rash PSYCH; Flat affect Weight / BMI Weight Weight: 165.7 kg Body Mass Index (BMI) 50.9 ABG / Lab / Microbiology Data 10/30/23 06:32 10/30/23 06:32 Laboratory: Laboratory Results - last 24 hr 10/31/23 11:09: POC Glucose 334 H 10/31/23 11:11: POC Glucose 314 H 10/31/23 15:45: POC Glucose 353 H 10/31/23 20:44: POC Glucose 371 H 11/01/23 06:25: POC Glucose 330 H Microbiology: Microbiology 10/29/23 15:00 Sputum, Expectorated/Coughed Gram Stain - Final 10/29/23 15:00 Sputum, Expectorated/Coughed Respiratory Culture - Final Haemophilus influenzae 10/30/23 10:00 Mucosa - Throat Streptococcus pyogenes (PCR) - Final 10/29/23 06:45 Mucosa - Nasopharyngeal Respiratory Panel (PCR) - Final D/C Instructions Discharge Diet: Low fat / Low cholesterol and 1800 Calorie Control Diet Discharge Activity: Return to Normal Activity Call your doctor if you observe: Fever of 101 or Higher, Shortness of breath, Fainting spells and Chest pain Meaningful Use Info Meaningful Use Meaningful Use Diagnoses (Choose all that apply): AMI AMI/Post PCI/Angioplasty Aspirin given w/in 24hrs of arrival?: Yes ASA at discharge?: Yes Antiplatelet Therapy at Discharge:: Yes Statins at discharge?: Yes Calos/ARB at discharge?: No Reason Calos/ARB not ordered:: Not indicated Beta Toro at discharge?: Yes Done w/ Acute IN measure.: Yes Documented LVEF (%): 50 Ischemic Stroke Statin Dosing Therapy Reference: STATIN DOSE THERAPY REFERENCE: * Patients > 75 years receive moderate or high dose statin therapy. * Patients 75 years or YOUNGER should receive HIGH intensity statin dose unless contraindicated. You will be required to document reason for non-treatment if statin daily dose does not meet guidelines. HIGH DOSE STATIN THERAPY DAILY Atorvastatin > than or = to 40 mg Rosuvastatin > than or = to 20 mg Amlodipine + Atorvastatin > than or = to 2.5/40 mg Ezetimibe + Simvastatin 10/80 mg Simvastatin 80mg Discharge Plan Admission Admit Date/Time: 10/29/23 04:18 Attending Provider: Sai Fraire Primary Care Provider: Lani Paiz Consulting Providers: Ernie Luz; Wanda Echavarria; Darius Mc Discharge Orders/Prescriptions Prescriptions: New aspirin 81 mg Tablet,Delayed Release (Dr/Ec) 81 mg PO BREAKFAST Qty: 30 0RF Brilinta 90 mg Tablet 90 mg PO BID Qty: 60 0RF metformin 1,000 mg tablet 1,000 mg PO BID Qty: 60 0RF insulin glargine [Lantus Solostar U-100 Insulin] 100 unit/mL (3 mL) insulin pen 10 unit subcut BID Qty: 20 0RF Continued cinnamon bark [Cinnamon] 500 mg capsule 500 mg PO DAILY metformin 500 mg tablet extended release 24 hr 1,000 mg PO BID Patient Comments: TAKE 2 TABLETS BY MOUTH TWICE A DAY rosuvastatin 20 mg tablet 20 mg PO Q OTHER DAY Qty: 45 3RF loratadine 10 mg tablet 10 mg PO DAILY Ozempic 0.25 mg or 0.5 mg (2 mg/3 mL) pen injector 0.25 mg subcut QWEEK Patient Comments: 0.25 MG SUBCUTANEOUSLY EVERY WEEK FOR 4 WEEKS THEN INCREASE TO 0.5 MG EVERY WEEK lisinopril 20 mg tablet 20 mg PO BID Qty: 180 3RF testosterone cypionate 200 mg/mL oil 400 mg SC Q2W Patient Comments: INJECT 2ML EVERY 2 WEEKS budesonide-formoterol [Symbicort] 160-4.5 mcg/actuation HFA aerosol inhaler 2 inh inhalation BID PRN (Reason: wheezing) Qty: 10.2 0RF azithromycin 250 mg tablet 250 mg PO UD prednisone 20 mg tablet 20 mg PO DAILY amlodipine 5 mg tablet 5 mg PO QHS Jardiance 25 mg tablet 25 mg PO DAILY nitroglycerin 0.4 mg tablet, sublingual 0.4 mg sublingual Q5M PRN (Reason: Cardiac/Chest Pain) Qty: 25 3RF hydrochlorothiazide 25 mg tablet 25 mg PO DAILY Qty: 90 3RF metoprolol tartrate 50 mg tablet 50 mg PO BID Qty: 180 3RF Eliquis 5 mg tablet 5 mg PO BID Qty: 180 3RF Referrals / Follow Up: Lani Paiz DO [Primary Care Provider] - Within 2 Weeks Jovon Mcknight NP, SECOND OFFICER-C [Med Staff - Adv Practice Prof] - 11/24/23 10:00 am Disposition Disposition (needs filled in before D/C Order can be placed): Home, Self Care Charges/Coding Visit Charges Inpatient E&M: 69189 Disch Hosp >30min
--- NOTE | 2023-11-01 11:18 | CASEMGMT ---
Addendum entered by Ashish Campbell 11/01/23 13:11: [facility] states that the pt has an Rx for the Brilinta at [facility] in [place]. TC to [facility] and they state that the pt co-pay is 5$ after insurance. Pt updated and is happy with this. Dr. Fraire signs Rx for insulin needles. Copy of order placed in chart and order tubed to Blake at [facility]. Blake states that the pt total cost will now be 55.83$. Pt states that he is OK with this and the pt gave Blake his payment information over the phone so the medications and supplies can be delivered to the pt bedside. Pt denies further home going needs and is ready for DC. Pt RN notified. Addendum entered by Ashish Campbell 11/01/23 12:27: [facility] calls this RN CM back and states they are unaware of the cost for the Brilinta, however, they state that they are using a savings card for the pt so he will have a 0$ copay. RN CM to pt room at this time and this RN CM educated the pt that this can only be used once per lifetime. Pt states that this is OK. Pt states that he does not want the Rx for Aspirin as he will buy this OTC. Pt also reports that he has enough Metformin at home and does not need this new Rx. [facility] notified. [facility] states that the pt will have around a 38$ co-pay for the remainder of the medications. Pt states that he is OK with this. Pt also reports that he is low on testing supplies at home. Blank Rx filled out and sent to Dr. Fraire for signing. Awaiting return Rx. Original Note: Order for DC placed, pt has a new Rx for Brilinta. TC to [facility] and [facility] states that they are not far enough in the process yet to give this RN CM a cost of the medication. Awaiting return call.
[2023-11-01 12:07] VITALS: BP 138/72; PULSE 82; RESP 16; TEMP 36.4; O2SAT 91
[2023-11-01] MEDS: Insulin Glargine-YFGN 100 UNIT/ML Pen 10 UNIT SC (12:11)
--- NOTE | 2023-11-01 13:41 | PHA.DC.MC.R ---
Pharmacy [facility] has performed discharge medication reconciliation and counseling for this patient. Spoke to Employee Communications Specialist, patient has plenty of metformin at home, pharmacy is going to cancel metformin Rx. RN VENKATESH also getting Dr. Fraire to sign RX for pen needles. 1. ASPIRIN 81MG PO BREAKFAST 2. CEFDINIR 300MG PO BID 3. INSULIN GLARGINE 10UNITS SC BID 4. TICAGRELOR 90MG PO BID The patient's discharge medication list was reviewed for discrepancies and discrepancies were resolved. The patient was counseled on the following discharge medications and changes in medications for homegoing were reviewed. The Reason for Use, instructions for use, and potential side effects were reviewed for all new medications. The patient's questions regarding all of their medications were answered. The patient was able to verbally demonstrate an understanding of their discharge medications. Medications at Discharge Home Medications testosterone cypionate 200 mg/mL intramuscular oil 400 mg subcut Q2W hormones 06/23/21 metformin 500 mg tablet,extended release 24 hr 1,000 mg PO BID 02/04/22 rosuvastatin 20 mg tablet 20 mg PO Q OTHER DAY cholesterol #45 tabs 02/04/22 nitroglycerin 0.4 mg sublingual tablet 0.4 mg sublingual Q5M PRN Cardiac/Chest Pain #25 tabs 03/05/23 hydrochlorothiazide 25 mg tablet 25 mg PO DAILY diuretic #90 tabs 03/08/23 budesonide-formoterol HFA 160 mcg-4.5 mcg/actuation aerosol inhaler (Symbicort) 2 inh inhalation BID PRN wheezing #10.2 grams 03/24/23 lisinopril 20 mg tablet 20 mg PO BID #180 tabs 04/12/23 loratadine 10 mg tablet 10 mg PO DAILY allergies 04/12/23 semaglutide 0.25 mg or 0.5 mg (2 mg/3 mL) subcutaneous pen injector (Ozempic) 0.25 mg subcut QWEEK 04/12/23 apixaban 5 mg tablet (Eliquis) 5 mg PO BID #180 tabs 09/23/23 amlodipine 5 mg tablet 5 mg PO QHS 10/29/23 empagliflozin 25 mg tablet (Jardiance) 25 mg PO DAILY 10/29/23 prednisone 20 mg tablet 20 mg PO DAILY 10/29/23 aspirin 81 mg tablet,delayed release 81 mg PO BREAKFAST #30 tabs 11/01/23 cefdinir 300 mg capsule 300 mg PO BID #14 caps 11/01/23 insulin glargine 100 unit/mL (3 mL) subcutaneous pen (Lantus Solostar U-100 Insulin) 10 unit (0.1 mL) subcut BID #20 mL 11/01/23 metformin 1,000 mg tablet 1,000 mg PO BID #60 tabs 11/01/23 ticagrelor 90 mg tablet (Brilinta) 90 mg PO BID #60 tabs 11/01/23
[2023-11-01 14:35] VITALS: BP 102/56; PULSE 87; RESP 16; TEMP 36.4; O2SAT 91
[2023-11-01 15:09] LABS: Bedside Glucose 401 mg/dL (74-106)
== END 2023-11-01 14:53 | disposition home or self-care (01) | DRG 321 ==
LOC: ED 04:05 → PCU 04:31
PROVIDERS: Hospitalist; Internal Medicine Interventional Cardiology; Admitting Provider Family Medicine; Emergency Provider Emergency Medicine; PCP Internal Medicine; Visit Provider Internal Medicine
DX: I21.4 Non-ST elevation (NSTEMI) myocardial infarction (principal); J14 Pneumonia due to Hemophilus influenzae; Z68.43 Body mass index [BMI] 50.0-59.9, adult; I48.92 Unspecified atrial flutter; E11.22 Type 2 diabetes mellitus with diabetic chronic kidney disease; I48.0 Paroxysmal atrial fibrillation; E11.65 Type 2 diabetes mellitus with hyperglycemia; E66.01 Morbid (severe) obesity due to excess calories; I12.9 Hypertensive chronic kidney disease with stage 1 through stage 4 chronic kidney disease, or unspecified chronic kidney disease; J45.20 Mild intermittent asthma, uncomplicated; G47.33 Obstructive sleep apnea (adult) (pediatric); N18.2 Chronic kidney disease, stage 2 (mild); I25.10 Atherosclerotic heart disease of native coronary artery without angina pectoris; I25.2 Old myocardial infarction; E78.2 Mixed hyperlipidemia; Z95.5 Presence of coronary angioplasty implant and graft; Z79.01 Long term (current) use of anticoagulants; Z79.84 Long term (current) use of oral hypoglycemic drugs; Z79.85 Long-term (current) use of injectable non-insulin antidiabetic drugs; Z79.899 Other long term (current) drug therapy; Z86.16 Personal history of COVID-19
CPT/HCPCS: 36415; 71045; 80048; 80053; 80061; 82962; 83036; 83735; 84145; 84484; 85025; 85027; 85347; 85610; 85730; 87070; 87077; 87205; 87633; 87651; 92928; 93005; 93306; 93454; 94640; 94668; 99152; 99153; 99285; J7030; J7040; Q9957; Q9967; A4216; C1725; C1769; C1874; C1887; C1894; C8929; C9600

== ENCOUNTER 2024-06-15 18:15 | Inpatient (IN) | payer BC, SELFPAY ==
[2024-06-15 18:16] VITALS: BP 178/86; PULSE 83; RESP 16; TEMP 37.1; O2SAT 98; BMI 49.2
[2024-06-15 18:51] VITALS: BP 114/84; PULSE 67; RESP 19; TEMP 37.1; O2SAT 95
--- NOTE | 2024-06-15 18:51 | EDS_ITS ---
HPI History of Present Illness Chief Complaint: Chest Pain [facility] Medical History Maxillary sinusitis, acute Hyperglycemia CKD (chronic kidney disease), stage II Paroxysmal atrial flutter SVETLANA (obstructive sleep apnea) COVID (05/31/21) Hyperlipidemia Diabetes Obesity Type 2 diabetes mellitus Essential (primary) hypertension History of non-ST elevation myocardial infarction (NSTEMI) (08/06/20) Atherosclerotic heart disease of tribal coronary artery without angina pectoris Home Medications ?Medication ?Instructions ?Recorded ?Last Taken ?Type testosterone cypionate 200 mg/mL 400 mg subcut Q2W hormones 06/23/21 Unknown History intramuscular oil rosuvastatin 20 mg tablet 20 mg PO Q OTHER DAY cholesterol 02/04/22 Unknown Rx #45 tabs budesonide-formoterol HFA 160 2 inh inhalation BID PRN wheezing 03/24/23 Unknown Rx mcg-4.5 mcg/actuation aerosol #10.2 grams inhaler (Symbicort) apixaban 5 mg tablet (Eliquis) 5 mg PO BID #180 tabs 09/23/23 Unknown Rx empagliflozin 25 mg tablet 25 mg PO DAILY 10/29/23 Unknown History (Jardiance) aspirin 81 mg tablet,delayed 81 mg PO BREAKFAST #30 tabs 11/01/23 Unknown Rx release metformin 1,000 mg tablet 1,000 mg PO BID #60 tabs 11/01/23 Unknown Rx acetaminophen 500 mg tablet 1,000 mg PO BID PRN 11/24/23 Unknown History loratadine 10 mg tablet 10 mg PO DAILY PRN allergies 11/24/23 Unknown History semaglutide 0.25 mg or 0.5 mg (2 0.5 mg subcut QWEEK 11/24/23 Unknown History mg/3 mL) subcutaneous pen injector (Ozempic) insulin glargine 100 unit/mL (3 12 unit subcut BID 01/06/24 Unknown History mL) subcutaneous pen (Lantus Solostar U-100 Insulin) hydrochlorothiazide 25 mg tablet 25 mg PO DAILY diuretic #90 tabs 03/15/24 Unknown Rx lisinopril 20 mg tablet 20 mg PO BID #180 tabs 03/17/24 Unknown Rx metoprolol tartrate 50 mg tablet 50 mg PO BID #180 tabs 10/21/24 Unknown Rx nitroglycerin 0.4 mg sublingual 0.4 mg sublingual Q5M PRN 04/06/24 Unknown Rx tablet Cardiac/Chest Pain #25 tabs amlodipine 5 mg tablet 5 mg PO DAILY #90 tabs 04/07/24 Unknown Rx ticagrelor 90 mg tablet (Brilinta) 90 mg PO BID #180 TABLETS 05/23/24 Unknown Rx Allergy/AdvReac Type Severity Reaction Status Date / Time Penicillins (PCN) Allergy Unknown Verified 06/15/24 18:16 Family History Mother CVA (cerebral vascular accident) Heart disease Hypertension Father Aortic aneurysm Cancer Surgical History History of left heart catheterization (10/29/23) History of cholecystectomy History of coronary artery stent placement (10/29/23) Social History household members: spouse Smoking Status: Never smoker second hand exposure: Yes alcohol intake: current alcohol intake frequency: a few times a month Alcohol type: hard liquor substance use type: does not use caffeine: Yes Type: carbonated beverages Number of servings: 1 and coffee Number of servings: 1 EXAM Physical Exam Const Vital Signs: 06/15/24 18:16 06/15/24 18:51 06/15/24 19:19 Temperature 98.7 F 98.7 F 98.9 F Temperature Source Oral Oral Oral Pulse Rate 83 67 67 Respiratory Rate 16 19 H 16 Blood Pressure 178/86 H 114/84 H 143/77 H Blood Pressure Mean 116 94 99 Pulse Ox 98 95 99 Oxygen Delivery Method Room Air 06/15/24 20:00 06/15/24 22:00 Temperature 97.9 F Temperature Source Temporal Pulse Rate 71 78 Respiratory Rate 16 Blood Pressure 138/89 H 147/90 H Blood Pressure Mean 105 109 Pulse Ox 98 98 Oxygen Delivery Method MDM MDM MDM Narrative Medical decision making narrative: HISTORY OF PRESENT ILLNESS: 58-year-old male presents with left leg and foot pain and swelling with redness to foot. Notes chronic wound on left foot he is on an antibiotic called Nuzyra. He also complains of muscular pain in his chest with movement. He endorses left leg swelling as well. Notes he is on day 10 of 10 of his oral antibiotics but has noticed no improvement in symptoms. The patient denies recent surgery in the last 4 weeks or immobilization in the last 3 days, denies previous diagnosis of DVT or PE, hemoptysis, or malignancy with treatment the last 6 months or palliative. No estrogen use noted. He notes compliance with Eliquis Patient denies sudden onset of pain, no tearing sensation, no migratory symptoms, no new numbness, weakness or loss of sensation. Patient denies family history or personal history of Connective tissue disorders (Marfan's Syndrome, Dickson Danlos etc) REVIEW OF SYSTEMS: Pertinent positives: Chest pain, left foot pain, left leg swelling Pertinent negatives: Syncope, vomiting PHYSICAL EXAM: Nursing triage notes reviewed, Vital signs reviewed Constitutional: please see mdm HENT: MMM Eyes: Pupils equal round and reactive to light, Extraocular muscles intact Neck: No stridor, no JVD, full neck ROM Lungs: Clear to auscultation, No wheezing or rales. No increased work of breathing, no conversational dyspnea, no accessory muscle use, no nasal flaring. No respiratory distress noted Heart: Regular rate and rhythm, No murmurs, No rubs and No gallops, 2+ distal pulses (radial, femoral, posterior tibial) in all extremities Abdomen: Soft, there is no tenderness, rigidity, rebound or guarding, no obvious peritoneal signs, no palpable pulsatile abdominal masses, no auscultated abdominal bruit : No CVAT Extremities: No edema Neuro: No new focal neurological deficits, cranial nerves II through XII intact, 5/5 strength in all present extremities. Intact sensation to light touch in all present extremities, 2+ reflexes bilateral patella tendons. Skin: Erythema noted to left foot, no crepitus, noted ulceration to the medial surface of the left great toe, swelling noted to left great toe, erythema noted on the dorsal surface of the foot as well. MEDICAL DECISION MAKING: Chief Complaint: Left foot wound, chest pain External records reviewed: Reviewed prior ED visits, hospitalizations, prior surgical records Factors affecting care: type 2 diabetes, hypertension Social determinants of health: none History obtained from others: none Consults: none [facility] Narrative: Patient was initially hemodynamically stable, afebrile and nontoxic-appearing. Exam without focal cardiopulmonary normalities. Left leg swollen, left lower extremity shows signs of superficial cellulitis I considered the following differential diagnosis: PE, ACS, arrhythmia, anemia, osteomyelitis ALL IMAGES (IF OBTAINED) HAVE BEEN PERSONALLY REVIEWED AND INTERPRETED BY MYSELF. Given unilateral leg swelling and chest pain is concerned about VTE. I obtained a CTA of the chest as well as a venous duplex ultrasound of left leg which were negative. X-ray of the patient's left foot was read reviewed person myself showed no evidence of obvious bony lesions or fractures. Lactate is wnl indicating no end-organ hypoperfusion and/or hypoxia. ESR/CRP elevated consistent with systemic inflammation High-sensitivity troponin is negative, no evidence of myocardial ischemia x 2 CMP without evidence of acute kidney injury, significant electrolyte abnormality, anion gap to suggest end organ hypo-perfusion, no evidence of metabolic acidosis with a normal bicarbonate, no evidence of hepatobiliary obstructive pathology. CBC without leukocytosis, severe anemia, no thrombocytopenia. The synthesis of the patient's history, physical exam, labs images suggest likely failed outpatient oral antibiotics and need for inpatient IV antibiotics and possible podiatry and infectious disease consults. The patient and/or family, caregivers express understanding. The patient and/or family, caregivers agrees with the plan. Shared decision making: I will have a discussion with the patient and or visitors regarding risk/benefits of further testing or admission. They will be made aware of of the risk/benefits inherent in this decision they will be given the opportunity to voice understanding. Total critical care time today provided was at least 0 minutes. This excludes separately billable procedures. Critical care time (if documented) is secondary to the patient having high probability of clinically significant/life threatening deterioration in the patient's condition which required my urgent intervention. Impression: 1. Left foot cellulitis 2. History of 2 diabetes 3. Chest pain Dispo: Discharge home This note was generated with [employer] dictation software. It may contain incorrect words, spelling, and punctuation that were not noted in review of the chart prior to signing. Lab Data Labs: Laboratory Results - last 24 hr 06/15/24 06/15/24 19:25 21:00 WBC 7.1 RBC 4.45 L Hgb 13.3 Hct 40.3 MCV 90.6 MCH 29.9 MCHC 33.0 RDW Std Deviation 45.5 H RDW Coeff of Simeon 13.7 Plt Count 196 MPV 9.6 Immature Gran % (Auto) 0.300 Neut % (Auto) 58.9 Lymph % (Auto) 27.2 Ritchie % (Auto) 5.6 Eos % (Auto) 7.3 H Baso % (Auto) 0.7 Absolute Neuts (auto) 4.2 Absolute Lymphs (auto) 1.93 Nucleated RBC % 0 ESR 38 H Sodium 137 Potassium 3.8 Chloride 101 Carbon Dioxide 30.0 Anion Gap 6 BUN 21 H Creatinine 1.06 Estim Creat Clear Calc 117.41 Est GFR (MDRD) Af Amer 92 Est GFR (MDRD) Non-Af 76 BUN/Creatinine Ratio 19.8 Glucose 123 H Lactic Acid 1.6 Calcium 8.6 Total Bilirubin 0.70 AST 14 L ALT 22 Alkaline Phosphatase 77 Troponin I High Sens 12 13 C-React Prot Ext Range 31.40 H 30.10 H Total Protein 7.6 Albumin 3.2 Globulin 4.4 H Albumin/Globulin Ratio 0.7 L Radiography Diagnostic Testing: Clinical Impression(s) from Imaging Studies Chest CTA 06/15/24 19:18 IMPRESSION: Negative CTA chest. Electronically Signed: Tarun Forrester MD at 20:42 EST , Venous Duplex 06/15/24 19:22 IMPRESSION: Normal left lower extremity duplex venous ultrasound. Electronically Signed: Tarun Forrester MD at 20:29 EST , Foot X-Ray 06/15/24 20:20 IMPRESSION: No acute findings in the left foot. Electronically Signed: Tarun Forrester MD at 20:40 EST , Discharge Plan Triage Chief Complaint: Chest Pain Other Complaint: Cellulitis Wound Check ED Provider: Sergio Gomez Dx/Rx/DC Orders Prescriptions: No Action rosuvastatin 20 mg tablet 20 mg PO Q OTHER DAY Qty: 45 3RF loratadine 10 mg tablet 10 mg PO DAILY PRN (Reason: allergies) Ozempic 0.25 mg or 0.5 mg (2 mg/3 mL) pen injector 0.5 mg subcut QWEEK Patient Comments: 0.25 MG SUBCUTANEOUSLY EVERY WEEK FOR 4 WEEKS THEN INCREASE TO 0.5 MG EVERY WEEK insulin glargine [Lantus Solostar U-100 Insulin] 100 unit/mL (3 mL) insulin pen 12 unit subcut BID acetaminophen 500 mg tablet 1,000 mg PO BID PRN testosterone cypionate 200 mg/mL oil 400 mg SC Q2W Patient Comments: INJECT 2ML EVERY 2 WEEKS budesonide-formoterol [Symbicort] 160-4.5 mcg/actuation HFA aerosol inhaler 2 inh inhalation BID PRN (Reason: wheezing) Qty: 10.2 0RF Jardiance 25 mg tablet 25 mg PO DAILY aspirin 81 mg Tablet,Delayed Release (Dr/Ec) 81 mg PO BREAKFAST Qty: 30 0RF metformin 1,000 mg tablet 1,000 mg PO BID Qty: 60 0RF Eliquis 5 mg tablet 5 mg PO BID Qty: 180 3RF hydrochlorothiazide 25 mg tablet 25 mg PO DAILY Qty: 90 3RF lisinopril 20 mg tablet 20 mg PO BID Qty: 180 3RF metoprolol tartrate 50 mg tablet 50 mg PO BID Qty: 180 3RF nitroglycerin 0.4 mg tablet, sublingual 0.4 mg sublingual Q5M PRN (Reason: Cardiac/Chest Pain) Qty: 25 3RF amlodipine 5 mg tablet 5 mg PO DAILY Qty: 90 3RF Brilinta 90 mg tablet 90 mg PO BID Qty: 180 3RF Primary Care Provider: Lani Paiz Referrals: Lani Paiz DO [Primary Care Provider] - Print Language: Angolan
--- NOTE | 2024-06-15 19:18 | CT_ITS ---
EXAM: CT ANGIOGRAPHY CHEST WITHOUT AND WITH INTRAVENOUS CONTRAST CLINICAL INDICATION: CP, leg swelling TECHNIQUE: Helically acquired angiography images were obtained of the chest without and with intravenous contrast. This CT exam was performed using one or more of the following dose reduction techniques: automated exposure control, adjustment of the mA and/or kV according to patient size, and/or use of iterative reconstruction technique. MIP reconstructed images were created and reviewed. CONTRAST: IV 100mL [id number] COMPARISON: No relevant prior studies available. FINDINGS: PULMONARY ARTERIES: Unremarkable. Normal in caliber. No evidence of pulmonary embolism. AORTA: Unremarkable. Normal in caliber. No evidence of dissection. GREAT VESSELS OF AORTIC ARCH: Unremarkable. Normal in caliber. No evidence of dissection. LUNGS AND PLEURAL SPACES: Unremarkable. No mass. No consolidation or edema. No pleural effusion or thickening. No pneumothorax. HEART: Unremarkable. Heart size is normal. No pericardial effusion. No significant coronary artery calcifications. MEDIASTINUM: Unremarkable. No mediastinal or hilar adenopathy. Esophagus is unremarkable. No hiatal hernia. THYROID: Unremarkable. No thyroid lesions. BONES/JOINTS: Unremarkable. No suspicious lytic or blastic abnormality. CT/CTA Chest W/WO Contrast IMPRESSION: Negative CTA chest. Electronically Signed: Tarun Forrester MD at 20:42 EST ,
[2024-06-15 19:19] VITALS: BP 143/77; PULSE 67; RESP 16; TEMP 37.2; O2SAT 99
--- NOTE | 2024-06-15 19:22 | US_ITS ---
EXAM: US DUPLEX LEFT LOWER EXTREMITY VEINS CLINICAL INDICATION: LT LEG PAIN AND SWELLING TECHNIQUE: Real-time duplex ultrasound scan of the left lower extremity veins integrating B-mode two-dimensional vascular structure, Doppler spectral analysis, color flow Doppler imaging and compression. COMPARISON: No relevant prior studies available. FINDINGS: DEEP VEINS: Unremarkable. No DVT in the visualized common femoral, femoral, proximal deep femoral or popliteal veins. The veins demonstrate normal color flow, are normally compressible, with normal phasic flow and/or augmentation response. SUPERFICIAL VEINS: Unremarkable. No thrombus in the visualized great saphenous vein. SOFT TISSUES: No acute findings. No popliteal cyst. US/Venous Duplex Imag/Limited/Uni IMPRESSION: Normal left lower extremity duplex venous ultrasound. Electronically Signed: Tarun Forrester MD at 20:29 EST ,
[2024-06-15 19:43] LABS: Erythrocyte Sedimentation Rate 38 mm/hr (0-20)
[2024-06-15 19:56] LABS: ALB/GLOB Ratio 0.7 RATIO (0.9-2.4); AST(SGOT) 14 U/L (15-37); Alanine Aminotransfer ALT/SGPT 22 U/L (16-61); Albumin, Serum 3.2 g/dL (3.2-5.0); Alkaline Phosphatase 77 U/L (45-117); Anion Gap 6 (5-15); BUN 21 mg/dL (7-18); BUN/Creat Ratio 19.8 RATIO (10-20); Calcium,Total 8.6 mg/dL (8.5-10.1); Chloride 101 mmol/L (98-107); Creatinine, Serum 1.06 mg/dL (0.70-1.30); EST Glomerular Filtration Rate 76 mL/min (>60); Est Glom Filt Rate - Afr Amer 92 mL/min (>60); Estimated Creatinine Clearance 117.41 ml/min; Globulin 4.4 g/dL (2.2-4.2); Glucose 123 mg/dL (74-106); Potassium 3.8 mmol/L (3.5-5.1); Protein, Total 7.6 g/dL (6.4-8.2); Sodium Level 137 mmol/L (136-145); Troponin-I HS (w/2H Reflex) 12 pg/mL (3.0-78.0)
[2024-06-15 20:00] VITALS: BP 138/89; PULSE 71; RESP 16; TEMP 36.6; O2SAT 98
[2024-06-15 20:05] LABS: Lactic Acid 1.6 mmol/L (0.4-1.9)
--- NOTE | 2024-06-15 20:20 | RAD_ITS ---
EXAM: XR LEFT FOOT COMPLETE, 3 OR MORE VIEWS CLINICAL INDICATION: left 1st digit swelling TECHNIQUE: Frontal, lateral and oblique views of the left foot. COMPARISON: No relevant prior studies available. FINDINGS: BONES/JOINTS: There is a calcaneal spur. No acute fracture. No subluxation. Normal alignment. Preservation of the joint space. No sclerotic or destructive changes observed. SOFT TISSUES: Unremarkable. No soft tissue swelling or gas. No radiopaque foreign body. RAD/Foot min 3 Views IMPRESSION: No acute findings in the left foot. Electronically Signed: Tarun Forrester MD at 20:40 EST ,
[2024-06-15 21:14] LABS: Absolute Lymphocyte Count 1.93 X10^3/uL (0.83-4.51); Absolute Neutrophil Count 4.2 X10^3/uL (2.0-7.7); Basophil# 0.05 X10^3/uL; Basophil% 0.7 % (0-1); Eosinophil# 0.52 X10^3/uL; Eosinophils% 7.3 % (0-5); Hematocrit 40.3 % (40-54); Hemoglobin 13.3 g/dL (13.0-16.5); Lymphocyte # 1.93 X10^3/ul (0.83-4.51); Lymphocyte % 27.2 % (19-41); Mean Corpuscular Hgb 29.9 pg (27.0-32.0); Mean Corpuscular Volume 90.6 fL (80-94); Mean Platelet Vol. 9.6 fl (6.2-12.0); Monocyte% 5.6 % (0-10); NRBC Flagged by Analyzer 0 % (0-5); Neutrophil # 4.17 X10^3/uL (2.7-7.7); Neutrophil % 58.9 % (47-70); Platelet Count 196 K/mm3 (150-450); RBC Distribution Width CV 13.7 % (11.6-14.6); RBC Distribution Width SD 45.5 fl (35.1-43.9); Red Blood Count 4.45 M/mm3 (4.6-6.2); White Blood Count 7.1 K/mm3 (4.4-11.0)
[2024-06-15 21:33] LABS: Reflex Troponin-HS? (from REC) Y
[2024-06-15 22:00] VITALS: BP 147/90; PULSE 78; O2SAT 98
[2024-06-15 22:31] LABS: Troponin-I HS 13 pg/mL (3.0-78.0)
[2024-06-15] MEDS: Cefepime HCl 2 GM in 0.9% Normal Saline (100mL MB+) 100 ML IV (22:36)
--- NOTE | 2024-06-15 22:55 | HP.PCM.HOS_ITS ---
[facility] Date of Admission: 06/15/24 Date of Service: 06/15/24 Chief Complaint: Left Foot Cellulitis that Failed Outpatient ATB Treatment. [facility] Narrative DORIAN DENIS, is a 58 M with a past medical history of essential hypertension; on metoprolol, lisinopril, amlodipine and hydrochlorothiazide, hyperlipidemia; on rosuvastatin, morbid obesity; with BMI of 49.3 this admission, SVETLANA; on CPAP, DM-2; of unknown control on metformin, empagliflozin, semaglutide and insulin glargine 12U twice daily, CAD; s/p non-ST elevation [place] with LAD stent (2019) and additional mid-RCA stent (2021) plus additional RCA stent (09/2023) on baby aspirin and ticagrelor, history of PAF (2020); on apixaban, CKD; stage II, testosterone deficiency; on HRT, mild intermittent asthma; on budesonide- formoterol, history of COVID-19 (2021), history of cholecystectomy, history of maxillary sinusitis, seasonal allergies; on loratadine, listed allergy to PCN and recently diagnosed Cellulitis of the Left foot with a diabetic foot ulcer on the plantar aspect of his Left great toe after recent skin graft who presents to [facility] ER complaining of worsening redness, swelling and pain in his Left foot. Mr. Denis reports his symptoms began approximately 10 days prior to admission when he was diagnosed with cellulitis after an ulcer formed on the plantar aspect of his Left great toe. He was started on an antibiotic called Nuzyra (an apparently new high-powered tetracycline class antibiotic) until he is finished his 10-day course of treatment his symptoms have worsened rather than improved so he decided to come in for further evaluation and treatment. He also admits to chest pain that is made worse with movement along with swelling of his Left lower extremity. He denies associated fever, chills, nausea, vomiting, diarrhea, constipation, shortness of breath or headache and he states his blood glucose has been well-controlled but he does admit to severe pain in his Left foot made worse with weightbearing but not completely relieved by rest. In the ER he was diagnosed with Left DFU with associated Cellulitis that Failed Outpatient Antibiotic Treatment with a corresponding C-reactive protein of 31.4 and ESR of 38 mm/hr present on admission after recent skin graft compounded by complaints of Chest Pain in the setting of known CAD and he was then admitted to the PCU for ongoing care for a stay that is expected to extend beyond 2 midnights. [facility] Medical History (Updated 06/15/24 @ 23:[address] Sai Manuel, DO) Maxillary sinusitis, acute Hyperglycemia CKD (chronic kidney disease), stage II Paroxysmal atrial flutter SVETLANA (obstructive sleep apnea) COVID (05/31/21) Hyperlipidemia Diabetes Obesity Type 2 diabetes mellitus Essential (primary) hypertension History of non-ST elevation myocardial infarction (NSTEMI) (08/06/20) Atherosclerotic heart disease of [place] coronary artery without angina pectoris Home Medications ?Medication ?Instructions ?Recorded ?Last Taken ?Type testosterone cypionate 200 mg/mL 400 mg subcut Q2W hormones 06/23/21 Unknown History intramuscular oil rosuvastatin 20 mg tablet 20 mg PO Q OTHER DAY cholesterol 02/04/22 Unknown Rx #45 tabs apixaban 5 mg tablet (Eliquis) 5 mg PO BID #180 tabs 09/23/23 Unknown Rx empagliflozin 25 mg tablet 25 mg PO DAILY 10/29/23 Unknown History (Jardiance) aspirin 81 mg tablet,delayed 81 mg PO BREAKFAST #30 tabs 11/01/23 Unknown Rx release metformin 1,000 mg tablet 1,000 mg PO BID #60 tabs 11/01/23 Unknown Rx acetaminophen 500 mg tablet 1,000 mg PO BID PRN fever or pain 11/24/23 Unknown History loratadine 10 mg tablet 10 mg PO DAILY PRN allergies 11/24/23 Unknown History semaglutide 0.25 mg or 0.5 mg (2 0.5 mg subcut QWEEK 11/24/23 Unknown History mg/3 mL) subcutaneous pen injector (Ozempic) insulin glargine 100 unit/mL (3 12 unit subcut BID 01/06/24 Unknown History mL) subcutaneous pen (Lantus Solostar U-100 Insulin) hydrochlorothiazide 25 mg tablet 25 mg PO DAILY diuretic #90 tabs 03/15/24 Unknown Rx lisinopril 20 mg tablet 20 mg PO BID #180 tabs 03/17/24 Unknown Rx metoprolol tartrate 50 mg tablet 50 mg PO BID #180 tabs 03/20/24 Unknown Rx nitroglycerin 0.4 mg sublingual 0.4 mg sublingual Q5M PRN 04/06/24 Unknown Rx tablet Cardiac/Chest Pain #25 tabs ticagrelor 90 mg tablet (Brilinta) 90 mg PO BID #180 TABLETS 05/23/24 Unknown Rx amlodipine 5 mg tablet 5 mg PO DAILY PRN BP 06/15/24 Unknown History Allergy/AdvReac Type Severity Reaction Status Date / Time Penicillins (PCN) Allergy Unknown Verified 06/15/24 18:16 Family History Mother CVA (cerebral vascular accident) Heart disease Hypertension Father Aortic aneurysm Cancer Surgical History History of left heart catheterization (10/29/23) History of cholecystectomy History of coronary artery stent placement (10/29/23) Social History household members: spouse Smoking Status: Never smoker second hand exposure: Yes alcohol intake: current alcohol intake frequency: a few times a month Alcohol type: hard liquor substance use type: does not use caffeine: Yes Type: carbonated beverages Number of servings: 1 and coffee Number of servings: 1 ROS ROS Narrative Review of Systems: Constitutional: Patient denies fever or chills. Eyes: Patient denies changes in vision or discharge from eyes. ENT: Patient denies runny nose, sore throat or ear pain. Resp: Patient denies shortness of breath or cough. CV: Patient admits to intermittent chest pain and Left leg swelling up to the knee which he had attributed to side effects from his recent new antibiotic. He denies palpitations or heart racing. GI: Patient denies abdominal pain, nausea, vomiting, diarrhea or constipation. : Patient denies dysuria or hematuria. MSK: Patient admits to increasing redness, pain and swelling in his Left foot with extension of swelling into his Left calf. Skin: Patient admits to severe redness of his Left foot with wound on the plantar surface as per HPI. Psych: Patient denies symptoms of uncontrolled depression or anxiety. Neuro: Patient denies headache, paresthesias or focal neurologic deficits. Allergy: Patient denies lip swelling, tongue swelling or urticaria. Hematology: Patient admits to easy bruisability since being on BASA, ticagrelor and apixaban. Endocrinology: Patient denies polyuria, polydipsia or polyphagia. 14 point review of systems otherwise negative except for positives noted above in HPI. Vital Signs Vital Signs Vital Signs: 06/15/24 18:16 06/15/24 18:51 06/15/24 19:19 Temperature 98.7 F 98.7 F 98.9 F Temperature Source Oral Oral Oral Pulse Rate 83 67 67 Respiratory Rate 16 19 H 16 Blood Pressure 178/86 H 114/84 H 143/77 H Blood Pressure Mean 116 94 99 Pulse Ox 98 95 99 Oxygen Delivery Method Room Air 06/15/24 20:00 06/15/24 22:00 Temperature 97.9 F Temperature Source Temporal Pulse Rate 71 78 Respiratory Rate 16 Blood Pressure 138/89 H 147/90 H Blood Pressure Mean 105 109 Pulse Ox 98 98 Oxygen Delivery Method Weight Weight: 353 lb 4.8 oz Body Mass Index (BMI) 49.2 Physical Exam Const alert, oriented x3 and no apparent distress Constitutional Narrative: Morbidly obese. General Appearance: cooperative HEENT normocephalic, head/scalp atraumatic, hearing grossly normal bilaterally and moist oral mucous membranes Eyes PERRL and EOMs intact bilaterally Neck no lymphadenopathy and supple Resp normal respiratory effort, no retractions, no use of accessory muscles and clear to auscultation bilaterally Cardio regular rate and regular rhythm GI normal to inspection, nondistended, normoactive bowel sounds, soft to palpation, non-tender and non-distended GI Narrative: Morbidly obese. Extremity Extremity Narrative: Patient has severe erythema over the region of his entire Left great toe extending into the Left midfoot with ~5 mm open wound on plantar surface of Left great toe. Skin Skin Narrative: Patient has no evidence of rash or jaundice. Neuro oriented x3, CN's II-XII intact bilaterally, moves all extremities and no focal motor deficits Sensorium / Orientation: awake, alert, oriented to person, oriented to place and oriented to time Speech: speech normal Psych affect normal Results Medical Records Data Attestation: I reviewed the patient's medical records Lab / Micro Data Attestation: I reviewed the patient's lab results. 06/15/24 19:25 06/15/24 19:25 Labs: Laboratory Results - last 24 hr 06/15/24 19:25: WBC 7.1, RBC 4.45 L, Hgb 13.3, Hct 40.3, MCV 90.6, MCH 29.9, MCHC 33.0, RDW Std Deviation 45.5 H, RDW Coeff of Simeon 13.7, Plt Count 196, MPV 9.6, Immature Gran % (Auto) 0.300, Neut % (Auto) 58.9, Lymph % (Auto) 27.2, Blount % (Auto) 5.6, Eos % (Auto) 7.3 H, Baso % (Auto) 0.7, Absolute Neuts (auto) 4.2, Absolute Lymphs (auto) 1.93, Nucleated RBC % 0, ESR 38 H, Sodium 137, Potassium 3.8, Chloride 101, Carbon Dioxide 30.0, Anion Gap 6, BUN 21 H, Creatinine 1.06, Estim Creat Clear Calc 117.41, Est GFR (MDRD) Af Amer 92, Est GFR (MDRD) Non-Af 76, BUN/Creatinine Ratio 19.8, Glucose 123 H, Lactic Acid 1.6, Calcium 8.6, Total Bilirubin 0.70, AST 14 L, ALT 22, Alkaline Phosphatase 77, Troponin I High Sens 12, C-React Prot Ext Range 31.40 H, Total Protein 7.6, Albumin 3.2, G lobulin 4.4 H, Albumin/Globulin Ratio 0.7 L 06/15/24 21:00: Troponin I High Sens 13, C-React Prot Ext Range 30.10 H Imaging Radiology Impression Chest CTA 06/15/24 19:18 IMPRESSION: Negative CTA chest. Electronically Signed: Tarun Forrester MD at 20:42 EST , Venous Duplex 06/15/24 19:22 IMPRESSION: Normal left lower extremity duplex venous ultrasound. Electronically Signed: Tarun Forrester MD at 20:29 EST , Foot X-Ray 06/15/24 20:20 IMPRESSION: No acute findings in the left foot. Electronically Signed: Tarun Forrester MD at 20:40 EST , Assessment & Plan Assessment/Plan (1) Diabetic foot ulcer associated with type 2 diabetes mellitus: QUALIFIERS: Diabetic foot ulcer location: unspecified part of foot Laterality: left Non-pressure ulcer stage: limited to breakdown of skin Q ualified Code(s): E11.621 - Type 2 diabetes mellitus with foot ulcer; L97.521 - Non-pressure chronic ulcer of other part of left foot limited to breakdown of skin (2) Cellulitis: QUALIFIERS: Laterality: left Site of cellulitis: extremity Site of cellulitis of extremity: toe Qualified Code(s): L03.032 - Cellulitis of left toe (3) Chest pain: QUALIFIERS: Chest pain type: unspecified Qualified Code(s): R07.9 - Chest pain, unspecified (4) History of coronary artery stent placement: (5) Atherosclerotic heart disease of [place] coronary artery without angina pectoris: QUALIFIERS: [place] vs. 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 Left DFU with associated Cellulitis that Failed Outpatient Antibiotic Treatment due to suspected MRSA with a corresponding C-reactive protein of 31.4 and ESR of 38 mm/hr present on admission after recent skin graft with listed allergy to PCN - Admit to PCU. Continue empiric IV vancomycin and IV Cefepime begun in the ER and await culture and sensitivity data. Check MRSA wound PCR to confirm suspicion. Give Tylenol prn for [id number] (level 1-5/10) pain or fever. Give morphine IV prn for severe (level 6-10/10) pain. Check MRI of the Left foot to evaluate for evidence of possible osteomyelitis. Will start patient on probiotic plus supplemental vitamin D3, vitamin C and zinc to promote wound healing and hopefully speed recovery. Finally, we will consult Wound RN to see this patient on-rounds in AM for further recommendations with help appreciated in advance. 2. Chest Pain in the setting of known CAD; s/p NSTEMI with multiple stents and worsening appearance of LCX and LAD on last [facility] in 09/2023 complicating #1 - Serialize troponin. Continue BASA and ticagrelor as before and give SL NTG prn for chest pain. Check Lexiscan NST in AM to evaluate for possible underlying ischemia (though his symptoms are admittedly atypical) because of his elevated risk. Check echocardiogram to evaluate LVEF. 3. DM-2; of unknown control on metformin, empagliflozin, semaglutide and insulin glargine 12U twice daily compounding #1 & #2 - ADA diet. FSBS q. AC/HS plus SSI. Hold oral agents and semaglutide. Continue insulin glargine as previous. Finally, we will check HgbA1c to objectively assess quality of diabetic control. 4. Morbid obesity; with BMI of 49.3 this admission and SVETLANA; on CPAP adding to the medical complexity of #1 - #3 - Weight loss will be recommended. Check TSH. Resume nocturnal CPAP. This complicates his case and may hamper recovery. 5. History of PAF; on apixaban - Maintain on apixaban as before with patient currently in NSR. 6. Essential hypertension; on metoprolol, lisinopril, amlodipine and hydrochlorothiazide - Maintain home regimen as previous. 7. Hyperlipidemia; on rosuvastatin - Continue rosuvastatin and check Lipid Profile in light of #1 & #2. 8. CKD; stage II - Stable with serum creatinine of 1.06 mg/dL, BUN of 21 mg/dL and EGFR of 76 mL/min present on admission. 9. Testosterone deficiency; on HRT - Hold testosterone replacement until further notice. 10. Mild intermittent Asthma; on budesonide-formoterol - Stable without acute flare noted at this time. Continue current treatment plus give nebulizers prn for breakthrough symptoms. 11. History of COVID-19 (2021) - Noted. 12. History of cholecystectomy - Noted. 13. History of maxillary sinusitis - Noted with no evidence of recurrence at this time. 14. Seasonal allergies; on loratadine - Resume loratadine as previous. 15. DVT prophylaxis - Patient is already on apixaban for #5 which will be continued. Total time: Approximately (but not less than) 75 minutes. Charges/Coding Visit Charges Inpatient E&M: 38574 Init Hosp L3
[2024-06-15 23:23] VITALS: BP 124/61; PULSE 68; RESP 20; TEMP 36.6; O2SAT 95
[2024-06-15] MEDS: Vancomycin HCl 2,000 MG in 0.9% Normal Saline (500mL Bag) 500 ML 250 MG IV (23:39)
--- NOTE | 2024-06-16 00:19 | ECHOCS_ITS ---
Reason For Study: CHEST PAIN Procedure This was a 2D Doppler, Color Flow transthoracic echocardiogram. The study was technically difficult. Contrast injection was performed. Exam performed portable in patient room. Left Ventricle Normal LV size. Mild concentric left ventricular hypertrophy. The left ventricular ejection fraction is 65 %. Stage 1 diastolic dysfunction. Right Ventricle Normal right ventricle. Atria The left atrium is moderately enlarged. Normal right atrium. Mitral Valve Normal mitral valve. Tricuspid Valve Normal tricuspid valve. Aortic Valve Trisinus/trileaflet aortic valve. Pulmonic Valve The pulmonic valve is not well visualized. Great Vessels The aortic root is not well visualized. Pericardium/Pleural No pericardial effusion. Medication Diluted definity 2ml given slow IV push to enhance endocardial definition. MMode/2D Measurements & Calculations LVIDd: 4.7 cm IVSd: 1.3 cm LA dimension: 4.5 cm LVIDs: 3.3 cm LVPWd: 1.3 cm FS: 30.0 % LAV(MOD-sp4): 65.4 ml LVAd ap4: 32.2 cm2 SV(MOD-sp4): 74.0 ml LVLd ap4: 8.0 cm SI(MOD-sp4): 27.9 ml/m2 EDV(MOD-sp4): 102.5 ml EDV(sp4-el): 109.6 ml LVAs ap4: 14.4 cm2 LVLs ap4: 5.9 cm ESV(MOD-sp4): 28.5 ml ESV(sp4-el): 29.7 ml EF(MOD-sp4): 72.2 % EF(sp4-el): 72.9 % SV(sp4-el): 79.9 ml LA A4 area: 19.9 cm2 LA dimension(2D): 4.4 cm RA A4 area: 16.5 cm2 Time Measurements MV dec time: 0.27 sec Doppler Measurements & Calculations MV E max michaela: 84.3 cm/sec MV dec slope: 309.6 cm/sec2 Ao V2 max: 102.9 cm/sec MV A max michaela: 55.6 cm/sec Ao max P.2 mmHg MV E/A: 1.5 Ao V2 mean: 66.8 cm/sec Ao mean P.0 mmHg Ao V2 VTI: 19.8 cm AV (velocity ratio): 1.6 LV V1 max: 129.3 cm/sec LV V1 max P.7 mmHg LV V1 mean P.4 mmHg LV V1 mean: 98.7 cm/sec LV V1 VTI: 31.0 cm ECHO/Echo Complete W/ Contrast Interpretation Summary Mild concentric left ventricular hypertrophy. The left ventricular ejection fraction is 65 %. Stage 1 diastolic dysfunction. The left atrium is moderately enlarged. The study was technically difficult. Ordering Physician: Sai Manuel Referring Physician: Lani Paiz M.D. Performed By: Meenu Gutierrez RCS
--- NOTE | 2024-06-16 00:19 | MRI_ITS ---
STUDY: MRI LEFT FOOT, WITHOUT AND WITH IV CONTRAST REASON FOR EXAM: Male, 58 years old. Left DFU with Cellulitis. ? Osteomyelitis TECHNIQUE: Standardized fat and water weighted pulse sequences were obtained in all 3 orthogonal planes. Following the intravenous administration of 30 mL Clariscan contrast, additional postcontrast imaging was obtained. COMPARISON: Left foot radiographs dated 06/15/2024. FINDINGS: There is skin ulceration along the plantar aspect of the great toe, with subcutaneous soft tissue edema and skin thickening cellulitis surrounding the great toe, compatible with cellulitis. There is abnormal marrow signal in the proximal and distal phalanges of the great toe, with marrow enhancement following IV contrast administration (sagittal postcontrast T1 series 11 images 6-9), concerning for osteomyelitis. Normal bone marrow of the remainder of the phalanges, metatarsals, and visualized distal tarsal row, without fracture, periostitis, erosions or reactive bone edema. Normal sesamoids without sesamoiditis, fracture or avascular necrosis. Normal joint spaces, without effusions. There are no extraarticular fluid collections. Normal visualized Lisfranc joints and normal Lisfranc ligament. Normal intermetatarsal spaces without intermetatarsal (Gunter) neuroma or bursitis. Normal visualized extensor digitorum longus, extensor hallucis longus, flexor digitorum brevis and flexor hallucis longus tendons. Normal visualized plantar fascia without fasciitis, fibromatosis or tear. Normal intrinsic muscles of the foot, without soft tissue masses or evidence of denervation atrophy. There is mild subcutaneous soft tissue edema along the dorsum of the foot. MRI/Lower Ext No Joint W/WO Cont IMPRESSION: Great toe ulcer with surrounding cellulitis. Suspected osteomyelitis of the proximal and distal phalanges of the great toe. Mild subcutaneous soft tissue edema along the dorsum of the foot. Electronically Signed: George Donovan MD at 10:37 EST ,
[2024-06-16 00:25] VITALS: BMI 48.1
--- NOTE | 2024-06-16 00:49 | PCM.RX.CS ---
Consult Antibiotic Management Pharmacy has been consulted to manage selected antibiotic: Vancomycin Type of Intervention Type of Consult: New start Suspected Infection Suspected Infection: Skin/Soft tissue Labs Labs: Sodium 137 mmol/L (136-145) 06/15/24 19:25 Potassium 3.8 mmol/L (3.5-5.1) 06/15/24 19:25 Chloride 101 mmol/L (98-107) 06/15/24 19:25 Carbon Dioxide 30.0 mmol/L (21.0-32.0) 06/15/24 19:25 Anion Gap 6 (5-15) 06/15/24 19:25 BUN 21 mg/dL (7-18) H 06/15/24 19:25 Creatinine 1.06 mg/dL (0.70-1.30) 06/15/24 19:25 Est GFR (MDRD) Af Amer 92 mL/min (>60) 06/15/24 19:25 Est GFR (MDRD) Non-Af 76 mL/min (>60) 06/15/24 19:25 BUN/Creatinine Ratio 19.8 RATIO (10-20) 06/15/24 19:25 Glucose 123 mg/dL (74-106) H 06/15/24 19:25 Dosing Weight Weight used for dosin kg Estimated Creatinine Clearance Estimated Creatinine Clearance: 117 Goal Trough Goal Trough: 15-20 mcg/mL Pharmacy Plan for Drug Dosing Pharmacy Plan for Drug Dosing: Pharmacy Service will continue to monitor and adjust dosing as required. Follow-Up Labs Follow-Up Labs: Trough: Vancomycin Date/Time Labs Ordered Labs to be done on [date and time ordered]: 06/16/24 @2300
[2024-06-16 01:20] VITALS: BP 117/64; PULSE 67
[2024-06-16] MEDS: Acetaminophen 325 MG Tablet 650 MG PO ×3 (01:20→18:45)
[2024-06-16] MEDS: Metoprolol Tartrate 50 MG Tablet PO ×2 (01:20→22:26)
[2024-06-16] MEDS: APIXABAN 5 MG TABLET PO ×2 (01:20→22:25)
[2024-06-16] MEDS: TICAGRELOR 90 MG TABLET PO ×2 (01:20→22:25)
[2024-06-16] MEDS: Lisinopril 20 MG Tablet PO ×2 (01:20→22:26)
[2024-06-16] MEDS: 0.9% Normal Saline (1000mL) 1,000 ML 70 ML IV (01:23)
[2024-06-16 01:31] LABS: Cholesterol 70 mg/dL (200); High Density Lipoprotein 37 mg/dL; Triglycerides 108 mg/dL; Very Low Density Lipoprotein 22 mg/dL (5-40)
[2024-06-16 01:38] LABS: Hemoglobin A1c 8.4 % (3.8-5.6)
[2024-06-16 02:00] VITALS: BP 117/64; PULSE 67; RESP 18; TEMP 36.7; O2SAT 96
[2024-06-16 02:03] LABS: Troponin-I HS 13 pg/mL (3.0-78.0)
[2024-06-16 05:03] VITALS: BMI 48.0
[2024-06-16] MEDS: Vancomycin HCl 1,500 MG in 0.9% Normal Saline (500mL Bag) 500 ML 250 MG IV ×2 (06:25→16:08)
[2024-06-16] MEDS: Aspirin E.C. 81 MG Tablet PO (06:28)
[2024-06-16 07:01] LABS: Bedside Glucose 141 mg/dL (74-106)
--- NOTE | 2024-06-16 07:30 | PN.HOSP_ITS ---
Reason for Visit Reason for Visit: Diagnoses Type 2 diabetes mellitus with other circulatory complications (06/15/24) Type 2 diabetes mellitus with foot ulcer (06/15/24) Type 2 diabetes mellitus without complications (06/15/24) Morbid (severe) obesity due to excess calories (06/15/24) Obstructive sleep apnea (adult) (pediatric) (06/15/24) Atherosclerotic heart disease of [place] coronary artery without angina pectoris (06/15/24) Unspecified atrial flutter (06/15/24) Cellulitis of left toe (06/15/24) Cellulitis, unspecified (06/15/24) Non-pressure chronic ulcer of other part of unspecified foot with unspecified severity (06/15/24) Non-pressure chronic ulcer of other part of left foot limited to breakdown of skin (06/15/24) Chest pain, unspecified (06/15/24) Body mass index [BMI] 45.0-49.9, adult (06/15/24) 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 (06/15/24) Presence of coronary angioplasty implant and graft (06/15/24) Objective Data Objective Data Vital Signs: Vital Signs Temp Pulse Resp BP Pulse Ox O2 Del Method 98.1 F 67 18 117/64 96 Room Air 06/16/24 02:00 06/16/24 02:00 06/16/24 02:00 06/16/24 02:00 06/16/24 02:00 06/16/24 02:00 Oxygen Delivery Method Room Air Weight: 344 lb 12.847 oz Body Mass Index (BMI) 48.0 Intake & Output: Intake and Output for Last 24 Hours 06/14/24 06/15/24 06/16/24 23:59 23:59 23:59 Intake Total 100 / 100 540 / 540 Balance 100 / 100 540 / 540 Lab / Micro Data 06/16/24 07:41 06/16/24 07:41 Labs: Laboratory Results - last 24 hr 06/15/24 19:25: WBC 7.1, RBC 4.45 L, Hgb 13.3, Hct 40.3, MCV 90.6, MCH 29.9, MCHC 33.0, RDW Std Deviation 45.5 H, RDW Coeff of Simeon 13.7, Plt Count 196, MPV 9.6, Immature Gran % (Auto) 0.300, Neut % (Auto) 58.9, Lymph % (Auto) 27.2, [place] % (Auto) 5.6, Eos % (Auto) 7.3 H, Baso % (Auto) 0.7, Absolute Neuts (auto) 4.2, Absolute Lymphs (auto) 1.93, Nucleated RBC % 0, ESR 38 H, Sodium 137, Potassium 3.8, Chloride 101, Carbon Dioxide 30.0, Anion Gap 6, BUN 21 H, Creatinine 1.06, Estim Creat Clear Calc 117.41, Est GFR (MDRD) Af Amer 92, Est GFR (MDRD) Non-Af 76, BUN/Creatinine Ratio 19.8, Glucose 123 H, Hemoglobin A1c 8.4 H, Lactic Acid 1.6, Calcium 8.6, Total Bilirubin 0.70, AST 14 L, ALT 22, Alkaline Phosphatase 77, Troponin I High Sens 12, C-React Prot Ext Range 31.40 H, Total Protein 7.6, Albumin 3.2, Globulin 4.4 H, Albumin/Globulin Ratio 0.7 L 06/15/24 21:00: Troponin I High Sens 13, C-React Prot Ext Range 30.10 H, Triglycerides 108, Cholesterol 70, LDL Cholesterol 11, VLDL Cholesterol 22, HDL Cholesterol 37 L, TSH 2.330 06/16/24 01:34: Troponin I High Sens 13 06/16/24 06:27: POC Glucose 141 H Radiography Diagnostic Testing: Radiology Impression Chest CTA 06/15/24 19:18 IMPRESSION: Negative CTA chest. Electronically Signed: Tarun Forrester MD at 20:42 EST , Venous Duplex 06/15/24 19:22 IMPRESSION: Normal left lower extremity duplex venous ultrasound. Electronically Signed: Tarun Forrester MD at 20:29 EST , Foot X-Ray 06/15/24 20:20 IMPRESSION: No acute findings in the left foot. Electronically Signed: Tarun Forrester MD at 20:40 EST , Physical Exam Narrative Seen and examined Patient came with left foot/toe ulcer chronic ongoing since October 2023. He stepped on something which he does not know. 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 No fever or chills. Has CAD status post stent. No acute chest pain or shortness of breath now. Physical exam: General: Alert, Oriented x3, Cooperative, BMI 48.1 kg/m?, morbid obesity HEENT: Atraumatic, PERRLA, EOMI, Normocephalic Oral: No Gingival or Mucosal Lesions/ Ulcerations Neck: Supple, No JVD, Negative Carotid Bruits Chest wall/Lungs: Air entry diminished in bilateral lung bases. No crepitation/rhonchi Cardiovascular: Regular rate, Regular Rhythm, Normal S1, Normal S2, No M/G/R Abdomen: Bowel Sounds Present, Soft, Non Tender, Non-Distended : No dysuria. No renal angle tenderness. No suprapubic tenderness. Extremities: No edema, Capillary Refill Less than 3 Seconds Skin: Mild swelling, redness of left toe and foot. Chronic ulcer with overlying dressing. Musculoskeletal: No Tenderness to Palpation of Joints or Extremities Neurological: Cranial nerves II-XII grossly intact, DTR 2+/4. Mild bilateral feet neuropathy Psych/Mental Status: Normal Affect, Appropriate. Assessment & Plan Assessment/Plan (1) Diabetic foot ulcer associated with type 2 diabetes mellitus: QUALIFIERS: Diabetic foot ulcer location: unspecified part of foot Laterality: left Non-pressure ulcer stage: limited to breakdown of skin Q ualified Code(s): E11.621 - Type 2 diabetes mellitus with foot ulcer; L97.521 - Non-pressure chronic ulcer of other part of left foot limited to breakdown of skin (2) Cellulitis: QUALIFIERS: Laterality: left Site of cellulitis: extremity Site of cellulitis of extremity: toe Qualified Code(s): L03.032 - Cellulitis of left toe (3) Chest pain: QUALIFIERS: Chest pain type: unspecified Qualified Code(s): R07.9 - Chest pain, unspecified PLAN: Plan 58-year-old male was admitted with left leg and foot pain with swelling and redness and worsening of ulcer in left toe since October 2023. Chronic wound on the left foot completed 10 days course of oral Nuzyra, tetracycline. Patient also complained of musculoskeletal type pain in the chest with movement. 1. Left chronic toe ulcer with worsening and contiguous cellulitis with outpatient failure of antibiotic: Patient is admitted on PCU. CRP 31.4, ESR 38. Currently on IV vancomycin and cefepime. Storage Battery Tester, and ID consulted. Does not complain of much pain. Wound nurse consulted. Left foot MRI shows great toe ulcer with surrounding cellulitis, suspected osteomyelitis of proximal distal phalange of great toe with mild subcutaneous soft tissue edema noted dorsal foot. Venous duplex of lower extremity 2. Most likely musculoskeletal chest pain with history of CAD status post stents: Patient had chest pain midsternal localized after he pulled the chest muscle. 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 Two serial twelve-lead EKG individually reviewed. NSR 65/min, QTc [address]-T changes. Chest CTA negative. Serial troponins are negative. ACS ruled out. Continue patient home cardiac medications. 3. DM-2; uncontrolled hyperglycemia: A1c 8.4, glucose 118-141. Patient on metformin, empagliflozin, semaglutide and glargine insulin. Oral agents held. Accu-Chek before meals and at bedtime with Humalog sliding scale coverage and hypoglycemia protocol. 4. Morbid obesity; with BMI of 49.3 this admission and SVETLANA; on CPAP: Weight loss recommended. TSH normal 2.33. 5. Paroxysmal A-fib; on apixaban - Maintain on apixaban. 6. Essential hypertension; on metoprolol, lisinopril, amlodipine and hydrochlorothiazide - Maintain home regimen as previous. 7. Hyperlipidemia; on rosuvastatin - Continue rosuvastatin and check Lipid Profile in light of #1 & #2. 8. CKD; stage II - serum creatinine of 1.06 mg/dL, BUN of 21 mg/dL and EGFR of 76 mL/min. BUNs/creatinine normal range. 9. Testosterone deficiency; on HRT - Hold testosterone replacement until further notice. 10. Mild intermittent Asthma; on budesonide-formoterol - Stable without acute flare noted at this time. Continue current treatment plus give nebulizers prn for breakthrough symptoms. DVT prophylaxis - Patient is already on apixaban, continued. Clinical Impression(s) from Imaging Studies Chest CTA 06/15/24 19:18 IMPRESSION: Negative CTA chest. Electronically Signed: Tarun Forrester MD at 20:42 EST , Venous Duplex 06/15/24 19:22 IMPRESSION: Normal left lower extremity duplex venous ultrasound. Foot X-Ray 06/15/24 20:20 IMPRESSION: No acute findings in the left foot. Echocardiogram 06/16/24 00:19 Interpretation Summary Mild concentric left ventricular hypertrophy. The left ventricular ejection fraction is 65 %. Stage 1 diastolic dysfunction. The left atrium is moderately enlarged. The study was technically difficult. Lower Extremity MRI 06/16/24 00:19 IMPRESSION: Great toe ulcer with surrounding cellulitis. Suspected osteomyelitis of the proximal and distal phalanges of the great toe. Mild subcutaneous soft tissue edema along the dorsum of the foot. Electronically Signed: George Donovan MD at 10:37 EST , Charges/Coding Visit Charges Inpatient E&M: 54636 Subs Hosp L2
[2024-06-16 08:00] VITALS: BP 111/59; PULSE 70; RESP 18; TEMP 36.6; O2SAT 94
[2024-06-16 08:29] LABS: M R Staph aureus DNA By PCR Negative (Negative); Probe Check PASS; Specimen Processing Control PASS; Staph aureus DNA By PCR NEGATIVE (Negative)
[2024-06-16 08:37] LABS: Absolute Lymphocyte Count 1.63 X10^3/uL (0.83-4.51); Absolute Neutrophil Count 4.3 X10^3/uL (2.0-7.7); Basophil# 0.05 X10^3/uL; Basophil% 0.7 % (0-1); Eosinophils% 7.1 % (0-5); Hematocrit 39.5 % (40-54); Hemoglobin 12.6 g/dL (13.0-16.5); Lymphocyte # 1.63 X10^3/ul (0.83-4.51); Lymphocyte % 23.1 % (19-41); Mean Corp Hgb Conc 31.9 g/dL (32-36); Mean Platelet Vol. 9.8 fl (6.2-12.0); Monocyte% 7.1 % (0-10); NRBC Flagged by Analyzer 0 % (0-5); Neutrophil # 4.34 X10^3/uL (2.7-7.7); Neutrophil % 61.6 % (47-70); Platelet Count 207 K/mm3 (150-450); RBC Distribution Width CV 13.8 % (11.6-14.6); RBC Distribution Width SD 45.9 fl (35.1-43.9); Red Blood Count 4.34 M/mm3 (4.6-6.2); White Blood Count 7.1 K/mm3 (4.4-11.0)
[2024-06-16 09:04] LABS: ALB/GLOB Ratio 0.8 RATIO (0.9-2.4); AST(SGOT) 18 U/L (15-37); Alanine Aminotransfer ALT/SGPT 21 U/L (16-61); Albumin, Serum 3.2 g/dL (3.2-5.0); Alkaline Phosphatase 75 U/L (45-117); Anion Gap 9 (5-15); BUN 17 mg/dL (7-18); BUN/Creat Ratio 18.6 RATIO (10-20); Chloride 107 mmol/L (98-107); Creatinine, Serum 0.92 mg/dL (0.70-1.30); EST Glomerular Filtration Rate 90 mL/min (>60); Est Glom Filt Rate - Afr Amer 109 mL/min (>60); Estimated Creatinine Clearance 133.37 ml/min; Glucose 146 mg/dL (74-106); Phosphorus 3.5 mg/dL (2.5-4.9); Potassium 3.9 mmol/L (3.5-5.1); Protein, Total 7.2 g/dL (6.4-8.2); Sodium Level 140 mmol/L (136-145)
--- NOTE | 2024-06-16 11:15 | CASEMGMT ---
RN CM Face to Face with patient for initial transition planning/care coordination assessment. RN CM introduced self and role at [facility]. Patient lying in bed, alert and oriented, son in law at bedside. Patient willing to participate in assessment and is able to answer all questions appropriately. Care providers, pharmacy, and demographics verified. Strata: 2 PCP: Izabel Specialists: Patrice locket makerbeau Hinojosa Preferred Pharmacy: [facility] Insurance: [employer] Prescription Benefit: yes Living Will/HPOA: yes, son Brian Hall LNOK: , son, daughter Living Arrangements: Patient lives with , daughter, and MACKENZIE in a split level home with 7 steps and railing between levels. Patient is independent at home. Transportation: self, family DME/HHC: Patient states he has shoewr chair, raised toilet, grab bars, cpap, nebuilzer, and glucometer with supplies at home. No previous HHC or SNF Patient wishes to discharge home, will monitor need for HHC pending cultures and antibiotic needs at discharge. Patient states he has no further needs or concerns at this time. CM to follow for discharge planning needs that may arise. Disposition Plan: Patient to discharge home with family support and follow-up plans in place. Will monitor for HHC at discharge. Radha MEJÍA, RN, CM
[2024-06-16] MEDS: Cefepime HCl 2 GM in 0.9% Normal Saline (100mL MB+) 100 ML IV ×2 (11:46→22:17)
[2024-06-16 12:18] LABS: Bedside Glucose 118 mg/dL (74-106)
[2024-06-16 14:00] VITALS: BP 102/55; PULSE 73; RESP 17; TEMP 36.8; O2SAT 94
--- NOTE | 2024-06-16 14:37 | CON.PCM.ID_ITS ---
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 Cont vanc/cefepime, will add flagyl. Will follow, thank you HPI Consult Data Date of Consult: 06/16/24 HPI Narrative Reason for Consultation: osteo HPI Narrative: DORIAN DENIS, is a 58 M with DM neuropathy, presented with several weeks worsening L 1st toe redness, pain, swelling, drainage. Started as a blister. No fever or chills. No n/v/d. Sees podiatry outpt, started on Nuzyra for past 8 days without improvement. Sx increased, came to ED, MRI done, podiatry consulted, on vanc/cefepime. Full ROS performed and neg except as noted above. [facility] Medical History Maxillary sinusitis, acute Hyperglycemia CKD (chronic kidney disease), stage II Paroxysmal atrial flutter SVETLANA (obstructive sleep apnea) COVID (05/31/21) Hyperlipidemia Diabetes Obesity Type 2 diabetes mellitus Essential (primary) hypertension History of non-ST elevation myocardial infarction (NSTEMI) (08/06/20) Atherosclerotic heart disease of [place] coronary artery without angina pectoris Home Medications ?Medication ?Instructions ?Recorded ?Last Taken ?Type testosterone cypionate 200 mg/mL 400 mg subcut Q2W hormones 06/23/21 Unknown History intramuscular oil rosuvastatin 20 mg tablet 20 mg PO Q OTHER DAY cholesterol 02/04/22 Unknown Rx #45 tabs apixaban 5 mg tablet (Eliquis) 5 mg PO BID #180 tabs 09/23/23 Unknown Rx empagliflozin 25 mg tablet 25 mg PO DAILY 10/29/23 Unknown History (Jardiance) aspirin 81 mg tablet,delayed 81 mg PO BREAKFAST #30 tabs 11/01/23 Unknown Rx release metformin 1,000 mg tablet 1,000 mg PO BID #60 tabs 11/01/23 Unknown Rx acetaminophen 500 mg tablet 1,000 mg PO BID PRN fever or pain 11/24/23 Unknown History loratadine 10 mg tablet 10 mg PO DAILY PRN allergies 11/24/23 Unknown History semaglutide 0.25 mg or 0.5 mg (2 0.5 mg subcut QWEEK 11/24/23 Unknown History mg/3 mL) subcutaneous pen injector (Ozempic) insulin glargine 100 unit/mL (3 12 unit subcut BID 01/06/24 Unknown History mL) subcutaneous pen (Lantus Solostar U-100 Insulin) hydrochlorothiazide 25 mg tablet 25 mg PO DAILY diuretic #90 tabs 03/15/24 Unknown Rx lisinopril 20 mg tablet 20 mg PO BID #180 tabs 03/17/24 Unknown Rx metoprolol tartrate 50 mg tablet 50 mg PO BID #180 tabs 03/20/24 Unknown Rx nitroglycerin 0.4 mg sublingual 0.4 mg sublingual Q5M PRN 04/06/24 Unknown Rx tablet Cardiac/Chest Pain #25 tabs ticagrelor 90 mg tablet (Brilinta) 90 mg PO BID #180 TABLETS 05/23/24 Unknown Rx amlodipine 5 mg tablet 5 mg PO DAILY PRN BP 06/15/24 Unknown History Allergy/AdvReac Type Severity Reaction Status Date / Time Penicillins (PCN) Allergy Unknown Verified 06/15/24 18:16 Family History Mother CVA (cerebral vascular accident) Heart disease Hypertension Father Aortic aneurysm Cancer Surgical History History of left heart catheterization (10/29/23) History of cholecystectomy History of coronary artery stent placement (10/29/23) Social History household members: spouse Smoking Status: Never smoker second hand exposure: Yes alcohol intake: current alcohol intake frequency: a few times a month Alcohol type: hard liquor substance use type: does not use caffeine: Yes Type: carbonated beverages Number of servings: 1 and coffee Number of servings: 1 Physical Exam Const alert, oriented x3 and no apparent distress General Appearance: cooperative HEENT normocephalic and head/scalp atraumatic Eyes PERRL and EOMs intact bilaterally Neck supple and No nodes Resp normal air movement and clear to auscultation bilaterally Cardio regular rate and regular rhythm GI soft to palpation, non-tender and non-distended Extremity General Extremity: edema Skin Skin Narrative: L st toe redness, swelling Neuro CN's II-XII intact bilaterally Lab / Micro Data Attestation: I reviewed the patient's lab results. 06/16/24 07:41 06/16/24 07:41 Labs: Laboratory Results - last 24 hr 06/15/24 19:25: WBC 7.1, RBC 4.45 L, Hgb 13.3, Hct 40.3, MCV 90.6, MCH 29.9, MCHC 33.0, RDW Std Deviation 45.5 H, RDW Coeff of Simeon 13.7, Plt Count 196, MPV 9.6, Immature Gran % (Auto) 0.300, Neut % (Auto) 58.9, Lymph % (Auto) 27.2, [place] % (Auto) 5.6, Eos % (Auto) 7.3 H, Baso % (Auto) 0.7, Absolute Neuts (auto) 4.2, Absolute Lymphs (auto) 1.93, Nucleated RBC % 0, ESR 38 H, Sodium 137, Potassium 3.8, Chloride 101, Carbon Dioxide 30.0, Anion Gap 6, BUN 21 H, Creatinine 1.06, Estim Creat Clear Calc 117.41, Est GFR (MDRD) Af Amer 92, Est GFR (MDRD) Non-Af 76, BUN/Creatinine Ratio 19.8, Glucose 123 H, Hemoglobin A1c 8.4 H, Lactic Acid 1.6, Calcium 8.6, Total Bilirubin 0.70, AST 14 L, ALT 22, Alkaline Phosphatase 77, Troponin I High Sens 12, C-React Prot Ext Range 31.40 H, Total Protein 7.6, Albumin 3.2, Globulin 4.4 H, Albumin/Globulin Ratio 0.7 L 06/15/24 21:00: Troponin I High Sens 13, C-React Prot Ext Range 30.10 H, Triglycerides 108, Cholesterol 70, LDL Cholesterol 11, VLDL Cholesterol 22, HDL Cholesterol 37 L, TSH 2.330 06/16/24 01:34: Troponin I High Sens 13 06/16/24 06:27: POC Glucose 141 H 01/17/25 06:50: S.aureus Protein A PCR NEGATIVE, MRSA (PCR) Negative 06/16/24 07:41: WBC 7.1, RBC 4.34 L, Hgb 12.6 L, Hct 39.5 L, MCV 91.0, MCH 29.0, MCHC 31.9 L, RDW Std Deviation 45.9 H, RDW Coeff of Simeon 13.8, Plt Count 207, MPV 9.8, Immature Gran % (Auto) 0.400, Neut % (Auto) 61.6, Lymph % (Auto) 23.1, [place] % (Auto) 7.1, Eos % (Auto) 7.1 H, Baso % (Auto) 0.7, Absolute Neuts (auto) 4.3, Absolute Lymphs (auto) 1.63, Nucleated RBC % 0, Sodium 140, Potassium 3.9, Chloride 107, Carbon Dioxide 24.0, Anion Gap 9, BUN 17, Creatinine 0.92, Estim Creat Clear Calc 133.37, Est GFR (MDRD) Af Amer 109, Est GFR (MDRD) Non-Af 90, BUN/Creatinine Ratio 18.6, Glucose 146 H, Calcium 9.0, Phosphorus 3.5, Magnesium 2.0, Total Bilirubin 1.00, AST 18, ALT 21, Alkaline Phosphatase 75, Total Protein 7.2, Albumin 3.2, Globulin 4.0, Albumin/Globulin Ratio 0.8 L 06/16/24 11:59: POC Glucose 118 H Imaging Radiology Impression Chest CTA 06/15/24 19:18 IMPRESSION: Negative CTA chest. Electronically Signed: Tarun Forrester MD at 20:42 EST , Venous Duplex 06/15/24 19:22 IMPRESSION: Normal left lower extremity duplex venous ultrasound. Electronically Signed: Tarun Forrester MD at 20:29 EST , Foot X-Ray 06/15/24 20:20 IMPRESSION: No acute findings in the left foot. Electronically Signed: Tarun Forrester MD at 20:40 EST , Echocardiogram 06/16/24 00:19 Interpretation Summary Mild concentric left ventricular hypertrophy. The left ventricular ejection fraction is 65 %. Stage 1 diastolic dysfunction. The left atrium is moderately enlarged. The study was technically difficult. Ordering Physician: Sai Manuel Referring Physician: Lani Paiz M.D. Performed By: Meenu Gutierrez RCS Lower Extremity MRI 06/16/24 00:19 IMPRESSION: Great toe ulcer with surrounding cellulitis. Suspected osteomyelitis of the proximal and distal phalanges of the great toe. Mild subcutaneous soft tissue edema along the dorsum of the foot. Electronically Signed: George Donovan MD at 10:37 EST ,
[2024-06-16] MEDS: Lactobacillis Acidophilus 1 CAP PO ×3 (15:22→22:26)
[2024-06-16] MEDS: Insulin Lispro 100 UNIT/ML INSULN.PEN SC (17:08)
[2024-06-16] MEDS: Ascorbic Acid 500 MG Tablet 1000 MG PO (17:12)
[2024-06-16 17:22] LABS: Bedside Glucose 151 mg/dL (74-106)
[2024-06-16 22:12] VITALS: BP 117/65; PULSE 64; RESP 18; TEMP 37; O2SAT 95
[2024-06-16 22:26] VITALS: PULSE 64
[2024-06-16] MEDS: Atorvastatin Calcium 40 MG Tablet PO (22:26)
[2024-06-16] MEDS: metroNIDAZOLE 500 MG Tablet PO (22:35)
[2024-06-16 23:24] LABS: Bedside Glucose 121 mg/dL (74-106)
[2024-06-17 00:02] LABS: Vancomycin, Trough Level 19.1 ug/mL (5.0-15.0)
[2024-06-17] MEDS: Vancomycin HCl 1,500 MG in 0.9% Normal Saline (500mL Bag) 500 ML 250 MG IV ×4 (00:20→23:51)
--- NOTE | 2024-06-17 00:21 | PCM.RX.CS ---
Consult Antibiotic Management Pharmacy has been consulted to manage selected antibiotic: Vancomycin Type of Intervention Type of Consult: Follow-up Suspected Infection Suspected Infection: Skin/Soft tissue Labs Labs: Sodium 140 mmol/L (136-145) 06/16/24 07:41 Potassium 3.9 mmol/L (3.5-5.1) 06/16/24 07:41 Chloride 107 mmol/L (98-107) 06/16/24 07:41 Carbon Dioxide 24.0 mmol/L (21.0-32.0) 06/16/24 07:41 Anion Gap 9 (5-15) 06/16/24 07:41 BUN 17 mg/dL (7-18) 06/16/24 07:41 Creatinine 0.92 mg/dL (0.70-1.30) 06/16/24 07:41 Est GFR (MDRD) Af Amer 109 mL/min (>60) 06/16/24 07:41 Est GFR (MDRD) Non-Af 90 mL/min (>60) 06/16/24 07:41 BUN/Creatinine Ratio 18.6 RATIO (10-20) 06/16/24 07:41 Glucose 146 mg/dL (74-106) H 06/16/24 07:41 Vancomycin Trough 19.1 ug/mL (5.0-15.0) H 06/16/24 23:13 Dosing Weight Weight used for dosin kg Estimated Creatinine Clearance Estimated Creatinine Clearance: 133 Goal Trough Goal Trough: 15-20 mcg/mL Pharmacy Plan for Drug Dosing Pharmacy Plan for Drug Dosing: Vancomycin trough level of 19.1, drawn 7hrs post-dose, was within the target range of 15-20. Will continue dosing at 1500mg q8h, and will draw another trough level in two days. Pharmacy Service will continue to monitor and adjust dosing as required. Follow-Up Labs Follow-Up Labs: Trough: Vancomycin Date/Time Labs Ordered Labs to be done on [date and time ordered]: 06/18/24 @2300
[2024-06-17 04:00] VITALS: BP 104/69; PULSE 65; RESP 18; TEMP 36.3; O2SAT 95
[2024-06-17 05:24] VITALS: BMI 48.9
[2024-06-17] MEDS: metroNIDAZOLE 500 MG Tablet PO ×3 (06:17→21:05)
[2024-06-17] MEDS: Insulin Lispro 100 UNIT/ML INSULN.PEN SC ×4 (06:19→21:10)
[2024-06-17 06:34] LABS: Absolute Lymphocyte Count 1.61 X10^3/uL (0.83-4.51); Absolute Neutrophil Count 3.7 X10^3/uL (2.0-7.7); Basophil# 0.03 X10^3/uL; Basophil% 0.5 % (0-1); Eosinophil# 0.48 X10^3/uL; Eosinophils% 7.7 % (0-5); Hematocrit 37.4 % (40-54); Hemoglobin 12.2 g/dL (13.0-16.5); Lymphocyte # 1.61 X10^3/ul (0.83-4.51); Lymphocyte % 25.7 % (19-41); Mean Corp Hgb Conc 32.6 g/dL (32-36); Mean Corpuscular Hgb 29.6 pg (27.0-32.0); Mean Corpuscular Volume 90.8 fL (80-94); Mean Platelet Vol. 9.4 fl (6.2-12.0); Monocyte# 0.46 X10^3/uL; Monocyte% 7.3 % (0-10); NRBC Flagged by Analyzer 0 % (0-5); Neutrophil # 3.65 X10^3/uL (2.7-7.7); Neutrophil % 58.3 % (47-70); Platelet Count 173 K/mm3 (150-450); RBC Distribution Width CV 13.7 % (11.6-14.6); RBC Distribution Width SD 45.8 fl (35.1-43.9); Red Blood Count 4.12 M/mm3 (4.6-6.2); White Blood Count 6.3 K/mm3 (4.4-11.0)
[2024-06-17 07:31] LABS: Anion Gap 4 (5-15); BUN 15 mg/dL (7-18); Calcium,Total 8.8 mg/dL (8.5-10.1); Chloride 108 mmol/L (98-107); Creatinine, Serum 0.88 mg/dL (0.70-1.30); EST Glomerular Filtration Rate 94 mL/min (>60); Est Glom Filt Rate - Afr Amer 114 mL/min (>60); Estimated Creatinine Clearance 140.83 ml/min; Glucose 184 mg/dL (74-106); Magnesium 2.1 mg/dL (1.6-2.6); Phosphorus 3.4 mg/dL (2.5-4.9); Sodium Level 138 mmol/L (136-145)
[2024-06-17 09:35] VITALS: BP 108/62; PULSE 62; RESP 18; TEMP 36.3; O2SAT 96
[2024-06-17] MEDS: Lisinopril 20 MG Tablet PO ×2 (09:43→21:06)
[2024-06-17] MEDS: APIXABAN 5 MG TABLET PO ×2 (09:43→21:06)
[2024-06-17] MEDS: Empagliflozin 25 MG Tablet PO (09:43)
[2024-06-17] MEDS: hydroCHLOROthiazide 25 MG Tablet PO (09:43)
[2024-06-17] MEDS: Ascorbic Acid 500 MG Tablet 1000 MG PO ×2 (09:43→17:33)
[2024-06-17] MEDS: Zinc Sulfate 50 mg zinc (220 mg) ORAL capsule PO (09:43)
[2024-06-17 09:44] VITALS: BP 108/62; PULSE 62
[2024-06-17] MEDS: Aspirin E.C. 81 MG Tablet PO (09:44)
[2024-06-17] MEDS: Lactobacillis Acidophilus 1 CAP PO ×4 (09:44→21:05)
[2024-06-17] MEDS: Cholecalciferol (Vit D3) 125 MCG CAPSULE (5,000 UNITS) PO (09:44)
[2024-06-17] MEDS: Metoprolol Tartrate 50 MG Tablet PO ×2 (09:44→21:07)
[2024-06-17] MEDS: TICAGRELOR 90 MG TABLET PO ×2 (09:44→21:06)
[2024-06-17] MEDS: Insulin Glargine-YFGN 100 UNIT/ML Pen 12 UNIT SC (09:46)
[2024-06-17] MEDS: Acetaminophen 325 MG Tablet 650 MG PO ×2 (09:51→20:00)
--- NOTE | 2024-06-17 11:58 | ART_ITS ---
Reason For Study: Lt Toe Wound Procedure A bilateral lower extremity continuous wave Doppler with analog waveform analysis and ankle brachial indexes. Left Segmental Pressures Left posterior tibial artery = >254mmHg. Left dorsalis pedis artery = >254mmHg. Unable to acquire Lt Brachial due to IV placement. Unable acquire Lt Toe due to wounds/bandages. Right Segmental Pressures Right brachial= 130mmHg. Right posterior tibial artery = >254mmHg. Right dorsalis pedis artery = >254mmHg. Right digit = 88 mmHg. Indices The right ankle brachial index by the posterior tibial artery is N/C. The right ankle brachial index by the dorsalis pedis is N/C. The right digital-brachial index is 0.68. The left ankle brachial index by the posterior tibial artery is N/C. The left ankle brachial index by the dorsalis pedis is N/C. VL/Lower Ext Art Exam w/o Exercis Interpretation Summary Right THERESA not able to be obtained due to non-compressible vessels. Doppler/PVR waveforms of the right leg normal at rest. TBI diminished, pedal/digit disease Left THERESA not able to be obtained due to non-compressible vessels. Doppler/PVR w aveforms of the left leg normal at rest. Ordering Physician: Saran Parada Referring Physician: Lani Paiz M.D. Performed By: Judah Stanton RVT
[2024-06-17] MEDS: Cefepime HCl 2 GM in 0.9% Normal Saline (100mL MB+) 100 ML IV ×2 (12:20→21:02)
--- NOTE | 2024-06-17 12:50 | CON.PCM_ITS ---
Assessment & Plan Assessment/Plan (1) Toe osteomyelitis, left: PLAN: MRI confirmed and is sensitive to some form of bone infection and will schedule for surgery (2) Morbid obesity with BMI of 45.0-49.9, adult: PLAN: Does need to lose weight at some point he is on a medication that slows his gastric emptying. (3) Type 2 diabetes mellitus: QUALIFIERS: Diabetes mellitus long term care social worker insulin use: with long term care social worker use Diabetes mellitus complication status: with circulatory complication Diabetes mellitus complication detail: with other circulatory complications Q ualified Code(s): E11.59 - Type 2 diabetes mellitus with other circulatory complications; Z79.4 - assisted (current) use of insulin PLAN: Diabetic neuropathy. (4) Cellulitis: QUALIFIERS: Site of cellulitis: extremity Site of cellulitis of extremity: toe Laterality: left Qualified Code(s): L03.032 - Cellulitis of left toe PLAN: On IV antibiotics for now. He does need controlled and will need PICC line. (5) Diabetic foot ulcer associated with type 2 diabetes mellitus: QUALIFIERS: Diabetic foot ulcer location: unspecified part of foot Laterality: left Non-pressure ulcer stage: limited to breakdown of skin Q ualified Code(s): E11.621 - Type 2 diabetes mellitus with foot ulcer; L97.521 - Non-pressure chronic ulcer of other part of left foot limited to breakdown of skin PLAN: Plan For now I think the patient would do well with some form of bone biopsy washout, delayed flap and/or delayed primary closure. The patient will need to have surgery on Wednesday as he is not septic right now we will schedule him for this at the same time then we will need probably IV antibiotic therapy for 6 weeks. I discussed risks complications and benefits of the surgical procedures is even a chance he may need possibly hyperbaric oxygen, he may also need further amputation of the does not to heal if this does not heal appropriately. HPI Consult Data Date of Consult: 06/17/24 HPI Narrative Reason for Consultation: Nonhealing ulceration left great toe HPI Narrative: DORIAN DENIS, is a 58 M who presents presented to the emergency room with increased swelling redness pain to his left lower leg. Patient has had this wound since October he stated that he does work at [employer] has been on his feet he does see a doctor up in [place] who happens to be his same doctor for his son. Therefore they are friends she has been treating this she recently had put a graft on the left great toe about a month ago he even had an MRI a month ago that was negative for anything. Past medical history of diabetes, hypertension, struct of sleep apnea, morbid obesity, he does use a BiPAP. [facility] Medical History (Updated 06/17/24 @ 13:[address] Sergei Vera MD) Toe osteomyelitis, left Maxillary sinusitis, acute Hyperglycemia CKD (chronic kidney disease), stage II Paroxysmal atrial flutter SVETLANA (obstructive sleep apnea) COVID (05/31/21) Hyperlipidemia Diabetes Obesity Type 2 diabetes mellitus Essential (primary) hypertension History of non-ST elevation myocardial infarction (NSTEMI) (08/06/20) Atherosclerotic heart disease of [place] coronary artery without angina pectoris Home Medications ?Medication ?Instructions ?Recorded ?Last Taken ?Type testosterone cypionate 200 mg/mL 400 mg subcut Q2W hormones 06/23/21 Unknown History intramuscular oil rosuvastatin 20 mg tablet 20 mg PO Q OTHER DAY cholesterol 02/04/22 Unknown Rx #45 tabs apixaban 5 mg tablet (Eliquis) 5 mg PO BID #180 tabs 09/23/23 Unknown Rx empagliflozin 25 mg tablet 25 mg PO DAILY 10/29/23 Unknown History (Jardiance) aspirin 81 mg tablet,delayed 81 mg PO BREAKFAST #30 tabs 11/01/23 Unknown Rx release metformin 1,000 mg tablet 1,000 mg PO BID #60 tabs 11/01/23 Unknown Rx acetaminophen 500 mg tablet 1,000 mg PO BID PRN fever or pain 11/24/23 Unknown History loratadine 10 mg tablet 10 mg PO DAILY PRN allergies 11/24/23 Unknown History semaglutide 0.25 mg or 0.5 mg (2 0.5 mg subcut QWEEK 11/24/23 Unknown History mg/3 mL) subcutaneous pen injector (Ozempic) insulin glargine 100 unit/mL (3 12 unit subcut BID 01/06/24 Unknown History mL) subcutaneous pen (Lantus Solostar U-100 Insulin) hydrochlorothiazide 25 mg tablet 25 mg PO DAILY diuretic #90 tabs 03/15/24 Unknown Rx lisinopril 20 mg tablet 20 mg PO BID #180 tabs 03/17/24 Unknown Rx metoprolol tartrate 50 mg tablet 50 mg PO BID #180 tabs 03/20/24 Unknown Rx nitroglycerin 0.4 mg sublingual 0.4 mg sublingual Q5M PRN 04/06/24 Unknown Rx tablet Cardiac/Chest Pain #25 tabs ticagrelor 90 mg tablet (Brilinta) 90 mg PO BID #180 TABLETS 05/23/24 Unknown Rx amlodipine 5 mg tablet 5 mg PO DAILY PRN BP 06/15/24 Unknown History Allergy/AdvReac Type Severity Reaction Status Date / Time Penicillins (PCN) Allergy Unknown Verified 06/15/24 18:16 Family History Mother CVA (cerebral vascular accident) Heart disease Hypertension Father Aortic aneurysm Cancer Surgical History History of left heart catheterization (10/29/23) History of cholecystectomy History of coronary artery stent placement (10/29/23) Social History household members: spouse Smoking Status: Never smoker second hand exposure: Yes alcohol intake: current alcohol intake frequency: a few times a month Alcohol type: hard liquor substance use type: does not use caffeine: Yes Type: carbonated beverages Number of servings: 1 and coffee Number of servings: 1 ROS ROS Narrative Patient is alert active and oriented no acute distress he is seen sitting up in his bed he is adamant that he is not want to lose his great toe and/or his foot. He is going to be 59 years of age very much worried that this could happen if he does not take care of this toe. Patient currently lives in [place] Respiratory/Chest Respiratory/Chest: Reports systems reviewed and no addt'l complaints, except as documented Gastrointestinal Gastrointestinal: Reports systems reviewed and no addt'l complaints, except as documented Genitourinary Genitourinary: Reports systems reviewed and no addt'l complaints, except as documented Musculoskeletal Musculoskeletal: Reports systems reviewed and no addt'l complaints, except as documented Integumentary Integumentary: Reports systems reviewed and no addt'l complaints, except as documented and as per HPI Neurologic Neurologic: Reports systems reviewed and no addt'l complaints, except as documented Psychiatric Psychiatric: Reports systems reviewed and no addt'l complaints, except as documented Endocrine Endocrinology: Reports systems reviewed and no addt'l complaints, except as documented Physical Exam Narrative Most noted on exam is that he has cellulitis of his left great toe this extending to about the metatarsophalangeal joint with scaling skin to the toe itself. The patient does have an ulceration at the IPJ of the left hallux which measures 0.4 x 0.4 x 0.4 in depth. I believe I am able to palpate the bone I believe this is related to the infection at the interphalangeal joint. As noted from his past pictures that he showed me he does have decreased swelling it does look less tented in his skin. He does have some epidural lysis and skin sloughing noted due to shrinking of the swelling. He still has an open wound medially at the IPJ His pulses are palpable he has peripheral neuropathy as I am able to take a culture and actually palpate his bone without pain. He does have significant metatarsus adductus and skew foot which is causing a lot of his deformity to secondary to the amount of pressure sub-IPJ left hallux. Therefore performing surgery on him to actually resolve this pressure with beneficial as a García and/or IPJ arthroplasty would help this patient. Range of motion is normal he has greater than 90 degrees dorsiflexion that is smooth and nonproblematic. He does have mild flatfoot deformity. Again ulceration, cellulitis left foot x-rays were reviewed MRI reviewed Extremity Extremity Narrative: Nonhealing ulceration left great toe medial border to the IPJ of the left hallux open ulceration with cellulitis and possible osteomyelitis MRI is positive for osteomyelitis and/or at least T2 swelling of the left foot. Lab / Micro Data Attestation: I reviewed the patient's lab results. Lab results narrative: Patient's white count is within normal limits, his sed rate is 38, his CRP is elevated at 3.1 therefore I am uncertain if I actually need to perform anything more than bone biopsy he does not want to lose the toe therefore we will perform toe salvage at this point plan for then a flap closure, advancement flap along with incision and drainage bone cortex of the left great toe schedule this Wednesday may need to discuss this with scheduling on Wednesday will follow-up tomorrow to recheck. 06/17/24 06:13 06/17/24 06:13 Labs: Laboratory Results - last 24 hr 06/16/24 17:02: POC Glucose 151 H 06/16/24 22:29: POC Glucose 121 H 06/16/24 23:13: Vancomycin Trough 19.1 H 06/17/24 06:13: WBC 6.3, RBC 4.12 L, Hgb 12.2 L, Hct 37.4 L, MCV 90.8, MCH 29.6, MCHC 32.6, RDW Std Deviation 45.8 H, RDW Coeff of [place]ime[place] 13.7, Plt Count 173, MPV 9.4, Immature Gran % (Auto) 0.500, Neut % (Auto) 58.3, Lymph % (Auto) 25.7, [place] % (Auto) 7.3, Eos % (Auto) 7.7 H, Baso % (Auto) 0.5, Absolute Neuts (auto) 3.7, Absolute Lymphs (auto) 1.61, Nucleated RBC % 0, Sodium 138, Potassium 4.0, C hloride 108 H, Carbon Dioxide 26.0, Anion Gap 4 L, BUN 15, Creatinine 0.88, Estim Creat Clear Calc 140.83, Est GFR (MDRD) Af Amer 114, Est GFR (MDRD) Non-Af 94, BUN/Creatinine Ratio 17.0, Glucose 184 H, Calcium 8.8, Phosphorus 3.4, Magnesium 2.1
[2024-06-17 13:15] LABS: Bedside Glucose 167 mg/dL (74-106)
[2024-06-17] MEDS: 0.9% Saline Lock 10 ML Syringe IV (15:13)
[2024-06-17 15:25] VITALS: BP 110/61; PULSE 74; RESP 18; TEMP 36.3; O2SAT 94
--- NOTE | 2024-06-17 15:29 | PCM.PN.HOSP ---
Reason for Visit Reason for Visit: Diagnoses Type 2 diabetes mellitus with other circulatory complications (06/15/24) Type 2 diabetes mellitus with foot ulcer (06/15/24) Type 2 diabetes mellitus without complications (06/15/24) Morbid (severe) obesity due to excess calories (06/15/24) Obstructive sleep apnea (adult) (pediatric) (06/15/24) Atherosclerotic heart disease of [place] coronary artery without angina pectoris (06/15/24) Unspecified atrial flutter (06/15/24) Cellulitis of left toe (06/15/24) Cellulitis, unspecified (06/15/24) Non-pressure chronic ulcer of other part of unspecified foot with unspecified severity (06/15/24) Non-pressure chronic ulcer of other part of left foot limited to breakdown of skin (06/15/24) Osteomyelitis, unspecified (06/15/24) Chest pain, unspecified (06/15/24) Body mass index [BMI] 45.0-49.9, adult (06/15/24) 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 (06/15/24) Presence of coronary angioplasty implant and graft (06/15/24) Objective Data Objective Data Vital Signs: Vital Signs Temp Pulse Resp BP Pulse Ox O2 Del Method 97.3 F L 74 18 110/61 94 Room Air 06/17/24 15:25 06/17/24 15:25 06/17/24 15:25 06/17/24 15:25 06/17/24 15:25 06/17/24 15:25 Oxygen Delivery Method Room Air Weight: 350 lb 12.087 oz Body Mass Index (BMI) 48.9 Intake & Output: Intake and Output for Last 24 Hours 06/15/24 06/16/24 06/17/24 23:59 23:59 23:59 Intake Total 100 / 100 3520 / 3520 1520 / 1520 Balance 100 / 100 3520 / 3520 1520 / 1520 Lab / Micro Data 06/17/24 06:13 06/17/24 06:13 Labs: Laboratory Results - last 24 hr 06/16/24 17:02: POC Glucose 151 H 06/16/24 22:29: POC Glucose 121 H 06/16/24 23:13: Vancomycin Trough 19.1 H 06/17/24 06:13: WBC 6.3, RBC 4.12 L, Hgb 12.2 L, Hct 37.4 L, MCV 90.8, MCH 29.6, MCHC 32.6, RDW Std Deviation 45.8 H, RDW Coeff of Simeon 13.7, Plt Count 173, MPV 9.4, Immature Gran % (Auto) 0.500, Neut % (Auto) 58.3, Lymph % (Auto) 25.7, [place] % (Auto) 7.3, Eos % (Auto) 7.7 H, Baso % (Auto) 0.5, Absolute Neuts (auto) 3.7, Absolute Lymphs (auto) 1.61, Nucleated RBC % 0, Sodium 138, Potassium 4.0, Chloride 108 H, Carbon Dioxide 26.0, Anion Gap 4 L, BUN 15, Creatinine 0.88, Estim Creat Clear Calc 140.83, Est GFR (MDRD) Af Amer 114, Est GFR (MDRD) Non-Af 94, BUN/Creatinine Ratio 17.0, Glucose 184 H, Calcium 8.8, Phosphorus 3.4, Magnesium 2.1 06/17/24 11:24: POC Glucose 167 H Physical Exam Narrative Seen and examined The patient is stated that his left great toe got worse with more swelling and redness. He does not have pain. Discussed with internet webmaster Dr. Gould and Dr. Razo. Follows internet webmaster Dr. Ibrahim in [facility]. No fever or chills. Has CAD status post stent. No acute chest pain or shortness of breath now. Physical exam: General: Alert, Oriented x3, Cooperative, BMI 48.1 kg/m?, morbid obesity HEENT: Atraumatic, PERRLA, EOMI, Normocephalic Oral: No Gingival or Mucosal Lesions/ Ulcerations Neck: Supple, No JVD, Negative Carotid Bruits Chest wall/Lungs: Air entry diminished in bilateral lung bases. No crepitation/rhonchi Cardiovascular: Sinus rhythm, Normal S1, Normal S2, No M/G/R Abdomen: Bowel Sounds Present, Soft, Non Tender, Non-Distended : No dysuria. No renal angle tenderness. No suprapubic tenderness. Extremities: No edema, Capillary Refill Less than 3 Seconds Skin: Swelling, redness and some pus point on the medial aspect of left great toe with fluctuation. Left foot was examined after removal of dressing. Musculoskeletal: No Tenderness to Palpation of Joints or Extremities Neurological: Cranial nerves II-XII grossly intact, DTR 2+/4. Mild bilateral feet neuropathy Psych/Mental Status: Normal Affect, Appropriate. Assessment & Plan Assessment/Plan (1) Diabetic foot ulcer associated with type 2 diabetes mellitus: QUALIFIERS: Diabetic foot ulcer location: unspecified part of foot Laterality: left Non-pressure ulcer stage: limited to breakdown of skin Qualified Code(s): E11.621 - Type 2 diabetes mellitus with foot ulcer; L97.521 - Non-pressure chronic ulcer of other part of left foot limited to breakdown of skin (2) Cellulitis: QUALIFIERS: Site of cellulitis: extremity Site of cellulitis of extremity: toe Laterality: left Qualified Code(s): L03.032 - Cellulitis of left toe (3) Chest pain: QUALIFIERS: Chest pain type: unspecified Qualified Code(s): R07.9 - Chest pain, unspecified PLAN: Plan 58-year-old male was admitted with left leg and foot pain with swelling and redness and worsening of ulcer in left toe since October 2023. Chronic wound on the left foot completed 10 days course of oral Nuzyra, tetracycline. Patient also complained of musculoskeletal type pain in the chest with movement. 1. Left chronic toe ulcer with worsening and contiguous cellulitis with outpatient failure of antibiotic: Patient is admitted on PCU. CRP 31.4, ESR 38. Currently on IV vancomycin and cefepime. Curb And Gutter Laborer, and ID consulted. Does not complain of much pain. Wound nurse consulted. Left foot MRI shows great toe ulcer with surrounding cellulitis, suspected osteomyelitis of proximal distal phalange of great toe with mild subcutaneous soft tissue edema noted dorsal foot. Venous duplex of lower extremity 06/17: I discussed with internet webmaster and expressed my concern that there is worsening of left great toe swelling with past-pointing and redness and cellulitis. Patient was not seen by internet webmaster for 24 hours despite my calling to Dr. Gould in the morning. Later on seen by Dr. Vera. He will need bone biopsy/wound debridement. Continue IV antibiotic. 2. Most likely musculoskeletal chest pain with history of CAD status post stents: Patient had chest pain midsternal localized after he pulled the chest muscle. 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 Two serial twelve-lead EKG individually reviewed. NSR 65/min, QTc [address]-T changes. Chest CTA negative. Serial troponins are negative. ACS ruled out. Continue patient home cardiac medications. 06/17: No acute cardiac issues yesterday and today. 3. DM-2; uncontrolled hyperglycemia: A1c 8.4, glucose 118-141. Patient on metformin, empagliflozin, semaglutide and glargine insulin. Oral agents held. Accu-Chek before meals and at bedtime with Humalog sliding scale coverage and hypoglycemia protocol. 06/17: Glucose fluctuates between 121?184 . Lantus dose increased 4. Morbid obesity; with BMI of 49.3 this admission and SVETLANA; on CPAP: Weight loss recommended. TSH normal 2.33. 5. Paroxysmal A-fib; on apixaban - Maintain on apixaban. 6. Essential hypertension; on metoprolol, lisinopril, amlodipine and hydrochlorothiazide - Maintain home regimen as previous. 7. Hyperlipidemia; on rosuvastatin - Continue rosuvastatin and check Lipid Profile in light of #1 & #2. 8. CKD; stage II - serum creatinine of 1.06 mg/dL, BUN of 21 mg/dL and EGFR of 76 mL/min. BUNs/creatinine normal range. 9. Testosterone deficiency; on HRT - Hold testosterone replacement until further notice. 10. Mild intermittent Asthma; on budesonide-formoterol - Stable without acute flare noted at this time. Continue current treatment plus give nebulizers prn for breakthrough symptoms. DVT prophylaxis - Patient is already on apixaban, continued. Clinical Impression(s) from Imaging Studies Chest CTA 06/15/24 19:18 IMPRESSION: Negative CTA chest. Electronically Signed: Tarun Forrester MD at 20:42 EST , Venous Duplex 06/15/24 19:22 IMPRESSION: Normal left lower extremity duplex venous ultrasound. Foot X-Ray 06/15/24 20:20 IMPRESSION: No acute findings in the left foot. Echocardiogram 06/16/24 00:19 Interpretation Summary Mild concentric left ventricular hypertrophy. The left ventricular ejection fraction is 65 %. Stage 1 diastolic dysfunction. The left atrium is moderately enlarged. The study was technically difficult. Lower Extremity MRI 06/16/24 00:19 IMPRESSION: Great toe ulcer with surrounding cellulitis. Suspected osteomyelitis of the proximal and distal phalanges of the great toe. Mild subcutaneous soft tissue edema along the dorsum of the foot. Electronically Signed: George Donovan MD at 10:37 EST , Charges/Coding Visit Charges Inpatient E&M: 54578 Subs Hosp L2
[2024-06-17 17:17] LABS: Bedside Glucose 173 mg/dL (74-106)
[2024-06-17 17:56] LABS: Bedside Glucose 156 mg/dL (74-106)
[2024-06-17 21:00] VITALS: BP 124/68; PULSE 66; RESP 18; TEMP 36.6; O2SAT 94
[2024-06-17 21:07] VITALS: PULSE 66
[2024-06-17] MEDS: Insulin Glargine-YFGN 100 UNIT/ML Pen 15 UNIT SC (21:11)
[2024-06-17 22:24] LABS: Bedside Glucose 190 mg/dL (74-106)
[2024-06-18 03:00] VITALS: BP 118/69; PULSE 60; RESP 18; TEMP 36.6; O2SAT 96
[2024-06-18] MEDS: metroNIDAZOLE 500 MG Tablet PO ×3 (06:25→22:00)
[2024-06-18] MEDS: Insulin Lispro 100 UNIT/ML INSULN.PEN SC ×2 (06:28→12:12)
[2024-06-18] MEDS: Vancomycin HCl 1,500 MG in 0.9% Normal Saline (500mL Bag) 500 ML 250 MG IV ×3 (06:47→23:55)
[2024-06-18 06:48] LABS: Bedside Glucose 159 mg/dL (74-106)
[2024-06-18] MEDS: 0.9% Saline Lock 10 ML Syringe IV ×3 (06:52→23:55)
[2024-06-18] MEDS: Acetaminophen 325 MG Tablet 650 MG PO ×3 (06:52→23:55)
[2024-06-18 06:58] LABS: Absolute Lymphocyte Count 1.68 X10^3/uL (0.83-4.51); Absolute Neutrophil Count 3.8 X10^3/uL (2.0-7.7); Basophil# 0.04 X10^3/uL; Basophil% 0.6 % (0-1); Eosinophil# 0.42 X10^3/uL; Eosinophils% 6.5 % (0-5); Hematocrit 37.9 % (40-54); Hemoglobin 12.2 g/dL (13.0-16.5); Lymphocyte # 1.68 X10^3/ul (0.83-4.51); Lymphocyte % 25.8 % (19-41); Mean Corp Hgb Conc 32.2 g/dL (32-36); Mean Corpuscular Hgb 29.5 pg (27.0-32.0); Mean Corpuscular Volume 91.8 fL (80-94); Mean Platelet Vol. 9.4 fl (6.2-12.0); Monocyte% 7.7 % (0-10); NRBC Flagged by Analyzer 0 % (0-5); Neutrophil # 3.84 X10^3/uL (2.7-7.7); Neutrophil % 58.9 % (47-70); Platelet Count 173 K/mm3 (150-450); RBC Distribution Width CV 13.9 % (11.6-14.6); Red Blood Count 4.13 M/mm3 (4.6-6.2); White Blood Count 6.5 K/mm3 (4.4-11.0)
[2024-06-18 07:17] LABS: Anion Gap 5 (5-15); BUN 19 mg/dL (7-18); BUN/Creat Ratio 18.8 RATIO (10-20); Chloride 107 mmol/L (98-107); Creatinine, Serum 1.01 mg/dL (0.70-1.30); EST Glomerular Filtration Rate 80 mL/min (>60); Est Glom Filt Rate - Afr Amer 97 mL/min (>60); Estimated Creatinine Clearance 122.71 ml/min; Glucose 182 mg/dL (74-106); Sodium Level 138 mmol/L (136-145)
[2024-06-18 09:00] VITALS: BP 103/49; PULSE 62; RESP 18; TEMP 36.6; O2SAT 96
[2024-06-18] MEDS: Ascorbic Acid 500 MG Tablet 1000 MG PO ×2 (09:42→17:38)
[2024-06-18 09:43] VITALS: BP 103/49; PULSE 62
[2024-06-18] MEDS: Aspirin E.C. 81 MG Tablet PO (09:43)
[2024-06-18] MEDS: Metoprolol Tartrate 50 MG Tablet PO ×2 (09:43→22:00)
[2024-06-18] MEDS: Lactobacillis Acidophilus 1 CAP PO ×4 (09:43→22:00)
[2024-06-18] MEDS: Lisinopril 20 MG Tablet PO ×2 (09:43→22:00)
[2024-06-18] MEDS: APIXABAN 5 MG TABLET PO ×2 (09:44→22:00)
[2024-06-18] MEDS: TICAGRELOR 90 MG TABLET PO (09:44)
[2024-06-18] MEDS: hydroCHLOROthiazide 25 MG Tablet PO (09:44)
[2024-06-18] MEDS: Zinc Sulfate 50 mg zinc (220 mg) ORAL capsule PO (09:44)
[2024-06-18] MEDS: Empagliflozin 25 MG Tablet PO (09:45)
[2024-06-18] MEDS: Cholecalciferol (Vit D3) 125 MCG CAPSULE (5,000 UNITS) PO (09:45)
[2024-06-18] MEDS: Insulin Glargine-YFGN 100 UNIT/ML Pen 15 UNIT SC (09:47)
[2024-06-18] MEDS: Cefepime HCl 2 GM in 0.9% Normal Saline (100mL MB+) 100 ML IV ×2 (09:49→21:59)
[2024-06-18 12:08] LABS: Bedside Glucose 159 mg/dL (74-106)
--- NOTE | 2024-06-18 12:20 | PN.HOSP_ITS ---
Reason for Visit Reason for Visit: Diagnoses Type 2 diabetes mellitus with other circulatory complications (06/15/24) Type 2 diabetes mellitus with foot ulcer (06/15/24) Type 2 diabetes mellitus without complications (06/15/24) Morbid (severe) obesity due to excess calories (06/15/24) Obstructive sleep apnea (adult) (pediatric) (06/15/24) Atherosclerotic heart disease of [place] coronary artery without angina pectoris (06/15/24) Unspecified atrial flutter (06/15/24) Cellulitis of left toe (06/15/24) Cellulitis, unspecified (06/15/24) Non-pressure chronic ulcer of other part of unspecified foot with unspecified severity (06/15/24) Non-pressure chronic ulcer of other part of left foot limited to breakdown of skin (06/15/24) Osteomyelitis, unspecified (06/15/24) Chest pain, unspecified (06/15/24) Body mass index [BMI] 45.0-49.9, adult (06/15/24) 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 (06/15/24) Presence of coronary angioplasty implant and graft (06/15/24) Objective Data Objective Data Vital Signs: Vital Signs Temp Pulse Resp BP Pulse Ox O2 Del Method 97.8 F 62 18 103/49 L 96 Room Air 06/18/24 09:00 06/18/24 09:43 06/18/24 09:00 06/18/24 09:43 06/18/24 09:00 06/18/24 09:31 Oxygen Delivery Method Room Air Weight: 350 lb 12.087 oz Body Mass Index (BMI) 48.9 Intake & Output: Intake and Output for Last 24 Hours 06/16/24 06/17/24 06/18/24 23:59 23:59 23:59 Intake Total 3520 / 3520 3030 / 3030 2520 / 2520 Balance 3520 / 3520 3030 / 3030 2520 / 2520 Lab / Micro Data 06/18/24 06:40 06/18/24 06:40 Labs: Laboratory Results - last 24 hr 06/17/24 06:18: POC Glucose 173 H 06/17/24 11:24: POC Glucose 167 H 06/17/24 17:29: POC Glucose 156 H 06/17/24 21:09: POC Glucose 190 H 06/18/24 06:28: POC Glucose 159 H 06/18/24 06:40: WBC 6.5, RBC 4.13 L, Hgb 12.2 L, Hct 37.9 L, MCV 91.8, MCH 29.5, MCHC 32.2, RDW Std Deviation 47.0 H, RDW Coeff of Simeon 13.9, Plt Count 173, MPV 9.4, Immature Gran % (Auto) 0.500, Neut % (Auto) 58.9, Lymph % (Auto) 25.8, [place] % (Auto) 7.7, Eos % (Auto) 6.5 H, Baso % (Auto) 0.6, Absolute Neuts (auto) 3.8, Absolute Lymphs (auto) 1.68, Nucleated RBC % 0, Sodium 138, Potassium 4.0, Chloride 107, Carbon Dioxide 26.0, Anion Gap 5, BUN 19 H, Creatinine 1.01, Estim Creat Clear Calc 122.71, Est GFR (MDRD) Af Amer 97, Est GFR (MDRD) Non-Af 80, BUN/Creatinine Ratio 18.8, Glucose 182 H, Calcium 9.0 06/18/24 11:39: POC Glucose 159 H Micro: Microbiology 06/17/24 12:40 Wound - Toe Gram Stain - Final 06/17/24 12:40 Wound - Toe Wound Culture - Preliminary GNR Poss Pseudomonas sp Physical Exam Narrative Seen and examined Left great toe looks better with improved swelling and redness. Does not have pain. Patient was seen by welt trimming machine operator Dr. Razo. Follows welt trimming machine operator Dr. Ibrahim in [facility]. No fever or chills. Has CAD status post stent. No acute chest pain or shortness of breath now. Physical exam: General: Alert, Oriented x3, Cooperative, BMI 48.1 kg/m?, morbid obesity HEENT: Atraumatic, PERRLA, EOMI, Normocephalic Oral: No Gingival or Mucosal Lesions/ Ulcerations Neck: Supple, No JVD, Negative Carotid Bruits Chest wall/Lungs: Air entry diminished in bilateral lung bases. No crepitation/rhonchi Cardiovascular: Sinus rhythm, Normal S1, Normal S2, No M/G/R Abdomen: Bowel Sounds Present, Soft, Non Tender, Non-Distended : No dysuria. No renal angle tenderness. No suprapubic tenderness. Extremities: No edema, Capillary Refill Less than 3 Seconds Skin: Swelling, redness has improved and almost looks normal. Covered with a dressing. Musculoskeletal: No Tenderness to Palpation of Joints or Extremities Neurological: Cranial nerves II-XII grossly intact, DTR 2+/4. Mild bilateral feet neuropathy Psych/Mental Status: Normal Affect, Appropriate. Assessment & Plan Assessment/Plan (1) Diabetic foot ulcer associated with type 2 diabetes mellitus: QUALIFIERS: Diabetic foot ulcer location: unspecified part of foot Laterality: left Non-pressure ulcer stage: limited to breakdown of skin Q ualified Code(s): E11.621 - Type 2 diabetes mellitus with foot ulcer; L97.521 - Non-pressure chronic ulcer of other part of left foot limited to breakdown of skin (2) Cellulitis: QUALIFIERS: Site of cellulitis: extremity Site of cellulitis of extremity: toe Laterality: left Qualified Code(s): L03.032 - Cellulitis of left toe (3) Chest pain: QUALIFIERS: Chest pain type: unspecified Qualified Code(s): R07.9 - Chest pain, unspecified PLAN: Plan 58-year-old male was admitted with left leg and foot pain with swelling and redness and worsening of ulcer in left toe since October 2023. Chronic wound on the left foot completed 10 days course of oral Nuzyra, tetracycline. Patient also complained of musculoskeletal type pain in the chest with movement. 1. Left chronic toe ulcer with worsening and contiguous cellulitis with outpatient failure of antibiotic: Patient is admitted on PCU. CRP 31.4, ESR 38. Currently on IV vancomycin and cefepime. Psych Nurse, and ID consulted. Does not complain of much pain. Wound nurse consulted. Left foot MRI shows great toe ulcer with surrounding cellulitis, suspected osteomyelitis of proximal distal phalange of great toe with mild subcutaneous soft tissue edema noted dorsal foot. Venous duplex of lower extremity 06/17: I discussed with welt trimming machine operator and expressed my concern that there is worsening of left great toe swelling with past-pointing and redness and cellulitis. Patient was not seen by welt trimming machine operator for 24 hours despite my calling to Dr. Gould in the morning. Later on seen by Dr. Alejo. He will need bone biopsy/wound debridement. Continue IV antibiotic. 06/18: Hopeful need wound debridement/bone biopsy tomorrow so that we can have tissue culture. 2. Most likely musculoskeletal chest pain with history of CAD status post stents: Patient had chest pain midsternal localized after he pulled the chest muscle. 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 Two serial twelve-lead EKG individually reviewed. NSR 65/min, QTc [address]-T changes. Chest CTA negative. Serial troponins are negative. ACS ruled out. Continue patient home cardiac medications. 06/17: No acute cardiac issues yesterday and today. 3. DM-2; uncontrolled hyperglycemia: A1c 8.4, glucose 118-141. Patient on metformin, empagliflozin, semaglutide and glargine insulin. Oral agents held. Accu-Chek before meals and at bedtime with Humalog sliding scale coverage and hypoglycemia protocol. 06/17: Glucose fluctuates between 121?184 . Lantus dose increased 06/18: Glucose is about 160, better controlled. Glucose 182 in BMP. 4. Morbid obesity; with BMI of 49.3 this admission and SVETLANA; on CPAP: Weight loss recommended. TSH normal 2.33. 5. Paroxysmal A-fib; on apixaban - Maintain on apixaban. 6. Essential hypertension; on metoprolol, lisinopril, amlodipine and hydrochlorothiazide - Maintain home regimen as previous. 7. Hyperlipidemia; on rosuvastatin: Continue rosuvastatin. 8. CKD; stage II - serum creatinine of 1.06 mg/dL, BUN of 21 mg/dL and EGFR of 76 mL/min. BUNs/creatinine normal range. 9. Testosterone deficiency; on HRT - Hold testosterone replacement until further notice. 10. Mild intermittent Asthma; on budesonide-formoterol - Stable without acute flare noted at this time. Continue current treatment plus give nebulizers prn for breakthrough symptoms. DVT prophylaxis - Patient is already on apixaban, continued. Clinical Impression(s) from Imaging Studies Chest CTA 06/15/24 19:18 IMPRESSION: Negative CTA chest. Electronically Signed: Tarun Forrester MD at 20:42 EST , Venous Duplex 06/15/24 19:22 IMPRESSION: Normal left lower extremity duplex venous ultrasound. Foot X-Ray 06/15/24 20:20 IMPRESSION: No acute findings in the left foot. Echocardiogram 06/16/24 00:19 Interpretation Summary Mild concentric left ventricular hypertrophy. The left ventricular ejection fraction is 65 %. Stage 1 diastolic dysfunction. The left atrium is moderately enlarged. The study was technically difficult. Lower Extremity MRI 06/16/24 00:19 IMPRESSION: Great toe ulcer with surrounding cellulitis. Suspected osteomyelitis of the proximal and distal phalanges of the great toe. Mild subcutaneous soft tissue edema along the dorsum of the foot. Electronically Signed: George Donovan MD at 10:37 EST , Charges/Coding Visit Charges Inpatient E&M: 84534 Subs Hosp L2
--- NOTE | 2024-06-18 14:07 | PN.SURG_ITS ---
Subjective Subjective Patient seen today resting in bed and doing fine his toe feels great he states planning for surgery tomorrow for I&D with bone resection along with bone cortex debridement follow-up then. Objective Data Objective Data Patient resting comfortably minimal pain left great toe still swollen ulcer still noted medially dressing intact allowing him to shower as long as he keeps it dry pain is intact and controlled. The culture was positive for Pseudomonas. Vital Signs: Vital Signs Temp Pulse Resp BP Pulse Ox O2 Del Method 97.8 F 62 18 103/49 L 96 Room Air 06/18/24 09:00 06/18/24 09:43 06/18/24 09:00 06/18/24 09:43 06/18/24 09:00 06/18/24 09:31 Oxygen Delivery Method Room Air Weight: 159.1 kg Body Mass Index (BMI) 48.9 Intake & Output: Intake and Output for Last 24 Hours 06/16/24 06/17/24 06/18/24 23:59 23:59 23:59 Intake Total 3520 / 3520 3030 / 3030 2520 / 2520 Balance 3520 / 3520 3030 / 3030 2520 / 2520 Lab / Micro Data Attestation: I reviewed the patient's lab results. 06/18/24 06:40 06/18/24 06:40 Labs: Laboratory Results - last 24 hr 06/17/24 06:18: POC Glucose 173 H 06/17/24 17:29: POC Glucose 156 H 06/17/24 21:09: POC Glucose 190 H 06/18/24 06:28: POC Glucose 159 H 06/18/24 06:40: WBC 6.5, RBC 4.13 L, Hgb 12.2 L, Hct 37.9 L, MCV 91.8, MCH 29.5, MCHC 32.2, RDW Std Deviation 47.0 H, RDW Coeff of Simeon 13.9, Plt Count 173, MPV 9.4, Immature Gran % (Auto) 0.500, Neut % (Auto) 58.9, Lymph % (Auto) 25.8, [place] % (Auto) 7.7, Eos % (Auto) 6.5 H, Baso % (Auto) 0.6, Absolute Neuts (auto) 3.8, Absolute Lymphs (auto) 1.68, Nucleated RBC % 0, Sodium 138, Potassium 4.0, Chloride 107, Carbon Dioxide 26.0, Anion Gap 5, BUN 19 H, Creatinine 1.01, Estim Creat Clear Calc 122.71, Est GFR (MDRD) Af Amer 97, Est GFR (MDRD) Non-Af 80, BUN/Creatinine Ratio 18.8, Glucose 182 H, Calcium 9.0 06/18/24 11:39: POC Glucose 159 H Micro: Microbiology 06/17/24 12:40 Wound - Toe Gram Stain - Final 06/17/24 12:40 Wound - Toe Wound Culture - Preliminary GNR Poss Pseudomonas sp Radiography Diagnostic Testing: As noted above plan for salvage with incision and drainage possibly injecting and implanting bone with antibiotic beads. Physical Exam Narrative Redness decreasing epithelial sloughing as well and less edema noted. Ulcer still open plan for surgery tomorrow Assessment & Plan Assessment/Plan (1) Toe osteomyelitis, left: PLAN: Discussed all risks complications benefits of the surgical procedure at some point if this does not heal he will still lose the toe we planned that the need for him to stay longer would end up happening due to needing to wait for the bone biopsy versus amputation could still like to elect to save the toe will follow-up then. 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
[2024-06-18 15:00] VITALS: BP 112/57; PULSE 58; RESP 18; TEMP 36.6; O2SAT 96
[2024-06-18 17:53] LABS: Bedside Glucose 136 mg/dL (74-106)
[2024-06-18 22:00] VITALS: BP 123/72; PULSE 56; PULSE 58; RESP 18; TEMP 36.2; O2SAT 97
[2024-06-18] MEDS: Atorvastatin Calcium 40 MG Tablet PO (22:00)
[2024-06-18 22:40] LABS: Bedside Glucose 159 mg/dL (74-106)
[2024-06-18 22:53] VITALS: BMI 48.9
[2024-06-18 23:24] LABS: Vancomycin, Trough Level 30.5 ug/mL (5.0-15.0)
[2024-06-19] VITALS (14 sets, daily range): BP systolic 107–127; BP diastolic 41–82; PULSE 52–77; RESP 14–20; TEMP 35.8–36.9; O2SAT 92–98; BMI 49.0
--- NOTE | 2024-06-19 00:26 | PHA.PHARE_ITS ---
Consult Antibiotic Management Pharmacy has been consulted to manage selected antibiotic: Vancomycin Type of Intervention Type of Consult: Follow-up Suspected Infection Suspected Infection: Skin/Soft tissue Labs Labs: Sodium 138 mmol/L (136-145) 06/18/24 06:40 Potassium 4.0 mmol/L (3.5-5.1) 06/18/24 06:40 Chloride 107 mmol/L (98-107) 06/18/24 06:40 Carbon Dioxide 26.0 mmol/L (21.0-32.0) 06/18/24 06:40 Anion Gap 5 (5-15) 06/18/24 06:40 BUN 19 mg/dL (7-18) H 06/18/24 06:40 Creatinine 1.01 mg/dL (0.70-1.30) 06/18/24 06:40 Est GFR (MDRD) Af Amer 97 mL/min (>60) 06/18/24 06:40 Est GFR (MDRD) Non-Af 80 mL/min (>60) 06/18/24 06:40 BUN/Creatinine Ratio 18.8 RATIO (10-20) 06/18/24 06:40 Glucose 182 mg/dL (74-106) H 06/18/24 06:40 Vancomycin Trough 30.5 ug/mL (5.0-15.0) H 06/18/24 20:45 Microbiology Microbiology: Microbiology 06/17/24 12:40 Wound - Toe Gram Stain - Final 06/17/24 12:40 Wound - Toe Wound Culture - Preliminary GNR Poss Pseudomonas sp Dosing Weight Weight used for dosin kg Estimated Creatinine Clearance Estimated Creatinine Clearance: 123 Goal Trough Goal Trough: 15-20 mcg/mL Pharmacy Plan for Drug Dosing Pharmacy Plan for Drug Dosing: Vancomycin trough level of 30.5 was high, however it was drawn just 5.8hrs post- dose. Without a reliable trough another has been scheduled for the morning 7.5hrs after the most recent dose was initiated. Pharmacy Service will continue to monitor and adjust dosing as required. Follow-Up Labs Follow-Up Labs: Trough: Vancomycin Date/Time Labs Ordered Labs to be done on [date and time ordered]: 06/19/24 @0730
[2024-06-19] MEDS: metroNIDAZOLE 500 MG Tablet PO ×2 (05:52→21:55)
[2024-06-19 06:01] LABS: Absolute Lymphocyte Count 2.04 X10^3/uL (0.83-4.51); Absolute Neutrophil Count 3.8 X10^3/uL (2.0-7.7); Basophil# 0.04 X10^3/uL; Basophil% 0.6 % (0-1); Eosinophil# 0.52 X10^3/uL; Eosinophils% 7.6 % (0-5); Hematocrit 37.6 % (40-54); Hemoglobin 12.3 g/dL (13.0-16.5); Lymphocyte # 2.04 X10^3/ul (0.83-4.51); Lymphocyte % 29.7 % (19-41); Mean Corp Hgb Conc 32.7 g/dL (32-36); Mean Corpuscular Hgb 29.4 pg (27.0-32.0); Mean Platelet Vol. 9.5 fl (6.2-12.0); Monocyte# 0.49 X10^3/uL; Monocyte% 7.1 % (0-10); NRBC Flagged by Analyzer 0 % (0-5); Neutrophil # 3.76 X10^3/uL (2.7-7.7); Neutrophil % 54.7 % (47-70); Platelet Count 197 K/mm3 (150-450); RBC Distribution Width SD 45.7 fl (35.1-43.9); Red Blood Count 4.18 M/mm3 (4.6-6.2); White Blood Count 6.9 K/mm3 (4.4-11.0)
[2024-06-19 06:16] LABS: Bedside Glucose 148 mg/dL (74-106)
[2024-06-19 06:24] LABS: Anion Gap 6 (5-15); BUN 21 mg/dL (7-18); BUN/Creat Ratio 24.2 RATIO (10-20); Chloride 108 mmol/L (98-107); Creatinine, Serum 0.87 mg/dL (0.70-1.30); EST Glomerular Filtration Rate 96 mL/min (>60); Est Glom Filt Rate - Afr Amer 116 mL/min (>60); Glucose 170 mg/dL (74-106); Potassium 3.8 mmol/L (3.5-5.1); Sodium Level 137 mmol/L (136-145)
[2024-06-19 07:54] LABS: Vancomycin, Trough Level 27.3 ug/mL (5.0-15.0)
--- NOTE | 2024-06-19 08:22 | PCM.RX.CS ---
Consult Type of Intervention Type of Consult: Follow-up Labs Labs: Sodium 137 mmol/L (136-145) 06/19/24 05:25 Potassium 3.8 mmol/L (3.5-5.1) 06/19/24 05:25 Chloride 108 mmol/L (98-107) H 06/19/24 05:25 Carbon Dioxide 23.0 mmol/L (21.0-32.0) 06/19/24 05:25 Anion Gap 6 (5-15) 06/19/24 05:25 BUN 21 mg/dL (7-18) H 06/19/24 05:25 Creatinine 0.87 mg/dL (0.70-1.30) 06/19/24 05:25 Est GFR (MDRD) Af Amer 116 mL/min (>60) 06/19/24 05:25 Est GFR (MDRD) Non-Af 96 mL/min (>60) 06/19/24 05:25 BUN/Creatinine Ratio 24.2 RATIO (10-20) H 06/19/24 05:25 Glucose 170 mg/dL (74-106) H 06/19/24 05:25 Vancomycin Trough 27.3 ug/mL (5.0-15.0) H 06/19/24 07:18 Microbiology Microbiology: Microbiology 06/17/24 12:40 Wound - Toe Gram Stain - Final 06/17/24 12:40 Wound - Toe Wound Culture - Final Pseudomonas aeruginosa Coag Negative Staph Pharmacy Plan for Drug Dosing Pharmacy Plan for Drug Dosing: VANCOMYCIN LEVEL RECEIVED Current Vancomycin Dose: 1500MG Q8 Number of Doses Received:9 Vancomycin Level: 27.3 MG/DL Hours Since Last Dose: 7.5 Renal Function: SCr 0.87mg/dl Renal Function Trend: stable Lab/Micro: CoNS, pseudomonas Vancomycin Plan/Comments: 7.5 hour trough is supratherapeutic at 27.3 mg/dl (goal 15-20). Will hold dosing at this time and get a random level in 12 hours. Pending Level: 06/19/24 @ 1900 Pharmacy Service will continue to monitor and adjust dosing as required.
[2024-06-19] MEDS: Cefepime HCl 2 GM in 0.9% Normal Saline (100mL MB+) 100 ML IV ×2 (09:34→22:15)
[2024-06-19] MEDS: Lisinopril 20 MG Tablet PO ×2 (09:35→21:54)
[2024-06-19] MEDS: Metoprolol Tartrate 50 MG Tablet PO ×2 (09:35→21:54)
--- NOTE | 2024-06-19 10:56 | PN.HOSP_ITS ---
Reason for Visit Reason for Visit: Diagnoses Type 2 diabetes mellitus with other circulatory complications (06/15/24) Type 2 diabetes mellitus with foot ulcer (06/15/24) Type 2 diabetes mellitus without complications (06/15/24) Morbid (severe) obesity due to excess calories (06/15/24) Obstructive sleep apnea (adult) (pediatric) (06/15/24) Atherosclerotic heart disease of [place] coronary artery without angina pectoris (06/15/24) Unspecified atrial flutter (06/15/24) Cellulitis of left toe (06/15/24) Cellulitis, unspecified (06/15/24) Non-pressure chronic ulcer of other part of unspecified foot with unspecified severity (06/15/24) Non-pressure chronic ulcer of other part of left foot limited to breakdown of skin (06/15/24) Osteomyelitis, unspecified (06/15/24) Chest pain, unspecified (06/15/24) Body mass index [BMI] 45.0-49.9, adult (06/15/24) 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 (06/15/24) Presence of coronary angioplasty implant and graft (06/15/24) Objective Data Objective Data Vital Signs: Vital Signs Temp Pulse Resp BP Pulse Ox O2 Del Method 97.1 F L 61 18 127/70 H 94 Room Air 06/19/24 08:35 06/19/24 09:35 06/19/24 08:35 06/19/24 08:35 06/19/24 08:35 06/19/24 08:37 Oxygen Delivery Method Room Air Weight: 350 lb 8.56 oz Body Mass Index (BMI) 49.0 Intake & Output: Intake and Output for Last 24 Hours 06/17/24 06/18/24 06/19/24 23:59 23:59 23:59 Intake Total 3030 / 3030 3510 / 3510 558.33 / 558.33 Balance 3030 / 3030 3510 / 3510 558.33 / 558.33 Lab / Micro Data 06/19/24 05:25 06/19/24 05:25 Labs: Laboratory Results - last 24 hr 06/18/24 11:39: POC Glucose 159 H 06/18/24 17:16: POC Glucose 136 H 06/18/24 20:45: Vancomycin Trough 30.5 H 06/18/24 21:58: POC Glucose 159 H 06/19/24 05:25: WBC 6.9, RBC 4.18 L, Hgb 12.3 L, Hct 37.6 L, MCV 90.0, MCH 29.4, MCHC 32.7, RDW Std Deviation 45.7 H, RDW Coeff of Simeon 14.0, Plt Count 197, MPV 9.5, Immature Gran % (Auto) 0.300, Neut % (Auto) 54.7, Lymph % (Auto) 29.7, [place] % (Auto) 7.1, Eos % (Auto) 7.6 H, Baso % (Auto) 0.6, Absolute Neuts (auto) 3.8, Absolute Lymphs (auto) 2.04, Nucleated RBC % 0, Sodium 137, Potassium 3.8, C hloride 108 H, Carbon Dioxide 23.0, Anion Gap 6, BUN 21 H, Creatinine 0.87, Estim Creat Clear Calc 142.40, Est GFR (MDRD) Af Amer 116, Est GFR (MDRD) Non-Af 96, BUN/Creatinine Ratio 24.2 H, Glucose 170 H, Calcium 9.0 06/19/24 05:51: POC Glucose 148 H 06/19/24 07:18: Vancomycin Trough 27.3 H Micro: Microbiology 06/17/24 12:40 Wound - Toe Gram Stain - Final 06/17/24 12:40 Wound - Toe Wound Culture - Final Pseudomonas aeruginosa Coag Negative Staph Physical Exam Narrative Seen and examined No acute change. Left great toe looks better with improvement in the swelling and redness. Plan for surgery today. . Patient was seen by staff command and control officer Dr. Razo. Follows staff command and control officer Dr. Ibrahim in [facility]. No fever or chills. Has CAD status post stent. No acute chest pain or shortness of breath now. Physical exam: General: Alert, Oriented x3, Cooperative, BMI 48.1 kg/m?, morbid obesity HEENT: Atraumatic, PERRLA, EOMI, Normocephalic Oral: No Gingival or Mucosal Lesions/ Ulcerations Neck: Supple, No JVD, Negative Carotid Bruits Chest wall/Lungs: Air entry diminished in bilateral lung bases. No crepitation/rhonchi Cardiovascular: Sinus rhythm, Normal S1, Normal S2, No M/G/R Abdomen: Bowel Sounds Present, Soft, Non Tender, Non-Distended : No dysuria. No renal angle tenderness. No suprapubic tenderness. Extremities: No edema, Capillary Refill Less than 3 Seconds Skin: Swelling, redness has improved and almost looks normal. Covered with a dressing. Musculoskeletal: No Tenderness to Palpation of Joints or Extremities Neurological: Cranial nerves II-XII grossly intact, DTR 2+/4. Mild bilateral feet neuropathy Psych/Mental Status: Normal Affect, Appropriate. Assessment & Plan Assessment/Plan (1) Diabetic foot ulcer associated with type 2 diabetes mellitus: QUALIFIERS: Diabetic foot ulcer location: unspecified part of foot Laterality: left Non-pressure ulcer stage: limited to breakdown of skin Q ualified Code(s): E11.621 - Type 2 diabetes mellitus with foot ulcer; L97.521 - Non-pressure chronic ulcer of other part of left foot limited to breakdown of skin (2) Cellulitis: QUALIFIERS: Site of cellulitis: extremity Site of cellulitis of extremity: toe Laterality: left Qualified Code(s): L03.032 - Cellulitis of left toe (3) Chest pain: QUALIFIERS: Chest pain type: unspecified Qualified Code(s): R07.9 - Chest pain, unspecified PLAN: Plan 58-year-old male was admitted with left leg and foot pain with swelling and redness and worsening of ulcer in left toe since October 2023. Chronic wound on the left foot completed 10 days course of oral Nuzyra, tetracycline. Patient also complained of musculoskeletal type pain in the chest with movement. 1. Left chronic toe ulcer with worsening and contiguous cellulitis with outpatient failure of antibiotic: Patient is admitted on PCU. CRP 31.4, ESR 38. Currently on IV vancomycin and cefepime. Patient Account Specialist, and ID consulted. Does not complain of much pain. Wound nurse consulted. Left foot MRI shows great toe ulcer with surrounding cellulitis, suspected osteomyelitis of proximal distal phalange of great toe with mild subcutaneous soft tissue edema noted dorsal foot. Venous duplex of lower extremity 06/17: I discussed with staff command and control officer and expressed my concern that there is worsening of left great toe swelling with past-pointing and redness and cellulitis. Patient was not seen by staff command and control officer for 24 hours despite my calling to Dr. Gould in the morning. Later on seen by Dr. Alejo. He will need bone biopsy/wound debridement. Continue IV antibiotic. 06/18: Hopeful need wound debridement/bone biopsy tomorrow so that we can have tissue culture. 06/19: Plan for surgery today with bone biopsy versus amputation of the toe. Eliquis and ticagrelor is on hold. On IV cefepime, vancomycin and Flagyl. 2. Most likely musculoskeletal chest pain with history of CAD status post stents: Patient had chest pain midsternal localized after he pulled the chest muscle. 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 Two serial twelve-lead EKG individually reviewed. NSR 65/min, QTc [address]-T changes. Chest CTA negative. Serial troponins are negative. ACS ruled out. Continue patient home cardiac medications. 06/17: No acute cardiac issues yesterday and today. 3. DM-2; uncontrolled hyperglycemia: A1c 8.4, glucose 118-141. Patient on metformin, empagliflozin, semaglutide and glargine insulin. Oral agents held. Accu-Chek before meals and at bedtime with Humalog sliding scale coverage and hypoglycemia protocol. 06/17: Glucose fluctuates between 121?184 . Lantus dose increased 06/18: Glucose is about 160, better controlled. Glucose 182 in BMP. 06/19: Glucose is controlled. 4. Morbid obesity; with BMI of 49.3 this admission and SVETLANA; on CPAP: Weight loss recommended. TSH normal 2.33. 5. Paroxysmal A-fib; on apixaban - Maintain on apixaban. 6. Essential hypertension; on metoprolol, lisinopril, amlodipine and hydrochlorothiazide - Maintain home regimen as previous. 7. Hyperlipidemia; on rosuvastatin: Continue rosuvastatin. 8. CKD; stage II - serum creatinine of 1.06 mg/dL, BUN of 21 mg/dL and EGFR of 76 mL/min. BUNs/creatinine normal range. 9. Testosterone deficiency; on HRT - Hold testosterone replacement until further notice. 10. Mild intermittent Asthma; on budesonide-formoterol - Stable without acute flare noted at this time. Continue current treatment plus give nebulizers prn for breakthrough symptoms. DVT prophylaxis - Patient is already on apixaban, continued. Clinical Impression(s) from Imaging Studies Chest CTA 06/15/24 19:18 IMPRESSION: Negative CTA chest. Electronically Signed: Tarun Forrester MD at 20:42 EST , Venous Duplex 06/15/24 19:22 IMPRESSION: Normal left lower extremity duplex venous ultrasound. Foot X-Ray 06/15/24 20:20 IMPRESSION: No acute findings in the left foot. Echocardiogram 06/16/24 00:19 Interpretation Summary Mild concentric left ventricular hypertrophy. The left ventricular ejection fraction is 65 %. Stage 1 diastolic dysfunction. The left atrium is moderately enlarged. The study was technically difficult. Lower Extremity MRI 06/16/24 00:19 IMPRESSION: Great toe ulcer with surrounding cellulitis. Suspected osteomyelitis of the proximal and distal phalanges of the great toe. Mild subcutaneous soft tissue edema along the dorsum of the foot. Electronically Signed: George Donovan MD at 10:37 EST , Charges/Coding Visit Charges Inpatient E&M: 54438 Subs Hosp L2
[2024-06-19 11:57] LABS: Bedside Glucose 145 mg/dL (74-106)
--- NOTE | 2024-06-19 14:48 | PRE.ANES_ITS ---
ASA Classification* ASA Classification ASA Classification: 3 Assessment & Plan Anesthesia* Anesthesia Assessment Anesthesia Assessment: Discussed sedation and/or anesthesia options, risks, benefits, and alternatives with patient/parents/legal guardian/POA. Questions invited. The patient/parents/legal guardian/POA seems to understand and agrees to proceed with anesthesia plan. Reviewed the physical assessment, medical history, allergy history and patient home medications list prior to surgery/procedure/anesthetic and documented any changes. Performed airway and anesthesia risk assessments. Anesthesia Type Anesthesia Type: MAC History Source History Obtained from:: Patient and Chart Anesthesia Focused Assessment* Temperature: 97.1 F Pulse Rate: 61 Blood Pressure: 127/70 Respiratory Rate: 18 Pulse Ox: 94 Oxygen Delivery Method: Room Air Airway Assessment Mouth opens: 1 cm Mallampati Score: I Teeth Condition: Intact, Caps/Crowns and Missing (multiple missing teeth) Neck Range of motion (ROM): Full ROM Focused Labs Anesthesia Preop lab: CBC WBC 6.9 K/mm3 (4.4-11.0) 06/19/24 05:25 RBC 4.18 M/mm3 (4.6-6.2) L 06/19/24 05:25 Hgb 12.3 g/dL (13.0-16.5) L 06/19/24 05:25 Hct 37.6 % (40-54) L 06/19/24 05:25 Plt Count 197 K/mm3 (150-450) 06/19/24 05:25 CHEMISTRY Potassium 3.8 mmol/L (3.5-5.1) 06/19/24 05:25 Sodium 137 mmol/L (136-145) 06/19/24 05:25 Magnesium 2.1 mg/dL (1.6-2.6) 06/17/24 06:13 Phosphorus 3.4 mg/dL (2.5-4.9) 06/17/24 06:13 BUN 21 mg/dL (7-18) H 06/19/24 05:25 Creatinine 0.87 mg/dL (0.70-1.30) 06/19/24 05:25 Glucose 170 mg/dL (74-106) H 06/19/24 05:25 POC Glucose 145 mg/dL (74-106) H 06/19/24 10:50 TSH 2.330 uIU/mL (0.358-3.740) 06/15/24 21:00 COAG PT 14.4 SECONDS (11.7-14.9) 10/29/23 05:03 Pre-Assessment Diagnosis/Proposed Procedure Planned Operative Procedure(s): Incision and drainage left great toe, bone biopsy, ulcer excision with advancement flap Anesthesia History Anesthesia History - balance staff staker: Anesthesia History - balance staff staker Hx Hospitalization Yes 09/02/20 11:03 Any Problems With Anesthesia No 06/18/24 22:53 Cholinesterase deficiency No 06/18/24 22:53 You/Your Family Experience No 06/18/24 22:53 fever (hyperthermia) with Relationship Recent Exposure to Contagious No 06/18/24 22:53 Disease Does patient have nerve No 06/18/24 22:53 stimulator Patient instructed to have No 06/18/24 22:53 device shut off --Does patient have Pacemaker No 06/18/24 22:53 or ICD? When Was Last Pacemaker Check QUESTION #4 FULL TEXT: You/Your Family Experience fever (hyperthermia) with Anesthesia Last Oral Intake Last Oral intake: Last Oral Intake NPO since 00:06/18/24 22:53 Meds taken in AM with sips of water? Meds patient instructed to take am of surgery PONV PONV - balance staff staker: PONV - balance staff staker Female HX of Motion Sickness HX of N/V After Surgery Non-Smoker Duration of Surgery greater than 60 minutes Number of Risk Factors PONV Score Any additional information?: Yes Female: No HX of Motion Sickness: No HX of N/V After Surgery: No Non-Smoker: Yes Duration of Surgery greater than 60 minutes: No Number of Risk Factors: 1 PONV Score: Low Risk Height & Weight Height & Weight: Anesthesia: Height & Weight Height 5 ft 11 in 06/19/24 11:13 Weight: 159 kg 06/19/24 11:13 Body Mass Index (BMI) 49.0 06/19/24 05:50 Respiratory Assessment Respiratory Assessment - balance staff staker: Respiratory Tract Infection Hx - balance staff staker Hx Respiratory Tract Infection No 06/18/24 22:53 STOP Sleep Apnea STOP Sleep Apnea - balance staff staker: STOP Sleep Apnea - balance staff staker Hx Hypertension Yes 06/16/24 11:05 Hx Sleep Apnea Yes 06/16/24 00:25 CPAP Yes 06/16/24 00:25 BIPAP No 06/16/24 00:25 Do you snore loudly (louder than talking or can be heard Do you often feel tired/ fatigued/ sleepy during daytime? Has anyone observed you stop breathing during sleep? STOP Results Positive 06/16/24 00:25 QUESTION #5 FULL TEXT : Do you snore loudly (louder than talking or can be heard through closed doors)? Tobacco Use History Tobacco Use History - balance staff staker: Tobacco Use History - balance staff staker Tobacco Use Smoking Status Never smoker 06/16/24 00:25 Hx Tobacco Use No 06/16/24 00:25 Years Smoking Packs Smoked per Day Smoking Cessation Date was within the last 15 years Hx Smoking Cessation Date Hx Smoking Cessation Counseling Hematologic Medial History Hematologic Hx - balance staff staker: Hematologic Medical Hx - valver Hx of Blood Transfusion No 06/16/24 00:25 Hx of Transfusion in last 3 No 06/16/24 00:25 Months Date of Last Transfusion (if within last 3 months) Ever experience any problems No 06/16/24 00:25 with transfusion(s)? Specify any problems Hx of Preganancy in last 3 N/A 06/16/24 00:25 Months Nurse Filling Out Transfusion [id number] 06/16/24 00:25 & Questions: Date: 06/16/24 06/16/24 00:25 Time: 00:41 06/16/24 00:25 Patient unable to answer at this time (ie. confused, unrespo /Reproduction History /Reproductive History - balance staff staker: /Reproductive Hx- balance staff staker Hx Now No 06/18/24 22:53 Gestational Age (in weeks): EDC: Hx Hx Para Hx Section SAB No 06/18/24 22:53 Active Medications Active Medications: Current Medications Generic Name Dose Route Start Last Admin Trade Name Freq PRN Reason Stop Dose Admin Acetaminophen 650 mg 06/16/24 00:19 06/18/24 23:55 Acetaminophen 325 Mg Tablet PO 650 mg Q6H PRN PRN Administration Pain 1-5/10 or Fever Albuterol Sulfate 2.5 mg 06/16/24 00:19 Albuterol 2.5 Mg/3 Ml Vial.Neb. INHALATION Q2H PRN PRN SOB &/OR WHEEZING Amlodipine Besylate 5 mg 06/16/24 00:19 Amlodipine 5 Mg Tablet PO DAILY PRN PRN SBP >160 Protocol Apixaban 5 mg 06/16/24 10:00 06/19/24 09:49 Apixaban 5 Mg Tablet PO Not Given BID [facility] Ascorbic Acid 1,000 mg 06/16/24 08:00 06/19/24 09:48 Ascorbic Acid 500 [facility] Aspirin 81 mg 06/16/24 08:00 06/19/24 09:48 Aspirin E.C. 81 Mg Tablet PO Not Given BREAKFAST [facility] Atorvastatin Calcium 40 mg 06/16/24 22:00 06/18/24 22:00 Atorvastatin Calcium 40 Mg Tablet PO 40 mg QODAY@2200 [facility] Administration Cholecalciferol 125 mcg 06/16/24 10:00 06/19/24 09:49 Cholecalciferol (Vit D3) 125 Mcg Capsule (5,000 Units) PO Not Given DAILY [facility] Empagliflozin 25 mg 06/17/24 10:00 06/19/24 09:49 Empagliflozin 25 Mg Tablet PO Not Given DAILY [facility] Glucagon 1 mg 06/16/24 00:19 Glucagon 1 Mg/Ml Syringe IM X1 PRN HYPOGLYCEMIA Protocol Hydrochlorothiazide 25 mg 06/16/24 10:00 06/19/24 09:49 Hydrochlorothiazide 25 Mg Tablet PO Not Given DAILY [facility] Protocol Vancomycin IV-PHARMACY TO DOSE 500 mls @ 250 mls/hr 06/16/24 00:19 1 each/ Sodium Chloride IV PRN PRN Rx to Dose Protocol Cefepime HCl 2 gm/ Sodium 100 mls @ 200 mls/hr 06/16/24 10:00 06/19/24 10:07 Chloride IV Infused Q12 [facility] Infusion Dextrose 250 mls @ 0 mls/hr 06/16/24 00:19 Dextrose 10%-Water IV .Q0M PRN HYPOGLYCEMIA Protocol As Directed Insulin Glargine 18 unit 06/18/24 22:00 06/19/24 09:49 Insulin Glargine-Yfgn 100 Unit/Ml Pen SC Not Given BID [facility] Insulin Human Lispro 0 unit 06/16/24 07:00 06/19/24 10:54 Insulin Lispro 100 Unit/Ml Insuln.Pen SC Not Given ACHS [facility] Protocol Lisinopril 20 mg 06/16/24 01:10 06/19/24 09:35 Lisinopril 20 Mg Tablet PO 20 mg BID [facility] Administration Protocol Loratadine 10 mg 06/16/24 00:19 Loratadine 10 Mg Tablet PO DAILY PRN allergies Metoprolol Tartrate 50 mg 06/16/24 10:00 06/19/24 09:35 Metoprolol Tartrate 50 Mg Tablet PO 50 mg BID [facility] Administration Protocol Metronidazole 500 mg 06/16/24 22:00 06/19/24 14:30 Metronidazole 500 Mg Tablet PO Not Given TID [facility] Morphine Sulfate 2 mg 06/16/24 00:19 Morphine 2 Mg/Ml Syringe IV Q4H PRN PRN Pain Score 6-10 Nitroglycerin 0.4 mg 06/16/24 00:19 Nitroglycerin (Inpatient Use) 0.4 Mg Tab.Subl SL Q5M PRN Cardiac/Chest Pain Ondansetron HCl 4 mg 06/16/24 00:19 Ondansetron 4 Mg/2 Ml Vial IV Q8H PRN PRN NAUSEA/VOMITING Sodium Chloride 10 - 40 ml 06/17/24 11:29 06/18/24 23:55 0.9% Saline Lock 10 Ml Syringe IV 20 ml UD PRN Administration SALINE FLUSH Ticagrelor 90 mg 06/16/24 10:00 06/18/24 20:18 Ticagrelor 90 Mg Tablet PO Not Given BID [facility] Vancomycin Protocol 1 lab 06/19/24 17:00 Vancomycin Trough/Random Due 06/19/24 21:00 DAILY [facility] Zinc Sulfate 50 mg 06/16/24 10:00 06/19/24 09:49 Zinc Sulfate 50 Mg Zinc (220 Mg) Oral Capsule PO Not Given DAILY [facility] Medical History (Updated 06/17/24 @ 13:[address] Sergei Vera MD) Toe osteomyelitis, left Maxillary sinusitis, acute Hyperglycemia CKD (chronic kidney disease), stage II Paroxysmal atrial flutter SVETLANA (obstructive sleep apnea) COVID (05/31/21) Hyperlipidemia Diabetes Obesity Type 2 diabetes mellitus Essential (primary) hypertension History of non-ST elevation myocardial infarction (NSTEMI) (08/06/20) Atherosclerotic heart disease of [place] coronary artery without angina pectoris Home Medications ?Medication ?Instructions ?Recorded ?Last Taken ?Type testosterone cypionate 200 mg/mL 400 mg subcut Q2W hormones 06/23/21 Unknown History intramuscular oil rosuvastatin 20 mg tablet 20 mg PO Q OTHER DAY cholesterol 02/04/22 Unknown Rx #45 tabs apixaban 5 mg tablet (Eliquis) 5 mg PO BID #180 tabs 09/23/23 Unknown Rx empagliflozin 25 mg tablet 25 mg PO DAILY 10/29/23 Unknown History (Jardiance) aspirin 81 mg tablet,delayed 81 mg PO BREAKFAST #30 tabs 11/01/23 Unknown Rx release metformin 1,000 mg tablet 1,000 mg PO BID #60 tabs 11/01/23 Unknown Rx acetaminophen 500 mg tablet 1,000 mg PO BID PRN fever or pain 11/24/23 Unknown History loratadine 10 mg tablet 10 mg PO DAILY PRN allergies 11/24/23 Unknown History semaglutide 0.25 mg or 0.5 mg (2 0.5 mg subcut QWEEK 11/24/23 Unknown History mg/3 mL) subcutaneous pen injector (Ozempic) insulin glargine 100 unit/mL (3 12 unit subcut BID 01/06/24 Unknown History mL) subcutaneous pen (Lantus Solostar U-100 Insulin) hydrochlorothiazide 25 mg tablet 25 mg PO DAILY diuretic #90 tabs 03/15/24 Unknown Rx lisinopril 20 mg tablet 20 mg PO BID #180 tabs 03/17/24 Unknown Rx metoprolol tartrate 50 mg tablet 50 mg PO BID #180 tabs 03/20/24 Unknown Rx nitroglycerin 0.4 mg sublingual 0.4 mg sublingual Q5M PRN 04/06/24 Unknown Rx tablet Cardiac/Chest Pain #25 tabs ticagrelor 90 mg tablet (Brilinta) 90 mg PO BID #180 TABLETS 05/23/24 Unknown Rx amlodipine 5 mg tablet 5 mg PO DAILY PRN BP 06/15/24 Unknown History Allergy/AdvReac Type Severity Reaction Status Date / Time Penicillins (PCN) Allergy Unknown Verified 06/15/24 18:16 Family History Mother CVA (cerebral vascular accident) Heart disease Hypertension Father Aortic aneurysm Cancer Surgical History History of left heart catheterization (10/29/23) History of cholecystectomy History of coronary artery stent placement (10/29/23) Social History household members: spouse Smoking Status: Never smoker second hand exposure: Yes alcohol intake: current alcohol intake frequency: a few times a month Alcohol type: hard liquor substance use type: does not use caffeine: Yes Type: carbonated beverages Number of servings: 1 and coffee Number of servings: 1 Review of Systems (Anesthesia) ROS Narrative System reviewed and no additional complaints, except as documented.
--- NOTE | 2024-06-19 15:00 | BON_PTH ---
PATIENT: DORIAN DENIS LOC: [facility] U#:[id number] AGE/SX: 58/M ROOM: [facility] RE06/15/[address]: Dr. Sai Fraire MD : [id number] BED: 1 DIS: 06/22/2024 SPEC #: [id number] RECD: 06/19/24 16:49 STATUS: ROSITA REAlbertina #: [id number] CHRISTOPHER: 06/19/24 15:[address]: Sergei Vera DEPT: SURGICAL PATHOLOGY RECD BY: [place] ENTERED: 06/20/24 10:05 SP TYPE: Bone OTHR DR: DO Dr. Lani Alcala DO Dr. Prakash Chand, MD Dr. Robert Leininger, MD Tissues: Bone of foot, NOS Procedures: Decalcification bone/plaque Surgery Specimen Level III Surgery Specimen Level IV HEADER OPERATION: Incision drainage of bone cortex great toe with flap closure PRE-OP DIAGNOSIS: Left foot cellulitis that failed outpatient ATB treatment, diabetic foot ulcer TISSUE SUBMITTED: Proximal phalanx left great toe MICROSCOPIC DIAGNOSIS Proximal phalanx left great toe, excision: Acute osteomyelitis. 06/22/2024 MICROSCOPIC DESCRIPTION Slides are reviewed. GROSS DESCRIPTION Received in fixative is one container labeled with the patient's name and designated Proximal phalanyx left great toe. The specimen consists of a piece of bone measuring 2 x 1 x 0.3cm. The entire specimen is submitted in one cassette after decalcification. 06/20/2024 TC:2 CPT:46392,42398
--- NOTE | 2024-06-19 15:21 | PCM.PN.SRG ---
Subjective Subjective Patient seen preoperatively for a infected left great toe with possible osteomyelitis as noted on MRI. Plan for surgery. Patient has been n.p.o. all questions were answered no guarantees given or implied. Objective Data Objective Data Vital Signs: Vital Signs Temp Pulse Resp BP Pulse Ox O2 Del Method 97.1 F L 61 18 127/70 H 94 Room Air 06/19/24 14:51 06/19/24 14:51 06/19/24 14:51 06/19/24 14:51 06/19/24 14:51 06/19/24 14:51 Oxygen Delivery Method Room Air Weight: 159 kg Body Mass Index (BMI) 49.0 Intake & Output: Intake and Output for Last 24 Hours 06/17/24 06/18/24 06/19/24 23:59 23:59 23:59 Intake Total 3030 / 3030 3510 / 3510 958.33 / 958.33 Balance 3030 / 3030 3510 / 3510 958.33 / 958.33 Lab / Micro Data 06/19/24 05:25 06/19/24 05:25 Labs: Laboratory Results - last 24 hr 06/18/24 17:16: POC Glucose 136 H 06/18/24 20:45: Vancomycin Trough 30.5 H 06/18/24 21:58: POC Glucose 159 H 06/19/24 05:25: WBC 6.9, RBC 4.18 L, Hgb 12.3 L, Hct 37.6 L, MCV 90.0, MCH 29.4, MCHC 32.7, RDW Std Deviation 45.7 H, RDW Coeff of Simeon 14.0, Plt Count 197, MPV 9.5, Immature Gran % (Auto) 0.300, Neut % (Auto) 54.7, Lymph % (Auto) 29.7, [place] % (Auto) 7.1, Eos % (Auto) 7.6 H, Baso % (Auto) 0.6, Absolute Neuts (auto) 3.8, Absolute Lymphs (auto) 2.04, Nucleated RBC % 0, Sodium 137, Potassium 3.8, Chloride 108 H, Carbon Dioxide 23.0, Anion Gap 6, BUN 21 H, Creatinine 0.87, Estim Creat Clear Calc 142.40, Est GFR (MDRD) Af Amer 116, Est GFR (MDRD) Non-Af 96, BUN/Creatinine Ratio 24.2 H, Glucose 170 H, Calcium 9.0 06/19/24 05:51: POC Glucose 148 H 06/19/24 07:18: Vancomycin Trough 27.3 H 06/19/24 10:50: POC Glucose 145 H Micro: Microbiology 06/17/24 12:40 Wound - Toe Gram Stain - Final 06/17/24 12:40 Wound - Toe Wound Culture - Final Pseudomonas aeruginosa Coag Negative Staph Radiography Diagnostic Testing: Radiology Impression Extremity Arterial Study 06/17/24 11:58 Interpretation Summary Right THERESA not able to be obtained due to non-compressible vessels. Doppler/PVR waveforms of the right leg normal at rest. TBI diminished, pedal/digit disease Left THERESA not able to be obtained due to non-compressible vessels. Doppler/PVR waveforms of the left leg normal at rest. Ordering Physician: Saran Parada Referring Physician: Lani Piaz M.D. Performed By: Judah Stanton RVT Physical Exam Narrative Left great toe is dressed it still stable there is no strikethrough he has a sock on today minimal pain discussed the surgery in great detail today. He is alert active and oriented no acute distress he is breathing fine we will plan for monitored anesthesia care with localized sedation. Assessment & Plan Assessment/Plan (1) Toe osteomyelitis, left: (2) Type 2 diabetes mellitus: QUALIFIERS: Diabetes mellitus residential insulin use: with terminal operations supervisor use Diabetes mellitus complication status: with circulatory complication Diabetes mellitus complication detail: with other circulatory complications Qualified Code(s): E11.59 - Type 2 diabetes mellitus with other circulatory complications; Z79.4 - correction (current) use of insulin (3) Diabetic foot ulcer associated with type 2 diabetes mellitus: QUALIFIERS: Diabetic foot ulcer location: unspecified part of foot Laterality: left Non-pressure ulcer stage: limited to breakdown of skin Qualified Code(s): E11.621 - Type 2 diabetes mellitus with foot ulcer; L97.521 - Non-pressure chronic ulcer of other part of left foot limited to breakdown of skin PLAN: Plan Today plan for incision and drainage bone cortex, bone biopsy, advancement flap with ulcer excision of the left great toe plan to inject and/or implant vancomycin powder tobramycin powder and some form OsteoSet bead if necessary follow-up then.
[2024-06-19] MEDS: Bupivacaine Mpf 0.5% 30 ML VIAL (15:50)
[2024-06-19] MEDS: Vancomycin IV 1,000 MG/20 ML Vial 1000 MG OPERA.SITE (16:10)
--- NOTE | 2024-06-19 16:31 | PCM.POST.ANE ---
Anesthesia: Postop Eval I Current Vital Signs Temperature: 97.3 F Pulse Rate: 64 Blood Pressure: 110/55 Respiratory Rate: 16 Pulse Ox: 93 Oxygen Delivery Method: Nasal Cannula Oxygen Flow Rate (L/min): 2 Assessment Airway patent: Yes Spontaneous unlabored respirations: Yes Mental status: Awake and Calm nausea: No Vomiting: No Anesthesia Complication: No Fluid Hydration Crystalloid volume administer (ml): 10 Total IV fluid infused: 10 Progress Note Anesthesia document: Postop Eval 1 completed: Yes
--- NOTE | 2024-06-19 16:41 | PCM.PN.ID ---
Physical Exam Narrative Feeling better, no fever, no n/v/d Const alert and no apparent distress General Appearance: cooperative Resp normal air movement and clear to auscultation bilaterally Cardio regular rate and regular rhythm GI soft to palpation, non-tender and non-distended Skin Skin Narrative: no new rash, foot wrapped ID ID: Route of nutrition/ use of supplements: [] Nutritional Intake: [] IV Site: [] Gaines Catheter: [] Assessment & Plan Assessment/Plan (1) Type 2 diabetes mellitus: QUALIFIERS: Diabetes mellitus alf insulin use: with alf use Diabetes mellitus complication status: with circulatory complication Diabetes mellitus complication detail: with other circulatory complications Qualified Code(s): E11.59 - Type 2 diabetes mellitus with other circulatory complications; Z79.4 - nursing home (current) use of insulin (2) Toe osteomyelitis, left: PLAN: podiatry planned OR today, wound cx with PsA and CoNS. Cont vanc/cefepime, flagyl. Will follow
[2024-06-19] MEDS: Lactobacillis Acidophilus 1 CAP PO ×2 (17:24→21:53)
[2024-06-19] MEDS: Ascorbic Acid 500 MG Tablet 1000 MG PO (17:24)
--- NOTE | 2024-06-19 18:03 | PCM.POSTANE2 ---
Anesthesia Postop Eval I Sum Postop Eval Completion status Anesthesia document: Postop Eval 1 completed: Yes Anesthesia Postop Eval I Summary Anesthesia Postop Eval I Summary: Anesthesia Postop Eval I: Assessment Summary Airway patent Yes 06/19/24 16:31 [email or web address] Spontaneous unlabored Yes 06/19/24 16:31 [email or web address] respirations Mental status Awake,Calm 06/19/24 16:31 [email or web address] nausea No 06/19/24 16:31 [email or web address] Vomiting No 06/19/24 16:31 [email or web address] Anesthesia Postop Eval I: Fluid Summary Crystalloid volume administer 10 06/19/24 16:31 [email or web address] (ml) Colloids volume administered ( ml) Blood Product volume administered (ml) Total IV fluid infused 10 06/19/24 16:31 [email or web address] Anesthesia Postop Eval I: Summary Notes Anesthesia Complication No 06/19/24 16:31 [email or web address] Anesthesia Complication Comment: Post-operative progress note Anesthesia: Postop Eval II Evaluation Mental status: Awake and Calm Pain Level: 3 nausea: No Vomiting: No Complications Anesthesia Complication: No
[2024-06-19 18:31] LABS: Bedside Glucose 120 mg/dL (74-106)
[2024-06-19 20:18] LABS: Vancomycin, Random Level 18.9 ug/mL (0.0-15.0)
--- NOTE | 2024-06-19 21:05 | PCM.RX.CS ---
Consult Antibiotic Management Pharmacy has been consulted to manage selected antibiotic: Vancomycin Type of Intervention Type of Consult: Follow-up Suspected Infection Suspected Infection: Skin/Soft tissue Labs Labs: Sodium 137 mmol/L (136-145) 06/19/24 05:25 Potassium 3.8 mmol/L (3.5-5.1) 06/19/24 05:25 Chloride 108 mmol/L (98-107) H 06/19/24 05:25 Carbon Dioxide 23.0 mmol/L (21.0-32.0) 06/19/24 05:25 Anion Gap 6 (5-15) 06/19/24 05:25 BUN 21 mg/dL (7-18) H 06/19/24 05:25 Creatinine 0.87 mg/dL (0.70-1.30) 06/19/24 05:25 Est GFR (MDRD) Af Amer 116 mL/min (>60) 06/19/24 05:25 Est GFR (MDRD) Non-Af 96 mL/min (>60) 06/19/24 05:25 BUN/Creatinine Ratio 24.2 RATIO (10-20) H 06/19/24 05:25 Glucose 170 mg/dL (74-106) H 06/19/24 05:25 Vancomycin Trough 27.3 ug/mL (5.0-15.0) H 06/19/24 07:18 Random Vancomycin 18.9 ug/mL (0.0-15.0) H 06/19/24 19:09 Microbiology Microbiology: Microbiology 06/17/24 12:40 Wound - Toe Gram Stain - Final 06/17/24 12:40 Wound - Toe Wound Culture - Final Pseudomonas aeruginosa Coag Negative Staph Goal Trough Goal Trough: 15-20 mcg/mL Pharmacy Plan for Drug Dosing Pharmacy Plan for Drug Dosing: VANCOMYCIN LEVEL RECEIVED Current Vancomycin Dose: current dose on hold due to elevated trough Number of Doses Received: Vancomycin Level: random level 18.9 Hours Since Last Dose: Renal Function: Renal Function Trend: Lab/Micro: Vancomycin Plan/Comments: recommend re starting vancomycin [place] of 1750mg q12h and checking a trough prior to the 4th dose Pending Level: 06/21/24 at 1030 Pharmacy Service will continue to monitor and adjust dosing as required. Follow-Up Labs Follow-Up Labs: Trough: Vancomycin (06/21/24 at 1030)
[2024-06-19] MEDS: Acetaminophen 325 MG Tablet 650 MG PO (22:03)
[2024-06-19] MEDS: 0.9% Saline Lock 10 ML Syringe IV (22:04)
[2024-06-19] MEDS: Insulin Glargine-YFGN 100 UNIT/ML Pen 18 UNIT SC (22:11)
[2024-06-19] MEDS: Insulin Lispro 100 UNIT/ML INSULN.PEN SC (22:12)
[2024-06-19 22:39] LABS: Bedside Glucose 184 mg/dL (74-106)
[2024-06-20] VITALS (9 sets, daily range): BP systolic 97–136; BP diastolic 57–63; PULSE 56–68; RESP 16–18; TEMP 36.4–36.7; O2SAT 94–98; BMI 48.7
[2024-06-20] MEDS: Vancomycin HCl 1,750 MG in 0.9% Normal Saline (500mL Bag) 500 ML 250 MG IV ×3 (00:08→21:58)
[2024-06-20] MEDS: 0.9% Saline Lock 10 ML Syringe IV ×6 (00:08→21:58)
[2024-06-20] MEDS: Morphine 2 MG/ML Syringe IV ×2 (00:37→21:58)
[2024-06-20] MEDS: metroNIDAZOLE 500 MG Tablet PO ×3 (05:05→20:32)
[2024-06-20] MEDS: Acetaminophen 325 MG Tablet 650 MG PO ×2 (05:08→21:30)
[2024-06-20 07:07] LABS: Absolute Lymphocyte Count 1.34 X10^3/uL (0.83-4.51); Absolute Neutrophil Count 4.8 X10^3/uL (2.0-7.7); Basophil# 0.05 X10^3/uL; Basophil% 0.7 % (0-1); Eosinophil# 0.43 X10^3/uL; Hematocrit 36.3 % (40-54); Hemoglobin 11.6 g/dL (13.0-16.5); Lymphocyte # 1.34 X10^3/ul (0.83-4.51); Lymphocyte % 18.7 % (19-41); Mean Corpuscular Hgb 29.4 pg (27.0-32.0); Mean Corpuscular Volume 91.9 fL (80-94); Mean Platelet Vol. 9.5 fl (6.2-12.0); Monocyte# 0.49 X10^3/uL; Monocyte% 6.9 % (0-10); NRBC Flagged by Analyzer 0 % (0-5); Neutrophil # 4.81 X10^3/uL (2.7-7.7); Neutrophil % 67.3 % (47-70); Platelet Count 168 K/mm3 (150-450); RBC Distribution Width CV 14.2 % (11.6-14.6); RBC Distribution Width SD 47.8 fl (35.1-43.9); Red Blood Count 3.95 M/mm3 (4.6-6.2); White Blood Count 7.2 K/mm3 (4.4-11.0)
[2024-06-20 07:10] LABS: Bedside Glucose 152 mg/dL (74-106)
[2024-06-20 07:44] LABS: Anion Gap 8 (5-15); BUN 27 mg/dL (7-18); BUN/Creat Ratio 22.3 RATIO (10-20); Calcium,Total 8.7 mg/dL (8.5-10.1); Chloride 107 mmol/L (98-107); Creatinine, Serum 1.21 mg/dL (0.70-1.30); EST Glomerular Filtration Rate 65 mL/min (>60); Est Glom Filt Rate - Afr Amer 79 mL/min (>60); Estimated Creatinine Clearance 102.24 ml/min; Glucose 170 mg/dL (74-106); Potassium 4.2 mmol/L (3.5-5.1); Sodium Level 137 mmol/L (136-145)
[2024-06-20] MEDS: Ascorbic Acid 500 MG Tablet 1000 MG PO ×2 (09:11→16:36)
[2024-06-20] MEDS: Aspirin E.C. 81 MG Tablet PO (09:11)
[2024-06-20] MEDS: Lactobacillis Acidophilus 1 CAP PO ×4 (09:11→20:32)
[2024-06-20] MEDS: hydroCHLOROthiazide 25 MG Tablet PO (09:12)
[2024-06-20] MEDS: Empagliflozin 25 MG Tablet PO (09:12)
[2024-06-20] MEDS: Cholecalciferol (Vit D3) 125 MCG CAPSULE (5,000 UNITS) PO (09:13)
[2024-06-20] MEDS: Metoprolol Tartrate 50 MG Tablet PO ×2 (09:13→20:33)
[2024-06-20] MEDS: Lisinopril 20 MG Tablet PO ×2 (09:14→20:32)
[2024-06-20] MEDS: Zinc Sulfate 50 mg zinc (220 mg) ORAL capsule PO (09:14)
[2024-06-20] MEDS: Cefepime HCl 2 GM in 0.9% Normal Saline (100mL MB+) 100 ML IV ×2 (09:21→20:34)
[2024-06-20] MEDS: Insulin Glargine-YFGN 100 UNIT/ML Pen 18 UNIT SC ×2 (09:23→20:32)
[2024-06-20] MEDS: Insulin Lispro 100 UNIT/ML INSULN.PEN SC ×3 (10:59→20:32)
[2024-06-20 11:18] LABS: Bedside Glucose 196 mg/dL (74-106)
--- NOTE | 2024-06-20 14:23 | WOUNDNOTE ---
Pt is POD#1. Dr Vera's orders are to leave dressing in place.
--- NOTE | 2024-06-20 15:37 | PN.HOSP_ITS ---
Reason for Visit Reason for Visit: Diagnoses Type 2 diabetes mellitus with other circulatory complications (06/15/24) Type 2 diabetes mellitus with foot ulcer (06/15/24) Type 2 diabetes mellitus without complications (06/15/24) Morbid (severe) obesity due to excess calories (06/15/24) Obstructive sleep apnea (adult) (pediatric) (06/15/24) Atherosclerotic heart disease of [place] coronary artery without angina pectoris (06/15/24) Unspecified atrial flutter (06/15/24) Cellulitis of left toe (06/15/24) Cellulitis, unspecified (06/15/24) Non-pressure chronic ulcer of other part of unspecified foot with unspecified severity (06/15/24) Non-pressure chronic ulcer of other part of left foot limited to breakdown of skin (06/15/24) Osteomyelitis, unspecified (06/15/24) Chest pain, unspecified (06/15/24) Body mass index [BMI] 45.0-49.9, adult (06/15/24) 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 (06/15/24) Presence of coronary angioplasty implant and graft (06/15/24) Objective Data Objective Data Vital Signs: Vital Signs Temp Pulse Resp BP Pulse Ox O2 Del Method O2 Flow Rate 97.7 F L 66 16 113/58 L 95 Room Air 3 06/20/24 14:09 06/20/24 14:09 06/20/24 14:09 06/20/24 14:09 06/20/24 14:09 06/20/24 14:09 06/19/24 16:45 FiO2 21 06/20/24 06:45 Oxygen Flow Rate (L/min) 3 Oxygen Delivery Method Room Air Weight: 349 lb 10.45 oz Body Mass Index (BMI) 48.7 Intake & Output: Intake and Output for Last 24 Hours 06/18/24 06/19/24 06/20/24 23:59 23:59 23:59 Intake Total 3510 / 3510 1158.33 / 1158.33 1170 / 1170 Balance 3510 / 3510 1158.33 / 1158.33 1170 / 1170 Lab / Micro Data 06/20/24 06:45 06/20/24 06:45 Labs: Laboratory Results - last 24 hr 06/19/24 17:22: POC Glucose 120 H 06/19/24 19:09: Random Vancomycin 18.9 H 06/19/24 22:09: POC Glucose 184 H 06/20/24 06:45: WBC 7.2, RBC 3.95 L, Hgb 11.6 L, Hct 36.3 L, MCV 91.9, MCH 29.4, MCHC 32.0, RDW Std Deviation 47.8 H, RDW Coeff of Simeon 14.2, Plt Count 168, MPV 9.5, Immature Gran % (Auto) 0.400, Neut % (Auto) 67.3, Lymph % (Auto) 18.7 L, [place] % (Auto) 6.9, Eos % (Auto) 6.0 H, Baso % (Auto) 0.7, Absolute Neuts (auto) 4.8, Absolute Lymphs (auto) 1.34, Nucleated RBC % 0, Sodium 137, Potassium 4.2, Chloride 107, Carbon Dioxide 22.0, Anion Gap 8, BUN 27 H, Creatinine 1.21, Estim Creat Clear Calc 102.24, Est GFR (MDRD) Af Amer 79, Est GFR (MDRD) Non-Af 65, B UN/Creatinine Ratio 22.3 H, Glucose 170 H, Calcium 8.7 06/20/24 06:49: POC Glucose 152 H 06/20/24 10:58: POC Glucose 196 H Micro: Microbiology 06/19/24 16:32 Wound - Toe Wound Culture - Preliminary Gram negative cynthia 06/17/24 12:40 Wound - Toe Gram Stain - Final 06/17/24 12:40 Wound - Toe Wound Culture - Final Pseudomonas aeruginosa Coag Negative Staph Physical Exam Narrative Seen and examined Patient had OR yesterday with incision and drainage, bone biopsy. No operative note No acute change. Left great toe covered with a surgery Follows ab initio etl developer Dr. Ibrahim in [facility]. No fever or chills. Has CAD status post stent. No acute chest pain or shortness of breath now. Physical exam: General: Alert, Oriented x3, Cooperative, BMI 48.1 kg/m?, morbid obesity HEENT: Atraumatic, PERRLA, EOMI, Normocephalic Oral: No Gingival or Mucosal Lesions/ Ulcerations Neck: Supple, No JVD, Negative Carotid Bruits Chest wall/Lungs: Air entry diminished in bilateral lung bases. No crepitation/rhonchi Cardiovascular: Sinus rhythm, Normal S1, Normal S2, No M/G/R Abdomen: Bowel Sounds Present, Soft, Non Tender, Non-Distended : No dysuria. No renal angle tenderness. No suprapubic tenderness. Extremities: No edema, Capillary Refill Less than 3 Seconds Skin: Left great toe covered with a dressing. No soakage or drainage Musculoskeletal: No Tenderness to Palpation of Joints or Extremities Neurological: Cranial nerves II-XII grossly intact, DTR 2+/4. Mild bilateral feet neuropathy Psych/Mental Status: Normal Affect, Appropriate. Assessment & Plan Assessment/Plan (1) Diabetic foot ulcer associated with type 2 diabetes mellitus: QUALIFIERS: Diabetic foot ulcer location: unspecified part of foot Laterality: left Non-pressure ulcer stage: limited to breakdown of skin Q ualified Code(s): E11.621 - Type 2 diabetes mellitus with foot ulcer; L97.521 - Non-pressure chronic ulcer of other part of left foot limited to breakdown of skin (2) Cellulitis: QUALIFIERS: Site of cellulitis: extremity Site of cellulitis of extremity: toe Laterality: left Qualified Code(s): L03.032 - Cellulitis of left toe (3) Chest pain: QUALIFIERS: Chest pain type: unspecified Qualified Code(s): R07.9 - Chest pain, unspecified PLAN: Plan 58-year-old male was admitted with left leg and foot pain with swelling and redness and worsening of ulcer in left toe since October 2023. Chronic wound on the left foot completed 10 days course of oral Nuzyra, tetracycline. Patient also complained of musculoskeletal type pain in the chest with movement. 1. Left chronic toe ulcer with worsening and contiguous cellulitis with outpatient failure of antibiotic: Patient is admitted on PCU. CRP 31.4, ESR 38. Currently on IV vancomycin and cefepime. Condominium Association Manager, and ID consulted. Does not complain of much pain. Wound nurse consulted. Left foot MRI shows great toe ulcer with surrounding cellulitis, suspected osteomyelitis of proximal distal phalange of great toe with mild subcutaneous soft tissue edema noted dorsal foot. Venous duplex of lower extremity 06/17: I discussed with ab initio etl developer and expressed my concern that there is worsening of left great toe swelling with past-pointing and redness and cellulitis. Patient was not seen by ab initio etl developer for 24 hours despite my calling to Dr. Gould in the morning. Later on seen by Dr. Alejo. He will need bone biopsy/wound debridement. Continue IV antibiotic. 06/18: Hopeful need wound debridement/bone biopsy tomorrow so that we can have tissue culture. 06/19: Plan for surgery today with bone biopsy versus amputation of the toe. Eliquis and ticagrelor is on hold. On IV cefepime, vancomycin and Flagyl. 06/20: No operative note therefore unclear what surgery was done at [place] bone biopsy was done. Prelim tissue culture from 06/19 shows GNR. Had ID follow-up continue above antibiotic. 2. Most likely musculoskeletal chest pain with history of CAD status post stents: Patient had chest pain midsternal localized after he pulled the chest muscle. 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 Two serial twelve-lead EKG individually reviewed. NSR 65/min, QTc [address]-T changes. Chest CTA negative. Serial troponins are negative. ACS ruled out. Continue patient home cardiac medications. 06/17: No acute cardiac issues yesterday and today. 06/20: Patient had echo on 06/16 reported EF 65%, stage I diastolic dysfunction, LA moderately enlarged. It is a history of chronic HFpEF. ABIs done, right and left THERESA could not be calculated because of noncompressible vessels. Doppler US of the right leg and left leg normal at rest. TBI diminished. Right TBI 0.68. 3. DM-2; uncontrolled hyperglycemia: A1c 8.4, glucose 118-141. Patient on metformin, empagliflozin, semaglutide and glargine insulin. Oral agents held. Accu-Chek before meals and at bedtime with Humalog sliding scale coverage and hypoglycemia protocol. 06/17: Glucose fluctuates between 121?184 . Lantus dose increased 06/18: Glucose is about 160, better controlled. Glucose 182 in BMP. 06/19: Glucose is controlled. 4. Morbid obesity; with BMI of 49.3 this admission and SVETLANA; on CPAP: Weight loss recommended. TSH normal 2.33. 5. Paroxysmal A-fib; on apixaban - Maintain on apixaban. 6. Essential hypertension; on metoprolol, lisinopril, amlodipine and hydrochlorothiazide - Maintain home regimen as previous. 7. Hyperlipidemia; on rosuvastatin: Continue rosuvastatin. 8. CKD; stage II - serum creatinine of 1.06 mg/dL, BUN of 21 mg/dL and EGFR of 76 mL/min. BUNs/creatinine normal range. 9. Testosterone deficiency; on HRT - Hold testosterone replacement until further notice. 10. Mild intermittent Asthma; on budesonide-formoterol - Stable without acute flare noted at this time. Continue current treatment plus give nebulizers prn for breakthrough symptoms. DVT prophylaxis - Patient is already on apixaban, continued. Clinical Impression(s) from Imaging Studies Chest CTA 06/15/24 19:18 IMPRESSION: Negative CTA chest. Electronically Signed: Tarun Forrester MD at 20:42 EST , Venous Duplex 06/15/24 19:22 IMPRESSION: Normal left lower extremity duplex venous ultrasound. Foot X-Ray 06/15/24 20:20 IMPRESSION: No acute findings in the left foot. Echocardiogram 06/16/24 00:19 Interpretation Summary Mild concentric left ventricular hypertrophy. The left ventricular ejection fraction is 65 %. Stage 1 diastolic dysfunction. The left atrium is moderately enlarged. The study was technically difficult. Lower Extremity MRI 06/16/24 00:19 IMPRESSION: Great toe ulcer with surrounding cellulitis. Suspected osteomyelitis of the proximal and distal phalanges of the great toe. Mild subcutaneous soft tissue edema along the dorsum of the foot. Electronically Signed: George Donovan MD at 10:37 EST , Charges/Coding Visit Charges Inpatient E&M: 85098 Subs Hosp L2
[2024-06-20 17:01] LABS: Bedside Glucose 185 mg/dL (74-106)
[2024-06-20] MEDS: Atorvastatin Calcium 40 MG Tablet PO (20:32)
--- NOTE | 2024-06-20 20:53 | OP.PCM_ITS ---
Operative Report (Standard) Operative Information Date of Procedure: 06/19/24 Pre-Operative Diagnosis: osteomyelitis left great toe ulceration and puncture wound left great toe chronic cellulitis and bone infection Post-Operative Diagnosis: same Surgery/Procedure Performed: 1. incision and drainage bone cortex left great toe 2. rotational and advancement flap left great toe that measured 1.0 x 0.3cm store standards associate: No Type of Anesthesia: MAC/Supplemental/Local RN Documented Start/Stop Times: Operation Date: 06/19/24 15:00 Case Time Into Pre-Op 06/19/24 14:04 Out of Pre-Op 06/19/24 15:23 Anesthesia Start 06/19/24 15:30 Into Room 06/19/24 15:30 Procedure Start 06/19/24 15:46 Procedure End 06/19/24 16:16 Anesthesia End 06/19/24 16:21 Out of Room 06/19/24 16:21 Into Recovery 06/19/24 16:26 Out of Recovery 06/19/24 17:05 Procedure Start Time: 15:46 Procedure Stop Time: 16:21 Select all DRAINS/GRAFTS/IMPLANTS that apply: None Estimated Blood Loss: 10ccs Specimen collected: Yes Description of specimen(s) removed: bone of proximal phalanx Description of surgery: patient seen for non healing ulcer of the left great toe and chronic wound that is open and infected into the bone of the left great toe that is non healing for the past 4 months. He has had grafts and local wound care and the wound was healed on the bottom of the foot and now has a new ulcerations which could have been a septic joint or abscess. He presented to the hospital with worsening infection and cellulitis of the left great toe and here for surgery. He understands all risks complications of the left foot. The wound is still open and deep to the bone and the cultures preliminary were then pseudomonas and needed surgery. Today he was seen in the preop holding area of the left great toe. Patient was taken back to the OR and placed on the OR table and tourniquet around the ankle and then the area scrubbed prepped and draped. Then timeout was performed. Then a circumferential incision around the wound was made into subcutaneous tissue and excised the lesion and the ulcer and then bone was exposed. Then the puncture wound was debrided and removed of the tisseu. Then laterally to this a flap was created as a unilobe flap with apex distally. Then the flap as cut into the subq tissue and undermined and then able to then move the flap medailly and then distally. The flap was moved and the flap was 1cm x 0.3 cm and then flap was cut and moved to reposition the skin. then the bone of the distal phalanx was soft and friable and then the distal head of the bone was then dreilled with a wire and also a drill into the medullary caneal and noted that the bone was soft and then i incised the phalanx and removed all the necrotic and deviatlzed bone and tissue of the phalanx. flushed this and then packed iwth vacnomycin cement or calcium phosphate and then flushed and then the flap was then rotated to clsoe the wound. Then extensor tendon was then transected and then sutured together with 0ethibond suture. then the wound flushea nd the flap closed with 3-0 prolene nad dressed with betadine adaptic and the flap was viable and the area had good reperfusion to the great toe. all skin was sloughing off. He tolerated procedure well and anesthesia and then back to RR and VSS and VSI to the left foot Surgical Findings: osteomyelitis Complications Complications: No
[2024-06-20 20:57] LABS: Bedside Glucose 190 mg/dL (74-106)
[2024-06-21 03:00] VITALS: BP 107/67; PULSE 56; RESP 18; TEMP 36.6; O2SAT 97
[2024-06-21 03:39] VITALS: BMI 48.3
[2024-06-21 06:14] LABS: Absolute Lymphocyte Count 1.78 X10^3/uL (0.83-4.51); Absolute Neutrophil Count 3.6 X10^3/uL (2.0-7.7); Basophil# 0.04 X10^3/uL; Basophil% 0.6 % (0-1); Eosinophil# 0.42 X10^3/uL; Eosinophils% 6.4 % (0-5); Hematocrit 36.2 % (40-54); Hemoglobin 11.7 g/dL (13.0-16.5); Lymphocyte # 1.78 X10^3/ul (0.83-4.51); Lymphocyte % 27.2 % (19-41); Mean Corp Hgb Conc 32.3 g/dL (32-36); Mean Corpuscular Hgb 29.7 pg (27.0-32.0); Mean Corpuscular Volume 91.9 fL (80-94); Mean Platelet Vol. 9.9 fl (6.2-12.0); Monocyte# 0.64 X10^3/uL; Monocyte% 9.8 % (0-10); NRBC Flagged by Analyzer 0 % (0-5); Neutrophil # 3.63 X10^3/uL (2.7-7.7); Neutrophil % 55.4 % (47-70); Platelet Count 170 K/mm3 (150-450); RBC Distribution Width CV 14.3 % (11.6-14.6); RBC Distribution Width SD 48.5 fl (35.1-43.9); Red Blood Count 3.94 M/mm3 (4.6-6.2); White Blood Count 6.6 K/mm3 (4.4-11.0)
[2024-06-21] MEDS: Insulin Lispro 100 UNIT/ML INSULN.PEN SC ×4 (06:19→20:43)
[2024-06-21] MEDS: metroNIDAZOLE 500 MG Tablet PO ×3 (06:20→20:41)
[2024-06-21 06:44] LABS: Bedside Glucose 180 mg/dL (74-106)
[2024-06-21 06:57] LABS: Anion Gap 9 (5-15); BUN 36 mg/dL (7-18); BUN/Creat Ratio 23.2 RATIO (10-20); Calcium,Total 8.8 mg/dL (8.5-10.1); Chloride 106 mmol/L (98-107); Creatinine, Serum 1.55 mg/dL (0.70-1.30); EST Glomerular Filtration Rate 49 mL/min (>60); Est Glom Filt Rate - Afr Amer 59 mL/min (>60); Estimated Creatinine Clearance 79.43 ml/min; Glucose 215 mg/dL (74-106); Potassium 3.9 mmol/L (3.5-5.1); Sodium Level 137 mmol/L (136-145)
[2024-06-21 09:42] VITALS: BP 102/55; PULSE 57; RESP 18; TEMP 36.8; O2SAT 95
[2024-06-21] MEDS: Lactobacillis Acidophilus 1 CAP PO ×4 (09:45→20:41)
[2024-06-21] MEDS: Ascorbic Acid 500 MG Tablet 1000 MG PO ×2 (09:45→16:48)
[2024-06-21] MEDS: Aspirin E.C. 81 MG Tablet PO (09:45)
[2024-06-21] MEDS: Empagliflozin 25 MG Tablet PO (09:45)
[2024-06-21] MEDS: Cholecalciferol (Vit D3) 125 MCG CAPSULE (5,000 UNITS) PO (09:45)
[2024-06-21] MEDS: Zinc Sulfate 50 mg zinc (220 mg) ORAL capsule PO (09:45)
[2024-06-21] MEDS: hydroCHLOROthiazide 25 MG Tablet PO (09:45)
[2024-06-21] MEDS: Cefepime HCl 2 GM in 0.9% Normal Saline (100mL MB+) 100 ML IV ×2 (09:52→20:41)
--- NOTE | 2024-06-21 09:57 | CASEMGMT ---
Discharge Planning A list of?HH providers including quality and resource use data and consistent with the patient's preferred geographic region, medical needs, and insurance network was created in [employer] Guide.? This list was provided to the RN VENKATESH. Quyen Middleton, Discharge Planning Asst.
[2024-06-21 11:00] LABS: Vancomycin, Trough Level 33.5 ug/mL (5.0-15.0)
[2024-06-21] MEDS: Insulin Glargine-YFGN 100 UNIT/ML Pen 18 UNIT SC (11:39)
--- NOTE | 2024-06-21 11:52 | CASEMGMT ---
RN CM in to discuss discharge planning with patient. RN CM discuss possible IV ATBs at discharge pending ID recommendations. Patient discussed possible outpatient infusion center, RN CM updated that it is a possibility if recommended IV ATBs are once daily. If multiple doses needed throughout the day, home with [facility] is more appropriate, patient voiced understanding. RN CM provided patient with [facility] to review and provide preferences. Patient had no further questions or concerns. RN CM awaiting ID recommendations and script to ATBs at discharge. CM will continue to follow this patient and plan for a safe discharge.
[2024-06-21 12:36] LABS: Bedside Glucose 206 mg/dL (74-106)
--- NOTE | 2024-06-21 13:55 | PCM.PN.HOSP ---
Reason for Visit Reason for Visit: Diagnoses Type 2 diabetes mellitus with other circulatory complications (06/15/24) Type 2 diabetes mellitus with foot ulcer (06/15/24) Type 2 diabetes mellitus without complications (06/15/24) Morbid (severe) obesity due to excess calories (06/15/24) Obstructive sleep apnea (adult) (pediatric) (06/15/24) Atherosclerotic heart disease of [place] coronary artery without angina pectoris (06/15/24) Unspecified atrial flutter (06/15/24) Cellulitis of left toe (06/15/24) Cellulitis, unspecified (06/15/24) Non-pressure chronic ulcer of other part of unspecified foot with unspecified severity (06/15/24) Non-pressure chronic ulcer of other part of left foot limited to breakdown of skin (06/15/24) Osteomyelitis, unspecified (06/15/24) Chest pain, unspecified (06/15/24) Body mass index [BMI] 45.0-49.9, adult (06/15/24) 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 (06/15/24) Presence of coronary angioplasty implant and graft (06/15/24) Objective Data Objective Data Vital Signs: Vital Signs Temp Pulse Resp BP Pulse Ox O2 Del Method O2 Flow Rate 98.2 F 57 L 18 102/55 L 95 Room Air 3 06/21/24 09:42 06/21/24 09:42 06/21/24 09:42 06/21/24 09:42 06/21/24 09:42 06/21/24 09:42 06/19/24 16:45 FiO2 21 06/20/24 06:45 Oxygen Flow Rate (L/min) 3 Oxygen Delivery Method Room Air Weight: 346 lb 12.594 oz Body Mass Index (BMI) 48.3 Intake & Output: Intake and Output for Last 24 Hours 06/19/24 06/20/24 06/21/24 23:59 23:59 23:59 Intake Total 1158.33 / 1158.33 1510 / 1510 635 / 635 Balance 1158.33 / 1158.33 1510 / 1510 635 / 635 Lab / Micro Data 06/21/24 05:22 06/21/24 05:22 Labs: Laboratory Results - last 24 hr 06/20/24 16:38: POC Glucose 185 H 06/20/24 20:31: POC Glucose 190 H 06/21/24 05:22: WBC 6.6, RBC 3.94 L, Hgb 11.7 L, Hct 36.2 L, MCV 91.9, MCH 29.7, MCHC 32.3, RDW Std Deviation 48.5 H, RDW Coeff of Simeon 14.3, Plt Count 170, MPV 9.9, Immature Gran % (Auto) 0.600, Neut % (Auto) 55.4, Lymph % (Auto) 27.2, [place] % (Auto) 9.8, Eos % (Auto) 6.4 H, Baso % (Auto) 0.6, Absolute Neuts (auto) 3.6, Absolute Lymphs (auto) 1.78, Nucleated RBC % 0, Sodium 137, Potassium 3.9, Chloride 106, Carbon Dioxide 23.0, Anion Gap 9, BUN 36 H, Creatinine 1.55 H, Estim Creat Clear Calc 79.43, Est GFR (MDRD) Af Amer 59 L, Est GFR (MDRD) Non-Af 49 L, BUN/Creatinine Ratio 23.2 H, Glucose 215 H, Calcium 8.8 06/21/24 06:19: POC Glucose 180 H 06/21/24 10:15: Vancomycin Trough 33.5 H 06/21/24 11:38: POC Glucose 206 H Micro: Microbiology 06/19/24 16:32 Wound - Toe Gram Stain - Final 06/19/24 16:32 Wound - Toe Wound Culture - Preliminary GNR Poss Pseudomonas sp 06/17/24 12:40 Wound - Toe Gram Stain - Final 06/17/24 12:40 Wound - Toe Wound Culture - Final Pseudomonas aeruginosa Coag Negative Staph Physical Exam Narrative Seen and examined Patient had OR on 06/20 with incision and drainage, bone biopsy. Tissue culture growing GNR Pseudomonas No acute change. Left great toe covered with a surgery Follows topographical surveyor Dr. Ibrahim in [facility]. No fever or chills. Has CAD status post stent. No acute chest pain or shortness of breath now. Physical exam: General: Alert, Oriented x3, Cooperative, BMI 48.1 kg/m?, morbid obesity HEENT: Atraumatic, PERRLA, EOMI, Normocephalic Oral: No Gingival or Mucosal Lesions/ Ulcerations Neck: Supple, No JVD, Negative Carotid Bruits Chest wall/Lungs: Air entry diminished in bilateral lung bases. No crepitation/rhonchi Cardiovascular: Sinus rhythm, Normal S1, Normal S2, No M/G/R Abdomen: Bowel Sounds Present, Soft, Non Tender, Non-Distended : No dysuria. No renal angle tenderness. No suprapubic tenderness. Extremities: No edema, Capillary Refill Less than 3 Seconds Skin: Left great toe covered with a dressing. No soakage or drainage. Left great toe proximal part and foot, swelling and cellulitis is resolved Musculoskeletal: No Tenderness to Palpation of Joints or Extremities Neurological: Cranial nerves II-XII grossly intact, DTR 2+/4. Mild bilateral feet neuropathy Psych/Mental Status: Normal Affect, Appropriate. Assessment & Plan Assessment/Plan (1) Diabetic foot ulcer associated with type 2 diabetes mellitus: QUALIFIERS: Diabetic foot ulcer location: unspecified part of foot Laterality: left Non-pressure ulcer stage: limited to breakdown of skin Qualified Code(s): E11.621 - Type 2 diabetes mellitus with foot ulcer; L97.521 - Non-pressure chronic ulcer of other part of left foot limited to breakdown of skin (2) Cellulitis: QUALIFIERS: Site of cellulitis: extremity Site of cellulitis of extremity: toe Laterality: left Qualified Code(s): L03.032 - Cellulitis of left toe (3) Chest pain: QUALIFIERS: Chest pain type: unspecified Qualified Code(s): R07.9 - Chest pain, unspecified PLAN: Plan 58-year-old male was admitted with left leg and foot pain with swelling and redness and worsening of ulcer in left toe since October 2023. Chronic wound on the left foot completed 10 days course of oral Nuzyra, tetracycline. Patient also complained of musculoskeletal type pain in the chest with movement. 1. Left chronic toe ulcer with worsening and contiguous cellulitis with outpatient failure of antibiotic: Patient is admitted on PCU. CRP 31.4, ESR 38. Currently on IV vancomycin and cefepime. [employer] System, and ID consulted. Does not complain of much pain. Wound nurse consulted. Left foot MRI shows great toe ulcer with surrounding cellulitis, suspected osteomyelitis of proximal distal phalange of great toe with mild subcutaneous soft tissue edema noted dorsal foot. Venous duplex of lower extremity 06/17: I discussed with topographical surveyor and expressed my concern that there is worsening of left great toe swelling with past-pointing and redness and cellulitis. Patient was not seen by topographical surveyor for 24 hours despite my calling to Dr. Gould in the morning. Later on seen by Dr. Alejo. He will need bone biopsy/wound debridement. Continue IV antibiotic. 06/18: Hopeful need wound debridement/bone biopsy tomorrow so that we can have tissue culture. 06/19: Plan for surgery today with bone biopsy versus amputation of the toe. Eliquis and ticagrelor is on hold. On IV cefepime, vancomycin and Flagyl. 06/20: No operative note therefore unclear what surgery was done at [place] bone biopsy was done. Prelim tissue culture from 06/19 shows GNR. Had ID follow-up continue above antibiotic. 06/21: Operative note reviewed. Patient had incision and drainage of bone cortex of left great toe along with rotational advancement flap measuring 1.0 x 0.3 cm on 06/19/2024. Operative tissue culture shows GNR and Pseudomonas. Sensitivity pending. ID on board 2. Most likely musculoskeletal chest pain with history of CAD status post stents: Patient had chest pain midsternal localized after he pulled the chest muscle. 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 Two serial twelve-lead EKG individually reviewed. NSR 65/min, QTc [address]-T changes. Chest CTA negative. Serial troponins are negative. ACS ruled out. Continue patient home cardiac medications. 06/17: No acute cardiac issues yesterday and today. 06/20: Patient had echo on 06/16 reported EF 65%, stage I diastolic dysfunction, LA moderately enlarged. It is a history of chronic HFpEF. ABIs done, right and left THERESA could not be calculated because of noncompressible vessels. Doppler US of the right leg and left leg normal at rest. TBI diminished. Right TBI 0.68. 3. DM-2; uncontrolled hyperglycemia: A1c 8.4, glucose 118-141. Patient on metformin, empagliflozin, semaglutide and glargine insulin. Oral agents held. Accu-Chek before meals and at bedtime with Humalog sliding scale coverage and hypoglycemia protocol. 06/17: Glucose fluctuates between 121?184 . Lantus dose increased 06/18: Glucose is about 160, better controlled. Glucose 182 in BMP. 06/19: Glucose is controlled. 06/21: Glucose is 180-206. Insulin dose increased 4. Morbid obesity; with BMI of 49.3 this admission and SVETLANA; on CPAP: Weight loss recommended. TSH normal 2.33. 5. Paroxysmal A-fib; on apixaban - Maintain on apixaban. 6. Essential hypertension; on metoprolol, lisinopril, amlodipine and hydrochlorothiazide - Maintain home regimen as previous. 7. Hyperlipidemia; on rosuvastatin: Continue rosuvastatin. 8. CKD; stage II - serum creatinine of 1.06 mg/dL, BUN of 21 mg/dL and EGFR of 76 mL/min. BUNs/creatinine normal range. 9. Testosterone deficiency; on HRT - Hold testosterone replacement until further notice. 10. Mild intermittent Asthma; on budesonide-formoterol - Stable without acute flare noted at this time. Continue current treatment plus give nebulizers prn for breakthrough symptoms. DVT prophylaxis - Patient is already on apixaban, continued. Clinical Impression(s) from Imaging Studies Chest CTA 06/15/24 19:18 IMPRESSION: Negative CTA chest. Electronically Signed: Tarun Forrester MD at 20:42 EST , Venous Duplex 06/15/24 19:22 IMPRESSION: Normal left lower extremity duplex venous ultrasound. Foot X-Ray 06/15/24 20:20 IMPRESSION: No acute findings in the left foot. Echocardiogram 06/16/24 00:19 Interpretation Summary Mild concentric left ventricular hypertrophy. The left ventricular ejection fraction is 65 %. Stage 1 diastolic dysfunction. The left atrium is moderately enlarged. The study was technically difficult. Lower Extremity MRI 06/16/24 00:19 IMPRESSION: Great toe ulcer with surrounding cellulitis. Suspected osteomyelitis of the proximal and distal phalanges of the great toe. Mild subcutaneous soft tissue edema along the dorsum of the foot. Electronically Signed: George Donovan MD at 10:37 EST , Charges/Coding Visit Charges Inpatient E&M: 24595 Subs Hosp L2
--- NOTE | 2024-06-21 13:55 | PCM.PN.ID ---
Physical Exam Narrative Feeling better s/p OR. No fever, no n/v/d. Const alert and no apparent distress General Appearance: cooperative Resp normal air movement and clear to auscultation bilaterally Cardio regular rate and regular rhythm GI soft to palpation, non-tender and non-distended Skin Skin Narrative: foot wrapped ID ID: Route of nutrition/ use of supplements: [] Nutritional Intake: [] IV Site: [] Gaines Catheter: [] Assessment & Plan Assessment/Plan (1) Type 2 diabetes mellitus: QUALIFIERS: Diabetes mellitus care home insulin use: with joint terminal attack controller use Diabetes mellitus complication status: with circulatory complication Diabetes mellitus complication detail: with other circulatory complications Qualified Code(s): E11.59 - Type 2 diabetes mellitus with other circulatory complications; Z79.4 - 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 Vera for I&D of abscess and osteo, wound cx with PsA and CoNS. Cont vanc/cefepime, flagyl. Plan on 6 weeks iv abx at discharge depending on further cx results. Will follow
[2024-06-21 14:34] VITALS: BP 116/53; PULSE 69; RESP 18; TEMP 36.7; O2SAT 95
--- NOTE | 2024-06-21 14:44 | PCM.RX.CS ---
Consult Antibiotic Management Pharmacy has been consulted to manage selected antibiotic: Vancomycin Type of Intervention Type of Consult: Follow-up Suspected Infection Suspected Infection: Skin/Soft tissue Prior Doses of Antibiotics Prior Doses of Antibiotics Received/Current Regimen: Vancomycin 1750mg every 12 hours 06/20/24 @ 1056 06/23/24 @ 2158 Hold Vancomycin until Random Vancomycin level is drawn at 0600 due to trough level of 33.5 Labs Labs: Sodium 137 mmol/L (136-145) 06/21/24 05:22 Potassium 3.9 mmol/L (3.5-5.1) 06/21/24 05:22 Chloride 106 mmol/L (98-107) 06/21/24 05:22 Carbon Dioxide 23.0 mmol/L (21.0-32.0) 06/21/24 05:22 Anion Gap 9 (5-15) 06/21/24 05:22 BUN 36 mg/dL (7-18) H 06/21/24 05:22 Creatinine 1.55 mg/dL (0.70-1.30) H 06/21/24 05:22 Est GFR (MDRD) Af Amer 59 mL/min (>60) L 06/21/24 05:22 Est GFR (MDRD) Non-Af 49 mL/min (>60) L 06/21/24 05:22 BUN/Creatinine Ratio 23.2 RATIO (10-20) H 06/21/24 05:22 Glucose 215 mg/dL (74-106) H 06/21/24 05:22 Vancomycin Trough 33.5 ug/mL (5.0-15.0) H 06/21/24 10:15 Random Vancomycin 18.9 ug/mL (0.0-15.0) H 06/19/24 19:09 Microbiology Microbiology: Microbiology 06/19/24 16:32 Wound - Toe Gram Stain - Final 06/19/24 16:32 Wound - Toe Wound Culture - Preliminary GNR Poss Pseudomonas sp 06/17/24 12:40 Wound - Toe Gram Stain - Final 06/17/24 12:40 Wound - Toe Wound Culture - Final Pseudomonas aeruginosa Coag Negative Staph Dosing Weight Weight used for dosin kg Goal Trough Goal Trough: 15-20 mcg/mL Pharmacy Plan for Drug Dosing Pharmacy Plan for Drug Dosing: Hold VAncomycin until Random Vancomycin level is drawn and resulted. Pharmacy Service will continue to monitor and adjust dosing as required. Follow-Up Labs Follow-Up Labs: Trough: Other Date/Time Labs Ordered Labs to be done on [date and time ordered]: 06/22/24 @ 0600
[2024-06-21] MEDS: Acetaminophen 325 MG Tablet 650 MG PO (16:50)
[2024-06-21 17:21] LABS: Bedside Glucose 192 mg/dL (74-106)
--- NOTE | 2024-06-21 20:24 | PCM.PN.SRG ---
Subjective Subjective Patient seen now postop days status post incision and drainage bone cortex with advancement flap doing well no pain just has many questions and concerns. He was bed rest and then he has been up moving which I did explain to him this could create more problems with healing his A1c is 8.4. Objective Data Objective Data Vital Signs: Vital Signs Temp Pulse Resp BP Pulse Ox O2 Del Method O2 Flow Rate 98.1 F 69 18 116/53 L 95 Room Air 3 06/21/24 14:34 06/21/24 14:34 06/21/24 14:34 06/21/24 14:34 06/21/24 14:34 06/21/24 14:34 06/19/24 16:45 FiO2 21 06/20/24 06:45 Oxygen Flow Rate (L/min) 3 Oxygen Delivery Method Room Air Weight: 157.3 kg Body Mass Index (BMI) 48.3 Intake & Output: Intake and Output for Last 24 Hours 06/19/24 06/20/24 06/21/24 23:59 23:59 23:59 Intake Total 1158.33 / 1158.33 1510 / 1510 635 / 635 Balance 1158.33 / 1158.33 1510 / 1510 635 / 635 Lab / Micro Data 06/21/24 05:22 06/21/24 05:22 Labs: Laboratory Results - last 24 hr 06/20/24 20:31: POC Glucose 190 H 06/21/24 05:22: WBC 6.6, RBC 3.94 L, Hgb 11.7 L, Hct 36.2 L, MCV 91.9, MCH 29.7, MCHC 32.3, RDW Std Deviation 48.5 H, RDW Coeff of Simeon 14.3, Plt Count 170, MPV 9.9, Immature Gran % (Auto) 0.600, Neut % (Auto) 55.4, Lymph % (Auto) 27.2, [place] % (Auto) 9.8, Eos % (Auto) 6.4 H, Baso % (Auto) 0.6, Absolute Neuts (auto) 3.6, Absolute Lymphs (auto) 1.78, Nucleated RBC % 0, Sodium 137, Potassium 3.9, Chloride 106, Carbon Dioxide 23.0, Anion Gap 9, BUN 36 H, Creatinine 1.55 H, Estim Creat Clear Calc 79.43, Est GFR (MDRD) Af Amer 59 L, Est GFR (MDRD) Non-Af 49 L, BUN/Creatinine Ratio 23.2 H, Glucose 215 H, Calcium 8.8 06/21/24 06:19: POC Glucose 180 H 06/21/24 10:15: Vancomycin Trough 33.5 H 06/21/24 11:38: POC Glucose 206 H 06/21/24 16:45: POC Glucose 192 H Micro: Microbiology 06/19/24 16:32 Wound - Toe Gram Stain - Final 06/19/24 16:32 Wound - Toe Wound Culture - Preliminary GNR Poss Pseudomonas sp 06/17/24 12:40 Wound - Toe Gram Stain - Final 06/17/24 12:40 Wound - Toe Wound Culture - Final Pseudomonas aeruginosa Coag Negative Staph Physical Exam Narrative Patient denies nausea vomiting chills or fever dressing did have blood in the dressing I did change it today I applied dry dressing would recommend Betadine dry dressing the left great toe on a daily basis will need to have dressing changes at home IV antibiotics I believe his best bet for him possibly 6 weeks on either cefepime, Zosyn or infectious disease choice. His vancomycin was elevated we will hold this for right now. Will order postop x-rays his left foot looks good there is decreased erythema of the flap looks viable there is some small areas of the focal necrosis otherwise does not otherwise bother some the sutures are intact again the flap does have some changes and I need to watch and evaluate. Recommend Betadine dry dressing the drainage can be secondary to the antibiotic calcium phosphate that was applied. Const alert and oriented x3 HEENT Head and Scalp: normal to inspection Skin Skin Narrative: Status post surgery decreased erythema no signs of ascending cellulitis that has fully resolved the toe looks good just bruise from the surgery. Mild drainage today redressed with Betadine dry dressing. Assessment & Plan Assessment/Plan (1) Toe osteomyelitis, left: PLAN: Bone seems to be positive for osteomyelitis as noted on cultures even though they did not listed his bone that is listed as wound like to continue with IV antibiotic therapy (2) Type 2 diabetes mellitus: QUALIFIERS: Diabetes mellitus remote computer terminal operator insulin use: with penitentiary use Diabetes mellitus complication status: with circulatory complication Diabetes mellitus complication detail: with other circulatory complications Qualified Code(s): E11.59 - Type 2 diabetes mellitus with other circulatory complications; 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 Will sign off at this point
--- NOTE | 2024-06-21 20:30 | RAD_ITS ---
STUDY: X-RAY - LEFT FOOT CLINICAL: Male, 58 years old. osteomyelitis TECHNIQUE: 3 view(s) of the foot. COMPARISON: June 15, 2024 FINDINGS: Normal talus, calcaneus, and tarsal bones. Normal visualized subtalar, talonavicular, calcaneocuboid, tarsal and tarsometatarsal articulations. Normal metatarsi. Normal metatarsophalangeal joint of the great toe. Normal tibial and fibular sesamoid bones. Normal interphalangeal joint of the great toe. There. Is a subtle cortical lucency and haziness of the cortex of the distal medial shaft of the proximal phalanx of the great toe with associated soft tissue swelling which may be consistent with acute osteomyelitis Normal second through fifth metatarsophalangeal joints. Normal interphalangeal joints and phalanges of the lesser toes. RAD/Foot min 3 Views IMPRESSION: Findings consistent with acute osteomyelitis of the great toe involving the distal medial shaft of the proximal phalanx Electronically Signed: Matthew Peters MD at 21:41 EST ,
[2024-06-21 20:38] VITALS: BP 112/61; PULSE 62; RESP 18; TEMP 36.4; O2SAT 96
[2024-06-21 20:41] VITALS: BP 112/61; PULSE 62
[2024-06-21] MEDS: Lisinopril 20 MG Tablet PO (20:41)
[2024-06-21] MEDS: Metoprolol Tartrate 50 MG Tablet PO (20:41)
[2024-06-21] MEDS: Insulin Glargine-YFGN 100 UNIT/ML Pen 23 UNIT SC (20:42)
[2024-06-21] MEDS: 0.9% Saline Lock 10 ML Syringe IV (20:42)
[2024-06-21 21:07] LABS: Bedside Glucose 196 mg/dL (74-106)
[2024-06-21] MEDS: APIXABAN 5 MG TABLET PO (21:07)
[2024-06-22] VITALS (7 sets, daily range): BP systolic 99–134; BP diastolic 60–85; PULSE 55–68; RESP 16–18; TEMP 36.1–36.8; O2SAT 94–98; BMI 49.3
[2024-06-22] MEDS: Acetaminophen 325 MG Tablet 650 MG PO (04:39)
[2024-06-22] MEDS: metroNIDAZOLE 500 MG Tablet PO ×2 (04:39→13:16)
[2024-06-22 05:54] LABS: Absolute Lymphocyte Count 1.74 X10^3/uL (0.83-4.51); Absolute Neutrophil Count 4.7 X10^3/uL (2.0-7.7); Basophil# 0.04 X10^3/uL; Basophil% 0.5 % (0-1); Eosinophil# 0.34 X10^3/uL; Eosinophils% 4.5 % (0-5); Hematocrit 36.3 % (40-54); Hemoglobin 11.9 g/dL (13.0-16.5); Lymphocyte # 1.74 X10^3/ul (0.83-4.51); Mean Corp Hgb Conc 32.8 g/dL (32-36); Mean Corpuscular Hgb 29.6 pg (27.0-32.0); Mean Corpuscular Volume 90.3 fL (80-94); Mean Platelet Vol. 9.5 fl (6.2-12.0); Monocyte# 0.64 X10^3/uL; Monocyte% 8.5 % (0-10); NRBC Flagged by Analyzer 0 % (0-5); Neutrophil # 4.74 X10^3/uL (2.7-7.7); Neutrophil % 62.8 % (47-70); Platelet Count 182 K/mm3 (150-450); RBC Distribution Width CV 14.2 % (11.6-14.6); RBC Distribution Width SD 46.3 fl (35.1-43.9); Red Blood Count 4.02 M/mm3 (4.6-6.2); White Blood Count 7.6 K/mm3 (4.4-11.0)
[2024-06-22 06:42] LABS: Anion Gap 7 (5-15); BUN 41 mg/dL (7-18); BUN/Creat Ratio 26.3 RATIO (10-20); Chloride 107 mmol/L (98-107); Creatinine, Serum 1.56 mg/dL (0.70-1.30); EST Glomerular Filtration Rate 49 mL/min (>60); Est Glom Filt Rate - Afr Amer 59 mL/min (>60); Glucose 217 mg/dL (74-106); Potassium 3.9 mmol/L (3.5-5.1); Sodium Level 136 mmol/L (136-145)
[2024-06-22 06:48] LABS: Vancomycin, Random Level 21.9 ug/mL (0.0-15.0)
--- NOTE | 2024-06-22 07:08 | PCM.RX.CS ---
Consult Antibiotic Management Pharmacy has been consulted to manage selected antibiotic: Vancomycin Type of Intervention Type of Consult: Follow-up Suspected Infection Suspected Infection: Skin/Soft tissue Labs Labs: Sodium 136 mmol/L (136-145) 06/22/24 05:44 Potassium 3.9 mmol/L (3.5-5.1) 06/22/24 05:44 Chloride 107 mmol/L (98-107) 06/22/24 05:44 Carbon Dioxide 22.0 mmol/L (21.0-32.0) 06/22/24 05:44 Anion Gap 7 (5-15) 06/22/24 05:44 BUN 41 mg/dL (7-18) H 06/22/24 05:44 Creatinine 1.56 mg/dL (0.70-1.30) H 06/22/24 05:44 Est GFR (MDRD) Af Amer 59 mL/min (>60) L 06/22/24 05:44 Est GFR (MDRD) Non-Af 49 mL/min (>60) L 06/22/24 05:44 BUN/Creatinine Ratio 26.3 RATIO (10-20) H 06/22/24 05:44 Glucose 217 mg/dL (74-106) H 06/22/24 05:44 Vancomycin Trough 33.5 ug/mL (5.0-15.0) H 06/21/24 10:15 Random Vancomycin 21.9 ug/mL (0.0-15.0) H 06/22/24 05:44 Microbiology Microbiology: Microbiology 06/19/24 16:32 Wound - Toe Gram Stain - Final 06/19/24 16:32 Wound - Toe Wound Culture - Preliminary GNR Poss Pseudomonas sp 06/17/24 12:40 Wound - Toe Gram Stain - Final 06/17/24 12:40 Wound - Toe Wound Culture - Final Pseudomonas aeruginosa Coag Negative Staph Goal Trough Goal Trough: 15-20 mcg/mL Pharmacy Plan for Drug Dosing Pharmacy Plan for Drug Dosing: VANCOMYCIN LEVEL RECEIVED Current Vancomycin Dose: Current dose is on hold due to previously elevated trough of 33.5 Number of Doses Received: Vancomycin Level: random level resulted at 21.9 Hours Since Last Dose: 32 hours since last 1750mg dose on 06/20/24 at 2158 Renal Function: SrCr 1.56 Renal Function Trend: SrCr currently stable but elevated from 1.06 at initial start of Vancomycin Lab/Micro: Vancomycin Plan/Comments: resulted random level is still elevated at 21.9. recommend continuing to hold vancomycin and check another random level on 06/23/24 at 0600 Pending Level: random level on 06/23/24 at 0600 Pharmacy Service will continue to monitor and adjust dosing as required. Follow-Up Labs Follow-Up Labs: Trough: Vancomycin (06/23/24 at 0600 (random level))
[2024-06-22 09:05] LABS: Bedside Glucose 186 mg/dL (74-106)
[2024-06-22] MEDS: Insulin Lispro 100 UNIT/ML INSULN.PEN SC ×2 (09:05→11:46)
[2024-06-22] MEDS: Ascorbic Acid 500 MG Tablet 1000 MG PO (09:06)
[2024-06-22] MEDS: APIXABAN 5 MG TABLET PO (09:07)
[2024-06-22] MEDS: Lactobacillis Acidophilus 1 CAP PO ×2 (09:07→13:16)
[2024-06-22] MEDS: Empagliflozin 25 MG Tablet PO (09:08)
[2024-06-22] MEDS: Cefepime HCl 2 GM in 0.9% Normal Saline (100mL MB+) 100 ML IV (09:09)
[2024-06-22] MEDS: Cholecalciferol (Vit D3) 125 MCG CAPSULE (5,000 UNITS) PO (09:10)
[2024-06-22] MEDS: Zinc Sulfate 50 mg zinc (220 mg) ORAL capsule PO (09:11)
[2024-06-22] MEDS: Insulin Glargine-YFGN 100 UNIT/ML Pen 23 UNIT SC (09:16)
--- NOTE | 2024-06-22 10:13 | PN.ID_ITS ---
Physical Exam Narrative Feeling ok, no fever, no n/v/d. Const alert and no apparent distress General Appearance: cooperative Resp normal air movement and clear to auscultation bilaterally Cardio regular rate and regular rhythm GI soft to palpation, non-tender and non-distended Skin Skin Narrative: L foot wrapped ID ID: Route of nutrition/ use of supplements: [] Nutritional Intake: [] IV Site: [] Gaines Catheter: [] Assessment & Plan Assessment/Plan (1) Type 2 diabetes mellitus: QUALIFIERS: Diabetes mellitus terminal gauger supervisor insulin use: with terminal gauger supervisor use Diabetes mellitus complication status: with circulatory complication Diabetes mellitus complication detail: with other circulatory complications Qualified Code(s): E11.59 - Type 2 diabetes mellitus with other circulatory complications; Z79.4 - [employer] (current) use of insulin (2) Toe osteomyelitis, left: PLAN: taken to OR 06/20/[address] Vera for I&D of abscess and osteo, wound cx with PsA and CoNS. Cont vanc/cefepime, flagyl while inpatient. Will order picc and 6 weeks cefepime plus po doxy and flagyl. Stop date 07/31/24 with weekly labs, ID followup in 2 weeks. D/w social work Will follow
--- NOTE | 2024-06-22 11:03 | CASEMGMT ---
Addendum entered by Radha Valentin 06/22/24 15:28: Patient had single lumen picc line placed. JAMES RIDDLE sent picc line information to [facility]. JAMES RIDDLE called [facility] to confirm discharge today, start of care planned for 0900 tomorrow 06/23/24. JAMES CM faxed ATB script to [facility]. JAMES RIDDLE updated [facility] of planned discharge for tomorrow with start of care for 0900, delivery scheduled for end of day. JAMES RIDDLE in to update patient of ATB setup, [facility] care for in the morning, and discharge planned for today. Patient voiced understanding and appreciation. Patient had no further questions or concerns. JAMES RIDDLE updated nursing and discharge plan. Addendum entered by Radha Valentin 06/22/24 11:52: RN VENKATESH received call back from [facility], they are able to accept if patient discharges today. JAMES RIDDLE updated hospitalist. JAMES RIDDLE called [facility] to inquire about what picc line patient will have placed, awaiting call back. [facility] is running insurance and checking financials. Original Note: JAMES RIDDLE received script for IV ATB, Cefepime 2g q12, from [place]. JAMES RIDDLE in to discuss discharge planning. Patient states he prefers [facility] for HHC and [facility] for infusion setup. Patient states that junior sales assistant ordered a surgical shoe for him. Patient states family is teachable to IV ATBs and wound care. Patient had no further questions or concerns. JAMES RIDDLE updated by charge nursing that picc line will be placed this afternoon. JAMES RIDDLE called and made referral to [facility], awaiting acceptance. JAMES RIDDLE updated discharge strategy planning consultant to send referral to [facility] for ATBs. CM will continue to follow this patient and plan for a safe discharge.
--- NOTE | 2024-06-22 11:05 | PN.HOSP_ITS ---
Reason for Visit Reason for Visit: Diagnoses Type 2 diabetes mellitus with other circulatory complications (06/15/24) Type 2 diabetes mellitus with foot ulcer (06/15/24) Type 2 diabetes mellitus without complications (06/15/24) Morbid (severe) obesity due to excess calories (06/15/24) Obstructive sleep apnea (adult) (pediatric) (06/15/24) Atherosclerotic heart disease of [place] coronary artery without angina pectoris (06/15/24) Unspecified atrial flutter (06/15/24) Cellulitis of left toe (06/15/24) Cellulitis, unspecified (06/15/24) Non-pressure chronic ulcer of other part of unspecified foot with unspecified severity (06/15/24) Non-pressure chronic ulcer of other part of left foot limited to breakdown of skin (06/15/24) Osteomyelitis, unspecified (06/15/24) Chest pain, unspecified (06/15/24) Body mass index [BMI] 45.0-49.9, adult (06/15/24) ad terminal makeup operator (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 Blood glucose control is still not optimal made subsequent adjustment to patient long-acting insulin Objective Data Objective Data Vital Signs: Vital Signs Temp Pulse Resp BP Pulse Ox O2 Del Method O2 Flow Rate 97.6 F L 55 L 16 99/61 96 Room Air 3 06/22/24 08:10 06/22/24 09:59 06/22/24 08:10 06/22/24 09:59 06/22/24 08:15 06/22/24 08:15 06/19/24 16:45 FiO2 21 06/20/24 06:45 Oxygen Flow Rate (L/min) 3 Oxygen Delivery Method Room Air Weight: 160.3 kg Body Mass Index (BMI) 49.3 Intake & Output: Intake and Output for Last 24 Hours 06/20/24 06/21/24 06/22/24 23:59 23:59 23:59 Intake Total 1510 / 1510 735 / 735 100 / 100 Balance 1510 / 1510 735 / 735 100 / 100 Lab / Micro Data 06/22/24 05:44 06/22/24 05:44 Labs: Laboratory Results - last 24 hr 06/21/24 11:38: POC Glucose 206 H 06/21/24 16:45: POC Glucose 192 H 06/21/24 20:40: POC Glucose 196 H 06/22/24 05:44: WBC 7.6, RBC 4.02 L, Hgb 11.9 L, Hct 36.3 L, MCV 90.3, MCH 29.6, MCHC 32.8, RDW Std Deviation 46.3 H, RDW Coeff of Simeon 14.2, Plt Count 182, MPV 9.5, Immature Gran % (Auto) 0.700, Neut % (Auto) 62.8, Lymph % (Auto) 23.0, [place] % (Auto) 8.5, Eos % (Auto) 4.5, Baso % (Auto) 0.5, Absolute Neuts (auto) 4.7, Absolute Lymphs (auto) 1.74, Nucleated RBC % 0, Sodium 136, Potassium 3.9, Chloride 107, Carbon Dioxide 22.0, Anion Gap 7, BUN 41 H, Creatinine 1.56 H, Estim Creat Clear Calc 79.80, Est GFR (MDRD) Af Amer 59 L, Est GFR (MDRD) Non-Af 49 L, BUN/Creatinine Ratio 26.3 H, Glucose 217 H, Calcium 9.0, Random Vancomycin 21.9 H 06/22/24 08:10: POC Glucose 186 H Micro: Microbiology 06/19/24 16:32 Wound - Toe Gram Stain - Final 06/19/24 16:32 Wound - Toe Wound Culture - Preliminary GNR Poss Pseudomonas sp 06/17/24 12:40 Wound - Toe Gram Stain - Final 06/17/24 12:40 Wound - Toe Wound Culture - Final Pseudomonas aeruginosa Coag Negative Staph Radiography Diagnostic Testing: Radiology Impression Foot X-Ray 06/21/24 20:30 IMPRESSION: Findings consistent with acute osteomyelitis of the great toe involving the distal medial shaft of the proximal phalanx Electronically Signed: Matthew Peters MD at 21:41 EST Reading Location ID and State: [facility] / [place] Tel , Service support , Physical Exam Narrative GENERAL: cooperative HEENT: Atraumatic; normocephalic EYES; Anicteric, Normal Conjunctiva NECK; supple, normal thyroid, RESPIRATORY: Diminished to auscultation CARDIOVASCULAR: Regular S1 S2, GI: soft, normoactive bowel sounds, : No Renal angle tenderness; EXTREMITIES: Left foot in surgical dressing MUSCULOSKELETAL: no muscle wasting NEURO: Awake; no lateralizing signs. SKIN: No Rash PSYCH; Flat affect Assessment & Plan Assessment/Plan (1) Diabetic foot ulcer associated with type 2 diabetes mellitus: QUALIFIERS: Diabetic foot ulcer location: unspecified part of foot Laterality: left Non-pressure ulcer stage: limited to breakdown of skin Q ualified Code(s): E11.621 - Type 2 diabetes mellitus with foot ulcer; L97.521 - Non-pressure chronic ulcer of other part of left foot limited to breakdown of skin (2) Cellulitis: QUALIFIERS: Site of cellulitis: extremity Site of cellulitis of extremity: toe Laterality: left Qualified Code(s): L03.032 - Cellulitis of left toe (3) Chest pain: QUALIFIERS: Chest pain type: unspecified Qualified Code(s): R07.9 - Chest pain, unspecified PLAN: Plan 58-year-old male was admitted with left leg and foot pain with swelling and redness and worsening of ulcer in left toe which has been present since October 2023 1. Left chronic toe ulcer with worsening and contiguous cellulitis with outpatient failure of antibiotic: Patient is admitted on PCU. CRP 31.4, ESR 38. Currently on IV vancomycin and cefepime. Chemical Research Engineer, and ID consulted. Does not complain of much pain. Wound nurse consulted. Left foot MRI shows great toe ulcer with surrounding cellulitis, suspected osteomyelitis of proximal distal phalange of great toe with mild subcutaneous soft tissue edema noted dorsal foot. Venous duplex of lower extremity 06/17: I discussed with distribution system operator and expressed my concern that there is worsening of left great toe swelling with past-pointing and redness and cellulitis. Patient was not seen by distribution system operator for 24 hours despite my calling to Dr. Gould in the morning. Later on seen by Dr. Alejo. He will need bone biopsy/wound debridement. Continue IV antibiotic. 06/18: Hopeful need wound debridement/bone biopsy tomorrow so that we can have tissue culture. 06/19: Plan for surgery today with bone biopsy versus amputation of the toe. Eliquis and ticagrelor is on hold. On IV cefepime, vancomycin and Flagyl. 06/20: No operative note therefore unclear what surgery was done at [place] bone biopsy was done. Prelim tissue culture from 06/19 shows GNR. Had ID follow-up continue above antibiotic. 06/21: Operative note reviewed. Patient had incision and drainage of bone cortex of left great toe along with rotational advancement flap measuring 1.0 x 0.3 cm on 06/19/2024. Operative tissue culture shows GNR and Pseudomonas. Sensitivity pending. ID on board ? 06/22/2023; ID recommending 6 weeks cefepime plus po doxy and flagyl. 2. Most likely musculoskeletal chest pain with history of CAD status post stents: Patient had chest pain midsternal localized after he pulled the chest muscle. 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 Two serial twelve-lead EKG individually reviewed. NSR 65/min, QTc [address]-T changes. Chest CTA negative. Serial troponins are negative. ACS ruled out. Continue patient home cardiac medications. 06/17: No acute cardiac issues yesterday and today. 06/20: Patient had echo on 06/16 reported EF 65%, stage I diastolic dysfunction, LA moderately enlarged. It is a history of chronic HFpEF. ABIs done, right and left THERESA could not be calculated because of noncompressible vessels. Doppler US of the right leg and left leg normal at rest. TBI diminished. Right TBI 0.68. 3. DM-2; uncontrolled hyperglycemia: A1c 8.4, glucose 118-141. Patient on metformin, empagliflozin, semaglutide and glargine insulin. Oral agents held. Accu-Chek before meals and at bedtime with Humalog sliding scale coverage and hypoglycemia protocol. 06/17: Glucose fluctuates between 121?184 . Lantus dose increased 06/18: Glucose is about 160, better controlled. Glucose 182 in BMP. 06/19: Glucose is controlled. 06/21: Glucose is 180-206. Insulin dose increased ? 06/22/2023; subsequent adjustment made to patient long-acting insulin discontinued the scheduled Premeal insulin per patient's request 4. Morbid obesity with BMI of 49.3 ? Complicating care weight loss advised 5. Paroxysmal A-fib Rate controlled on metoprolol systemic anticoagulation with apixaban 6. Essential hypertension ? Patient blood pressure running on the low side adjustment made to patient antihypertensives we will subsequently observe patient for 1 more day prior to discharge 7. Dyslipidemia ?Patient is on statin therapy, continued at home dose 8. Obstructive sleep apnea ? Consistent use of PAP therapy encouraged 9. Testosterone deficiency on HRT - testosterone held on admission with plans to resume on discharge 10. Mild intermittent Asthma - on budesonide-formoterol - Stable without acute flare noted at this time. Continue current treatment plus give nebulizers prn for breakthrough symptoms. 11. DVT prophylaxis - Patient is already on apixaban, continued. Time spent in the patient's overall evaluation,decision-making process, review of diagnostic data, adjustment of management, discussion with other providers, nursing nursing and ancillary staff involved in patient's care documentation, 50 Minutes Charges/Coding Visit Charges Inpatient E&M: [id number] [facility] Hosp L3
--- NOTE | 2024-06-22 11:14 | CASEMGMT ---
Referral sent to I. Quyen Middleton DC Planning Asst.
[2024-06-22 12:08] LABS: Bedside Glucose 193 mg/dL (74-106)
--- NOTE | 2024-06-22 13:47 | WOUNDNOTE ---
Did wound teaching with patient. pt feel comfortable with dressing change. states he had been changing the dressing prior to coming to the hospital. Pt denies questions.
--- NOTE | 2024-06-22 14:22 | PCM.DC.SUM ---
Providers Date of Admission: 06/15/24 Date of Discharge: 06/22/24 Primary Care Physician: Dr. Lani Paiz, Consultations 06/16/24 00:19 Consult: Onc/Wound/tile classifier Routine Comment: Reason for Consult:: Left DFU with Cellulitis. 06/16/24 13:27 Consult: Infectious Disease Routine Consulting Provider: Jarek Anaya Reason for Consult: left toe osteomyelitis EMERGENT Consult: No MD Notified: Yes Date Notified: 06/16/24 Time Notified: 13:27 Method of Notification: Text Consult: Podiatry Routine Consulting Provider: Sergei Vera Reason for Consult: left great toe ulcer with osteomyelitis EMERGENT Consult: No Notified: Yes Date Notified: 06/16/24 Time Notified: 16:35 Method of Notification: Text Reason For Visit: LEFT DFU WITH CELLULITIS AND CHEST PAIN Diagnosis Discharge Diagnosis (1) Diabetic foot ulcer associated with type 2 diabetes mellitus: Status: Acute Code(s): E11.621 - Type 2 diabetes mellitus with foot ulcer; L97.509 - Non-pressure chronic ulcer of other part of unspecified foot with unspecified severity Qualifiers: Diabetic foot ulcer location: unspecified part of foot Laterality: left Non-pressure ulcer stage: limited to breakdown of skin Qualified Code(s): E11.621 - Type 2 diabetes mellitus with foot ulcer; L97.521 - Non-pressure chronic ulcer of other part of left foot limited to breakdown of skin (2) Cellulitis: Status: Acute Code(s): L03.90 - Cellulitis, unspecified Qualifiers: Site of cellulitis: extremity Site of cellulitis of extremity: toe Laterality: left Qualified Code(s): L03.032 - Cellulitis of left toe (3) Chest pain: Status: Acute Code(s): R07.9 - Chest pain, unspecified Qualifiers: Chest pain type: unspecified Qualified Code(s): R07.9 - Chest pain, unspecified Plan 58-year-old male was admitted with left leg and foot pain with swelling and redness and worsening of ulcer in left toe which has been present since October 2023 1. Left chronic toe ulcer with worsening and contiguous cellulitis with outpatient failure of antibiotic: Patient is admitted on PCU. CRP 31.4, ESR 38. Currently on IV vancomycin and cefepime. Vector Control Specialist, and ID consulted. Does not complain of much pain. Wound nurse consulted. Left foot MRI shows great toe ulcer with surrounding cellulitis, suspected osteomyelitis of proximal distal phalange of great toe with mild subcutaneous soft tissue edema noted dorsal foot. Venous duplex of lower extremity 06/17: I discussed with hospitalist physician and expressed my concern that there is worsening of left great toe swelling with past-pointing and redness and cellulitis. Patient was not seen by hospitalist physician for 24 hours despite my calling to Dr. Gould in the morning. Later on seen by Dr. Alejo. He will need bone biopsy/wound debridement. Continue IV antibiotic. 06/18: Hopeful need wound debridement/bone biopsy tomorrow so that we can have tissue culture. 06/19: Plan for surgery today with bone biopsy versus amputation of the toe. Eliquis and ticagrelor is on hold. On IV cefepime, vancomycin and Flagyl. 06/20: No operative note therefore unclear what surgery was done at [place] bone biopsy was done. Prelim tissue culture from 06/19 shows GNR. Had ID follow-up continue above antibiotic. 06/21: Operative note reviewed. Patient had incision and drainage of bone cortex of left great toe along with rotational advancement flap measuring 1.0 x 0.3 cm on 06/19/2024. Operative tissue culture shows GNR and Pseudomonas. Sensitivity pending. ID on board ? 06/22/2023; ID recommending 6 weeks cefepime plus po doxy and flagyl. 2. Most likely musculoskeletal chest pain with history of CAD status post stents: Patient had chest pain midsternal localized after he pulled the chest muscle. 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 Two serial twelve-lead EKG individually reviewed. NSR 65/min, QTc [address]-T changes. Chest CTA negative. Serial troponins are negative. ACS ruled out. Continue patient home cardiac medications. 06/17: No acute cardiac issues yesterday and today. 06/20: Patient had echo on 06/16 reported EF 65%, stage I diastolic dysfunction, LA moderately enlarged. It is a history of chronic HFpEF. ABIs done, right and left THERESA could not be calculated because of noncompressible vessels. Doppler US of the right leg and left leg normal at rest. TBI diminished. Right TBI 0.68. 3. DM-2; uncontrolled hyperglycemia: A1c 8.4, glucose 118-141. Patient on metformin, empagliflozin, semaglutide and glargine insulin. Oral agents held. Accu-Chek before meals and at bedtime with Humalog sliding scale coverage and hypoglycemia protocol. 06/17: Glucose fluctuates between 121?184 . Lantus dose increased 06/18: Glucose is about 160, better controlled. Glucose 182 in BMP. 06/19: Glucose is controlled. 06/21: Glucose is 180-206. Insulin dose increased ? 06/22/2023; subsequent adjustment made to patient long-acting insulin discontinued the scheduled Premeal insulin per patient's request 4. Morbid obesity with BMI of 49.3 ? Complicating care weight loss advised 5. Paroxysmal A-fib Rate controlled on metoprolol systemic anticoagulation with apixaban 6. Essential hypertension ? Patient blood pressure running on the low side adjustment made to patient antihypertensives we will subsequently observe patient for 1 more day prior to discharge ? Adjusted patient antihypertensive regimen with discontinuation of HCTZ and amlodipine and did decrease the dose of his lisinopril 7. Dyslipidemia ?Patient is on statin therapy, continued at home dose 8. Obstructive sleep apnea ? Consistent use of PAP therapy encouraged 9. Testosterone deficiency on HRT - testosterone held on admission with plans to resume on discharge 10. Mild intermittent Asthma - on budesonide-formoterol - Stable without acute flare noted at this time. Continue current treatment plus give nebulizers prn for breakthrough symptoms. 11. DVT prophylaxis - Patient is already on apixaban, continued. Time spent in the patient's overall evaluation,decision-making process, review of diagnostic data, adjustment of management, discussion with other providers, nursing nursing and ancillary staff involved in patient's care documentation, 50 Minutes Medications at Discharge Home Medications testosterone cypionate 200 mg/mL intramuscular oil 400 mg subcut Q2W hormones 06/23/21 rosuvastatin 20 mg tablet 20 mg PO Q OTHER DAY cholesterol #45 tabs 02/04/22 apixaban 5 mg tablet (Eliquis) 5 mg PO BID #180 tabs 09/23/23 empagliflozin 25 mg tablet (Jardiance) 25 mg PO DAILY 10/29/23 aspirin 81 mg tablet,delayed release 81 mg PO BREAKFAST #30 tabs 11/01/23 metformin 1,000 mg tablet 1,000 mg PO BID #60 tabs 11/01/23 acetaminophen 500 mg tablet 1,000 mg PO BID PRN fever or pain 11/24/23 loratadine 10 mg tablet 10 mg PO DAILY PRN allergies 11/24/23 semaglutide 0.25 mg or 0.5 mg (2 mg/3 mL) subcutaneous pen injector (Ozempic) 0.5 mg subcut QWEEK 11/24/23 insulin glargine 100 unit/mL (3 mL) subcutaneous pen (Lantus Solostar U-100 Insulin) 12 unit subcut BID 01/06/24 metoprolol tartrate 50 mg tablet 50 mg PO BID #180 tabs 03/20/24 nitroglycerin 0.4 mg sublingual tablet 0.4 mg sublingual Q5M PRN Cardiac/Chest Pain #25 tabs 04/06/24 ticagrelor 90 mg tablet (Brilinta) 90 mg PO BID #180 TABLETS 05/23/24 cefepime 2 gram solution for injection 2 g IV Q12 39 days #78 ea 06/22/24 doxycycline hyclate 100 mg capsule 100 mg PO BID #78 caps 06/22/24 lisinopril 20 mg tablet 20 mg PO DAILY #180 tabs 06/22/24 metronidazole 500 mg tablet 500 mg PO TID 39 days #117 tabs 06/22/24 Physical Exam Narrative GENERAL: cooperative HEENT: Atraumatic; normocephalic EYES; Anicteric, Normal Conjunctiva NECK; supple, normal thyroid, RESPIRATORY: Diminished to auscultation CARDIOVASCULAR: Regular S1 S2, GI: soft, normoactive bowel sounds, : No Renal angle tenderness; EXTREMITIES: Left foot in surgical dressing MUSCULOSKELETAL: no muscle wasting NEURO: Awake; no lateralizing signs. SKIN: No Rash PSYCH; Flat affect Weight / BMI Weight Weight: 160.3 kg Body Mass Index (BMI) 49.3 ABG / Lab / Microbiology Data 06/22/24 05:44 06/22/24 05:44 Laboratory: Laboratory Results - last 24 hr 06/21/24 16:45: POC Glucose 192 H 06/21/24 20:40: POC Glucose 196 H 06/22/24 05:44: WBC 7.6, RBC 4.02 L, Hgb 11.9 L, Hct 36.3 L, MCV 90.3, MCH 29.6, MCHC 32.8, RDW Std Deviation 46.3 H, RDW Coeff of Simeon 14.2, Plt Count 182, MPV 9.5, Immature Gran % (Auto) 0.700, Neut % (Auto) 62.8, Lymph % (Auto) 23.0, Mckean % (Auto) 8.5, Eos % (Auto) 4.5, Baso % (Auto) 0.5, Absolute Neuts (auto) 4.7, Absolute Lymphs (auto) 1.74, Nucleated RBC % 0, Sodium 136, Potassium 3.9, Chloride 107, Carbon Dioxide 22.0, Anion Gap 7, BUN 41 H, Creatinine 1.56 H, Estim Creat Clear Calc 79.80, Est GFR (MDRD) Af Amer 59 L, Est GFR (MDRD) Non-Af 49 L, BUN/Creatinine Ratio 26.3 H, Glucose 217 H, Calcium 9.0, Random Vancomycin 21.9 H 06/22/24 08:10: POC Glucose 186 H 06/22/24 11:43: POC Glucose 193 H Microbiology: Microbiology 06/19/24 16:32 Wound - Toe Gram Stain - Final 06/19/24 16:32 Wound - Toe Wound Culture - Preliminary GNR Poss Pseudomonas sp 06/19/24 16:32 Wound - Toe Anaerobic Culture - Preliminary Checking for anaerobes, further studies to follow. 06/17/24 12:40 Wound - Toe Gram Stain - Final 06/17/24 12:40 Wound - Toe Wound Culture - Final Pseudomonas aeruginosa Coag Negative Staph Radiography Diagnostic Testing: Radiology Impression Foot X-Ray 06/21/24 20:30 IMPRESSION: Findings consistent with acute osteomyelitis of the great toe involving the distal medial shaft of the proximal phalanx Electronically Signed: Matthew Peters MD at 21:41 EST Reading Location ID and State: [address] [place] [address] Tel , Service support , D/C Instructions Discharge Diet: No restrictions Discharge Activity: Return to Normal Activity Call your doctor if you observe: Fever of 101 or Higher, Shortness of breath, Fainting spells and Chest pain DC O2, CPAP, BIPAP Needs PSN CPAP & BiPAP: BiPAP & CPAP Settings per PSN Mode CPAP 06/22/24 11:33 Bipap Delivery Device Face Mask 06/22/24 00:50 BiPAP Expiratory Pressure 15 06/22/24 00:50 Fraction of Inspired Oxygen ( 06/20/24 06:45 FIO2) Home O2 Discharge instructions: No Meaningful Use Info Meaningful Use Meaningful Use Diagnoses (Choose all that apply): None applicable Ischemic Stroke Statin Dosing Therapy Reference: STATIN DOSE THERAPY REFERENCE: * Patients > 75 years receive moderate or high dose statin therapy. * Patients 75 years or YOUNGER should receive HIGH intensity statin dose unless contraindicated. You will be required to document reason for non-treatment if statin daily dose does not meet guidelines. HIGH DOSE STATIN THERAPY DAILY Atorvastatin > than or = to 40 mg Rosuvastatin > than or = to 20 mg Amlodipine + Atorvastatin > than or = to 2.5/40 mg Ezetimibe + Simvastatin 10/80 mg Simvastatin 80mg Discharge Plan Admission Admit Date/Time: 06/15/24 23:42 Attending Provider: Sai Fraire Primary Care Provider: Lani Paiz Consulting Providers: Sai Manuel; Jarek Anaya; Sergei Vera; Saran Parada Discharge Orders/Prescriptions Prescriptions: New cefepime 2 gram Recon Soln 2 g IV Q12 39 Days Qty: 78 0RF Rx Instructions: stop date 07/31/24. Dx: toe osteo. Weekly bmp, cbc, and ESR. fax to [phone]. Routine picc care per protocol. metronidazole 500 mg Tablet 500 mg PO TID 39 Days Qty: 117 0RF doxycycline hyclate 100 mg capsule 100 mg PO BID Qty: 78 0RF Continued rosuvastatin 20 mg tablet 20 mg PO Q OTHER DAY Qty: 45 3RF loratadine 10 mg tablet 10 mg PO DAILY PRN (Reason: allergies) Ozempic 0.25 mg or 0.5 mg (2 mg/3 mL) pen injector 0.5 mg subcut QWEEK Patient Comments: 0.25 MG SUBCUTANEOUSLY EVERY WEEK FOR 4 WEEKS THEN INCREASE TO 0.5 MG EVERY WEEK acetaminophen 500 mg tablet 1,000 mg PO BID PRN (Reason: fever or pain) testosterone cypionate 200 mg/mL oil 400 mg SC Q2W Patient Comments: INJECT 2ML EVERY 2 WEEKS Jardiance 25 mg tablet 25 mg PO DAILY aspirin 81 mg Tablet,Delayed Release (Dr/Ec) 81 mg PO BREAKFAST Qty: 30 0RF metformin 1,000 mg tablet 1,000 mg PO BID Qty: 60 0RF Eliquis 5 mg tablet 5 mg PO BID Qty: 180 3RF metoprolol tartrate 50 mg tablet 50 mg PO BID Qty: 180 3RF nitroglycerin 0.4 mg tablet, sublingual 0.4 mg sublingual Q5M PRN (Reason: Cardiac/Chest Pain) Qty: 25 3RF Brilinta 90 mg tablet 90 mg PO BID Qty: 180 3RF Changed lisinopril 20 mg tablet 20 mg PO DAILY Qty: 180 3RF Discontinued amlodipine 5 mg tablet 5 mg PO DAILY PRN (Reason: BP) hydrochlorothiazide 25 mg tablet 25 mg PO DAILY Qty: 90 3RF No Action insulin glargine [Lantus Solostar U-100 Insulin] 100 unit/mL (3 mL) insulin pen 12 unit subcut BID Referrals / Follow Up: Lani Paiz DO [Primary Care Provider] - Disposition Disposition (needs filled in before D/C Order can be placed): Home Health Service Charges/Coding Visit Charges Inpatient E&M: 01414 Disch Hosp >30min
--- NOTE | 2024-06-22 14:49 | WOUNDNOTE ---
wound photo: left great toe
== END 2024-06-22 17:00 | disposition home health service (06) | DRG 629 ==
LOC: ED 19:17 → PCU 06-16 00:50
PROVIDERS: Internal Medicine; Internal Medicine Infectious Disease; Podiatrist Foot & Ankle Surgery; Admitting Provider Internal Medicine; Emergency Provider Emergency Medicine; PCP Internal Medicine; Visit Provider Internal Medicine
PROC: 0QBR0ZZ Excision of Left Toe Phalanx, Open Approach (ICD-10-PCS; principal; 2024-06-19 14:50)
DX: E11.69 Type 2 diabetes mellitus with other specified complication (principal); Z68.42 Body mass index [BMI] 45.0-49.9, adult; I48.92 Unspecified atrial flutter; L03.116 Cellulitis of left lower limb; I13.0 Hypertensive heart and chronic kidney disease with heart failure and stage 1 through stage 4 chronic kidney disease, or unspecified chronic kidney disease; I50.32 Chronic diastolic (congestive) heart failure; M86.8X7 Other osteomyelitis, ankle and foot; B96.5 Pseudomonas (aeruginosa) (mallei) (pseudomallei) as the cause of diseases classified elsewhere; E11.22 Type 2 diabetes mellitus with diabetic chronic kidney disease; B95.62 Methicillin resistant Staphylococcus aureus infection as the cause of diseases classified elsewhere; J45.20 Mild intermittent asthma, uncomplicated; E11.621 Type 2 diabetes mellitus with foot ulcer; E11.40 Type 2 diabetes mellitus with diabetic neuropathy, unspecified; E11.59 Type 2 diabetes mellitus with other circulatory complications; E66.01 Morbid (severe) obesity due to excess calories; N18.2 Chronic kidney disease, stage 2 (mild); I25.10 Atherosclerotic heart disease of native coronary artery without angina pectoris; Z79.4 Long term (current) use of insulin; L97.521 Non-pressure chronic ulcer of other part of left foot limited to breakdown of skin; E78.5 Hyperlipidemia, unspecified; G47.33 Obstructive sleep apnea (adult) (pediatric); E11.65 Type 2 diabetes mellitus with hyperglycemia; I48.0 Paroxysmal atrial fibrillation; I25.2 Old myocardial infarction; Z79.01 Long term (current) use of anticoagulants; L03.032 Cellulitis of left toe; Z79.85 Long-term (current) use of injectable non-insulin antidiabetic drugs; Z95.5 Presence of coronary angioplasty implant and graft; Z79.82 Long term (current) use of aspirin; Z79.84 Long term (current) use of oral hypoglycemic drugs; Z82.3 Family history of stroke; Z79.02 Long term (current) use of antithrombotics/antiplatelets; Z86.16 Personal history of COVID-19; Z90.49 Acquired absence of other specified parts of digestive tract
CPT/HCPCS: 36415; 36569; 71275; 73630; 73720; 80048; 80053; 80061; 80202; 82962; 83036; 83605; 83735; 84100; 84443; 84484; 85025; 85652; 86140; 87070; 87075; 87077; 87176; 87184; 87186; 87205; 87640; 88304; 88305; 88311; 93005; 93306; 93923; 93971; 94660; 97802; 97803; 99285; A9575; C1713; Q9957; Q9967; A4216; C8929; J2405

== ENCOUNTER 2024-06-30 11:44 | Outpatient (RCR) | payer BC, SELFPAY ==
[2024-06-30 13:00] LABS: Hematocrit 36.9 % (40-54); Hemoglobin 12.2 g/dL (13.0-16.5); Mean Corp Hgb Conc 33.1 g/dL (32-36); Mean Corpuscular Volume 90.9 fL (80-94); Mean Platelet Vol. 10.6 fl (6.2-12.0); Platelet Count 188 K/mm3 (150-450); RBC Distribution Width CV 14.2 % (11.6-14.6); RBC Distribution Width SD 47.6 fl (35.1-43.9); Red Blood Count 4.06 M/mm3 (4.6-6.2); White Blood Count 7.1 K/mm3 (4.4-11.0)
[2024-06-30 13:06] LABS: Erythrocyte Sedimentation Rate 19 mm/hr (0-20)
[2024-06-30 13:11] LABS: Anion Gap 5 (5-15); BUN 26 mg/dL (7-18); BUN/Creat Ratio 21.8 RATIO (10-20); Calcium,Total 8.6 mg/dL (8.5-10.1); Chloride 110 mmol/L (98-107); Creatinine, Serum 1.19 mg/dL (0.70-1.30); EST Glomerular Filtration Rate 67 mL/min (>60); Est Glom Filt Rate - Afr Amer 81 mL/min (>60); Glucose 148 mg/dL (74-106); Potassium 4.6 mmol/L (3.5-5.1); Sodium Level 137 mmol/L (136-145)
== END 2024-06-30 23:59 ==
LOC: LABSPEC 11:44
PROVIDERS: PCP Internal Medicine; Referring Provider Internal Medicine Infectious Disease; Visit Provider Internal Medicine Infectious Disease
DX: M86.9 Osteomyelitis, unspecified (principal)
CPT/HCPCS: 80048; 85027; 85652

== ENCOUNTER → 2024-07-07 | Outpatient (CLI) | payer BC, SELFPAY ==
[2024-07-07 10:54] LABS: Erythrocyte Sedimentation Rate 19 mm/hr (0-20)
[2024-07-07 10:55] LABS: Hematocrit 37.2 % (40-54); Hemoglobin 12.1 g/dL (13.0-16.5); Mean Corp Hgb Conc 32.5 g/dL (32-36); Mean Corpuscular Hgb 29.7 pg (27.0-32.0); Mean Corpuscular Volume 91.4 fL (80-94); Mean Platelet Vol. 10.7 fl (6.2-12.0); Platelet Count 181 K/mm3 (150-450); RBC Distribution Width CV 14.4 % (11.6-14.6); RBC Distribution Width SD 47.8 fl (35.1-43.9); Red Blood Count 4.07 M/mm3 (4.6-6.2); White Blood Count 6.5 K/mm3 (4.4-11.0)
[2024-07-07 11:05] LABS: Anion Gap 7 (5-15); BUN 26 mg/dL (7-18); BUN/Creat Ratio 21.1 RATIO (10-20); Calcium,Total 8.7 mg/dL (8.5-10.1); Chloride 107 mmol/L (98-107); Creatinine, Serum 1.23 mg/dL (0.70-1.30); EST Glomerular Filtration Rate 64 mL/min (>60); Est Glom Filt Rate - Afr Amer 78 mL/min (>60); Glucose 128 mg/dL (74-106); Potassium 4.5 mmol/L (3.5-5.1); Sodium Level 138 mmol/L (136-145)
== END | disposition home or self-care (01) ==
LOC: LABSPEC 10:27
PROVIDERS: PCP Internal Medicine; Referring Provider Internal Medicine Infectious Disease; Visit Provider Internal Medicine Infectious Disease
DX: M81.0 Age-related osteoporosis without current pathological fracture (principal)
CPT/HCPCS: 80048; 85027; 85652

== ENCOUNTER 2024-07-14 12:32 | Outpatient (RCR) | payer BC, SELFPAY ==
[2024-07-14 13:13] LABS: Anion Gap 8 (5-15); BUN 24 mg/dL (7-18); BUN/Creat Ratio 21.8 RATIO (10-20); Calcium,Total 8.9 mg/dL (8.5-10.1); Chloride 109 mmol/L (98-107); EST Glomerular Filtration Rate 73 mL/min (>60); Erythrocyte Sedimentation Rate 11 mm/hr (0-20); Est Glom Filt Rate - Afr Amer 88 mL/min (>60); Glucose 131 mg/dL (74-106); Potassium 4.4 mmol/L (3.5-5.1); Sodium Level 139 mmol/L (136-145)
[2024-07-14 13:15] LABS: Hemoglobin 12.3 g/dL (13.0-16.5); Mean Corp Hgb Conc 32.4 g/dL (32-36); Mean Corpuscular Hgb 29.9 pg (27.0-32.0); Mean Corpuscular Volume 92.2 fL (80-94); Mean Platelet Vol. 11.1 fl (6.2-12.0); Platelet Count 156 K/mm3 (150-450); RBC Distribution Width CV 14.3 % (11.6-14.6); RBC Distribution Width SD 48.3 fl (35.1-43.9); Red Blood Count 4.12 M/mm3 (4.6-6.2)
== END 2024-07-28 23:59 ==
LOC: LABSPEC 12:32
PROVIDERS: PCP Internal Medicine; Referring Provider Internal Medicine Infectious Disease; Visit Provider Internal Medicine Infectious Disease
DX: M86.9 Osteomyelitis, unspecified (principal)
CPT/HCPCS: 80048; 85027; 85652

== ENCOUNTER → 2024-07-21 | Outpatient (CLI) | payer BC, SELFPAY ==
[2024-07-21 13:53] LABS: Hematocrit 38.5 % (40-54); Hemoglobin 12.4 g/dL (13.0-16.5); Mean Corp Hgb Conc 32.2 g/dL (32-36); Mean Corpuscular Hgb 29.5 pg (27.0-32.0); Mean Corpuscular Volume 91.7 fL (80-94); Mean Platelet Vol. 11.3 fl (6.2-12.0); Platelet Count 152 K/mm3 (150-450); RBC Distribution Width CV 14.6 % (11.6-14.6); RBC Distribution Width SD 49.2 fl (35.1-43.9); White Blood Count 6.3 K/mm3 (4.4-11.0)
[2024-07-21 14:15] LABS: Erythrocyte Sedimentation Rate 14 mm/hr (0-20)
[2024-07-21 14:27] LABS: Anion Gap 8 (5-15); BUN 28 mg/dL (7-18); BUN/Creat Ratio 24.6 RATIO (10-20); Calcium,Total 9.2 mg/dL (8.5-10.1); Chloride 106 mmol/L (98-107); Creatinine, Serum 1.14 mg/dL (0.70-1.30); EST Glomerular Filtration Rate 70 mL/min (>60); Est Glom Filt Rate - Afr Amer 85 mL/min (>60); Glucose 167 mg/dL (74-106); Potassium 4.5 mmol/L (3.5-5.1); Sodium Level 136 mmol/L (136-145)
== END | disposition home or self-care (01) ==
LOC: LABSPEC 12:15
PROVIDERS: PCP Internal Medicine; Referring Provider Internal Medicine Infectious Disease; Visit Provider Internal Medicine Infectious Disease
DX: M86.8X7 Other osteomyelitis, ankle and foot (principal)
CPT/HCPCS: 80048; 85027; 85652

== ENCOUNTER → 2024-07-28 | Outpatient (CLI) | payer BC, SELFPAY ==
[2024-07-28 12:43] LABS: Erythrocyte Sedimentation Rate 8 mm/hr (0-20)
[2024-07-28 12:59] LABS: Anion Gap 11 (5-15); BUN 31 mg/dL (4-19); BUN/Creat Ratio 29.6 RATIO (10-20); Calcium 8.9 mg/dL (7.6-11.0); Carbon Dioxide 19.9 mmol/L (22.0-29.0); Chloride 106 mmol/L (96-108); Creatinine, Serum 1.04 mg/dL (0.70-1.20); EST Glomerular Filtration Rate 83 (>60); Glucose 164 mg/dL (70-99); Potassium 4.6 mmol/L (3.3-5.1); Sodium Level 137 mmol/L (133-145)
[2024-07-28 13:41] LABS: Hematocrit 37.9 % (40-54); Hemoglobin 12.4 g/dL (13.0-16.5); Mean Corp Hgb Conc 32.7 g/dL (32-36); Mean Corpuscular Volume 91.8 fL (80-94); Mean Platelet Vol. 10.9 fl (6.2-12.0); Platelet Count 151 K/mm3 (150-450); RBC Distribution Width CV 14.6 % (11.6-14.6); RBC Distribution Width SD 49.6 fl (35.1-43.9); Red Blood Count 4.13 M/mm3 (4.6-6.2); White Blood Count 6.1 K/mm3 (4.4-11.0)
== END | disposition home or self-care (01) ==
LOC: LABSPEC 12:05
PROVIDERS: PCP Internal Medicine; Referring Provider Internal Medicine Infectious Disease; Visit Provider Internal Medicine Infectious Disease
DX: M86.9 Osteomyelitis, unspecified (principal)
CPT/HCPCS: 80048; 85027; 85652

== ENCOUNTER → 2024-08-18 | Outpatient (CLI) | payer BC, SELFPAY ==
--- NOTE | 2024-08-18 17:05 | STRESSREP ---
Stress Test Report Pharmacologic myocardial perfusion stress test. 58-year-old man with a history of chest pain Resting EKG demonstrates sinus bradycardia with a rate of 56 bpm. Resting blood pressure is 110/60 mmHg. 0.4 mg of regadenoson was infused per usual protocol followed by rapid intravenous saline flush injection. Continuous EKG monitoring was performed. The maximum heart rate was 70 bpm which was 43% of max impacted heart rate the maximum workload was 1 metabolic equivalent. At rest there were no ST or T wave changes noted to suggest ischemia and at peak infusion nonspecific ST changes were noted which did not meet the criteria for ischemia. No clinical angina is noted. The final blood pressure was 112/66 mmHg. Myocardial perfusion protocol. 14.8 mCi of technetium 99m sestamibi was injected at rest. 0.4 mg of regadenoson was infused per usual protocol. At peak infusion 44.9 mCi of technetium 99m sestamibi was injected stress images were obtained stress and rest images were reconstructed and compared in the short axis vertical long and horizontal long axis. Gated images were also obtained. Perfusion SPECT analysis: Review of the stress images demonstrate normal uptake of tracer noted in all areas of the myocardium. The resting images similar demonstrated normal uptake of tracer noted in all areas of the myocardium. No areas of reversibility are noted to suggest ischemia and no previous infarct is noted. Gated SPECT analysis: The gated ejection fraction is 52%. Conclusion: Normal pharmacologic myocardial perfusion stress test. Preserved ejection fraction.
== END | disposition home or self-care (01) ==
PROVIDERS: PCP Internal Medicine; Referring Provider Physician Assistant Medical; Visit Provider Physician Assistant Medical
DX: Z95.5 Presence of coronary angioplasty implant and graft (principal); R07.9 Chest pain, unspecified
CPT/HCPCS: 78452; 93017; A9500; A4216; J2785

== ENCOUNTER → 2024-12-04 | Outpatient (CLI) | payer BC, SELFPAY | END | disposition home or self-care (01) | LOC: MRI 16:51 | PROVIDERS: PCP Internal Medicine; Referring Provider Podiatrist Foot & Ankle Surgery; Visit Provider Podiatrist Foot & Ankle Surgery | DX: L97.521 Non-pressure chronic ulcer of other part of left foot limited to breakdown of skin (principal); M86.172 Other acute osteomyelitis, left ankle and foot; M79.672 Pain in left foot | CPT/HCPCS: 73718 ==

== ENCOUNTER → 2024-12-25 | Outpatient (CLI) | payer BC, SELFPAY ==
[2024-12-25 12:44] LABS: Hematocrit 40.7 % (40-54); Hemoglobin 13.1 g/dL (13.0-16.5); Immature Granulocytes Count 0.030 X10^3/uL (0.0-0.0); Mean Corp Hgb Conc 32.2 g/dL (32-36); Mean Corpuscular Volume 92.9 fL (80-94); Mean Platelet Vol. 11.2 fl (6.2-12.0); NRBC Flagged by Analyzer 0 % (0-5); Platelet Count 158 K/mm3 (150-450); RBC Distribution Width CV 14.1 % (11.6-14.6); RBC Distribution Width SD 48.1 fl (35.1-43.9); Red Blood Count 4.38 M/mm3 (4.6-6.2); White Blood Count 8.0 K/mm3 (4.4-11.0)
[2024-12-25 13:39] LABS: CRP < 3.00 mg/L (0.0-3.0)
== END | disposition home or self-care (01) ==
PROVIDERS: PCP Internal Medicine
DX: M86.60 Other chronic osteomyelitis, unspecified site (principal)
CPT/HCPCS: 36415; 85025; 85652; 86140

== ENCOUNTER 2025-01-23 19:59 | Emergency (ER) | payer BC, SELFPAY ==
[2025-01-23 20:00] VITALS: BP 162/93; PULSE 74; RESP 18; TEMP 36.5; O2SAT 98; BMI 49.8
--- NOTE | 2025-01-23 20:32 | EKG12_ITS ---
Test Reason : DYSRHYTHMIA Blood Pressure : */* mmHG Vent. Rate : 76 BPM Atrial Rate : 76 BPM P-R Int : 180 ms QRS Dur : 94 ms QT Int : 416 ms P-R-T Axes : 84 29 39 degrees QTcB Int : 468 ms Normal sinus rhythm Cannot rule out Inferior infarct , age undetermined Abnormal ECG Confirmed by LAVERN SMITH ([id number]), proposal editor RAIN TOBIAS ([id number]) on 01/24/2025 1:50:21 PM Referred By: Confirmed By: LAVERN SMITH
[2025-01-23] MEDS: 0.9% Normal Saline (1000mL) 1,000 ML 999 ML IV (20:42)
[2025-01-23 20:47] LABS: Hematocrit 36.5 % (40-54); Hemoglobin 12.2 g/dL (13.0-16.5); Immature Granulocytes Count 0.090 X10^3/uL (0.0-0.0); Mean Corp Hgb Conc 33.4 g/dL (32-36); Mean Corpuscular Volume 91.7 fL (80-94); Mean Platelet Vol. 10.5 fl (6.2-12.0); NRBC Flagged by Analyzer 0 % (0-5); Platelet Count 235 K/mm3 (150-450); RBC Distribution Width CV 14.0 % (11.6-14.6); RBC Distribution Width SD 46.9 fl (35.1-43.9); Red Blood Count 3.98 M/mm3 (4.6-6.2); White Blood Count 11.1 K/mm3 (4.4-11.0)
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
[2025-01-23 21:00] LABS: Prothrombin Time (Protime)PT. 16.3 SECONDS (11.7-14.9)
[2025-01-23 21:01] LABS: Partial Thromboplast Time 26.5 Seconds (24.1-36.2)
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
[2025-01-23 21:13] LABS: AST(SGOT) 33 U/L (<=37); Alanine Aminotransfer ALT/SGPT 30 U/L (<=46); Albumin, Serum 3.9 g/dL (3.5-5.0); Alkaline Phosphatase 60 U/L (40-129); Anion Gap 19 (5-15); BUN 30 mg/dL (4-19); BUN/Creat Ratio 19.9 RATIO (10-20); Bilirubin, Direct 0.46 mg/dL (0.00-0.30); Calcium,Total 8.9 mg/dL (7.6-11.0); Carbon Dioxide 17.1 mmol/L (21.0-32.0); Chloride 101 mmol/L (98-108); Estimated Creatinine Clearance 82.55 ml/min (50-250); Globulin 2.7 g/dL (2.2-4.2); Glucose 132 mg/dL (70-99); Potassium 3.5 mmol/L (3.3-5.1)
--- NOTE | 2025-01-23 21:15 | CT_ITS ---
PROCEDURE: CT CHEST, ABD, PEL W/CONTRAST 01/23/2025 REASON FOR EXAM: [facility] TECHNIQUE: Chest, abdomen and pelvis CT with intravenous contrast. Coronal and Sagittal reconstruction series were provided. One or more dose reduction techniques were used (e.g., Automated exposure control, adjustment of the mA and/or kV according to patient size, use of iterative reconstruction technique. Study utilizes 100 cc of Isovue 370 intravenously FINDINGS: The lungs demonstrate no consolidation. No pneumothorax. No definite rib fracture. No scapular deformity. No thoracic compression deformity. No lumbar compression deformity. No sternal fracture. No aortic injury. No chest wall hematoma. Moderate coronary artery calcification. No pericardial fluid. No injury to the liver, spleen or pancreas. No renal injury, free-fluid or free air. There is some infiltration of the anterior perirenal fascia on the left which may indicate a small amount of retroperitoneal blood. There is also some bruising along the left lateral thigh. There is no pelvic fracture CT/CT Chest, Abd, Pel w/Contrast IMPRESSION: Bruising along the left lateral thigh with a small amount of infiltration of th e retroperitoneum with ill-defined fluid likely representing a small amount of posttraumatic retroperitoneal hemorrhage. No ot her posttraumatic findings Reading Location: [facility]
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
[2025-01-23 22:04] VITALS: BP 81/46; PULSE 67; RESP 14; O2SAT 96
[2025-01-23 22:38] VITALS: BP 91/57; PULSE 66; RESP 14; TEMP 37.1; O2SAT 90
[2025-01-23 22:53] VITALS: BP 95/52; PULSE 64; RESP 16; TEMP 37; O2SAT 97
[2025-01-23] MEDS: HUM PROTHROMBIN CPLX LANS IV (22:56)
[2025-01-23] MEDS: VIAFLEX IV (22:56)
[2025-01-23 23:12] VITALS: BP 86/52; PULSE 67; RESP 12; TEMP 36.3; O2SAT 99
[2025-01-23 23:56] VITALS: BP 108/45; PULSE 66; RESP 14; TEMP 36.3; O2SAT 99
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
--- NOTE | 2025-01-24 00:01 | ED.RN ---
report called to [facility], spoke with Tashi RAMIREZ.
== END 2025-01-23 23:58 | disposition short-term general hospital (02) ==
PROVIDERS: Emergency Provider Emergency Medicine; PCP Internal Medicine; Visit Provider Emergency Medicine
DX: K68.3 Retroperitoneal hematoma (principal); I48.92 Unspecified atrial flutter; E11.22 Type 2 diabetes mellitus with diabetic chronic kidney disease; Z79.4 Long term (current) use of insulin; G47.33 Obstructive sleep apnea (adult) (pediatric); I12.9 Hypertensive chronic kidney disease with stage 1 through stage 4 chronic kidney disease, or unspecified chronic kidney disease; N18.2 Chronic kidney disease, stage 2 (mild); I95.9 Hypotension, unspecified; I25.10 Atherosclerotic heart disease of native coronary artery without angina pectoris; E78.5 Hyperlipidemia, unspecified; Z79.01 Long term (current) use of anticoagulants; V49.40XA Driver injured in collision with unspecified motor vehicles in traffic accident, initial encounter; Y92.410 Unspecified street and highway as the place of occurrence of the external cause; I25.2 Old myocardial infarction; Z79.84 Long term (current) use of oral hypoglycemic drugs; Z79.899 Other long term (current) drug therapy; Z95.5 Presence of coronary angioplasty implant and graft; Z90.49 Acquired absence of other specified parts of digestive tract; M79.642 Pain in left hand; Z23 Encounter for immunization
CPT/HCPCS: 36430; 70450; 71260; 72125; 73080; 73090; 73130; 74177; 80048; 80076; 85025; 85610; 85730; 86850; 86900; 86901; 86920; 90471; 90715; 93005; 96361; 96365; 96375; 99285; P9016; Q9967; A4216; J2405; J7165

== ENCOUNTER → 2025-03-16 | Outpatient (CLI) | payer BC, SELFPAY | END | disposition home or self-care (01) | LOC: PSN 11:55 | PROVIDERS: PCP Internal Medicine; Referring Provider Nurse Practitioner Gerontology; Visit Provider Nurse Practitioner Gerontology | DX: I48.0 Paroxysmal atrial fibrillation (principal) | CPT/HCPCS: 93225; 93226 ==